=== PATIENT | male | born 1975 | race Caucasian/White ===

== ENCOUNTER 2016-09-25 23:59 | Inpatient (IN) | payer SELFPAY ==
[~2016-09-25] VITALS: Ht 182.9 cm; Wt 80.4 kg
[2016-09-26] VITALS (25 sets, daily range): BP systolic 95–108; BP diastolic 62–79; PULSE 64–110; RESP 16–18; TEMP 98.5–99.9; O2SAT 95–98
[2016-09-26] MEDS ORDERED: SODIUM CHLOR 0.9% 1000 ML INJ 1,000 ML IV ONE ×2 (01:08)
[2016-09-26] MEDS ORDERED: SODIUM CHLOR 0.9% 1000 ML INJ 700 ML IV ONE (01:08)
--- NOTE | 2016-09-26 01:25 | PD ---
HPI . Chills Chief Complaint: Chest Pain Time Seen by Provider: 01:06 Travel History International Travel<30 days: No Contact w/Intl Traveler<30days: No Traveled to known affect area: No History of Present Illness HPI Patient presents with multiple complaints including chest pain, back pain, abdominal pain and chills. He states that he has had symptoms for about 2 weeks and that the symptoms have waxed and waned. 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 He reports that he underwent aortic valve replacement in [place] in March. He states that he had been doing well until 2 weeks ago when symptoms recurred. He states that he had been a drug abuser but has not used for 3 years. He reports that symptoms are exacerbated by eating. He reports no relieving factors. He states that his symptoms are severe. 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 PFSH Past Medical History Bipolar Disorder: Yes Anxiety: Yes Diminished Hearing: No Hepatitis: Yes (c) Medical other: Yes (chronic back pain.) Schizophrenia: Yes Tetanus Vaccination: Unknown Influenza Vaccination: Yes Past Surgical History Thoracic Surgery: Yes (aortic valvue replacement.) Social History Alcohol Use: No Tobacco Use: Yes Substance Use: No (in the past.) Allergies-Medications (Allergen,Severity, Reaction): Coded Allergies: No Known Allergies (Unverified , 09/26/16) Review of Systems Except as stated in HPI: all other systems reviewed are Neg General / Constitutional: Positive: Chills Cardiovascular: Positive: Chest Pain or Discomfort Gastrointestinal: Positive: Abdominal Pain, Loss of Appetite, No: Nausea, Vomiting, Diarrhea Musculoskeletal: Positive: Pain (back pain) Physical Exam Narrative GENERAL: Patient speaks in a whispering, stuttering voice SKIN: Warm and dry. HEAD: Atraumatic. Normocephalic. EYES: Pupils equal and round. Extraocular movements are intact. ENT: No nasal bleeding or discharge. Mucous membranes pink and moist. NECK: Trachea midline. Neck is supple. CARDIOVASCULAR: Regular rate and rhythm. Heart sounds are normal. I did not hear a murmur. RESPIRATORY: No accessory muscle use. Lungs sound clear with good air movement throughout. Chest wall has a healed, relatively minimal surgical scar. GASTROINTESTINAL: Abdomen soft. Diffuse tenderness. Nondistended. MUSCULOSKELETAL: No obvious deformities. No edema. NEUROLOGICAL: Awake and alert. No obvious cranial nerve deficits. Motor grossly within normal limits. Normal speech. PSYCHIATRIC: Appropriate mood and affect; insight and judgment normal. Data Data Last Documented VS Vital Signs Date Time Temp Pulse Resp B/P Pulse Ox O2 Delivery O2 Flow Rate FiO2 09/26/16 00:23 98 24 93 Room Air 09/26/16 00:02 98.5 100/67 Orders Complete Blood Count With Diff (09/26/16 01:06) Comprehensive Metabolic Panel (09/26/16 01:06) Prothrombin Time / Inr (Pt) (09/26/16 01:06) Lactic Acid Sepsis Protocol (09/26/16 01:06) Lipase (09/26/16 01:06) Ckmb (Isoenzyme) Profile (09/26/16 01:06) Troponin I (09/26/16 01:06) Urinalysis - C+S If Indicated (09/26/16 01:06) Blood Culture (09/26/16 01:06) Chest, Single Ap (09/26/16 01:06) Blood Glucose (09/26/16 01:06) Ecg Monitoring (09/26/16 01:06) Iv Access Insert/Monitor (09/26/16 01:06) Oximetry (09/26/16 01:06) Oxygen Administration (09/26/16 01:06) Sodium Chlor 0.9% 1000 Ml Inj (Ns 1000 M (09/26/16 01:08) Sodium Chlor 0.9% 1000 Ml Inj (Ns 1000 M (09/26/16 01:08) Sodium Chlor 0.9% 1000 Ml Inj (Ns 1000 M (09/26/16 01:08) Drug Screen, Random Urine (09/26/16 01:10) Urine Culture (09/26/16 01:20) Blood Culture (09/26/16 03:51) Consult Cardiology (09/26/16 ) Admit Order (Ed Use Only) (09/26/16 ) Piperacil-Tazo 4.5 Gm Premix (Zosyn 4.5 (09/26/16 04:15) Vancomycin Inj (Vancomycin Inj) (09/26/16 04:15) Labs Laboratory Tests Test 09/26/16 09/26/16 01:00 01:20 White Blood Count 16.9 TH/MM3 Red Blood Count 5.16 MIL/MM3 Hemoglobin 12.5 GM/DL Hematocrit 38.6 % Mean Corpuscular Volume 74.9 FL Mean Corpuscular Hemoglobin 24.2 PG Mean Corpuscular Hemoglobin 32.4 % Concent Red Cell Distribution Width 15.5 % Platelet Count 312 TH/MM3 Mean Platelet Volume 7.5 FL Neutrophils (%) (Auto) 85.9 % Lymphocytes (%) (Auto) 8.4 % Monocytes (%) (Auto) 5.1 % Eosinophils (%) (Auto) 0.3 % Basophils (%) (Auto) 0.3 % Neutrophils # (Auto) 14.5 TH/MM3 Lymphocytes # (Auto) 1.4 TH/MM3 Monocytes # (Auto) 0.9 TH/MM3 Eosinophils # (Auto) 0.1 TH/MM3 Basophils # (Auto) 0.1 TH/MM3 CBC Comment AUTO DIFF Differential Comment AUTO DIFF CONFIRMED Platelet Estimate NORMAL Platelet Morphology Comment NORMAL Target Cells 1+ Prothrombin Time 12.0 SEC Prothromb Time International 1.1 RATIO Ratio Sodium Level 134 MEQ/L Potassium Level 4.3 MEQ/L Chloride Level 98 MEQ/L Carbon Dioxide Level 29.0 MEQ/L Anion Gap 7 MEQ/L Blood Urea Nitrogen 12 MG/DL Creatinine 1.06 MG/DL Estimat Glomerular Filtration 77 ML/MIN Rate Random Glucose 135 MG/DL Lactic Acid Level 1.6 mmol/L Calcium Level 9.7 MG/DL Total Bilirubin 0.5 MG/DL Aspartate Amino Transf 19 U/L (AST/SGOT) Alanine Aminotransferase 20 U/L (ALT/SGPT) Alkaline Phosphatase 91 U/L Total Creatine Kinase 47 U/L Troponin I 0.15 NG/ML Total Protein 7.9 GM/DL Albumin 2.9 GM/DL Lipase 69 U/L Urine Color YELLOW Urine Turbidity HAZY Urine pH 6.5 Urine Specific [place] 1.020 Urine Protein 30 mg/dL Urine Glucose (UA) NEG mg/dL Urine Ketones NEG mg/dL Urine Occult Blood MOD Urine Nitrite NEG Urine Bilirubin NEG Urine Urobilinogen LESS THAN 2.0 MG/DL Urine Leukocyte Esterase NEG Urine RBC 50 /hpf Urine WBC 5 /hpf Urine Squamous Epithelial <1 /hpf Cells Urine Amorphous Sediment RARE Urine Bacteria OCC /hpf Microscopic Urinalysis Comment CATH-CULTURE IND Urine Opiates Screen NEG Urine Barbiturates Screen NEG Urine Amphetamines Screen NEG Urine Benzodiazepines Screen NEG Urine Cocaine Screen NEG Urine Cannabinoids Screen NEG MDM Medical Decision Making Medical Screen Exam Complete: Yes Emergency Medical Condition: Yes Medical Record Reviewed: Yes (patient has not been seen here before.) Differential Diagnosis Differential diagnosis includes sepsis, SBE, pneumonia, attention or drug- seeking behavior. Narrative Course Patient presents with multiple complaints including chest pain, abdominal pain, back pain, chills. He reports a history of IV drug abuse but states that he has been clean for 3 years. He further reports a history of SBE and is status post aortic valve replacement due to SBE. CBC & BMP Diagram 09/26/16 01:00 Lactic acid is 1.6. Troponin is 0.15. Tox screen is negative. UA is negative. Chest x-ray shows by basilar atelectasis. He has some mild cardiomegaly. Median sternotomy wires are seen. A prosthetic valve is not clearly visible. Sepsis Criteria SIRS Criteria (2 or more): Heart rate over 90, RR > 20 or PaCO2 < 32, WBC > 10462, < 4000 or > 10% bands Physician Communication Physician Communication Dr. Light and Dr. Trinh. Dr. Trinh's team will see the patient in the morning. Diagnosis Primary Impression: SIRS (systemic inflammatory response syndrome) Additional Impression: Elevated troponin Admitting Information Admitting Physician Requests: Admit Condition: Stable Chichi Garrison MD Sep 26, 2016 01:25
[2016-09-26 01:57] LABS: AUTOMATED NEUTROPHIL # 14.5 TH/MM3 (1.8-7.7); BASOPHIL # 0.1 TH/MM3 (0-0.2); BASOPHIL % 0.3 % (0.0-2.0); EOSINOPHIL # 0.1 TH/MM3 (0-0.4); EOSINOPHIL % 0.3 % (0.0-4.0); HEMATOCRIT 38.6 % (39.0-51.0); LYMPH % 8.4 % (9.0-44.0); LYMPHOCYTE # 1.4 TH/MM3 (1.0-4.8); MEAN CELL VOLUME 74.9 FL (80.0-100.0); MEAN CORPUSCULAR HEMOGLOBIN 24.2 PG (27.0-34.0); MEAN CORPUSCULAR HGB CONC 32.4 % (32.0-36.0); MONO % 5.1 % (0.0-8.0); NEUT % 85.9 % (16.0-70.0); PLATELET COUNT 312 TH/MM3 (150-450); RED BLOOD COUNT 5.16 MIL/MM3 (4.50-5.90); RED CELL DISTRIBUTION WIDTH 15.5 % (11.6-17.2); WHITE BLOOD COUNT 16.9 TH/MM3 (4.0-11.0)
[2016-09-26 01:58] LABS: INTERNATIONAL NORMALIZED RATIO 1.1 RATIO
[2016-09-26 02:02] LABS: BACTERIA, URINE OCC /hpf; BLOOD, URINE MOD (NEG); COMMENT (UR) CATH-CULTURE IND; CULTURE IF INDICATED CATH CULTURE IND; GLUCOSE,URINE NEG (NEG); KETONE, URINE NEG (NEG); NITRITE,URINE NEG (NEG); PH, URINE 6.5 (5.0-8.5); SQUAMOUS EPITHELIAL CELL URINE <1 /hpf (0-5); URINE COLOR YELLOW (YELLW/STRAW)
[2016-09-26 02:03] LABS: HEMO FLAGS AUTO DIFF
[2016-09-26 02:17] LABS: ALT (GPT) 20 U/L (12-78); ANION GAP 7 MEQ/L (5-15); AST (GOT) 19 U/L (15-37); BLOOD UREA NITROGEN 12 MG/DL (7-18); CHLORIDE 98 MEQ/L (98-107); GLOMERULAR FILTRATION RATE 77 ML/MIN (>89); POTASSIUM 4.3 MEQ/L (3.5-5.1); SODIUM (NA) 134 MEQ/L (136-145)
[2016-09-26 02:31] LABS: ALKALINE PHOSPHATASE 91 U/L (45-117); TOTAL BILIRUBIN ADULT 0.5 MG/DL (0.2-1.0)
--- NOTE | 2016-09-26 02:31 | RADRPT ---
EXAM DATE/TIME: 09/26/2016 01:11 [facility] COMPARISON: No previous studies available for comparison. INDICATIONS : Chest pain. MEDICAL HISTORY : Hepatitis C. SURGICAL HISTORY : Aortic valve replacment. ENCOUNTER: Initial ACUITY: 3 weeks PAIN SCORE: 7/10 LOCATION: Bilateral chest FINDINGS: The cardiac silhouette is enlarged in transverse diameter. Median sternotomy wires are present. There is bibasilar atelectasis. No pleural effusions are identified. CONCLUSION: 1. Bibasilar atelectasis left greater than right. Gordon Odell MD on September 26, 2016 at 2:29 Board Certified Radiologist. This report was verified electronically.
[2016-09-26 02:38] LABS: CREATINE KINASE 47 U/L (39-308)
[2016-09-26 02:45] LABS: AMPHETAMINE, URINE NEG (NEG); BARBITURATES, URINE NEG (NEG); COCAINE, URINE NEG (NEG)
[2016-09-26 03:28] LABS: SCAN/DIFF AUTO DIFF CONFIRMED
[2016-09-26 03:30] LABS: PLATELET ESTIMATE SMEAR NORMAL (NORMAL); TARGET CELLS 1+ (NORMAL)
[2016-09-26 03:31] LABS: PLATELET MORPHOLOGY NORMAL (NORMAL)
[2016-09-26] MEDS ORDERED: VANCOMYCIN INJ 1,000 MG in SODIUM CHLOR 0.9% 250 ML INJ 250 ML IV ONE (04:15)
[2016-09-26] MEDS ORDERED: BISACODYL 10 MG SUPP RECTAL PRN (04:15)
[2016-09-26] MEDS ORDERED: ONDANSETRON HCL 4 MG/2 ML VIAL IVP PRN (04:15)
[2016-09-26] MEDS ORDERED: PIPERACIL-TAZO 4.5 GM PREMIX 100 ML IV ONE (04:15)
[2016-09-26] MEDS ORDERED: Vancomycin Consult Pharmacy 1 EA OTHER SCH (04:15)
[2016-09-26] MEDS ORDERED: MORPHINE SULFATE 4 MG/ML INJ IV PRN (04:15)
[2016-09-26] MEDS ORDERED: NITROGLYCERIN 2% OINT 1 GM PACKET TOPICAL PRN (04:45)
[2016-09-26] MEDS ORDERED: PANTOPRAZOLE SODIUM 40 MG VIAL IV PUSH ONE (04:45)
[2016-09-26] MEDS: SODIUM CHLOR 0.9% 1000 ML INJ 1,000 ML IV SCH (04:46)
--- NOTE | 2016-09-26 04:57 | HHI.HP ---
[facility] Service [facility] Primary Care Physician No Primary Care Physician Admission Diagnosis chest pain, r/o PVE Diagnoses: (1) Elevated troponin Diagnosis: Principal (2) Dehydration Diagnosis: Principal (3) Hematuria Diagnosis: Principal (4) Leukocytosis Diagnosis: Principal (5) Tobacco abuse Diagnosis: Principal Travel History International Travel<30 Days: No Contact w/Intl Traveler <30 Da: No Traveled to Known Affected Are: No History of Present Illness This is a 41-year-old male with a PMH of Anxiety, Schizophrenia/Bipolar Disorder , Hepatitis C, h/o IVDU and h/o Endocarditis s/p AVR who presented to the ER w / complaints of epigastric/chest pain and SOB x2 wks. States he had similar episode in March 2016 when he was admitted in [place], [place] where he lives and diagnosed w/ Endocarditis. Underwent AVR at that time, no complications from surgery. Reports in [facility] visiting step-father. Plans to return to [place], however does not follow w/ [facility], only PCP. States symptoms have been intermittent x2 wks, mostly epigastric and right-sided chest pain w/ associated chest tightness. Denies recent IVDU. On arrival, BP 100/67, HR 100, O2 sat 98 % on RA, Afebrile. WBC 16.9. GFR 77. Lactic Acid 1.6. Troponin 0.15. INR 1.1. Urine Drug Screen negative. UA negative for UTI, positive for hematuria. CXR with bibasilar atelectasis left greater than right. Review of Systems Except as stated in HPI: all other systems reviewed are Neg ROS: 14 point review of systems otherwise negative. Past Family Social History Past Medical History PMH: Anxiety, Schizophrenia/Bipolar Disorder, Hepatitis C, h/o IVDU and h/o Endocarditis s/p AVR Past Surgical History PAST SURGICAL HISTORY: Aortic Valve Replacement Allergies: Coded Allergies: No Known Allergies (Unverified , 09/26/16) Family History PAST FAMILY HISTORY: Reviewed. No h/o DM or CAD Social History PAST SOCIAL HISTORY: Negative for alcohol. Positive for tobacco. History of IVDU, however quit 3 years ago. Physical Exam Vital Signs Vital Signs Date Time Temp Pulse Resp B/P Pulse Ox O2 Delivery O2 Flow Rate FiO2 09/26/16 00:23 98 24 93 Room Air 09/26/16 00:02 98.5 100 16 100/67 98 Room Air Physical Exam PE: GENERAL: Middle-aged white male in no acute distress, however mildly anxious/ tearful. HEENT: PERRLA, EOMI. No scleral icterus or conjunctival pallor. No lid lag or facial droop. CARDIOVASCULAR: Regular rate and rhythm. No obvious murmurs to auscultation. No chest tenderness to palpation. RESPIRATORY: No obvious rhonchi or wheezing. Clear to auscultation. Breath sounds equal bilaterally. GASTROINTESTINAL: Abdomen soft, non-tender, nondistended. BS normal. MUSCULOSKELETAL: Extremities without clubbing, cyanosis, or edema. No obvious deformities. NEUROLOGICAL: Awake, alert and oriented x4. No focal neurologic deficits. Moving both upper and lower extremities spontaneously. Laboratory Laboratory Tests Test 09/26/16 09/26/16 01:00 01:20 White Blood Count 16.9 Red Blood Count 5.16 Hemoglobin 12.5 Hematocrit 38.6 Mean Corpuscular Volume 74.9 Mean Corpuscular Hemoglobin 24.2 Mean Corpuscular Hemoglobin 32.4 Concent Red Cell Distribution Width 15.5 Platelet Count 312 Mean Platelet Volume 7.5 Neutrophils (%) (Auto) 85.9 Lymphocytes (%) (Auto) 8.4 Monocytes (%) (Auto) 5.1 Eosinophils (%) (Auto) 0.3 Basophils (%) (Auto) 0.3 Neutrophils # (Auto) 14.5 Lymphocytes # (Auto) 1.4 Monocytes # (Auto) 0.9 Eosinophils # (Auto) 0.1 Basophils # (Auto) 0.1 CBC Comment AUTO DIFF Differential Comment AUTO DIFF CONFIRMED Platelet Estimate NORMAL Platelet Morphology Comment NORMAL Target Cells 1+ Prothrombin Time 12.0 Prothromb Time International 1.1 Ratio Sodium Level 134 Potassium Level 4.3 Chloride Level 98 Carbon Dioxide Level 29.0 Anion Gap 7 Blood Urea Nitrogen 12 Creatinine 1.06 Estimat Glomerular Filtration 77 Rate Random Glucose 135 Lactic Acid Level 1.6 Calcium Level 9.7 Total Bilirubin 0.5 Aspartate Amino Transf 19 (AST/SGOT) Alanine Aminotransferase 20 (ALT/SGPT) Alkaline Phosphatase 91 Total Creatine Kinase 47 Troponin I 0.15 Total Protein 7.9 Albumin 2.9 Lipase 69 Urine Color YELLOW Urine Turbidity HAZY Urine pH 6.5 Urine Specific [place] 1.020 Urine Protein 30 Urine Glucose (UA) NEG Urine Ketones NEG Urine Occult Blood MOD Urine Nitrite NEG Urine Bilirubin NEG Urine Urobilinogen LESS THAN 2.0 Urine Leukocyte Esterase NEG Urine RBC 50 Urine WBC 5 Urine Squamous Epithelial <1 Cells Urine Amorphous Sediment RARE Urine Bacteria OCC Microscopic Urinalysis Comment CATH-CULTURE IND Urine Opiates Screen NEG Urine Barbiturates Screen NEG Urine Amphetamines Screen NEG Urine Benzodiazepines Screen NEG Urine Cocaine Screen NEG Urine Cannabinoids Screen NEG Date/Time Procedure Status Source Growth 09/26/16 01:20 Urine Culture Received Urine Catheterized Urine Pending 09/26/16 01:00 Aerobic Blood Culture Received Blood Peripheral Pending 09/26/16 01:00 Anaerobic Blood Culture Received Blood Peripheral Pending Result Diagram: 09/26/169909/26/1699 Assessment and Plan Problem List: (1) Elevated troponin ICD Code: R74.8 Status: Acute (2) Dehydration ICD Code: E86.0 Status: Acute (3) Leukocytosis ICD Code: D72.829 Status: Acute (4) Hematuria ICD Code: R31.9 Status: Acute (5) Tobacco abuse ICD Code: Z72.0 Status: Acute Assessment and Plan A/P: 1. Elevated Trop: Trop 0.15, complains of chest pain x2 wks w/ associated SOB. H/o AVR secondary to Endocarditis from IVDU in March. Will admit to [facility] , Telemetry, check serial cardiac enzymes for trend. Cardiology consulted by ER physician. Resume home Metoprolol, Lisinopril and ASA. 2. Leukocytosis: WBC 16.9, afebrile. CXR w/ bibasilar atelectasis, no obvious infiltrate, images reviewed by me. H/o Endocarditis, concern for recurrence, s/p Blood Cultures in ER, will follow up cultures. Vanc/Zosyn in ER , will continue w/ IV Abx. Repeat labs in am. 3. Dehydration: GFR 77, BUN/Creatinine normal, U/a negative for LE, IVF for hydration, repeat labs in am. 4. Hematuria: U/a w/ hematuria, mild bacteriuria, follow up Urine Culture. IVF for hydration, continue w/ IV Abx as above. Pt instructed to follow up w/ PCP when he returns to [place] for repeat U/a to eval for persistent hematuria. 5. Tobacco Abuse: Pt counselled. Ativan prn. No NicoDerm to avoid vasoconstriction. 6. DVT Prophylaxis: SCD/teds. 7. Social work for DC planning as needed. 8. Case discussed at length the ER physician. Physician Certification 2 Midnight Certification Type: Admission for Inpatient Services Order for Inpatient Services The services are ordered in accordance with Medicare regulations or non- Medicare payer requirements, as applicable. In the case of services not specified as inpatient-only, they are appropriately provided as inpatient services in accordance with the 2-midnight benchmark. Estimated LOS (days): 2 days is the estimated time the patient will need to remain in the hospital, assuming treatment plan goals are met and no additional complications. Post-Hospital Plan: Not yet determined Ritu Light MD Sep 26, 2016 04:57
[2016-09-26] MEDS ORDERED: RESP: ALBUTEROL 2.5 MG/IPRATROPIUM 0.5 MG NEB (PRN) NEB (05:00)
[2016-09-26] MEDS ORDERED: LISI2.5T3 PO (06:28)
[2016-09-26] MEDS ORDERED: GABA300C5 PO (06:30)
[2016-09-26] MEDS ORDERED: METO25TA3 PO (06:30)
[2016-09-26] MEDS ORDERED: TRAZ50TA12 PO (06:30)
[2016-09-26] MEDS: ASPIRIN EC 81 MG TABEC PO SCH (08:07)
[2016-09-26] MEDS: SODIUM CHLORIDE 0.9% FLUSH 10 ML FLUSH IV FLUSH SCH ×2 (08:08→20:00)
[2016-09-26] MEDS: LISINOPRIL 5 MG TAB PO SCH (08:08)
[2016-09-26] MEDS: METOPROLOL TARTRATE 25 MG TAB PO SCH ×2 (08:08→20:00)
[2016-09-26] MEDS: ACETAMINOPHEN/HYDROcodone 325 MG/5 MG TAB PO PRN ×3 (08:16→19:59)
[2016-09-26] MEDS ORDERED: DIATRIZOATE MEGLUM/DIATRIZOATE SOD 9 ML CUP PO ONE (09:15)
--- NOTE | 2016-09-26 09:53 | MB ---
cc: EVELIO GUTIERREZ MD DATE OF CONSULTATION: 09/26/2016 REASON FOR CONSULTATION Rule out endocarditis. HISTORY OF PRESENT ILLNESS The patient is a pleasant 41 year-old gentleman with a history of anxiety, schizophrenia, bipolar disorder, Hep C and remote IVDU but the patient says he has not done IV drugs in over 3 years. He also has a history of endocarditis with a relatively recent aortic valve replacement done last year due to endocarditis. He has been complaining of fever then chills as well as severe abdominal pain over the last 2 weeks, so he presented to the emergency department where he was found to have an elevated white count. Because of his history I was consulted. He does have chest discomfort at his sternal site as well as frequent episodes of lightheadedness and dizziness and fevers and chills. PAST MEDICAL HISTORY As above. CURRENT MEDICATIONS 1. Protonix. 2. Zosyn. 3. Lopressor 25 mg q. 12. 4. Lisinopril 2.5 mg daily. 5. Aspirin 81 mg daily. ALLERGIES NO KNOWN DRUG ALLERGIES. PHYSICAL EXAMINATION VITAL SIGNS: Temperature 99.9, pulse 90 down from 108, respiratory rate 18, BP 101/73, sating 96 on room air. GENERAL: A pleasant thin gentleman in no distress. NECK: No JVD. LUNGS: Clear to auscultation bilaterally. CARDIOVASCULAR: Regular rate and rhythm. A soft systolic murmur is appreciated. ABDOMEN: Abdomen is notably tender with some guarding and rebound present particularly in the right lower quadrant and epigastric area. EXTREMITIES: No edema. LABORATORY DATA Sodium 134, potassium 4.3, chloride 98, bicarb 29.0, BUN 12, creatinine 1.06, glucose 135, white count 16.9, hematocrit 38.6, platelets 312. EKG shows sinus rhythm with nonspecific ST changes. Troponin is in the indeterminate range of 0.15 with a normal total CPK. IMPRESSION 1. Systemic signs of infection with abdominal pain. Though the patient does have a history of endocarditis and certainly would be at risk for recurrent prosthetic valve endocarditis, I am more concerned with his acute abdomen. I have ordered a stat CT of the abdomen and pelvis with oral and IV contrast to rule out an acute abdominal process such as appendicitis. I had planned on performing a BEBETO today but given what appears to be an acute abdomen, I will hold off on this for now and have him undergo a routine transthoracic echocardiogram to get a sense on any obvious valvular infection which may be there. It is also not out of the question that he could have an embolic phenomena from endocarditis affecting his abdomen. Further recommendations will be based on his imaging tests. Thank you again for the opportunity to participate in this patient's care. MD STERLING Byrd/STEVENSON /9:04 AM /9:42 AM
[2016-09-26] MEDS ORDERED: IOHEXOL 350 MG/ML 10 ML VIAL (for RAD DIAG) IV ONE (09:59)
--- NOTE | 2016-09-26 10:58 | RADRPT ---
EXAM DATE/TIME: 09/26/2016 09:32 [facility] COMPARISON: No previous studies available for comparison. INDICATIONS : Lower abdomen pain. IV CONTRAST: 75 cc Omnipaque 350 (iohexol) IV ORAL CONTRAST: No oral contrast ingested. RADIATION DOSE: 5.54 CTDIvol (mGy) MEDICAL HISTORY : Hepatitis C. SURGICAL HISTORY : None. ENCOUNTER: Initial ACUITY: 1 day PAIN SCALE: 4/10 LOCATION: Bilateral lower quadrant TECHNIQUE: Volumetric scanning was performed using a multi-row detector CT scanner. The data was post processed with a variety of visualization algorithms including full volume maximum intensity projection, multi -planar sliding thin slab reformation, curved planar reformation, and surface rendering techniques. Using automated exposure control and adjustment of the mA and/or kV according to patient size, radiat ion dose was kept as low as reasonably achievable to obtain optimal diagnostic quality images. FINDINGS: ABDOMINAL AORTA: The lumen is smooth without significant narrowing or aneurismal dilation. The proximal celiac and sup erior mesenteric arteries are patent and normal in diameter. No definite filling defects are present to suggest an embolic episode. There are 2 renal arteries on the right and a solitary one on the left and completely patent. BIFURCATION: Normal. RIGHT PELVIS: The right common iliac, internal iliac and external iliac vessels are patent without luminal irregula rity. LEFT PELVIS: The left common iliac, internal iliac and external iliac vessels are patent and without luminal irreg ularity. There is left lung base infiltrate may represent pneumonia. Slight atelectasis is present in the right lung base. The liver, spleen, pancreas, kidneys, adrenals are unremarkable. The appendix is no t clearly visualized, however no definite signs of appendicitis is seen. CONCLUSION: Left lung base infiltrate may represent pneumonia. Matthieu Peña MD on September 26, 2016 at 10:55 Board Certified Radiologist. This report was verified electronically.
[2016-09-26] MEDS: PIPERACIL-TAZO 4.5 GM PREMIX 100 ML IV SCH ×3 (12:11→22:00)
[2016-09-26] MEDS: VANCOMYCIN INJ 1,500 MG in SODIUM CHLORID 0.9% 500 ML INJ 500 ML IV SCH (13:55)
--- NOTE | 2016-09-26 15:02 | EC ---
Study Study Date:09/26/2016 STUDY CONCLUSIONS SUMMARY - Left ventricle: The cavity size was normal. Wall thickness was normal. Systolic function was normal. The estimated ejection fraction was in the range of 55% to 60%. Wall motion was normal; there were no regional wall motion abnormalities. - Aortic valve: A bioprosthesis was present. No evidence of vegetation. Valve area: 1.35cm^2(VTI). Valve area: 1.38cm^2 (Vmax). - Mitral valve: No evidence of vegetation. Mild to moderate regurgitation. - Tricuspid valve: No evidence of vegetation. Mild regurgitation. - Pulmonary arteries: PA peak pressure: 44mm Hg (S). - Pericardium, extracardiac: A small, loculated pericardial effusion was identified posterior to the heart. There was no evidence of hemodynamic compromise. If LV function is below 40, please consider prescribing an ACEI or ARB or document rationale for non-use. PROCEDURE DATA STUDY STATUS: Elective. Procedure: Transthoracic echocardiography. Image quality was good. Scanning was performed from the parasternal, apical, and subcostal acoustic windows. Study completion: The patient tolerated the procedure well. Transthoracic echocardiography. M-mode, complete 2D, complete spectral Doppler, and color Doppler. Height: Height: 72in. Weight: Weight: 186.6lb. Body mass index: BMI: 25.4kg/m^2. Body surface area: BSA: 2.07m^2. Patient status: Inpatient. CARDIAC ANATOMY LEFT VENTRICLE: The cavity size was normal. Wall thickness was normal. Systolic function was normal. The estimated ejection fraction was in the range of 55% to 60%. Wall motion was normal; there were no regional wall motion abnormalities. AORTIC VALVE: Well visualized. Normal thickness leaflets. A bioprosthesis was present. No evidence of vegetation. Doppler: Transvalvular velocity was within the normal range. There was no stenosis. No regurgitation. Valve area: 1.35cm^2(VTI). Indexed valve area: 0.65cm^2/m^2 (VTI). Valve area: 1.38cm^2 (Vmax). Indexed valve area: 0.67cm^2/m^2 (Vmax). Mean gradient: 27mm Hg (S). Peak gradient: 42mm Hg (S). AORTA: Aortic root: The aortic root was normal in size. MITRAL VALVE: Structurally normal valve. No evidence of vegetation. Doppler: Transvalvular velocity was within the normal range. There was no evidence for stenosis. Mild to moderate regurgitation. Peak gradient: 5mm Hg (D). LEFT ATRIUM: The atrium was normal in size. RIGHT VENTRICLE: The cavity size was normal. Wall thickness was normal. PULMONIC VALVE: Doppler: Transvalvular velocity was within the normal range. There was no evidence for stenosis. No regurgitation. TRICUSPID VALVE: Structurally normal valve. No evidence of vegetation. Doppler: Transvalvular velocity was within the normal range. Mild regurgitation. PULMONARY ARTERY: The main pulmonary artery was normal-sized. Systolic pressure was within the normal range. RIGHT ATRIUM: The atrium was normal in size. PERICARDIUM: A small, loculated pericardial effusion was identified posterior to the heart. There was no evidence of hemodynamic compromise. SYSTEMIC VEINS: Inferior vena cava: The vessel was normal in size. Patient weight: 186.6lb _Ejection fraction:_ 65-75% _Fractional shortening:_ 32% up to 5Kg 5-11.5Kg 11.6-22.9Kg 23-45Kg 45-57Kg Aortic Root 7-13 <17 13-22 17-27 17-27 LA diam 6-13 <23 24-38 33-47 37-40 RVID 10-17 7-15 7-15 7-18 8-17 LVIDd 12-22 <32 24-38 33-47 37-40 LVPW 2-4 3-6 5-7 6-8 7-8 IVS 2-4 3-6 5-7 6-8 7-8 BASIC MEASUREMENTS ADULT NORMAL Left ventricle LV internal dimension, ED, chordal 50.2 mm 43-52 level, PLAX LV internal dimension, ES, chordal 37.5 mm 23-38 level, PLAX Fractional shortening, chordal level, *25 % >29 PLAX LV posterior wall thickness, ED 7.23 mm IVS/LVPW ratio, ED 0.98 <1.3 Ventricular septum Septal thickness, ED 7.12 mm Aorta Root diameter, ED 29 mm Right ventricle RV internal dimension, ED, PLAX 34.3 mm 19-38 DOPPLER MEASUREMENTS ADULT NORMAL Main pulmonary artery Pressure, S *44 mm Hg =30 Aortic valve Peak velocity, S 335 cm/s Mean velocity, S 245 cm/s VTI, S 68 cm Mean gradient, S 27 mm Hg Peak gradient, S 42 mm Hg Valve area, VTI 1.35 cm^2 Valve area index, VTI 0.65 cm^2/m^2 Valve area, Vmax 1.38 cm^2 Valve area index, Vmax 0.67 cm^2/m^2 Mitral valve Peak E-wave velocity 108 cm/s Peak A-wave velocity 72.1 cm/s Deceleration time *106 ms 150-230 Peak gradient, D 5 mm Hg Peak E/A ratio 1.5 Tricuspid valve Regurgitant peak velocity 296 cm/s Peak RV-RA gradient, S 35 mm Hg Maximal regurgitant velocity 296 cm/s Systemic veins Estimated CVP 10 mm Hg Right ventricle RV pressure, S *45 mm Hg <30 Pulmonic valve Peak velocity, S 58.7 cm/s LEGEND: Mean values are shown as u=mean value. Asterisk (*) aguilar values outside specified normal range. Prepared and signed by Elmo Trinh [id number]
--- NOTE | 2016-09-26 15:22 | EKG ---
Date Performed: 09/26/2016 Time Performed: 00:28:24 PTAGE: 41 years EKG: Sinus rhythm NORMAL ECG NO PREVIOUS TRACING DOCTOR: Marcel Aceves Interpretating Date/Time 09/26/2016 15:21:31
[2016-09-26] MEDS: PANTOPRAZOLE SODIUM 40 MG VIAL IV PUSH SCH (20:00)
[2016-09-27] VITALS (26 sets, daily range): BP systolic 89–108; BP diastolic 60–76; PULSE 67–100; RESP 18; TEMP 98.3–99.7; O2SAT 96–99
[2016-09-27] MEDS: VANCOMYCIN INJ 1,500 MG in SODIUM CHLORID 0.9% 500 ML INJ 500 ML IV SCH ×2 (02:35→14:26)
[2016-09-27 04:03] LABS: AUTOMATED NEUTROPHIL # 9.9 TH/MM3 (1.8-7.7); BASOPHIL % 0.3 % (0.0-2.0); EOSINOPHIL # 0.1 TH/MM3 (0-0.4); EOSINOPHIL % 0.5 % (0.0-4.0); LYMPH % 14.1 % (9.0-44.0); LYMPHOCYTE # 1.8 TH/MM3 (1.0-4.8); MEAN CELL VOLUME 73.5 FL (80.0-100.0); MEAN CORPUSCULAR HEMOGLOBIN 24.7 PG (27.0-34.0); MEAN CORPUSCULAR HGB CONC 33.6 % (32.0-36.0); MONO % 8.2 % (0.0-8.0); NEUT % 76.9 % (16.0-70.0); PLATELET COUNT 275 TH/MM3 (150-450); RED BLOOD COUNT 4.22 MIL/MM3 (4.50-5.90); RED CELL DISTRIBUTION WIDTH 15.1 % (11.6-17.2); WHITE BLOOD COUNT 12.9 TH/MM3 (4.0-11.0)
[2016-09-27 04:07] LABS: HEMO FLAGS AUTO DIFF
[2016-09-27 04:25] LABS: ALKALINE PHOSPHATASE 65 U/L (45-117); ALT (GPT) 14 U/L (12-78); ANION GAP 7 MEQ/L (5-15); AST (GOT) 13 U/L (15-37); BICARBONATE 25.7 MEQ/L (21.0-32.0); BLOOD UREA NITROGEN 9 MG/DL (7-18); CHLORIDE 103 MEQ/L (98-107); GLOMERULAR FILTRATION RATE 82 ML/MIN (>89); POTASSIUM 4.2 MEQ/L (3.5-5.1); SODIUM (NA) 136 MEQ/L (136-145); TOTAL BILIRUBIN ADULT 0.5 MG/DL (0.2-1.0)
[2016-09-27 04:32] LABS: BANDS 2 % (0-6); EOSINOPHILS 2 % (0-4); METAMYELOCYTES 5 % (0-1); NEUTROPHIL # MANUAL DIFF 11.4 TH/MM3 (1.8-7.7); POLYS (SEG NEUTROPHILS) 80 % (16-70); PROMYELOCYTES 1 % (0-0); WBC DIFF SAMPLE 100
[2016-09-27 04:34] LABS: OVALOCYTES 1+ (NORMAL); PLATELET ESTIMATE SMEAR NORMAL (NORMAL); PLATELET MORPHOLOGY NORMAL (NORMAL); SCAN/DIFF FINAL DIFF MANUAL
[2016-09-27] MEDS: PIPERACIL-TAZO 4.5 GM PREMIX 100 ML IV SCH ×2 (04:35→10:17)
[2016-09-27] MEDS: ACETAMINOPHEN/HYDROcodone 325 MG/5 MG TAB PO PRN ×4 (06:06→22:11)
[2016-09-27] MEDS ORDERED: PROPOFOL 200 MG/20 ML AMP IV ONE (08:13)
--- NOTE | 2016-09-27 08:43 | PD.CARD.PN ---
Subjective Subjective Remarks Pt feels well, no complaints. Objective Medications Administered Medications Medications (Trade) Dose Ordered Sig/Santos Route PRN Reason Start Time Stop Time Status Last Admin Dose Admin Piperacillin Sod/ Tazobactam Sod 100 ml @ 200 mls/hr Q6H IV 09/26/16 10:00 09/27/16 04:35 Sodium Chloride (NS 1000 ml Inj) 1,000 ml @ 100 mls/hr Q10H IV 09/26/16 04:15 09/26/16 04:46 Sodium Chloride (NS Flush) 2 ml BID IV FLUSH 09/26/16 09:00 09/26/16 20:00 Acetaminophen/ Hydrocodone Bitart ([place] 5-325 Mg) 1 tab Q4H PRN PO PAIN SCALE 3 TO 5 09/26/16 04:15 09/27/16 06:06 Pantoprazole Sodium (Protonix Inj) 40 mg Q12H IV PUSH 09/26/16 21:00 09/26/16 20:00 Aspirin 81 mg 81 mg DAILY PO 09/26/16 09:00 09/26/16 08:07 Vancomycin HCl/ Sodium Chloride (Vancomycin Inj/ NS 500 ml Inj) 515 ml @ 250 mls/hr Q12H IV 09/26/16 14:00 09/27/16 02:35 Vital Signs / I&O Vital Signs Date Time Temp Pulse Resp B/P Pulse Ox O2 Delivery O2 Flow Rate FiO2 09/27/16 08:14 91 09/27/16 07:15 98.9 96 18 89/65 96 09/27/16 07:00 98 09/27/16 04:35 99.0 94 18 106/76 96 09/27/16 04:00 84 09/27/16 03:00 87 09/27/16 02:00 88 09/27/16 01:00 90 09/27/16 00:00 94 09/26/16 23:03 99.1 98 18 95/70 96 09/26/16 23:00 99 09/26/16 22:00 104 09/26/16 21:00 110 09/26/16 20:00 106 09/26/16 19:10 99.0 89 18 108/79 96 09/26/16 19:00 94 09/26/16 18:01 92 09/26/16 17:01 79 09/26/16 16:00 92 09/26/16 15:01 98.9 83 16 101/74 98 09/26/16 15:00 84 09/26/16 15:00 16 09/26/16 14:00 90 09/26/16 13:00 90 09/26/16 12:00 92 09/26/16 11:00 64 09/26/16 10:00 78 09/26/16 09:00 86 I/O 09/26/16 09/26/16 09/26/16 09/27/16 09/27/16 09/27/16 07:00 15:00 23:00 07:00 15:00 23:00 Intake Total 2700 ml 1935 ml 240 ml Output Total 1075 ml 1200 ml Balance 2700 ml 860 ml -960 ml Intake Oral 480 ml 240 ml IV Total 2700 ml 1455 ml Output Urine Total 1075 ml 1200 ml # Voids 3 # Bowel Movements 0 Physical Exam GENERAL: This is a well-nourished, well-developed patient, in no apparent distress. CARDIOVASCULAR: Regular rate and rhythm without murmurs, gallops, or rubs. RESPIRATORY: Clear to auscultation. Breath sounds equal bilaterally. No wheezes , rales, or rhonchi. GASTROINTESTINAL: Abdomen soft, non-tender, nondistended. Normal active bowel sounds MUSCULOSKELETAL: Extremities without clubbing, cyanosis, or edema. NEURO: Alert & Oriented x4 to person, place, time, situation. Moves all ext x4 Laboratory Laboratory Tests Test 09/26/16 09/26/16 09/27/16 10:17 15:48 03:31 Troponin I 0.13 NG/ML 0.13 NG/ML White Blood Count 12.9 TH/MM3 Red Blood Count 4.22 MIL/MM3 Hemoglobin 10.4 GM/DL Hematocrit 31.0 % Mean Corpuscular Volume 73.5 FL Mean Corpuscular Hemoglobin 24.7 PG Mean Corpuscular Hemoglobin 33.6 % Concent Red Cell Distribution Width 15.1 % Platelet Count 275 TH/MM3 Mean Platelet Volume 7.0 FL Neutrophils (%) (Auto) 76.9 % Lymphocytes (%) (Auto) 14.1 % Monocytes (%) (Auto) 8.2 % Eosinophils (%) (Auto) 0.5 % Basophils (%) (Auto) 0.3 % Neutrophils # (Auto) 9.9 TH/MM3 Lymphocytes # (Auto) 1.8 TH/MM3 Monocytes # (Auto) 1.1 TH/MM3 Eosinophils # (Auto) 0.1 TH/MM3 Basophils # (Auto) 0.0 TH/MM3 CBC Comment AUTO DIFF Differential Total Cells 100 Counted Neutrophils % (Manual) 80 % Band Neutrophils % 2 % Lymphocytes % 9 % Monocytes % 1 % Eosinophils % 2 % Neutrophils # (Manual) 11.4 TH/MM3 Metamyelocytes 5 % Promyelocytes 1 % Differential Comment FINAL DIFF MANUAL Platelet Estimate NORMAL Platelet Morphology Comment NORMAL Ovalocytes 1+ Sodium Level 136 MEQ/L Potassium Level 4.2 MEQ/L Chloride Level 103 MEQ/L Carbon Dioxide Level 25.7 MEQ/L Anion Gap 7 MEQ/L Blood Urea Nitrogen 9 MG/DL Creatinine 1.00 MG/DL Estimat Glomerular Filtration 82 ML/MIN Rate Random Glucose 94 MG/DL Calcium Level 8.6 MG/DL Total Bilirubin 0.5 MG/DL Aspartate Amino Transf 13 U/L (AST/SGOT) Alanine Aminotransferase 14 U/L (ALT/SGPT) Alkaline Phosphatase 65 U/L Total Protein 6.0 GM/DL Albumin 2.0 GM/DL Imaging Last Impressions Chest X-Ray 09/26/16 0106 Signed Impressions: Service Date/Time: Monday, September 26, 2016 01:11 - CONCLUSION: 1. Bibasilar atelectasis left greater than right. Gordon Odell MD Abdomen/Pelvis CT 09/26/16 0000 Signed Impressions: Service Date/Time: Monday, September 26, 2016 09:32 - CONCLUSION: Left lung base infiltrate may represent pneumonia. Matthieu Peña MD Assessment and Plan Problem List: (1) Leukocytosis Assessment and Plan: ? from PNA, he feels better, blood cultures negative, Aortic valve was well visualized on TTE w/o any signs of vegetation, thus at this time do not feel a BEBETO is required (2) Elevated troponin Assessment and Plan: non-specific, not consistent with ACS, presumably he had some ischemic w/u prior to his recent AVR, will try to get records, but in the absence of chest pain wouldn't repeat (3) Tobacco abuse Assessment and Plan If he ambulates and is asymptomatic, and if we can get records from [facility] where he had his surgery, he could likely be d/c'd. Elmo Trinh MD Sep 27, 2016 08:43
--- NOTE | 2016-09-27 09:20 | HHI.PR ---
Subjective Remarks The patient was resting in bed comfortably. His stepfather called him on the phone and I talked with him about the patient's circumstances. The patient says he has upper abdominal pain and some shortness of breath. He says he is hungry. He says he has not used drugs except for marijuana in a while. Discussed with nursing. Objective Vitals Vital Signs Date Time Temp Pulse Resp B/P Pulse Ox O2 Delivery O2 Flow Rate FiO2 09/27/16 08:14 91 09/27/16 07:15 98.9 96 18 89/65 96 09/27/16 07:00 98 09/27/16 04:35 99.0 94 18 106/76 96 09/27/16 04:00 84 09/27/16 03:00 87 09/27/16 02:00 88 09/27/16 01:00 90 09/27/16 00:00 94 09/26/16 23:03 99.1 98 18 95/70 96 09/26/16 23:00 99 09/26/16 22:00 104 09/26/16 21:00 110 09/26/16 20:00 106 09/26/16 19:10 99.0 89 18 108/79 96 09/26/16 19:00 94 09/26/16 18:01 92 09/26/16 17:01 79 09/26/16 16:00 92 09/26/16 15:01 98.9 83 16 101/74 98 09/26/16 15:00 84 09/26/16 15:00 16 09/26/16 14:00 90 09/26/16 13:00 90 09/26/16 12:00 92 09/26/16 11:00 64 09/26/16 10:00 78 I/O 09/26/16 09/26/16 09/26/16 09/27/16 09/27/16 09/27/16 07:00 15:00 23:00 07:00 15:00 23:00 Intake Total 2700 ml 1935 ml 240 ml Output Total 1075 ml 1200 ml Balance 2700 ml 860 ml -960 ml Intake Oral 480 ml 240 ml IV Total 2700 ml 1455 ml Output Urine Total 1075 ml 1200 ml # Voids 3 # Bowel Movements 0 Result Diagram: 09/27/16 0331 09/27/16 0331 Imaging Last Impressions Chest X-Ray 09/26/16 0106 Signed Impressions: Service Date/Time: Monday, September 26, 2016 01:11 - CONCLUSION: 1. Bibasilar atelectasis left greater than right. Gordon Odell MD Abdomen/Pelvis CT 09/26/16 0000 Signed Impressions: Service Date/Time: Monday, September 26, 2016 09:32 - CONCLUSION: Left lung base infiltrate may represent pneumonia. KBrenda Peña MD Objective Remarks GENERAL: Resting comfortably in bed. HEENT: PERRLA, EOMI. No scleral icterus or conjunctival pallor. No lid lag or facial droop. CARDIOVASCULAR: Regular rate and rhythm. Grade 2 systolic murmur appreciated. No chest tenderness to palpation. RESPIRATORY: No obvious rhonchi or wheezing. Clear to auscultation. Breath sounds equal bilaterally. GASTROINTESTINAL: Abdomen soft, non-tender, nondistended. BS normal. MUSCULOSKELETAL: Extremities without clubbing, cyanosis, or edema. No obvious deformities. NEUROLOGICAL: Awake, alert and oriented x4. No focal neurologic deficits. Moving both upper and lower extremities spontaneously. PSYCH: Flattened affect. Medications and IVs Current Medications Medications (Trade) Dose Ordered Sig/Santos Route Start Time Stop Time Status Last Admin Pharmacy Profile Note 0 ml @ 0 mls/hr UNSCH OTHER 09/26/16 04:15 Piperacillin Sod/ Tazobactam Sod 100 ml @ 200 mls/hr Q6H IV 09/26/16 10:00 09/27/16 04:35 (NS 1000 ml Inj) 1,000 ml @ 100 mls/hr Q10H IV 09/26/16 04:15 09/26/16 04:46 (NS Flush) 2 ml UNSCH PRN IV FLUSH 09/26/16 04:15 (NS Flush) 2 ml BID IV FLUSH 09/26/16 09:00 09/26/16 20:00 (Zofran Inj) 4 mg Q6H PRN IVP 09/26/16 04:15 (Dulcolax Supp) 10 mg DAILY PRN RECTAL 09/26/16 04:15 (Tylenol) 650 mg Q6H PRN PO 09/26/16 04:15 ([place] 5-325 Mg) 1 tab Q4H PRN PO 09/26/16 04:15 09/27/16 06:06 (Morphine Inj) 2 mg Q3H PRN IV 09/26/16 04:15 (Protonix Inj) 40 mg Q12H IV PUSH 09/26/16 21:00 09/26/16 20:00 (Nitroglycerin 2% Oint) 0.5 inch Q6HR PRN TOPICAL 09/26/16 04:45 (Lopressor) 25 mg Q12HR PO 09/26/16 09:00 (Prinivil) 2.5 mg DAILY PO 09/26/16 09:00 Aspirin 81 mg 81 mg DAILY PO 09/26/16 09:00 09/26/16 08:07 (Vancomycin Inj/ NS 500 ml Inj) 515 ml @ 250 mls/hr Q12H IV 09/26/16 14:00 09/27/16 02:35 Miscellaneous Information SPECIFIC LAB TO BE DRAWN:VANCOMY... ONCE ONCE .XX 09/28/16 01:45 09/28/16 01:46 (Pneumovax-23 Inj) 25 mcg ONCE ONCE IM 09/27/16 10:00 09/27/16 10:01 A/P Problem List: (1) Elevated troponin ICD Code: R74.8 Status: Acute (2) Dehydration ICD Code: E86.0 Status: Acute (3) Leukocytosis ICD Code: D72.829 Status: Acute (4) Hematuria ICD Code: R31.9 Status: Acute (5) Tobacco abuse ICD Code: Z72.0 Status: Acute Assessment and Plan PNA/ Elevated Trop Trop peaked at 0.15. WBC 16.9, afebrile. CXR w/ bibasilar atelectasis. Complains of upper abdominal/ chest pain x2 wks w/ associated SOB. 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 Cardiology consult appreciated. Echo unremarkable. CT abdomen with evidence of pneumonia on the left. - continue vancomycin and Zosyn. - blood cultures pending. - incentive spirometry. - oxygen and nebs as needed. - cardiology requested records from prior hospitalization. UTI/ Hematuria U/a w/ hematuria, mild bacteriuria. - follow up urine culture. - continue w/ IV Abx as above. - Pt instructed to follow up w/ PCP when he returns to [place] for repeat U/a to eval for persistent hematuria. Anemia Unsure of baseline. - check anemia labs, Hemoccult. Tobacco/ MJ abuse Pt counselled. - Ativan prn. No NicoDerm to avoid vasoconstriction. Homeless The pt is currently without resources. - case management consult placed. DVT Prophylaxis: SCD/teds. Discharge Planning Anticipate discharge in 1-2 days. Tu Mary DO Sep 27, 2016 09:20
[2016-09-27] MEDS ORDERED: PNEUMOCOCCAL POLYVALENT INJ 25 MCG/0.5 ML SYR IM ONE (10:00)
[2016-09-27] MEDS: ASPIRIN EC 81 MG TABEC PO SCH (10:13)
[2016-09-27] MEDS: METOPROLOL TARTRATE 25 MG TAB PO SCH ×2 (10:14→20:26)
[2016-09-27] MEDS: LISINOPRIL 5 MG TAB PO SCH (10:14)
[2016-09-27] MEDS: PANTOPRAZOLE SODIUM 40 MG VIAL IV PUSH SCH ×2 (10:15→22:11)
[2016-09-27] MEDS: SODIUM CHLORIDE 0.9% FLUSH 10 ML FLUSH IV FLUSH SCH ×2 (10:15→22:12)
[2016-09-27] MEDS: SODIUM CHLOR 0.9% 1000 ML INJ 1,000 ML IV SCH ×2 (10:16→22:12)
[2016-09-27 11:18] LABS: FERRITIN 569 NG/ML (26-388); TRANSFERRIN IRON PROFILE 117 MG/DL (200-360)
--- NOTE | 2016-09-27 12:31 | PD.CARD.PN ---
Assessment and Plan Problem List: (1) Leukocytosis (2) Elevated troponin (3) Tobacco abuse (4) Blood bacterial culture positive Assessment and Plan 1) Patient previously scheduled for BEBETO today, but blood cultures were negative... blood cultures just came back 4/4 positive for Gram positive cocci 2) Will plan for BEBETO today, discussed with the patient who is in agreement 3) ID consulted [place] DO Sep 27, 2016 12:31
[2016-09-27] MEDS ORDERED: PROZ40CA PO ×2 (16:04→16:19)
[2016-09-27] MEDS ORDERED: TRAM50TA PO (16:19)
[2016-09-27] MEDS ORDERED: ALPR0.5T3 PO (16:19)
--- NOTE | 2016-09-27 17:09 | PD.CONS ---
History of Present Illness Service Infectious disease Consult Requested By Dr Ashlee Mary Reason for Consult Evaluate patient with endocarditis Primary Care Physician No Primary Care Physician Diagnoses: History of Present Illness Patient seen and examined. Records reviewed. Patient is a 41-year-old male, presented to the hospital complaining of fever and chills. He apparently has been having problem with left-sided abdominal pain and midsternal chest pain over the last 2 weeks. The pain on his chest gets worse when he breathes. He denies any cough or any significant chest congestion. Denies any abdominal pain. Patient was with his stepfather, and he just bought a place here in [place], and they were driving down. They arrived Tuesday and apparently during the drive patient was having significant fever and chills. Patient was taken to the hospital for further evaluation and treatment. Patient had a history of endocarditis back in March 2016. This was treated in [place], and he underwent aortic valve replacement, followed by a very long course of IV antibiotics. They don't know what kind of bacteria caused infection, and also what kind of antibiotics he received. There was history of IV drug use but from the record he was supposedly not using in the last 3 years. There has been no GI or any urinary complaints. Imaging studies did not show any intra-abdominal pathology. Patient underwent BEBETO and there is a vegetation in his aortic prostatic valve. He also has blood culture that has gram-positive cocci in chains. His urine culture is growing enterococcus, although his urinalysis is unremarkable. Infectious disease consultation is requested to evaluate the patient. Review of Systems Constitutional: COMPLAINS OF: Fever, Chills Eyes: DENIES: Eye pain Ears, nose, mouth, throat: DENIES: Nasal discharge, Throat pain, Hoarseness, Ear Pain, Sinus Pain, Toothache Respiratory: DENIES: Cough, Sputum production, Shortness of breath Cardiovascular: COMPLAINS OF: Chest pain, DENIES: Palpitations, Syncope Gastrointestinal: COMPLAINS OF: Abdominal pain, DENIES: Diarrhea, Nausea, Vomiting, Difficulty Swallowing Genitourinary: DENIES: Dysuria, Nocturia Musculoskeletal: COMPLAINS OF: Muscle aches, Back pain, DENIES: Joint pain, Joint Swelling Integumentary: DENIES: Rash Immunologic/allergic: DENIES: Urticaria Neurologic: DENIES: Headache Psychiatric: COMPLAINS OF: Mood changes, DENIES: Hallucinations Past Family Social History Allergies: Coded Allergies: No Known Allergies (Unverified , 09/26/16) Past Medical History Anxiety Schizophrenia/Bipolar Disorder Hepatitis C X IVDU Hx Endocarditis s/p AVR Past Surgical History S/P AVR Mar 2016 Active Ordered Medications Tylenol prn Arthur prn Albuterol prn Aspirin Dulcolax prn Prinivil Lopressor Morphine prn Protonix Zosyn Vancomycin Social History Negative for alcohol. Positive for tobacco. History of IVDU, however quit 3 years ago. Physical Exam Vital Signs Vital Signs Date Time Temp Pulse Resp B/P Pulse Ox O2 Delivery O2 Flow Rate FiO2 09/27/16 10:00 82 09/27/16 09:00 84 09/27/16 08:14 91 09/27/16 07:15 98.9 96 18 89/65 96 09/27/16 07:00 98 09/27/16 04:35 99.0 94 18 106/76 96 09/27/16 04:00 84 09/27/16 03:00 87 09/27/16 02:00 88 09/27/16 01:00 90 09/27/16 00:00 94 09/26/16 23:03 99.1 98 18 95/70 96 09/26/16 23:00 99 09/26/16 22:00 104 09/26/16 21:00 110 09/26/16 20:00 106 09/26/16 19:10 99.0 89 18 108/79 96 09/26/16 19:00 94 09/26/16 18:01 92 Physical Exam GENERAL: This is a well-nourished, well-developed male, awake and alert, nontoxic appearing, in no apparent distress. SKIN: Warm and dry. No generalized rash or ecchymosis. No embolic lesions noted. HEAD: Atraumatic. Normocephalic. No temporal or scalp tenderness. EYES: Falcon conjunctivae, no petechia or hemorrhage. Pupils equal round and reactive. Extraocular motions intact. No scleral icterus. No injection or drainage. ENT: Nose without bleeding, or purulent drainage. Moist oral mucosa. No oral thrush noted. Throat without erythema, or exudate. Uvula midline. Airway patent. NECK: Trachea midline. No JVD or lymphadenopathy. Supple, nontender, no meningeal signs. CARDIOVASCULAR: Regular rate and rhythm, no pericardial rub. There is a systolic murmur heard at the base of the heart. RESPIRATORY: Clear to auscultation. Breath sounds equal bilaterally. No wheezes , rales, or rhonchi. No pleural rub. Has a well-healed sternal incision. GASTROINTESTINAL: Abdomen soft, nondistended, bowel sounds are present and normoactive, with left-sided abdominal tenderness. No guarding or rebound.. No hepato-splenomegaly, or palpable masses. MUSCULOSKELETAL: Extremities without clubbing, cyanosis, or edema. No joint tenderness, effusion, or edema noted. No calf tenderness. NEUROLOGICAL: Awake and alert. Cranial nerves II through XII intact. Five out of 5 muscle strength in all muscle groups. Normal speech. PSYCH: Flat affect. Cooperative LINE: PIV with no evidence of infection Laboratory Laboratory Tests Test 09/27/16 03:31 White Blood Count 12.9 Red Blood Count 4.22 Hemoglobin 10.4 Hematocrit 31.0 Mean Corpuscular Volume 73.5 Mean Corpuscular Hemoglobin 24.7 Mean Corpuscular Hemoglobin 33.6 Concent Red Cell Distribution Width 15.1 Platelet Count 275 Mean Platelet Volume 7.0 Neutrophils (%) (Auto) 76.9 Lymphocytes (%) (Auto) 14.1 Monocytes (%) (Auto) 8.2 Eosinophils (%) (Auto) 0.5 Basophils (%) (Auto) 0.3 Neutrophils # (Auto) 9.9 Lymphocytes # (Auto) 1.8 Monocytes # (Auto) 1.1 Eosinophils # (Auto) 0.1 Basophils # (Auto) 0.0 CBC Comment AUTO DIFF Differential Total Cells 100 Counted Neutrophils % (Manual) 80 Band Neutrophils % 2 Lymphocytes % 9 Monocytes % 1 Eosinophils % 2 Neutrophils # (Manual) 11.4 Metamyelocytes 5 Promyelocytes 1 Differential Comment FINAL DIFF MANUAL Platelet Estimate NORMAL Platelet Morphology Comment NORMAL Ovalocytes 1+ Sodium Level 136 Potassium Level 4.2 Chloride Level 103 Carbon Dioxide Level 25.7 Anion Gap 7 Blood Urea Nitrogen 9 Creatinine 1.00 Estimat Glomerular Filtration 82 Rate Random Glucose 94 Calcium Level 8.6 Iron Level 14 Total Iron Binding Capacity 164 Percent Iron Saturation 8.5 Ferritin 569 Total Bilirubin 0.5 Aspartate Amino Transf 13 (AST/SGOT) Alanine Aminotransferase 14 (ALT/SGPT) Alkaline Phosphatase 65 Total Protein 6.0 Albumin 2.0 Vitamin B12 Level 585 Folate 11.0 Date/Time Procedure Status Source Growth 09/27/16 12:44 Aerobic Blood Culture Received Blood Peripheral Pending 09/27/16 12:44 Anaerobic Blood Culture Received Blood Peripheral Pending 09/26/16 01:20 Urine Culture - Preliminary Resulted Urine Catheterized Urine Group D Enterococcus 09/26/16 01:00 Aerobic Blood Culture - Preliminary Resulted Blood Peripheral Streptococcus Species 09/26/16 01:00 Anaerobic Blood Culture - Preliminary Resulted Gram Positive Cocci Result Diagram: 09/27/16 0331 09/27/16 0331 Imaging RADIOLOGY STUDIES/FILMS REVIEWED Chest X-Ray 09/26/16 0106 Signed Impressions: Service Date/Time: Monday, September 26, 2016 01:11 - CONCLUSION: 1. Bibasilar atelectasis left greater than right. Gordon Odell MD Abdomen/Pelvis CT 09/26/16 0000 Signed Impressions: Service Date/Time: Monday, September 26, 2016 09:32 - CONCLUSION: Left lung base infiltrate may represent pneumonia. Matthieu Peña MD Assessment and Plan Assessment and Plan IMPRESSION PVE, S/P AVR - has (+) BC with Strep - BEBETO, with vegetation in his PV Has UC with Enterococcus, no complaints Chest pain, ? emboli, but his IE is left sided RECOMMENDATION Continue IV Vanco Add PCN G Stop Zosyn Get records from other hospital in [place] CT chest Follow C/S Monitor progress I will follow along with you Thank you for this consultation Discussed Condition With Explained plan to patient and step Dad D/W Rossana Beltran MD Sep 27, 2016 17:09
[2016-09-27] MEDS: PENICILLIN G POTASSIUM INJ 4,000,000 UNITS in SODIUM CHLORIDE 0.9% INJ 100 ML IV SCH ×2 (18:45→22:11)
--- NOTE | 2016-09-27 20:00 | ETE ---
Study Study Date:09/27/2016 STUDY CONCLUSIONS SUMMARY - Left ventricle: The cavity size was normal. Systolic function was normal. The estimated ejection fraction was in the range of 55% to 60%. - Aortic valve: A bioprosthesis was present. The prosthesis had a normal range of motion. There was a 4.5mm (L) x 3.5mm (W), mobile vegetation noted on the strut nearest the non-cardiac cusp region. - Mitral valve: No evidence of vegetation. Mild regurgitation. - Tricuspid valve: No evidence of vegetation. Recommendations: This procedure has been discussed with the PCP and Infectious Disease. If LV function is below 40, please consider prescribing an ACEI or ARB or document rationale for non-use. PROCEDURE DATA Consent: The risks, benefits, and alternatives to the procedure were explained to the patient and informed consent was obtained. Procedure: Initial setup. The patient was brought to the laboratory in the fasting state. Intravenous access was obtained. Surface ECG leads and pulse oximetric signals were monitored. Sedation. Conscious sedation was administered by cardiology staff. Transesophageal echocardiography. Topical anesthesia was obtained using viscous lidocaine. A transesophageal probe was inserted by the attending rn bariatric. Image quality was good. Study completion: All IVs inserted during the procedure were removed. The patient tolerated the procedure well. There were no complications. Transesophageal echocardiography. 2D, complete spectral Doppler, and color Doppler. CARDIAC ANATOMY LEFT VENTRICLE: The cavity size was normal. Systolic function was normal. The estimated ejection fraction was in the range of 55% to 60%. AORTIC VALVE: A bioprosthesis was present. The prosthesis had a normal range of motion. There was a 4.5mm (L) x 3.5mm (W), mobile vegetation noted on the strut nearest the non-cardiac cusp region. Doppler: There was no stenosis. No significant regurgitation. MITRAL VALVE: The valve appears to be grossly normal. No evidence of vegetation. Doppler: There was no evidence for stenosis. Mild regurgitation. PULMONIC VALVE: Not well visualized. Doppler: There was no evidence for stenosis. No significant regurgitation. TRICUSPID VALVE: The valve appears to be grossly normal. No evidence of vegetation. Doppler: There was no evidence for stenosis. Trace regurgitation. Prepared and signed by [place] [id number]
[2016-09-28] VITALS (25 sets, daily range): BP systolic 84–113; BP diastolic 57–80; PULSE 70–91; RESP 17–19; TEMP 98.5–99.3; O2SAT 95–99
[2016-09-28] MEDS ORDERED: PHARMACY ORDERED LAB ONE (01:45)
[2016-09-28] MEDS: VANCOMYCIN INJ 1,500 MG in SODIUM CHLORID 0.9% 500 ML INJ 500 ML IV SCH ×2 (02:37→14:31)
[2016-09-28] MEDS: PENICILLIN G POTASSIUM INJ 4,000,000 UNITS in SODIUM CHLORIDE 0.9% INJ 100 ML IV SCH ×6 (02:37→21:36)
[2016-09-28 06:11] LABS: AUTOMATED NEUTROPHIL # 8.6 TH/MM3 (1.8-7.7); BASOPHIL % 0.3 % (0.0-2.0); EOSINOPHIL # 0.1 TH/MM3 (0-0.4); EOSINOPHIL % 0.8 % (0.0-4.0); HEMATOCRIT 29.8 % (39.0-51.0); LYMPH % 16.5 % (9.0-44.0); LYMPHOCYTE # 1.9 TH/MM3 (1.0-4.8); MEAN CELL VOLUME 73.1 FL (80.0-100.0); MEAN CORPUSCULAR HEMOGLOBIN 24.2 PG (27.0-34.0); MEAN CORPUSCULAR HGB CONC 33.1 % (32.0-36.0); MONO % 8.5 % (0.0-8.0); NEUT % 73.9 % (16.0-70.0); PLATELET COUNT 275 TH/MM3 (150-450); RED BLOOD COUNT 4.08 MIL/MM3 (4.50-5.90); WHITE BLOOD COUNT 11.6 TH/MM3 (4.0-11.0)
[2016-09-28 06:12] LABS: HEMO FLAGS AUTO DIFF
[2016-09-28] MEDS: SODIUM CHLOR 0.9% 1000 ML INJ 1,000 ML IV SCH ×2 (06:15→14:31)
[2016-09-28] MEDS: ACETAMINOPHEN/HYDROcodone 325 MG/5 MG TAB PO PRN ×3 (06:19→18:17)
[2016-09-28] MEDS ORDERED: ATROPINE SULFATE 1 MG/10 ML SYRINGE ONE (07:32)
[2016-09-28] MEDS ORDERED: EPINEPHrine HCL (1:10,000) 1 MG/10 ML SYRINGE ONE (07:33)
[2016-09-28] MEDS ORDERED: IOHEXOL 350 MG/ML 10 ML VIAL (for RAD DIAG) IV ONE (07:55)
[2016-09-28] MEDS: METOPROLOL TARTRATE 25 MG TAB PO SCH ×3 (09:01→21:34)
[2016-09-28] MEDS: PANTOPRAZOLE SODIUM 40 MG VIAL IV PUSH SCH ×2 (09:01→21:34)
[2016-09-28] MEDS: SODIUM CHLORIDE 0.9% FLUSH 10 ML FLUSH IV FLUSH PRN (09:02)
[2016-09-28] MEDS: LISINOPRIL 5 MG TAB PO SCH (09:02)
[2016-09-28] MEDS: ASPIRIN EC 81 MG TABEC PO SCH (09:02)
[2016-09-28] MEDS: SODIUM CHLORIDE 0.9% FLUSH 10 ML FLUSH IV FLUSH SCH ×2 (09:02→21:00)
--- NOTE | 2016-09-28 09:09 | RADRPT ---
EXAM DATE/TIME: 09/28/2016 07:42 [place] COMPARISON: CTA ABDOMEN & PELVIS W 3D RECON, September 26, 2016, 9:32. INDICATIONS : Evaluate septic emboli and pneumonia IV CONTRAST: 70 cc Omnipaque 350 (iohexol) IV RADIATION DOSE: 3.38 CTDIvol (mGy) MEDICAL HISTORY : Cardiovascular disease. Hepatitis C. SURGICAL HISTORY : Aortic valve replacement ENCOUNTER: Initial ACUITY: 3 days PAIN SCALE: 5/10 LOCATION: Chest TECHNIQUE: Volumetric scanning of the chest was performed. Using automated exposure control and adjustment of t he mA and/or kV according to patient size, radiation dose was kept as low as reasonably achievable to obtain optimal diagnostic quality images. FINDINGS: Median sternotomy wires are noted status post aortic valve replacement. There is elevation of the le ft hemidiaphragm. Tiny bilateral pleural effusions with adjacent compressive atelectasis are noted. Th ere is a 5 mm non-calcified pleural based nodule within the right middle lobe which is indeterminate. Follow up CT of the chest in six months is recommended for further evaluation of this nodule. No other parenchymal nodules are noted. No mediastinal, hilar or axillary lymphadenopathy is noted. The spleen is enlarged and demonstrates are as of decreased perfusion suggesting possible infarcts. Mild degenerative changes and scoliosis of the tho racic spine are noted. CONCLUSION: 1. Tiny bilateral pleural effusions and probable bibasilar compressive atelectasis. 2. Splenomegaly with areas of decreased perfusion possibly representing splenic infarcts. 3. A 5 mm pleural based non-calcified nodule within the right middle lobe which is indeterminate. F ollow up CT of the chest in six months is recommended. 4. Degenerative changes and scoliosis of the thoracic spine. Brown Kaufman MD on September 28, 2016 at 8:07 Board Certified Radiologist. This report was verified electronically.
[2016-09-28 09:23] LABS: SCAN/DIFF AUTO DIFF CONFIRMED
--- NOTE | 2016-09-28 10:55 | HHI.PR ---
Subjective Remarks The patient wanted his diet changed. He called his stepfather and wanted me to talk to him. The patient said he was sweating a lot. His and his stepfather's questions were answered. Objective Vitals Vital Signs Date Time Temp Pulse Resp B/P Pulse Ox O2 Delivery O2 Flow Rate FiO2 09/28/16 10:24 70 09/28/16 09:00 72 09/28/16 08:00 88 09/28/16 07:00 98.7 81 17 113/80 95 09/28/16 07:00 73 09/28/16 04:50 99.3 80 18 110/78 99 09/28/16 04:00 70 09/28/16 03:00 79 09/28/16 02:00 82 09/28/16 01:00 84 09/28/16 00:00 90 09/27/16 23:30 99.7 97 18 104/68 99 09/27/16 23:00 97 09/27/16 22:00 100 09/27/16 21:00 96 09/27/16 20:00 98 09/27/16 19:15 99.0 96 18 94/64 99 09/27/16 19:00 92 09/27/16 18:00 86 09/27/16 17:00 84 09/27/16 16:00 84 09/27/16 15:00 98.8 71 18 108/60 97 09/27/16 15:00 67 09/27/16 14:00 70 09/27/16 13:00 70 09/27/16 12:00 68 09/27/16 11:00 78 09/27/16 11:00 98.3 74 18 100/70 97 I/O 09/27/16 09/27/16 09/27/16 09/28/16 09/28/16 09/28/16 07:00 15:00 23:00 07:00 15:00 23:00 Intake Total 240 ml 480 ml Output Total 1200 ml 1350 ml Balance -960 ml -870 ml Intake Oral 240 ml 480 ml Output Urine Total 1200 ml 1350 ml # Voids 5 Result Diagram: 09/28/16 0535 09/27/16 0331 Imaging Last Impressions Chest CT 09/28/16 0000 Signed Impressions: Service Date/Time: Wednesday, September 28, 2016 07:42 - CONCLUSION: 1. Tiny bilateral pleural effusions and probable bibasilar compressive atelectasis. 2. Splenomegaly with areas of decreased perfusion possibly representing splenic infarcts. 3. A 5 mm pleural based non-calcified nodule within the right middle lobe which is indeterminate. Follow up CT of the chest in six months is recommended. 4. Degenerative changes and scoliosis of the thoracic spine. Brown Kaufman MD Chest X-Ray 09/26/16 0106 Signed Impressions: Service Date/Time: Monday, September 26, 2016 01:11 - CONCLUSION: 1. Bibasilar atelectasis left greater than right. Gordon Odell MD Abdomen/Pelvis CT 09/26/16 0000 Signed Impressions: Service Date/Time: Monday, September 26, 2016 09:32 - CONCLUSION: Left lung base infiltrate may represent pneumonia. Matthieu Peña MD Objective Remarks GENERAL: Resting comfortably in bed. HEENT: PERRLA, EOMI. No scleral icterus or conjunctival pallor. No lid lag or facial droop. CARDIOVASCULAR: Regular rate and rhythm. Grade 2 systolic murmur appreciated. No chest tenderness to palpation. RESPIRATORY: No obvious rhonchi or wheezing. Clear to auscultation. Breath sounds equal bilaterally. GASTROINTESTINAL: Abdomen soft, non-tender, nondistended. BS normal. MUSCULOSKELETAL: Extremities without clubbing, cyanosis, or edema. No obvious deformities. NEUROLOGICAL: Awake, alert and oriented x4. No focal neurologic deficits. Moving both upper and lower extremities spontaneously. PSYCH: Slightly flattened affect. Procedures BEBETO 09/27/16. Medications and IVs Current Medications Medications (Trade) Dose Ordered Sig/Santos Route Start Time Stop Time Status Last Admin Pharmacy Profile Note 0 ml @ 0 mls/hr UNSCH OTHER 09/26/16 04:15 (NS 1000 ml Inj) 1,000 ml @ 100 mls/hr Q10H IV 09/26/16 04:15 09/28/16 06:15 (NS Flush) 2 ml UNSCH PRN IV FLUSH 09/26/16 04:15 09/28/16 09:02 (NS Flush) 2 ml BID IV FLUSH 09/26/16 09:00 09/28/16 09:02 (Zofran Inj) 4 mg Q6H PRN IVP 09/26/16 04:15 (Dulcolax Supp) 10 mg DAILY PRN RECTAL 09/26/16 04:15 (Tylenol) 650 mg Q6H PRN PO 09/26/16 04:15 ([place] 5-325 Mg) 1 tab Q4H PRN PO 09/26/16 04:15 09/28/16 06:19 (Morphine Inj) 2 mg Q3H PRN IV 09/26/16 04:15 (Protonix Inj) 40 mg Q12H IV PUSH 09/26/16 21:00 09/28/16 09:01 (Nitroglycerin 2% Oint) 0.5 inch Q6HR PRN TOPICAL 09/26/16 04:45 (Lopressor) 25 mg Q12HR PO 09/26/16 09:00 09/28/16 09:01 (Prinivil) 2.5 mg DAILY PO 09/26/16 09:00 09/28/16 09:02 Aspirin 81 mg 81 mg DAILY PO 09/26/16 09:00 09/28/16 09:02 Vancomycin HCl 1500 mg/Sodium Chloride 515 ml @ 250 mls/hr Q12H IV 09/26/16 14:00 09/28/16 02:37 (Pfizerpen-G Inj/ NS Inj) 100 ml @ 200 mls/hr Q4H IV 09/27/16 18:00 09/28/16 09:02 A/P Problem List: (1) Elevated troponin ICD Code: R74.8 Status: Acute (2) Dehydration ICD Code: E86.0 Status: Acute (3) Leukocytosis ICD Code: D72.829 Status: Acute (4) Hematuria ICD Code: R31.9 Status: Acute (5) Tobacco abuse ICD Code: Z72.0 Status: Acute Assessment and Plan Endocarditis Trop peaked at 0.15. WBC 16.9, afebrile. CXR w/ bibasilar atelectasis. Complains of upper abdominal/ chest pain x2 wks w/ associated SOB. 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 Cardiology consult appreciated. Echo unremarkable. CT abdomen with evidence of pneumonia on the left. Blood cultures 4 out of 4 with viridans strep. The patient went for BEBETO which confirmed a small vegetation on the aortic valve. Infectious disease was consulted. - continue vancomycin and penicillin per infectious disease. - Repeat blood cultures pending. - incentive spirometry. - oxygen and nebs as needed. - cardiology requested records from prior hospitalization. UTI/ Hematuria U/a w/ hematuria, mild bacteriuria. - follow up urine culture. Growing group D enterococcus. - continue w/ IV Abx as above. - Pt instructed to follow up w/ PCP when he returns to [place] for repeat U/a to eval for persistent hematuria. Anemia Unsure of baseline. Anemia labs noted. - check Hemoccult. Tobacco/ MJ abuse Pt counselled. - Ativan prn. No NicoDerm to avoid vasoconstriction. Homeless The pt is currently without resources. - case management consult placed. DVT Prophylaxis: SCD/teds. Discharge Planning Will need a long course of IV antibiotics. The patient is homeless. Case management assisting. Tu Mary DO Sep 28, 2016 10:54
--- NOTE | 2016-09-28 12:42 | PD.CARD.PN ---
Subjective Subjective Remarks No chest pain, no shortness of breath Objective Medications Current Medications Medications (Trade) Dose Ordered Sig/Santos Route Start Time Stop Time Status Last Admin Pharmacy Profile Note 0 ml @ 0 mls/hr UNSCH OTHER 09/26/16 04:15 (NS 1000 ml Inj) 1,000 ml @ 100 mls/hr Q10H IV 09/26/16 04:15 09/28/16 06:15 (NS Flush) 2 ml UNSCH PRN IV FLUSH 09/26/16 04:15 09/28/16 09:02 (NS Flush) 2 ml BID IV FLUSH 09/26/16 09:00 09/28/16 09:02 (Zofran Inj) 4 mg Q6H PRN IVP 09/26/16 04:15 (Dulcolax Supp) 10 mg DAILY PRN RECTAL 09/26/16 04:15 (Tylenol) 650 mg Q6H PRN PO 09/26/16 04:15 ([place] 5-325 Mg) 1 tab Q4H PRN PO 09/26/16 04:15 09/28/16 11:37 (Morphine Inj) 2 mg Q3H PRN IV 09/26/16 04:15 (Protonix Inj) 40 mg Q12H IV PUSH 09/26/16 21:00 09/28/16 09:01 (Nitroglycerin 2% Oint) 0.5 inch Q6HR PRN TOPICAL 09/26/16 04:45 (Lopressor) 25 mg Q12HR PO 09/26/16 09:00 09/28/16 09:01 (Prinivil) 2.5 mg DAILY PO 09/26/16 09:00 09/28/16 09:02 Aspirin 81 mg 81 mg DAILY PO 09/26/16 09:00 09/28/16 09:02 Vancomycin HCl 1500 mg/Sodium Chloride 515 ml @ 250 mls/hr Q12H IV 09/26/16 14:00 09/28/16 02:37 (Pfizerpen-G Inj/ NS Inj) 100 ml @ 200 mls/hr Q4H IV 09/27/16 18:00 09/28/16 09:02 Vital Signs / I&O Vital Signs Date Time Temp Pulse Resp B/P Pulse Ox O2 Delivery O2 Flow Rate FiO2 09/28/16 11:30 98.5 74 18 100/69 96 09/28/16 10:24 70 09/28/16 09:00 72 09/28/16 08:00 88 09/28/16 07:00 98.7 81 17 113/80 95 09/28/16 07:00 73 09/28/16 04:50 99.3 80 18 110/78 99 09/28/16 04:00 70 09/28/16 03:00 79 09/28/16 02:00 82 09/28/16 01:00 84 09/28/16 00:00 90 09/27/16 23:30 99.7 97 18 104/68 99 09/27/16 23:00 97 09/27/16 22:00 100 09/27/16 21:00 96 09/27/16 20:00 98 09/27/16 19:15 99.0 96 18 94/64 99 09/27/16 19:00 92 09/27/16 18:00 86 09/27/16 17:00 84 09/27/16 16:00 84 09/27/16 15:00 98.8 71 18 108/60 97 09/27/16 15:00 67 09/27/16 14:00 70 09/27/16 13:00 70 I/O 09/27/16 09/27/16 09/27/16 09/28/16 09/28/16 09/28/16 07:00 15:00 23:00 07:00 15:00 23:00 Intake Total 240 ml 480 ml Output Total 1200 ml 1350 ml Balance -960 ml -870 ml Intake Oral 240 ml 480 ml Output Urine Total 1200 ml 1350 ml # Voids 5 Physical Exam GENERAL: NAD, AAOx3 SKIN: Warm and dry. HEAD: Atraumatic. Normocephalic. EYES: Pupils equal and round. No scleral icterus. No injection or drainage. ENT: No nasal bleeding or discharge. Mucous membranes pink and moist. NECK: Trachea midline. No JVD. CARDIOVASCULAR: Regular rate and rhythm. RESPIRATORY: No accessory muscle use. Clear to auscultation. Breath sounds equal bilaterally. GASTROINTESTINAL: Abdomen soft, non-tender, nondistended. Hepatic and splenic margins not palpable. MUSCULOSKELETAL: Extremities without clubbing, cyanosis, or edema. No obvious deformities. NEUROLOGICAL: Awake and alert. No obvious cranial nerve deficits. Motor grossly within normal limits. Five out of 5 muscle strength in the arms and legs. Normal speech. PSYCHIATRIC: Appropriate mood and affect; insight and judgment normal. Laboratory Laboratory Tests Test 09/28/16 09/28/16 02:04 05:35 Vancomycin Level Trough 15.8 MCG/ML White Blood Count 11.6 TH/MM3 Red Blood Count 4.08 MIL/MM3 Hemoglobin 9.9 GM/DL Hematocrit 29.8 % Mean Corpuscular Volume 73.1 FL Mean Corpuscular Hemoglobin 24.2 PG Mean Corpuscular Hemoglobin 33.1 % Concent Red Cell Distribution Width 15.0 % Platelet Count 275 TH/MM3 Mean Platelet Volume 7.0 FL Neutrophils (%) (Auto) 73.9 % Lymphocytes (%) (Auto) 16.5 % Monocytes (%) (Auto) 8.5 % Eosinophils (%) (Auto) 0.8 % Basophils (%) (Auto) 0.3 % Neutrophils # (Auto) 8.6 TH/MM3 Lymphocytes # (Auto) 1.9 TH/MM3 Monocytes # (Auto) 1.0 TH/MM3 Eosinophils # (Auto) 0.1 TH/MM3 Basophils # (Auto) 0.0 TH/MM3 CBC Comment AUTO DIFF Differential Comment AUTO DIFF CONFIRMED Assessment and Plan Problem List: (1) Leukocytosis (2) Elevated troponin (3) Tobacco abuse (4) Blood bacterial culture positive (5) Endocarditis of prosthetic valve Assessment and Plan 1) Await records from CT surgery in [place] 2) Endocarditis of the bioprosthetic aortic valve, 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 non -specific in nature [place] DO Sep 28, 2016 12:42
[2016-09-28] MEDS ORDERED: ALPRAZolam 0.5 MG TAB PO PRN (14:15)
[2016-09-28] MEDS: FLUoxetine HCL 20 MG CAP PO SCH (14:47)
[2016-09-28] MEDS: GABAPENTIN 300 MG CAP PO SCH (18:07)
[2016-09-28] MEDS: traZODone HCL 50 MG TAB PO SCH (21:34)
[2016-09-29] VITALS (24 sets, daily range): BP systolic 92–121; BP diastolic 64–83; PULSE 68–98; RESP 18; TEMP 98.1–99.2; O2SAT 94–99
[2016-09-29] MEDS: PENICILLIN G POTASSIUM INJ 4,000,000 UNITS in SODIUM CHLORIDE 0.9% INJ 100 ML IV SCH ×5 (02:24→17:28)
[2016-09-29] MEDS: VANCOMYCIN INJ 1,500 MG in SODIUM CHLORID 0.9% 500 ML INJ 500 ML IV SCH ×2 (02:24→14:32)
[2016-09-29] MEDS: SODIUM CHLOR 0.9% 1000 ML INJ 1,000 ML IV SCH ×3 (02:25→22:15)
[2016-09-29 06:20] LABS: AUTOMATED NEUTROPHIL # 9.7 TH/MM3 (1.8-7.7); BASOPHIL % 0.3 % (0.0-2.0); EOSINOPHIL # 0.1 TH/MM3 (0-0.4); EOSINOPHIL % 0.6 % (0.0-4.0); HEMATOCRIT 30.9 % (39.0-51.0); LYMPH % 13.7 % (9.0-44.0); LYMPHOCYTE # 1.7 TH/MM3 (1.0-4.8); MEAN CELL VOLUME 73.2 FL (80.0-100.0); MEAN CORPUSCULAR HGB CONC 32.7 % (32.0-36.0); MONO % 7.3 % (0.0-8.0); NEUT % 78.1 % (16.0-70.0); PLATELET COUNT 327 TH/MM3 (150-450); RED BLOOD COUNT 4.22 MIL/MM3 (4.50-5.90); RED CELL DISTRIBUTION WIDTH 15.2 % (11.6-17.2); WHITE BLOOD COUNT 12.5 TH/MM3 (4.0-11.0)
[2016-09-29 06:22] LABS: HEMO FLAGS AUTO DIFF
[2016-09-29 07:25] LABS: BANDS 3 % (0-6); BASOPHILS 1 % (0-2); EOSINOPHILS 1 % (0-4); MYELOCYTES 2 % (0-0); NEUTROPHIL # MANUAL DIFF 10.4 TH/MM3 (1.8-7.7); OVALOCYTES 1+ (NORMAL); PLATELET ESTIMATE SMEAR NORMAL (NORMAL); PLATELET MORPHOLOGY NORMAL (NORMAL); POLYS (SEG NEUTROPHILS) 78 % (16-70); SCAN/DIFF FINAL DIFF MANUAL; WBC DIFF SAMPLE 100
[2016-09-29] MEDS: SODIUM CHLORIDE 0.9% FLUSH 10 ML FLUSH IV FLUSH SCH ×2 (09:00→21:25)
[2016-09-29] MEDS: PANTOPRAZOLE SODIUM 40 MG VIAL IV PUSH SCH ×2 (09:03→21:25)
[2016-09-29] MEDS: METOPROLOL TARTRATE 25 MG TAB PO SCH ×2 (09:04→21:00)
[2016-09-29] MEDS: GABAPENTIN 300 MG CAP PO SCH ×3 (09:04→17:28)
[2016-09-29] MEDS: ACETAMINOPHEN/HYDROcodone 325 MG/5 MG TAB PO PRN ×2 (09:04→17:28)
[2016-09-29] MEDS: FLUoxetine HCL 20 MG CAP PO SCH (09:04)
[2016-09-29] MEDS: ASPIRIN EC 81 MG TABEC PO SCH (09:04)
[2016-09-29] MEDS: LISINOPRIL 5 MG TAB PO SCH (09:04)
--- NOTE | 2016-09-29 10:02 | HHI.IDPN ---
Subjective Subjective Remarks Notes reviewed Temps ok CP better Still with LUQ pain CT chect no septic emboli, has splenic infarcts BC 09/26 with Strep viridans UC with Enterococcus Follow-up BC 09/27 negative Antibiotics Vancomycin PCN IV Lines PIV Past Medical History Anxiety Schizophrenia/Bipolar Disorder Hepatitis C X IVDU Hx Endocarditis s/p AVR Past Surgical History S/P AVR Mar 2016 Allergies: Coded Allergies: No Known Allergies (Unverified , 09/26/16) Objective . Vital Signs Date Time Temp Pulse Resp B/P Pulse Ox O2 Delivery O2 Flow Rate FiO2 09/29/16 09:00 91 09/29/16 08:00 98 09/29/16 07:46 99.2 85 18 110/83 94 09/29/16 07:46 85 09/29/16 05:00 72 09/29/16 04:19 98.1 75 18 121/83 99 09/29/16 04:00 72 09/29/16 03:00 72 09/29/16 02:00 68 09/29/16 01:00 74 09/29/16 00:00 74 09/29/16 00:00 98.1 78 18 111/77 99 09/28/16 23:00 86 09/28/16 22:00 70 09/28/16 21:00 72 09/28/16 20:00 98.7 84 18 103/75 99 09/28/16 20:00 74 09/28/16 19:00 91 09/28/16 18:28 107/77 09/28/16 18:01 75 09/28/16 17:02 74 09/28/16 16:00 74 09/28/16 15:00 75 09/28/16 15:00 98.6 75 19 84/57 95 09/28/16 14:00 76 09/28/16 13:00 72 09/28/16 12:44 71 09/28/16 11:30 98.5 74 18 100/69 96 09/28/16 11:00 81 09/28/16 10:24 70 09/28/16 09/28/16 09/29/16 15:00 23:00 07:00 Intake Total 1520 ml 720 ml Output Total 1325 ml 900 ml Balance 195 ml -180 ml Intake Oral 720 ml 720 ml IV Total 800 ml Output Urine Total 1325 ml 900 ml . Laboratory Tests Test 09/28/16 09/29/16 05:35 06:05 White Blood Count 11.6 TH/MM3 12.5 TH/MM3 Red Blood Count 4.08 MIL/MM3 4.22 MIL/MM3 Hemoglobin 9.9 GM/DL 10.1 GM/DL Hematocrit 29.8 % 30.9 % Mean Corpuscular Volume 73.1 FL 73.2 FL Mean Corpuscular Hemoglobin 24.2 PG 24.0 PG Mean Corpuscular Hemoglobin 33.1 % 32.7 % Concent Red Cell Distribution Width 15.0 % 15.2 % Platelet Count 275 TH/MM3 327 TH/MM3 Mean Platelet Volume 7.0 FL 6.8 FL Neutrophils (%) (Auto) 73.9 % 78.1 % Lymphocytes (%) (Auto) 16.5 % 13.7 % Monocytes (%) (Auto) 8.5 % 7.3 % Eosinophils (%) (Auto) 0.8 % 0.6 % Basophils (%) (Auto) 0.3 % 0.3 % Neutrophils # (Auto) 8.6 TH/MM3 9.7 TH/MM3 Lymphocytes # (Auto) 1.9 TH/MM3 1.7 TH/MM3 Monocytes # (Auto) 1.0 TH/MM3 0.9 TH/MM3 Eosinophils # (Auto) 0.1 TH/MM3 0.1 TH/MM3 Basophils # (Auto) 0.0 TH/MM3 0.0 TH/MM3 CBC Comment AUTO DIFF AUTO DIFF Differential Comment AUTO DIFF FINAL DIFF CONFIRMED MANUAL Differential Total Cells 100 Counted Neutrophils % (Manual) 78 % Band Neutrophils % 3 % Lymphocytes % 11 % Monocytes % 4 % Eosinophils % 1 % Basophils % 1 % Neutrophils # (Manual) 10.4 TH/MM3 Myelocytes 2 % Platelet Estimate NORMAL Platelet Morphology Comment NORMAL Ovalocytes 1+ Laboratory Tests Test 09/29/16 06:05 Creatinine 0.87 MG/DL Estimat Glomerular Filtration 97 ML/MIN Rate Microbiology Date/Time Procedure Status Source Growth 09/27/16 12:39 Aerobic Blood Culture - Preliminary Resulted Blood Peripheral NO GROWTH IN 1 DAY 09/27/16 12:39 Anaerobic Blood Culture - Preliminary Resulted Blood Peripheral NO GROWTH IN 1 DAY 09/27/16 12:44 Aerobic Blood Culture - Preliminary Resulted Blood Peripheral NO GROWTH IN 1 DAY 09/27/16 12:44 Anaerobic Blood Culture - Preliminary Resulted Blood Peripheral NO GROWTH IN 1 DAY 09/28/16 05:35 Aerobic Blood Culture Received Blood Peripheral Pending 09/28/16 05:35 Anaerobic Blood Culture Received Blood Peripheral Pending Imaging Chest CT 09/28/16 0000 Signed Impressions: Service Date/Time: Wednesday, September 28, 2016 07:42 - CONCLUSION: 1. Tiny bilateral pleural effusions and probable bibasilar compressive atelectasis. 2. Splenomegaly with areas of decreased perfusion possibly representing splenic infarcts. 3. A 5 mm pleural based non-calcified nodule within the right middle lobe which is indeterminate. Follow up CT of the chest in six months is recommended. 4. Degenerative changes and scoliosis of the thoracic spine. Brown Kaufman MD Chest X-Ray 09/26/16 0106 Signed Impressions: Service Date/Time: Monday, September 26, 2016 01:11 - CONCLUSION: 1. Bibasilar atelectasis left greater than right. Gordon Odell MD Abdomen/Pelvis CT 09/26/16 0000 Signed Impressions: Service Date/Time: Monday, September 26, 2016 09:32 - CONCLUSION: Left lung base infiltrate may represent pneumonia. Matthieu Peña MD Physical Exam GENERAL: awake and alert, nontoxic appearing, in no apparent distress. SKIN: Warm and dry. No generalized rash or ecchymosis. No embolic lesions noted. HEAD: Atraumatic. Normocephalic. No temporal or scalp tenderness. EYES: [place] conjunctivae, no petechia or hemorrhage. No scleral icterus. No injection or drainage. ENT: Moist oral mucosa. No oral thrush noted. Throat without erythema, or exudate. Uvula midline. Airway patent. NECK: Trachea midline. No JVD or lymphadenopathy. Supple, nontender, no meningeal signs. CARDIOVASCULAR: Regular rate and rhythm, no pericardial rub. There is a systolic murmur heard at the base of the heart. RESPIRATORY: Clear to auscultation. Breath sounds equal bilaterally. No wheezes , rales, or rhonchi. No pleural rub. Has a well-healed sternal incision. GASTROINTESTINAL: Abdomen soft, nondistended, bowel sounds are present and normoactive, with left-sided abdominal tenderness. No guarding or rebound.. No hepato-splenomegaly, or palpable masses. MUSCULOSKELETAL: Extremities without clubbing, cyanosis, or edema. No joint tenderness, effusion, or edema noted. No calf tenderness. NEUROLOGICAL: Awake and alert. Cranial nerves II through XII intact. Five out of 5 muscle strength in all muscle groups. Normal speech. PSYCH: Flat affect. Cooperative LINE: PIV with no evidence of infection Assessment & Plan Remarks IMPRESSION PVE, S/P AVR - has (+) BC with Strep - BEBETO, with vegetation in his PV Has UC with Enterococcus, no complaints Chest pain, ? emboli, but his IE is left sided LUQ pain, due to splenic infarcts RECOMMENDATION Continue IV Vanco Continue PCN G Once BC finalized, will choose most appropriate Abx Await records from other hospital in [place] Follow C/S Add Gentamicin IV for synergy Monitor progress Rossana Smith MD Sep 29, 2016 10:02
[2016-09-29] MEDS ORDERED: Gentamicin Consult Pharmacy 1 EA OTHER SCH (10:15)
--- NOTE | 2016-09-29 12:06 | HHI.PR ---
Subjective Remarks Patient seen in follow-up for prosthetic valve endocarditis Complains of intermittent LUQ abd pain. Wants an excuse letter for court. No SOB or chest pain. Objective Vitals Vital Signs Date Time Temp Pulse Resp B/P Pulse Ox O2 Delivery O2 Flow Rate FiO2 09/29/16 11:00 98.9 78 18 110/81 96 09/29/16 11:00 76 09/29/16 10:00 81 09/29/16 09:00 91 09/29/16 08:00 98 09/29/16 07:46 99.2 85 18 110/83 94 09/29/16 07:46 85 09/29/16 05:00 72 09/29/16 04:19 98.1 75 18 121/83 99 09/29/16 04:00 72 09/29/16 03:00 72 09/29/16 02:00 68 09/29/16 01:00 74 09/29/16 00:00 74 09/29/16 00:00 98.1 78 18 111/77 99 09/28/16 23:00 86 09/28/16 22:00 70 09/28/16 21:00 72 09/28/16 20:00 98.7 84 18 103/75 99 09/28/16 20:00 74 09/28/16 19:00 91 09/28/16 18:28 107/77 09/28/16 18:01 75 09/28/16 17:02 74 09/28/16 16:00 74 09/28/16 15:00 75 09/28/16 15:00 98.6 75 19 84/57 95 09/28/16 14:00 76 09/28/16 13:00 72 09/28/16 12:44 71 I/O 09/28/16 09/28/16 09/28/16 09/29/16 09/29/16 09/29/16 07:00 15:00 23:00 07:00 15:00 23:00 Intake Total 480 ml 1520 ml 720 ml Output Total 1350 ml 1325 ml 900 ml Balance -870 ml 195 ml -180 ml Intake Oral 480 ml 720 ml 720 ml IV Total 800 ml Output Urine Total 1350 ml 1325 ml 900 ml Result Diagram: 09/29/1660409/29/16604 Imaging Last Impressions Chest CT 09/28/16 0000 Signed Impressions: Service Date/Time: Wednesday, September 28, 2016 07:42 - CONCLUSION: 1. Tiny bilateral pleural effusions and probable bibasilar compressive atelectasis. 2. Splenomegaly with areas of decreased perfusion possibly representing splenic infarcts. 3. A 5 mm pleural based non-calcified nodule within the right middle lobe which is indeterminate. Follow up CT of the chest in six months is recommended. 4. Degenerative changes and scoliosis of the thoracic spine. Brown Kaufman MD Chest X-Ray 09/26/16 0106 Signed Impressions: Service Date/Time: Monday, September 26, 2016 01:11 - CONCLUSION: 1. Bibasilar atelectasis left greater than right. Gordon Odell MD Abdomen/Pelvis CT 09/26/16 0000 Signed Impressions: Service Date/Time: Monday, September 26, 2016 09:32 - CONCLUSION: Left lung base infiltrate may represent pneumonia. Matthieu Peña MD Objective Remarks GENERAL: This is a well-nourished, well-developed patient, in no apparent distress. CARDIOVASCULAR: Normal rate and regular rhythm. 2/6 TANVIR best heard at the right upper sternal border. RESPIRATORY: Good respiratory efforts. Breath sounds equal and clear to auscultation bilaterally. GASTROINTESTINAL: Abdomen soft, nondistended, mild tenderness to palpation over left upper quadrant. Normal active bowel sounds MUSCULOSKELETAL: Extremities without cyanosis, or edema. NEURO: Alert & Oriented x4 to person, place, time, situation. Moves all ext x4 PSYCH: Appropriate mood and affect. Procedures BEBETO 09/27/16. A/P Problem List: (1) Elevated troponin ICD Code: R74.8 Status: Acute (2) Dehydration ICD Code: E86.0 Status: Acute (3) Leukocytosis ICD Code: D72.829 Status: Acute (4) Hematuria ICD Code: R31.9 Status: Acute (5) Tobacco abuse ICD Code: Z72.0 Status: Acute Assessment and Plan 41-year-old male with: Aortic prostatic valve Endocarditis Trop peaked at 0.15. WBC 16.9, afebrile. CXR w/ bibasilar atelectasis. Complains of upper abdominal/ chest pain x2 wks w/ associated SOB. 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 Cardiology consult appreciated. Echo unremarkable. CT abdomen with evidence of pneumonia on the left. Blood cultures 4 out of 4 with viridans strep. The patient went for BEBETO which confirmed a small vegetation on the aortic valve. Infectious disease following. - continue vancomycin and gentamicin IV per infectious disease. - Follow blood cultures. - incentive spirometry. - oxygen and nebs as needed. - cardiology requested records from prior hospitalization. UTI/ Hematuria U/a w/ hematuria, mild bacteriuria. - follow up urine culture. Growing group D enterococcus. - continue w/ IV Abx as above. Anemia Probably related to endocarditis. -Continue to monitor Tobacco/ MJ abuse Pt counselled. - Ativan prn. Homelessness The pt is currently without resources. - case management consult placed. DVT Prophylaxis: SCD/teds. Natalie Alexis MD Sep 29, 2016 12:06
[2016-09-29] MEDS: GENTAMICIN INJ 80 MG in SODIUM CHLORIDE 0.9% INJ 100 ML IV SCH ×2 (12:51→21:25)
--- NOTE | 2016-09-29 16:43 | PD.CARD.PN ---
Subjective Subjective Remarks No chest pain, no shortness of breath Continues to have LUQ pain Objective Medications Current Medications Medications (Trade) Dose Ordered Sig/Santos Route Start Time Stop Time Status Last Admin Pharmacy Profile Note 0 ml @ 0 mls/hr UNSCH OTHER 09/26/16 04:15 (NS 1000 ml Inj) 1,000 ml @ 100 mls/hr Q10H IV 09/26/16 04:15 09/29/16 12:15 (NS Flush) 2 ml UNSCH PRN IV FLUSH 09/26/16 04:15 09/28/16 09:02 (NS Flush) 2 ml BID IV FLUSH 09/26/16 09:00 09/28/16 21:00 (Zofran Inj) 4 mg Q6H PRN IVP 09/26/16 04:15 (Dulcolax Supp) 10 mg DAILY PRN RECTAL 09/26/16 04:15 (Tylenol) 650 mg Q6H PRN PO 09/26/16 04:15 ([place] 5-325 Mg) 1 tab Q4H PRN PO 09/26/16 04:15 09/29/16 09:04 (Morphine Inj) 2 mg Q3H PRN IV 09/26/16 04:15 (Protonix Inj) 40 mg Q12H IV PUSH 09/26/16 21:00 09/29/16 09:03 (Nitroglycerin 2% Oint) 0.5 inch Q6HR PRN TOPICAL 09/26/16 04:45 (Lopressor) 25 mg Q12HR PO 09/26/16 09:00 09/29/16 09:04 (Prinivil) 2.5 mg DAILY PO 09/26/16 09:00 09/29/16 09:04 Aspirin 81 mg 81 mg DAILY PO 09/26/16 09:00 09/29/16 09:04 Vancomycin HCl 1500 mg/Sodium Chloride 515 ml @ 250 mls/hr Q12H IV 09/26/16 14:00 09/29/16 14:32 (Pfizerpen-G Inj/ NS Inj) 100 ml @ 200 mls/hr Q4H IV 09/27/16 18:00 09/29/16 14:32 (Xanax) 0.5 mg Q6H PRN PO 09/28/16 14:15 (Neurontin) 300 mg TID PO 09/28/16 18:00 09/29/16 13:37 (Desyrel) 50 mg HS PO 09/28/16 21:00 09/28/16 21:34 Fluoxetine HCl 40 mg 40 mg DAILY PO 09/28/16 14:15 09/29/16 09:04 Gentamicin Sulfate 80 mg/ Sodium Chloride 102 ml @ 100 mls/hr Q8H IV 09/29/16 12:00 09/29/16 12:51 (Gentamicin Consult Pharmacy) 0 ml @ 0 mls/hr UNSCH OTHER 09/29/16 10:15 Miscellaneous Information SPECIFIC LAB TO BE DRAWN:GENTAMICIN TROUGH DATE TO... ONCE ONCE .XX 09/30/16 11:45 09/30/16 11:46 Miscellaneous Information SPECIFIC LAB TO BE DRAWN:VANCOMYCIN TROUGH DATE TO... ONCE ONCE .XX 10/01/16 01:45 10/01/16 01:46 Vital Signs / I&O Vital Signs Date Time Temp Pulse Resp B/P Pulse Ox O2 Delivery O2 Flow Rate FiO2 09/29/16 15:03 75 09/29/16 15:00 98.6 74 18 97/73 95 09/29/16 14:00 76 09/29/16 13:00 82 09/29/16 12:00 83 09/29/16 11:00 98.9 78 18 110/81 96 09/29/16 11:00 76 09/29/16 10:00 81 09/29/16 09:00 91 09/29/16 08:00 98 09/29/16 07:46 99.2 85 18 110/83 94 09/29/16 07:46 85 09/29/16 05:00 72 09/29/16 04:19 98.1 75 18 121/83 99 09/29/16 04:00 72 09/29/16 03:00 72 09/29/16 02:00 68 09/29/16 01:00 74 09/29/16 00:00 74 09/29/16 00:00 98.1 78 18 111/77 99 09/28/16 23:00 86 09/28/16 22:00 70 09/28/16 21:00 72 09/28/16 20:00 98.7 84 18 103/75 99 09/28/16 20:00 74 09/28/16 19:00 91 09/28/16 18:28 107/77 09/28/16 18:01 75 09/28/16 17:02 74 I/O 09/28/16 09/28/16 09/28/16 09/29/16 09/29/16 09/29/16 07:00 15:00 23:00 07:00 15:00 23:00 Intake Total 480 ml 1520 ml 720 ml Output Total 1350 ml 1325 ml 900 ml Balance -870 ml 195 ml -180 ml Intake Oral 480 ml 720 ml 720 ml IV Total 800 ml Output Urine Total 1350 ml 1325 ml 900 ml Physical Exam GENERAL: NAD, AAOx3 SKIN: Warm and dry. HEAD: Atraumatic. Normocephalic. EYES: Pupils equal and round. No scleral icterus. No injection or drainage. ENT: No nasal bleeding or discharge. Mucous membranes pink and moist. NECK: Trachea midline. No JVD. CARDIOVASCULAR: Regular rate and rhythm. RESPIRATORY: No accessory muscle use. Clear to auscultation. Breath sounds equal bilaterally. GASTROINTESTINAL: Abdomen soft, non-tender, nondistended. Hepatic and splenic margins not palpable. MUSCULOSKELETAL: Extremities without clubbing, cyanosis, or edema. No obvious deformities. NEUROLOGICAL: Awake and alert. No obvious cranial nerve deficits. Motor grossly within normal limits. Five out of 5 muscle strength in the arms and legs. Normal speech. PSYCHIATRIC: Appropriate mood and affect; insight and judgment normal. Laboratory Laboratory Tests Test 09/29/16 06:05 White Blood Count 12.5 TH/MM3 Red Blood Count 4.22 MIL/MM3 Hemoglobin 10.1 GM/DL Hematocrit 30.9 % Mean Corpuscular Volume 73.2 FL Mean Corpuscular Hemoglobin 24.0 PG Mean Corpuscular Hemoglobin 32.7 % Concent Red Cell Distribution Width 15.2 % Platelet Count 327 TH/MM3 Mean Platelet Volume 6.8 FL Neutrophils (%) (Auto) 78.1 % Lymphocytes (%) (Auto) 13.7 % Monocytes (%) (Auto) 7.3 % Eosinophils (%) (Auto) 0.6 % Basophils (%) (Auto) 0.3 % Neutrophils # (Auto) 9.7 TH/MM3 Lymphocytes # (Auto) 1.7 TH/MM3 Monocytes # (Auto) 0.9 TH/MM3 Eosinophils # (Auto) 0.1 TH/MM3 Basophils # (Auto) 0.0 TH/MM3 CBC Comment AUTO DIFF Differential Total Cells 100 Counted Neutrophils % (Manual) 78 % Band Neutrophils % 3 % Lymphocytes % 11 % Monocytes % 4 % Eosinophils % 1 % Basophils % 1 % Neutrophils # (Manual) 10.4 TH/MM3 Myelocytes 2 % Differential Comment FINAL DIFF MANUAL Platelet Estimate NORMAL Platelet Morphology Comment NORMAL Ovalocytes 1+ Erythrocyte Sedimentation Rate 31 mm/hr Creatinine 0.87 MG/DL Estimat Glomerular Filtration 97 ML/MIN Rate C-Reactive Protein 5.20 MG/DL Assessment and Plan Problem List: (1) Leukocytosis (2) Elevated troponin (3) Tobacco abuse (4) Blood bacterial culture positive (5) Endocarditis of prosthetic valve Assessment and Plan 1) Await records from CT surgery in [place] 2) Endocarditis of the bioprosthetic aortic valve, 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
[2016-09-29] MEDS: traZODone HCL 50 MG TAB PO SCH (21:25)
[2016-09-30] VITALS (17 sets, daily range): BP systolic 89–112; BP diastolic 64–76; PULSE 66–93; RESP 18–20; TEMP 98.3–98.6; O2SAT 94–95
[2016-09-30] MEDS: PENICILLIN G POTASSIUM INJ 4,000,000 UNITS in SODIUM CHLORIDE 0.9% INJ 100 ML IV SCH ×6 (00:57→22:08)
[2016-09-30] MEDS: VANCOMYCIN INJ 1,500 MG in SODIUM CHLORID 0.9% 500 ML INJ 500 ML IV SCH (03:22)
[2016-09-30] MEDS: GENTAMICIN INJ 80 MG in SODIUM CHLORIDE 0.9% INJ 100 ML IV SCH ×2 (04:00→12:35)
[2016-09-30 07:10] LABS: HEMATOCRIT 30.6 % (39.0-51.0); MEAN CELL VOLUME 73.6 FL (80.0-100.0); MEAN CORPUSCULAR HEMOGLOBIN 24.5 PG (27.0-34.0); MEAN CORPUSCULAR HGB CONC 33.3 % (32.0-36.0); PLATELET COUNT 349 TH/MM3 (150-450); RED BLOOD COUNT 4.15 MIL/MM3 (4.50-5.90); RED CELL DISTRIBUTION WIDTH 14.9 % (11.6-17.2); WHITE BLOOD COUNT 11.1 TH/MM3 (4.0-11.0)
[2016-09-30 07:14] LABS: BICARBONATE 25.5 MEQ/L (21.0-32.0); POTASSIUM 4.1 MEQ/L (3.5-5.1)
[2016-09-30 07:16] LABS: REVIEW FLAG FINAL
[2016-09-30] MEDS: ACETAMINOPHEN/HYDROcodone 325 MG/5 MG TAB PO PRN ×2 (07:16→22:26)
[2016-09-30] MEDS: FLUoxetine HCL 20 MG CAP PO SCH (09:02)
[2016-09-30] MEDS: LISINOPRIL 5 MG TAB PO SCH (09:02)
[2016-09-30] MEDS: METOPROLOL TARTRATE 25 MG TAB PO SCH ×2 (09:03→22:07)
[2016-09-30] MEDS: PANTOPRAZOLE SODIUM 40 MG VIAL IV PUSH SCH ×2 (09:03→22:07)
[2016-09-30] MEDS: ASPIRIN EC 81 MG TABEC PO SCH (09:03)
[2016-09-30] MEDS: GABAPENTIN 300 MG CAP PO SCH ×3 (09:03→22:10)
[2016-09-30] MEDS: SODIUM CHLOR 0.9% 1000 ML INJ 1,000 ML IV SCH ×2 (09:05→22:13)
[2016-09-30] MEDS: SODIUM CHLORIDE 0.9% FLUSH 10 ML FLUSH IV FLUSH SCH ×2 (09:05→22:09)
[2016-09-30] MEDS ORDERED: PHARMACY ORDERED LAB ONE (11:45)
--- NOTE | 2016-09-30 12:09 | HHI.PR ---
Subjective Remarks Patient reports he is feeling okay. Would like to know how long he will be in the hospital. Denies shortness of breath or chest pain. Objective Vitals Vital Signs Date Time Temp Pulse Resp B/P Pulse Ox O2 Delivery O2 Flow Rate FiO2 09/30/16 11:11 98.6 84 18 112/76 95 09/30/16 11:11 84 09/30/16 10:00 83 09/30/16 09:00 93 09/30/16 08:23 88 09/30/16 07:15 80 09/30/16 07:15 98.3 81 18 100/67 94 09/30/16 06:00 76 09/30/16 05:03 81 09/30/16 04:13 76 09/30/16 03:09 66 09/30/16 03:09 98.6 75 18 89/64 95 09/30/16 02:00 68 09/30/16 01:00 66 09/30/16 00:00 74 09/30/16 00:00 98.6 75 18 89/64 95 09/29/16 23:00 74 09/29/16 22:00 74 09/29/16 21:00 88 09/29/16 20:00 98.5 80 18 92/64 95 09/29/16 20:00 90 09/29/16 18:00 89 09/29/16 17:00 80 09/29/16 16:00 72 09/29/16 15:03 75 09/29/16 15:00 98.6 74 18 97/73 95 09/29/16 14:00 76 09/29/16 13:00 82 I/O 09/29/16 09/29/16 09/29/16 09/30/16 09/30/16 09/30/16 07:00 15:00 23:00 07:00 15:00 23:00 Intake Total 720 ml 1000 ml 1380 ml Output Total 900 ml 2200 ml 1575 ml Balance -180 ml -1200 ml -195 ml Intake Oral 720 ml 1000 ml 480 ml IV Total 900 ml Output Urine Total 900 ml 2200 ml 1575 ml # Bowel Movements 0 Result Diagram: 09/30/16 0453 09/30/16 0453 Objective Remarks GENERAL: This is a well-nourished, well-developed patient, in no apparent distress. CARDIOVASCULAR: Normal rate and regular rhythm. 2/6 TANVIR best heard at the right upper sternal border. RESPIRATORY: Good respiratory efforts. Breath sounds equal and clear to auscultation bilaterally. GASTROINTESTINAL: Abdomen soft, nondistended, mild tenderness to palpation over left upper quadrant. Normal active bowel sounds MUSCULOSKELETAL: Extremities without cyanosis, or edema. NEURO: Alert & Oriented x4 to person, place, time, situation. Moves all ext x4 PSYCH: Appropriate mood and affect. Procedures BEBETO 09/27/16. A/P Problem List: (1) Elevated troponin ICD Code: R74.8 Status: Acute (2) Dehydration ICD Code: E86.0 Status: Acute (3) Leukocytosis ICD Code: D72.829 Status: Acute (4) Hematuria ICD Code: R31.9 Status: Acute (5) Tobacco abuse ICD Code: Z72.0 Status: Acute Assessment and Plan 41-year-old male with: Aortic prostatic valve Endocarditis Trop peaked at 0.15. WBC 16.9, afebrile. CXR w/ bibasilar atelectasis. Complains of upper abdominal/ chest pain x2 wks w/ associated SOB. 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 Cardiology consult appreciated. Echo unremarkable. CT abdomen with evidence of pneumonia on the left. Blood cultures 4 out of 4 with viridans strep. The patient went for BEBETO which confirmed a small vegetation on the aortic valve. Infectious disease following. - continue antibiotics per infectious disease. Vancomycin and gentamicin IV - Follow blood cultures. - incentive spirometry. - oxygen and nebs as needed. - cardiology requested records from prior hospitalization. UTI/ Hematuria U/a w/ hematuria, mild bacteriuria. -Urine culture grew group D enterococcus. - continue w/ IV Abx as above. Anemia Probably related to endocarditis. -Continue to monitor Tobacco/ MJ abuse Pt counselled. - Ativan prn. Homelessness The pt is currently without resources. - case management consult placed. DVT Prophylaxis: SCD/teds. Discharge Planning On IV antibiotics for prosthetic valve endocarditis. Follow-up cultures. ID to determine antibiotics course. Natalie Alexis MD Sep 30, 2016 12:08
--- NOTE | 2016-09-30 13:08 | HHI.IDPN ---
Subjective Subjective Remarks Notes reviewed Temps ok Still with LUQ pain CT chest no septic emboli, has splenic infarcts BC 09/26 with Strep viridans UC with Enterococcus Has one new (+) BC 09/27 PCN MITCHELL 0.06 Antibiotics Vancomycin PCN IV Gentamicin Lines PIV Past Medical History Anxiety Schizophrenia/Bipolar Disorder Hepatitis C X IVDU Hx Endocarditis s/p AVR Past Surgical History S/P AVR Mar 2016 Allergies: Coded Allergies: No Known Allergies (Unverified , 09/26/16) Objective . Vital Signs Date Time Temp Pulse Resp B/P Pulse Ox O2 Delivery O2 Flow Rate FiO2 09/30/16 12:00 82 09/30/16 11:11 98.6 84 18 112/76 95 09/30/16 11:11 84 09/30/16 10:00 83 09/30/16 09:00 93 09/30/16 08:23 88 09/30/16 07:15 80 09/30/16 07:15 98.3 81 18 100/67 94 09/30/16 06:00 76 09/30/16 05:03 81 09/30/16 04:13 76 09/30/16 03:09 66 09/30/16 03:09 98.6 75 18 89/64 95 09/30/16 02:00 68 09/30/16 01:00 66 09/30/16 00:00 74 09/30/16 00:00 98.6 75 18 89/64 95 09/29/16 23:00 74 09/29/16 22:00 74 09/29/16 21:00 88 09/29/16 20:00 98.5 80 18 92/64 95 09/29/16 20:00 90 09/29/16 18:00 89 09/29/16 17:00 80 09/29/16 16:00 72 09/29/16 15:03 75 09/29/16 15:00 98.6 74 18 97/73 95 09/29/16 14:00 76 09/29/16 09/29/16 09/30/16 15:00 23:00 07:00 Intake Total 1000 ml 1380 ml Output Total 2200 ml 1575 ml Balance -1200 ml -195 ml Intake Oral 1000 ml 480 ml IV Total 900 ml Output Urine Total 2200 ml 1575 ml # Bowel Movements 0 . Laboratory Tests Test 09/29/16 09/30/16 06:05 04:53 White Blood Count 12.5 TH/MM3 11.1 TH/MM3 Red Blood Count 4.22 MIL/MM3 4.15 MIL/MM3 Hemoglobin 10.1 GM/DL 10.2 GM/DL Hematocrit 30.9 % 30.6 % Mean Corpuscular Volume 73.2 FL 73.6 FL Mean Corpuscular Hemoglobin 24.0 PG 24.5 PG Mean Corpuscular Hemoglobin 32.7 % 33.3 % Concent Red Cell Distribution Width 15.2 % 14.9 % Platelet Count 327 TH/MM3 349 TH/MM3 Mean Platelet Volume 6.8 FL 6.9 FL Neutrophils (%) (Auto) 78.1 % Lymphocytes (%) (Auto) 13.7 % Monocytes (%) (Auto) 7.3 % Eosinophils (%) (Auto) 0.6 % Basophils (%) (Auto) 0.3 % Neutrophils # (Auto) 9.7 TH/MM3 Lymphocytes # (Auto) 1.7 TH/MM3 Monocytes # (Auto) 0.9 TH/MM3 Eosinophils # (Auto) 0.1 TH/MM3 Basophils # (Auto) 0.0 TH/MM3 CBC Comment AUTO DIFF Differential Total Cells 100 Counted Neutrophils % (Manual) 78 % Band Neutrophils % 3 % Lymphocytes % 11 % Monocytes % 4 % Eosinophils % 1 % Basophils % 1 % Neutrophils # (Manual) 10.4 TH/MM3 Myelocytes 2 % Differential Comment FINAL DIFF MANUAL Platelet Estimate NORMAL Platelet Morphology Comment NORMAL Ovalocytes 1+ Erythrocyte Sedimentation Rate 31 mm/hr Laboratory Tests Test 09/29/16 09/30/16 06:05 04:53 Creatinine 0.87 MG/DL 0.88 MG/DL Estimat Glomerular Filtration 97 ML/MIN 95 ML/MIN Rate C-Reactive Protein 5.20 MG/DL Sodium Level 137 MEQ/L Potassium Level 4.1 MEQ/L Chloride Level 104 MEQ/L Carbon Dioxide Level 25.5 MEQ/L Anion Gap 8 MEQ/L Blood Urea Nitrogen 10 MG/DL Random Glucose 137 MG/DL Calcium Level 8.8 MG/DL Microbiology Date/Time Procedure Status Source Growth 09/28/16 05:35 Aerobic Blood Culture - Preliminary Resulted Blood Peripheral NO GROWTH IN 2 DAYS 09/28/16 05:35 Anaerobic Blood Culture - Preliminary Resulted Blood Peripheral NO GROWTH IN [address] 09/28/16 0000 Signed Impressions: Service Date/Time: Wednesday, September 28, 2016 07:42 - CONCLUSION: 1. Tiny bilateral pleural effusions and probable bibasilar compressive atelectasis. 2. Splenomegaly with areas of decreased perfusion possibly representing splenic infarcts. 3. A 5 mm pleural based non-calcified nodule within the right middle lobe which is indeterminate. Follow up CT of the chest in six months is recommended. 4. Degenerative changes and scoliosis of the thoracic spine. Brown Kaufman MD Chest X-Ray 09/26/16 0106 Signed Impressions: Service Date/Time: Monday, September 26, 2016 01:11 - CONCLUSION: 1. Bibasilar atelectasis left greater than right. Gordon Odell MD Abdomen/Pelvis CT 09/26/16 0000 Signed Impressions: Service Date/Time: Monday, September 26, 2016 09:32 - CONCLUSION: Left lung base infiltrate may represent pneumonia. Matthieu Peña MD Physical Exam GENERAL: awake and alert, in no apparent distress. SKIN: Warm and dry. No generalized rash or ecchymosis. No embolic lesions noted. HEENT: [place] conjunctivae, no petechia or hemorrhage. No scleral icterus. No injection or drainage. Moist oral mucosa. No oral thrush noted. NECK: Trachea midline. No JVD or lymphadenopathy. Supple, nontender, no meningeal signs. CARDIOVASCULAR: Regular rate and rhythm, no pericardial rub. There is a systolic murmur heard at the base of the heart. RESPIRATORY: Clear to auscultation. Breath sounds equal bilaterally. No wheezes , rales, or rhonchi. No pleural rub. Has a well-healed sternal incision. GASTROINTESTINAL: Abdomen soft, nondistended, bowel sounds are present and normoactive, with left-sided abdominal tenderness. No guarding or rebound.. No hepato-splenomegaly, or palpable masses. MUSCULOSKELETAL: Extremities without clubbing, cyanosis, or edema. No joint tenderness, effusion, or edema noted. No calf tenderness. NEUROLOGICAL: Non-focal. PSYCH: Flat affect. Cooperative LINE: PIV with no evidence of infection Assessment & Plan Remarks IMPRESSION PVE, S/P AVR - has (+) BC with Strep viridans - BEBETO, with vegetation in his PV Has UC with Enterococcus, no complaints LUQ pain, due to splenic infarcts RECOMMENDATION Stop IV Vanco Continue PCN G Continue Gentamicin - monitor for side effects: hearing, vestibular and creatinine Await records from other hospital in [place] Follow C/S Monitor progress Rossana Smith MD Sep 30, 2016 13:08
--- NOTE | 2016-09-30 14:22 | PD.CARD.PN ---
Subjective Subjective Remarks No chest pain, no shortness of breath Breath cut short when having abdominal pain Abdominal pain is less Objective Medications Current Medications Medications (Trade) Dose Ordered Sig/Santos Route Start Time Stop Time Status Last Admin (NS 1000 ml Inj) 1,000 ml @ 100 mls/hr Q10H IV 09/26/16 04:15 09/30/16 09:05 (NS Flush) 2 ml UNSCH PRN IV FLUSH 09/26/16 04:15 09/28/16 09:02 (NS Flush) 2 ml BID IV FLUSH 09/26/16 09:00 09/30/16 09:05 (Zofran Inj) 4 mg Q6H PRN IVP 09/26/16 04:15 (Dulcolax Supp) 10 mg DAILY PRN RECTAL 09/26/16 04:15 (Tylenol) 650 mg Q6H PRN PO 09/26/16 04:15 ([place] 5-325 Mg) 1 tab Q4H PRN PO 09/26/16 04:15 09/30/16 07:16 (Morphine Inj) 2 mg Q3H PRN IV 09/26/16 04:15 (Protonix Inj) 40 mg Q12H IV PUSH 09/26/16 21:00 09/30/16 09:03 (Nitroglycerin 2% Oint) 0.5 inch Q6HR PRN TOPICAL 09/26/16 04:45 (Lopressor) 25 mg Q12HR PO 09/26/16 09:00 09/30/16 09:03 (Prinivil) 2.5 mg DAILY PO 09/26/16 09:00 09/30/16 09:02 Aspirin 81 mg 81 mg DAILY PO 09/26/16 09:00 09/30/16 09:03 (Pfizerpen-G Inj/ NS Inj) 100 ml @ 200 mls/hr Q4H IV 09/27/16 18:00 09/30/16 10:30 (Xanax) 0.5 mg Q6H PRN PO 09/28/16 14:15 (Neurontin) 300 mg TID PO 09/28/16 18:00 09/30/16 12:35 (Desyrel) 50 mg HS PO 09/28/16 21:00 09/29/16 21:25 Fluoxetine HCl 40 mg 40 mg DAILY PO 09/28/16 14:15 09/30/16 09:02 Pharmacy Profile Note 0 ml @ 0 mls/hr UNSCH OTHER 09/29/16 10:15 (Gentamicin Inj/ NS Inj) 102.5 ml @ 100 mls/hr Q8H IV 09/30/16 20:00 Miscellaneous Information SPECIFIC LAB TO BE DRAWN:GENTAMICIN TROUGH DATE TO... ONCE ONCE .XX 10/02/16 03:45 10/02/16 03:46 Vital Signs / I&O Vital Signs Date Time Temp Pulse Resp B/P Pulse Ox O2 Delivery O2 Flow Rate FiO2 09/30/16 13:00 80 09/30/16 12:00 82 09/30/16 11:11 98.6 84 18 112/76 95 09/30/16 11:11 84 09/30/16 10:00 83 09/30/16 09:00 93 09/30/16 08:23 88 09/30/16 07:15 80 09/30/16 07:15 98.3 81 18 100/67 94 09/30/16 06:00 76 09/30/16 05:03 81 09/30/16 04:13 76 09/30/16 03:09 66 09/30/16 03:09 98.6 75 18 89/64 95 09/30/16 02:00 68 09/30/16 01:00 66 09/30/16 00:00 74 09/30/16 00:00 98.6 75 18 89/64 95 09/29/16 23:00 74 09/29/16 22:00 74 09/29/16 21:00 88 09/29/16 20:00 98.5 80 18 92/64 95 09/29/16 20:00 90 09/29/16 18:00 89 09/29/16 17:00 80 09/29/16 16:00 72 09/29/16 15:03 75 09/29/16 15:00 98.6 74 18 97/73 95 I/O 09/29/16 09/29/16 09/29/16 09/30/16 09/30/16 09/30/16 07:00 15:00 23:00 07:00 15:00 23:00 Intake Total 720 ml 1000 ml 1380 ml Output Total 900 ml 2200 ml 1575 ml Balance -180 ml -1200 ml -195 ml Intake Oral 720 ml 1000 ml 480 ml IV Total 900 ml Output Urine Total 900 ml 2200 ml 1575 ml # Bowel Movements 0 Physical Exam GENERAL: NAD, AAOx3 SKIN: Warm and dry. HEAD: Atraumatic. Normocephalic. EYES: Pupils equal and round. No scleral icterus. No injection or drainage. ENT: No nasal bleeding or discharge. Mucous membranes pink and moist. NECK: Trachea midline. No JVD. CARDIOVASCULAR: Regular rate and rhythm. RESPIRATORY: No accessory muscle use. Clear to auscultation. Breath sounds equal bilaterally. GASTROINTESTINAL: Abdomen soft, non-tender, nondistended. Hepatic and splenic margins not palpable. MUSCULOSKELETAL: Extremities without clubbing, cyanosis, or edema. No obvious deformities. NEUROLOGICAL: Awake and alert. No obvious cranial nerve deficits. Motor grossly within normal limits. Five out of 5 muscle strength in the arms and legs. Normal speech. PSYCHIATRIC: Appropriate mood and affect; insight and judgment normal. Laboratory Laboratory Tests Test 09/30/16 09/30/16 04:53 11:45 White Blood Count 11.1 TH/MM3 Red Blood Count 4.15 MIL/MM3 Hemoglobin 10.2 GM/DL Hematocrit 30.6 % Mean Corpuscular Volume 73.6 FL Mean Corpuscular Hemoglobin 24.5 PG Mean Corpuscular Hemoglobin 33.3 % Concent Red Cell Distribution Width 14.9 % Platelet Count 349 TH/MM3 Mean Platelet Volume 6.9 FL Sodium Level 137 MEQ/L Potassium Level 4.1 MEQ/L Chloride Level 104 MEQ/L Carbon Dioxide Level 25.5 MEQ/L Anion Gap 8 MEQ/L Blood Urea Nitrogen 10 MG/DL Creatinine 0.88 MG/DL Estimat Glomerular Filtration 95 ML/MIN Rate Random Glucose 137 MG/DL Calcium Level 8.8 MG/DL Gentamicin Level Trough LESS THAN 0.2 MCG/ML Assessment and Plan Problem List: (1) Leukocytosis (2) Elevated troponin (3) Tobacco abuse (4) Blood bacterial culture positive (5) Endocarditis of prosthetic valve Assessment and Plan 1) Await records from CT surgery in [place] 2) Endocarditis of the bioprosthetic aortic valve, 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
[2016-09-30] MEDS: traZODone HCL 50 MG TAB PO SCH (22:07)
[2016-09-30] MEDS: GENTAMICIN INJ 100 MG in SODIUM CHLORIDE 0.9% INJ 100 ML IV SCH (22:08)
[2016-10-01] VITALS: BP 99/68; PULSE 71; RESP 20; TEMP 98.6; O2SAT 95
[2016-10-01] MEDS ORDERED: PHARMACY ORDERED LAB ONE (01:45)
[2016-10-01] MEDS: PENICILLIN G POTASSIUM INJ 4,000,000 UNITS in SODIUM CHLORIDE 0.9% INJ 100 ML IV SCH ×6 (02:21→21:25)
[2016-10-01] MEDS: ACETAMINOPHEN/HYDROcodone 325 MG/5 MG TAB PO PRN ×5 (02:25→21:27)
[2016-10-01] MEDS: GENTAMICIN INJ 100 MG in SODIUM CHLORIDE 0.9% INJ 100 ML IV SCH ×3 (03:57→21:24)
[2016-10-01] MEDS: SODIUM CHLOR 0.9% 1000 ML INJ 1,000 ML IV SCH ×2 (03:59→09:20)
[2016-10-01 04:00] VITALS: BP 96/61; PULSE 68; RESP 20; TEMP 98.1; O2SAT 96
[2016-10-01 07:23] LABS: HEMATOCRIT 31.8 % (39.0-51.0); MEAN CELL VOLUME 73.8 FL (80.0-100.0); MEAN CORPUSCULAR HEMOGLOBIN 23.6 PG (27.0-34.0); PLATELET COUNT 400 TH/MM3 (150-450); RED CELL DISTRIBUTION WIDTH 14.9 % (11.6-17.2); WHITE BLOOD COUNT 13.4 TH/MM3 (4.0-11.0)
[2016-10-01 07:25] LABS: REVIEW FLAG FINAL
[2016-10-01 07:50] LABS: BICARBONATE 27.3 MEQ/L (21.0-32.0); POTASSIUM 4.7 MEQ/L (3.5-5.1)
[2016-10-01 08:00] VITALS: BP 95/68; PULSE 71; RESP 18; TEMP 98; O2SAT 95
[2016-10-01] MEDS: METOPROLOL TARTRATE 25 MG TAB PO SCH ×2 (09:00→21:24)
[2016-10-01] MEDS: LISINOPRIL 5 MG TAB PO SCH (09:00)
[2016-10-01] MEDS: SODIUM CHLORIDE 0.9% FLUSH 10 ML FLUSH IV FLUSH SCH ×2 (09:00→21:00)
[2016-10-01] MEDS: ASPIRIN EC 81 MG TABEC PO SCH (09:18)
[2016-10-01] MEDS: FLUoxetine HCL 20 MG CAP PO SCH (09:19)
[2016-10-01] MEDS: GABAPENTIN 300 MG CAP PO SCH ×3 (09:19→17:05)
[2016-10-01] MEDS: PANTOPRAZOLE SODIUM 40 MG VIAL IV PUSH SCH ×2 (09:20→21:24)
--- NOTE | 2016-10-01 10:15 | HHI.PR ---
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 patient in his bedroom discussed with park services specialist Doctor Moncho he asked me to switch patient diet to General diet, no need to be on Cardiac diet. no nausea, vomit or diarrhea Objective Vital Signs Date Time Temp Pulse Resp B/P Pulse Ox O2 Delivery O2 Flow Rate FiO2 10/01/16 08:00 98.0 71 18 95/68 95 10/01/16 04:00 98.1 68 20 96/61 96 10/01/16 00:00 98.6 71 20 99/68 95 09/30/16 20:00 77 09/30/16 20:00 98.6 80 20 96/65 95 09/30/16 16:00 98.4 79 20 111/75 95 09/30/16 14:00 68 09/30/16 13:00 80 09/30/16 12:00 82 09/30/16 11:11 98.6 84 18 112/76 95 09/30/16 11:11 84 I/O 09/30/16 09/30/16 09/30/16 10/01/16 10/01/16 10/01/16 07:00 15:00 23:00 07:00 15:00 23:00 Intake Total 1380 ml 2040 ml 240 ml Output Total 1575 ml 1510 ml Balance -195 ml 530 ml 240 ml Intake Oral 480 ml 2040 ml 240 ml IV Total 900 ml Output Urine Total 1575 ml 1510 ml # Voids 2 3 # Bowel Movements 2 1 Result Diagram: 10/01/16 0617 10/01/16 0617 Imaging Last Impressions Chest CT 09/28/16 0000 Signed Impressions: Service Date/Time: Wednesday, September 28, 2016 07:42 - CONCLUSION: 1. Tiny bilateral pleural effusions and probable bibasilar compressive atelectasis. 2. Splenomegaly with areas of decreased perfusion possibly representing splenic infarcts. 3. A 5 mm pleural based non-calcified nodule within the right middle lobe which is indeterminate. Follow up CT of the chest in six months is recommended. 4. Degenerative changes and scoliosis of the thoracic spine. Brown Kaufman MD Chest X-Ray 09/26/16 0106 Signed Impressions: Service Date/Time: Monday, September 26, 2016 01:11 - CONCLUSION: 1. Bibasilar atelectasis left greater than right. Gordon Odell MD Abdomen/Pelvis CT 09/26/16 0000 Signed Impressions: Service Date/Time: Monday, September 26, 2016 09:32 - CONCLUSION: Left lung base infiltrate may represent pneumonia. K. Ren Peña MD Procedures BEBETO 09/27/16. Other Results Laboratory Tests Test 09/26/16 09/26/16 09/27/16 09/28/16 01:00 01:20 03:31 02:04 Target Cells 1+ Urine Color YELLOW Urine Turbidity HAZY Urine pH 6.5 Urine Specific [place] 1.020 Urine Protein 30 mg/dL Urine Glucose (UA) NEG mg/dL Urine Ketones NEG mg/dL Urine Occult Blood MOD Urine Nitrite NEG Urine Bilirubin NEG Urine Urobilinogen LESS THAN 2.0 MG/DL Urine Leukocyte Esterase NEG Urine RBC 50 /hpf Urine WBC 5 /hpf Urine Squamous Epithelial <1 /hpf Cells Urine Amorphous Sediment RARE Urine Bacteria OCC /hpf Microscopic Urinalysis Comment CATH-CULTURE IND Metamyelocytes 5 % Promyelocytes 1 % Iron Level 14 MCG/DL Total Iron Binding Capacity 164 MCG/DL Percent Iron Saturation 8.5 % Ferritin 569 NG/ML Total Bilirubin 0.5 MG/DL Aspartate Amino Transf 13 U/L (AST/SGOT) Alanine Aminotransferase 14 U/L (ALT/SGPT) Alkaline Phosphatase 65 U/L Total Protein 6.0 GM/DL Albumin 2.0 GM/DL Vitamin B12 Level 585 PG/ML Folate 11.0 NG/ML Vancomycin Level Trough 15.8 MCG/ML Test 09/29/16 09/30/16 10/01/16 06:05 11:45 06:17 Neutrophils (%) (Auto) 78.1 % Lymphocytes (%) (Auto) 13.7 % Monocytes (%) (Auto) 7.3 % Eosinophils (%) (Auto) 0.6 % Basophils (%) (Auto) 0.3 % Neutrophils # (Auto) 9.7 TH/MM3 Lymphocytes # (Auto) 1.7 TH/MM3 Monocytes # (Auto) 0.9 TH/MM3 Eosinophils # (Auto) 0.1 TH/MM3 Basophils # (Auto) 0.0 TH/MM3 CBC Comment AUTO DIFF Differential Total Cells 100 Counted Neutrophils % (Manual) 78 % Band Neutrophils % 3 % Lymphocytes % 11 % Monocytes % 4 % Eosinophils % 1 % Basophils % 1 % Neutrophils # (Manual) 10.4 TH/MM3 Myelocytes 2 % Differential Comment FINAL DIFF MANUAL Platelet Estimate NORMAL Platelet Morphology Comment NORMAL Ovalocytes 1+ Erythrocyte Sedimentation Rate 31 mm/hr C-Reactive Protein 5.20 MG/DL Gentamicin Level Trough LESS THAN 0.2 MCG/ML White Blood Count 13.4 TH/MM3 Red Blood Count 4.30 MIL/MM3 Hemoglobin 10.2 GM/DL Hematocrit 31.8 % Mean Corpuscular Volume 73.8 FL Mean Corpuscular Hemoglobin 23.6 PG Mean Corpuscular Hemoglobin 32.0 % Concent Red Cell Distribution Width 14.9 % Platelet Count 400 TH/MM3 Mean Platelet Volume 6.8 FL Sodium Level 135 MEQ/L Potassium Level 4.7 MEQ/L Chloride Level 102 MEQ/L Carbon Dioxide Level 27.3 MEQ/L Anion Gap 6 MEQ/L Blood Urea Nitrogen 16 MG/DL Creatinine 0.91 MG/DL Estimat Glomerular Filtration 92 ML/MIN Rate Random Glucose 91 MG/DL Calcium Level 8.8 MG/DL Objective Remarks GENERAL: This is a well-nourished, well-developed patient, in no apparent distress. CARDIOVASCULAR: Normal rate and regular rhythm. 2/6 TANVIR best heard at the right upper sternal border. RESPIRATORY: Good respiratory efforts. Breath sounds equal and clear to auscultation bilaterally. GASTROINTESTINAL: Abdomen soft, nondistended, mild tenderness to palpation over left upper quadrant. Normal active bowel sounds MUSCULOSKELETAL: Extremities without cyanosis, or edema. NEURO: Alert & Oriented x4 to person, place, time, situation. Moves all ext x4 PSYCH: Appropriate mood and affect. Medications and IVs Current Medications Medications (Trade) Dose Ordered Sig/Santos Route Start Time Stop Time Status Last Admin (NS 1000 ml Inj) 1,000 ml @ 100 mls/hr Q10H IV 09/26/16 04:15 10/01/16 09:20 (NS Flush) 2 ml UNSCH PRN IV FLUSH 09/26/16 04:15 4/18/17 09:02 (NS Flush) 2 ml BID IV FLUSH 09/26/16 09:00 10/01/16 09:00 (Zofran Inj) 4 mg Q6H PRN IVP 09/26/16 04:15 (Dulcolax Supp) 10 mg DAILY PRN RECTAL 09/26/16 04:15 (Tylenol) 650 mg Q6H PRN PO 09/26/16 04:15 (Bodfish 5-325 Mg) 1 tab Q4H PRN PO 09/26/16 04:15 10/01/16 07:00 (Morphine Inj) 2 mg Q3H PRN IV 09/26/16 04:15 (Protonix Inj) 40 mg Q12H IV PUSH 09/26/16 21:00 10/01/16 09:20 (Nitroglycerin 2% Oint) 0.5 inch Q6HR PRN TOPICAL 09/26/16 04:45 (Lopressor) 25 mg Q12HR PO 09/26/16 09:00 09/30/16 22:07 (Prinivil) 2.5 mg DAILY PO 09/26/16 09:00 09/30/16 09:02 Aspirin 81 mg 81 mg DAILY PO 09/26/16 09:00 10/01/16 09:18 (Pfizerpen-G Inj/ NS Inj) 100 ml @ 200 mls/hr Q4H IV 09/27/16 18:00 10/01/16 09:20 (Xanax) 0.5 mg Q6H PRN PO 09/28/16 14:15 (Neurontin) 300 mg TID PO 09/28/16 18:00 10/01/16 09:19 (Desyrel) 50 mg HS PO 09/28/16 21:00 09/30/16 22:07 Fluoxetine HCl 40 mg 40 mg DAILY PO 09/28/16 14:15 10/01/16 09:19 Pharmacy Profile Note 0 ml @ 0 mls/hr UNSCH OTHER 09/29/16 10:15 (Gentamicin Inj/ NS Inj) 102.5 ml @ 100 mls/hr Q8H IV 09/30/16 20:00 10/01/16 03:57 Miscellaneous Information SPECIFIC LAB TO BE DRAWN:GENTAMICIN TROUGH DATE TO... ONCE ONCE .XX 10/02/16 03:45 10/02/16 03:46 A/P Assessment and Plan (1) Elevated troponin ICD Code: R74.8 Status: Acute (2) Dehydration ICD Code: E86.0 Status: Acute (3) Leukocytosis ICD Code: D72.829 Status: Acute (4) Hematuria ICD Code: R31.9 Status: Acute (5) Tobacco abuse ICD Code: Z72.0 Status: Acute Assessment and Plan 41-year-old male with: Aortic prostatic valve Endocarditis CXR w/ bibasilar atelectasis. Complains of upper abdominal/ chest pain x2 wks w / associated SOB. 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 Cardiology consult appreciated. Echo unremarkable. CT abdomen with evidence of pneumonia on the left. Blood cultures 4 out of 4 with viridans strep. The patient went for BEBETO which confirmed a small vegetation on the aortic valve. Infectious disease following. WBC 13.4 - continue antibiotics per infectious disease. Penicillin G and Gentamicin - Follow blood cultures. - incentive spirometry. - oxygen and nebs as needed. - park services specialist Doctor Moncho asked me to switch diet to general diet and is signing off the case. UTI/ Hematuria U/a w/ hematuria, mild bacteriuria. -Urine culture grew group D enterococcus. - continue w/ IV Abx as above. Anemia Probably related to endocarditis. -Continue to monitor Tobacco/ MJ abuse Pt counselled. - Ativan prn. Homelessness The pt is currently without resources. - case management consult placed. DVT Prophylaxis: SCD/teds. As Always a pleasure to talk about cases with park services specialist Doctor [place] Appreciated. Discharge Planning On IV antibiotics for prosthetic valve endocarditis. Follow-up cultures. ID to determine antibiotics course. Codey Oneill MD Oct 01, 2016 10:15
[2016-10-01 12:00] VITALS: BP 98/62; PULSE 82; RESP 18; TEMP 98.2; O2SAT 97
--- NOTE | 2016-10-01 12:00 | PD.CARD.PN ---
Subjective Subjective Remarks No chest pain, no shortness of breath Occasional abdominal pain Objective Medications Current Medications Medications (Trade) Dose Ordered Sig/Santos Route Start Time Stop Time Status Last Admin (NS 1000 ml Inj) 1,000 ml @ 100 mls/hr Q10H IV 09/26/16 04:15 10/01/16 09:20 (NS Flush) 2 ml UNSCH PRN IV FLUSH 09/26/16 04:15 09/28/16 09:02 (NS Flush) 2 ml BID IV FLUSH 09/26/16 09:00 10/01/16 09:00 (Zofran Inj) 4 mg Q6H PRN IVP 09/26/16 04:15 (Dulcolax Supp) 10 mg DAILY PRN RECTAL 09/26/16 04:15 (Tylenol) 650 mg Q6H PRN PO 09/26/16 04:15 ([place] 5-325 Mg) 1 tab Q4H PRN PO 09/26/16 04:15 10/01/16 11:54 (Morphine Inj) 2 mg Q3H PRN IV 09/26/16 04:15 (Protonix Inj) 40 mg Q12H IV PUSH 09/26/16 21:00 10/01/16 09:20 (Nitroglycerin 2% Oint) 0.5 inch Q6HR PRN TOPICAL 09/26/16 04:45 (Lopressor) 25 mg Q12HR PO 09/26/16 09:00 09/30/16 22:07 (Prinivil) 2.5 mg DAILY PO 09/26/16 09:00 09/30/16 09:02 Aspirin 81 mg 81 mg DAILY PO 09/26/16 09:00 10/01/16 09:18 (Pfizerpen-G Inj/ NS Inj) 100 ml @ 200 mls/hr Q4H IV 09/27/16 18:00 10/01/16 09:20 (Xanax) 0.5 mg Q6H PRN PO 09/28/16 14:15 (Neurontin) 300 mg TID PO 09/28/16 18:00 10/01/16 11:54 (Desyrel) 50 mg HS PO 09/28/16 21:00 09/30/16 22:07 Fluoxetine HCl 40 mg 40 mg DAILY PO 09/28/16 14:15 10/01/16 09:19 Pharmacy Profile Note 0 ml @ 0 mls/hr UNSCH OTHER 09/29/16 10:15 (Gentamicin Inj/ NS Inj) 102.5 ml @ 100 mls/hr Q8H IV 09/30/16 20:00 10/01/16 11:54 Miscellaneous Information SPECIFIC LAB TO BE DRAWN:GENTAMICIN TROUGH DATE TO... ONCE ONCE .XX 10/02/16 03:45 10/02/16 03:46 Vital Signs / I&O Vital Signs Date Time Temp Pulse Resp B/P Pulse Ox O2 Delivery O2 Flow Rate FiO2 10/01/16 08:00 98.0 71 18 95/68 95 10/01/16 04:00 98.1 68 20 96/61 96 10/01/16 00:00 98.6 71 20 99/68 95 09/30/16 20:00 77 09/30/16 20:00 98.6 80 20 96/65 95 09/30/16 16:00 98.4 79 20 111/75 95 09/30/16 14:00 68 09/30/16 13:00 80 09/30/16 12:00 82 I/O 09/30/16 09/30/16 09/30/16 10/01/16 10/01/16 10/01/16 07:00 15:00 23:00 07:00 15:00 23:00 Intake Total 1380 ml 2040 ml 240 ml Output Total 1575 ml 1510 ml Balance -195 ml 530 ml 240 ml Intake Oral 480 ml 2040 ml 240 ml IV Total 900 ml Output Urine Total 1575 ml 1510 ml # Voids 2 3 # Bowel Movements 2 1 Physical Exam GENERAL: NAD, AAOx3 SKIN: Warm and dry. HEAD: Atraumatic. Normocephalic. EYES: Pupils equal and round. No scleral icterus. No injection or drainage. ENT: No nasal bleeding or discharge. Mucous membranes pink and moist. NECK: Trachea midline. No JVD. CARDIOVASCULAR: Regular rate and rhythm. RESPIRATORY: No accessory muscle use. Clear to auscultation. Breath sounds equal bilaterally. GASTROINTESTINAL: Abdomen soft, non-tender, nondistended. Hepatic and splenic margins not palpable. MUSCULOSKELETAL: Extremities without clubbing, cyanosis, or edema. No obvious deformities. NEUROLOGICAL: Awake and alert. No obvious cranial nerve deficits. Motor grossly within normal limits. Five out of 5 muscle strength in the arms and legs. Normal speech. PSYCHIATRIC: Appropriate mood and affect; insight and judgment normal. Laboratory Laboratory Tests Test 10/01/16 06:17 White Blood Count 13.4 TH/MM3 Red Blood Count 4.30 MIL/MM3 Hemoglobin 10.2 GM/DL Hematocrit 31.8 % Mean Corpuscular Volume 73.8 FL Mean Corpuscular Hemoglobin 23.6 PG Mean Corpuscular Hemoglobin 32.0 % Concent Red Cell Distribution Width 14.9 % Platelet Count 400 TH/MM3 Mean Platelet Volume 6.8 FL Sodium Level 135 MEQ/L Potassium Level 4.7 MEQ/L Chloride Level 102 MEQ/L Carbon Dioxide Level 27.3 MEQ/L Anion Gap 6 MEQ/L Blood Urea Nitrogen 16 MG/DL Creatinine 0.91 MG/DL Estimat Glomerular Filtration 92 ML/MIN Rate Random Glucose 91 MG/DL Calcium Level 8.8 MG/DL Assessment and Plan Problem List: (1) Leukocytosis (2) Elevated troponin (3) Tobacco abuse (4) Blood bacterial culture positive (5) Endocarditis of prosthetic valve Assessment and Plan 1) Await records from CT surgery in [place], still not available 2) Endocarditis of the bioprosthetic aortic valve, 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
--- NOTE | 2016-10-01 14:44 | HHI.IDPN ---
Subjective Subjective Remarks Notes reviewed Temps ok No change in LUQ pain CT chest no septic emboli, has splenic infarcts BC 09/26 with Strep viridans UC with Enterococcus Has one new (+) BC 09/27 with Strep viridans PCN MITCHELL 0.06 BC 09/28 and 09/30 negative so far Spoke with CM - patient lives in [place], and has no insurance coverage; will need to determine how he can complete Rx of his PVE Antibiotics PCN IV Gentamicin Lines PIV Past Medical History Anxiety Schizophrenia/Bipolar Disorder Hepatitis C X IVDU Hx Endocarditis s/p AVR Past Surgical History S/P AVR Mar 2016 Allergies: Coded Allergies: No Known Allergies (Unverified , 09/26/16) Objective . Vital Signs Date Time Temp Pulse Resp B/P Pulse Ox O2 Delivery O2 Flow Rate FiO2 10/01/16 12:00 98.2 82 18 98/62 97 10/01/16 08:00 98.0 71 18 95/68 95 10/01/16 04:00 98.1 68 20 96/61 96 10/01/16 00:00 98.6 71 20 99/68 95 09/30/16 20:00 77 09/30/16 20:00 98.6 80 20 96/65 95 09/30/16 16:00 98.4 79 20 111/75 95 09/30/16 09/30/16 10/01/16 15:00 23:00 07:00 Intake Total 2040 ml 240 ml Output Total 1510 ml Balance 530 ml 240 ml Intake Oral 2040 ml 240 ml Output Urine Total 1510 ml # Voids 2 3 # Bowel Movements 2 1 . Laboratory Tests Test 09/30/16 10/01/16 04:53 06:17 White Blood Count 11.1 TH/MM3 13.4 TH/MM3 Red Blood Count 4.15 MIL/MM3 4.30 MIL/MM3 Hemoglobin 10.2 GM/DL 10.2 GM/DL Hematocrit 30.6 % 31.8 % Mean Corpuscular Volume 73.6 FL 73.8 FL Mean Corpuscular Hemoglobin 24.5 PG 23.6 PG Mean Corpuscular Hemoglobin 33.3 % 32.0 % Concent Red Cell Distribution Width 14.9 % 14.9 % Platelet Count 349 TH/MM3 400 TH/MM3 Mean Platelet Volume 6.9 FL 6.8 FL Laboratory Tests Test 09/30/16 10/01/16 04:53 06:17 Sodium Level 137 MEQ/L 135 MEQ/L Potassium Level 4.1 MEQ/L 4.7 MEQ/L Chloride Level 104 MEQ/L 102 MEQ/L Carbon Dioxide Level 25.5 MEQ/L 27.3 MEQ/L Anion Gap 8 MEQ/L 6 MEQ/L Blood Urea Nitrogen 10 MG/DL 16 MG/DL Creatinine 0.88 MG/DL 0.91 MG/DL Estimat Glomerular Filtration 95 ML/MIN 92 ML/MIN Rate Random Glucose 137 MG/DL 91 MG/DL Calcium Level 8.8 MG/DL 8.8 MG/DL Microbiology Date/Time Procedure Status Source Growth 09/30/16 14:00 Aerobic Blood Culture - Preliminary Resulted Blood Peripheral NO GROWTH IN 1 DAY 09/30/16 14:00 Anaerobic Blood Culture - Preliminary Resulted Blood Peripheral NO GROWTH IN [address] 09/28/16 0000 Signed Impressions: Service Date/Time: Wednesday, September 28, 2016 07:42 - CONCLUSION: 1. Tiny bilateral pleural effusions and probable bibasilar compressive atelectasis. 2. Splenomegaly with areas of decreased perfusion possibly representing splenic infarcts. 3. A 5 mm pleural based non-calcified nodule within the right middle lobe which is indeterminate. Follow up CT of the chest in six months is recommended. 4. Degenerative changes and scoliosis of the thoracic spine. Brown Kaufman MD Chest X-Ray 09/26/16 0106 Signed Impressions: Service Date/Time: Monday, September 26, 2016 01:11 - CONCLUSION: 1. Bibasilar atelectasis left greater than right. Gordon Odell MD Abdomen/Pelvis CT 09/26/16 0000 Signed Impressions: Service Date/Time: Monday, September 26, 2016 09:32 - CONCLUSION: Left lung base infiltrate may represent pneumonia. Matthieu Peña MD Physical Exam GENERAL: awake and alert, in no apparent distress. SKIN: Warm and dry. No generalized rash or ecchymosis. No embolic lesions noted. HEENT: [place] conjunctivae, no petechia or hemorrhage. No scleral icterus. No injection or drainage. Moist oral mucosa. No oral thrush noted. NECK: Trachea midline. No JVD or lymphadenopathy. Supple, nontender, no meningeal signs. CARDIOVASCULAR: Regular rate and rhythm, no pericardial rub. There is a systolic murmur heard at the base of the heart. RESPIRATORY: Clear to auscultation. Breath sounds equal bilaterally. No wheezes , rales, or rhonchi. No pleural rub. Has a well-healed sternal incision. GASTROINTESTINAL: Abdomen soft, nondistended, bowel sounds are present and normoactive, with left-sided abdominal tenderness. No guarding or rebound.. No hepato-splenomegaly, or palpable masses. MUSCULOSKELETAL: Extremities without clubbing, cyanosis, or edema. No joint tenderness, effusion, or edema noted. No calf tenderness. NEUROLOGICAL: Non-focal. PSYCH: Flat affect. Cooperative LINE: PIV with no evidence of infection Assessment & Plan Remarks IMPRESSION PVE, S/P AVR - has (+) BC with Strep viridans - BEBETO, with vegetation in his PV Has UC with Enterococcus, no complaints LUQ pain, due to splenic infarcts RECOMMENDATION Continue PCN G Continue Gentamicin - monitor for side effects: hearing, vestibular and creatinine Follow C/S Monitor progress D/W CM: start determining how we can give this patient the Rx for his PVE Rossana Smith MD Oct 01, 2016 14:44
[2016-10-01 16:00] VITALS: BP 115/68; PULSE 92; RESP 20; TEMP 98.5; O2SAT 98
[2016-10-01 20:00] VITALS: BP 98/61; PULSE 78; PULSE 83; RESP 20; TEMP 99.4; O2SAT 96
[2016-10-01] MEDS: traZODone HCL 50 MG TAB PO SCH (21:24)
[2016-10-02] VITALS (7 sets, daily range): BP systolic 94–107; BP diastolic 57–70; PULSE 75–95; RESP 16–20; TEMP 98–99.6; O2SAT 95–96
[2016-10-02] MEDS: SODIUM CHLOR 0.9% 1000 ML INJ 1,000 ML IV SCH ×3 (00:15→20:15)
[2016-10-02] MEDS: PENICILLIN G POTASSIUM INJ 4,000,000 UNITS in SODIUM CHLORIDE 0.9% INJ 100 ML IV SCH ×6 (02:00→21:31)
[2016-10-02] MEDS ORDERED: PHARMACY ORDERED LAB ONE (03:45)
[2016-10-02] MEDS: GENTAMICIN INJ 100 MG in SODIUM CHLORIDE 0.9% INJ 100 ML IV SCH ×2 (03:59→13:39)
[2016-10-02] MEDS: ACETAMINOPHEN/HYDROcodone 325 MG/5 MG TAB PO PRN ×4 (04:02→21:34)
--- NOTE | 2016-10-02 08:43 | HHI.PR ---
Subjective Remarks This is a pleasant 41 y/o Male who came to ER with fever and Chills, with left sided abdominal pain and midsternal chest pain, has history of Endocarditis treated in March 2016 in [place], underwent Aortic Valve replacement followed by long course of IV antibiotics, history of IV drug abuse, on BEBETO seen vegetation in his Aortic Prostatic Valve, blood culture positive for gram positive cocci in chains, Urine culture with Enterococcus, penicillin. 10/02: Seen in his bedroom, no Nausea, vomit or diarrhea, continue antibiotics, no complaint, encourage activity. Objective Vital Signs Date Time Temp Pulse Resp B/P Pulse Ox O2 Delivery O2 Flow Rate FiO2 10/02/16 04:00 99.6 75 16 97/64 96 10/02/16 00:00 98.8 95 20 96/57 96 10/01/16 20:00 78 10/01/16 20:00 99.4 83 20 98/61 96 10/01/16 16:00 98.5 92 20 115/68 98 10/01/16 12:00 98.2 82 18 98/62 97 I/O 10/01/16 10/01/16 10/01/16 10/02/16 10/02/16 10/02/16 07:00 15:00 23:00 07:00 15:00 23:00 Intake Total 240 ml 840 ml 4068 ml 1529 ml Output Total 675 ml 1175 ml Balance 240 ml 840 ml 3393 ml 354 ml Intake Oral 240 ml 840 ml 1440 ml 720 ml IV Total 2628 ml 809 ml Output Urine Total 675 ml 1175 ml # Voids 3 # Bowel Movements 1 0 1 Result Diagram: 10/01/16 0617 10/02/16 0538 Imaging Last Impressions Chest CT 09/28/16 0000 Signed Impressions: Service Date/Time: Wednesday, September 28, 2016 07:42 - CONCLUSION: 1. Tiny bilateral pleural effusions and probable bibasilar compressive atelectasis. 2. Splenomegaly with areas of decreased perfusion possibly representing splenic infarcts. 3. A 5 mm pleural based non-calcified nodule within the right middle lobe which is indeterminate. Follow up CT of the chest in six months is recommended. 4. Degenerative changes and scoliosis of the thoracic spine. Brown Kaufman MD Chest X-Ray 09/26/16 0106 Signed Impressions: Service Date/Time: Monday, September 26, 2016 01:11 - CONCLUSION: 1. Bibasilar atelectasis left greater than right. Gordon Odell MD Abdomen/Pelvis CT 09/26/16 0000 Signed Impressions: Service Date/Time: Monday, September 26, 2016 09:32 - CONCLUSION: Left lung base infiltrate may represent pneumonia. KBrenda Peña MD Procedures BEBETO 09/27/16. Other Results Laboratory Tests Test 09/28/16 09/29/16 10/01/16 10/02/16 02:04 06:05 06:17 03:45 Vancomycin Level Trough 15.8 MCG/ML Neutrophils (%) (Auto) 78.1 % Lymphocytes (%) (Auto) 13.7 % Monocytes (%) (Auto) 7.3 % Eosinophils (%) (Auto) 0.6 % Basophils (%) (Auto) 0.3 % Neutrophils # (Auto) 9.7 TH/MM3 Lymphocytes # (Auto) 1.7 TH/MM3 Monocytes # (Auto) 0.9 TH/MM3 Eosinophils # (Auto) 0.1 TH/MM3 Basophils # (Auto) 0.0 TH/MM3 CBC Comment AUTO DIFF Differential Total Cells 100 Counted Neutrophils % (Manual) 78 % Band Neutrophils % 3 % Lymphocytes % 11 % Monocytes % 4 % Eosinophils % 1 % Basophils % 1 % Neutrophils # (Manual) 10.4 TH/MM3 Myelocytes 2 % Differential Comment FINAL DIFF MANUAL Platelet Estimate NORMAL Platelet Morphology Comment NORMAL Ovalocytes 1+ Erythrocyte Sedimentation Rate 31 mm/hr C-Reactive Protein 5.20 MG/DL White Blood Count 13.4 TH/MM3 Red Blood Count 4.30 MIL/MM3 Hemoglobin 10.2 GM/DL Hematocrit 31.8 % Mean Corpuscular Volume 73.8 FL Mean Corpuscular Hemoglobin 23.6 PG Mean Corpuscular Hemoglobin 32.0 % Concent Red Cell Distribution Width 14.9 % Platelet Count 400 TH/MM3 Mean Platelet Volume 6.8 FL Sodium Level 135 MEQ/L Potassium Level 4.7 MEQ/L Chloride Level 102 MEQ/L Carbon Dioxide Level 27.3 MEQ/L Anion Gap 6 MEQ/L Blood Urea Nitrogen 16 MG/DL Random Glucose 91 MG/DL Calcium Level 8.8 MG/DL Gentamicin Level Trough 1.5 MCG/ML Test 10/02/16 05:38 Creatinine 0.98 MG/DL Estimat Glomerular Filtration 84 ML/MIN Rate Objective Remarks GENERAL: This is a well-nourished, well-developed patient, in no apparent distress. CARDIOVASCULAR: Normal rate and regular rhythm. 2/6 TANVIR best heard at the right upper sternal border. RESPIRATORY: Good respiratory efforts. Breath sounds equal and clear to auscultation bilaterally. GASTROINTESTINAL: Abdomen soft, nondistended, mild tenderness to palpation over left upper quadrant. Normal active bowel sounds MUSCULOSKELETAL: Extremities without cyanosis, or edema. NEURO: Alert & Oriented x4 to person, place, time, situation. Moves all ext x4 PSYCH: Appropriate mood and affect. Medications and IVs Current Medications Medications (Trade) Dose Ordered Sig/Santos Route Start Time Stop Time Status Last Admin (NS 1000 ml Inj) 1,000 ml @ 100 mls/hr Q10H IV 09/26/16 04:15 10/02/16 00:15 (NS Flush) 2 ml UNSCH PRN IV FLUSH 09/26/16 04:15 09/28/16 09:02 (NS Flush) 2 ml BID IV FLUSH 09/26/16 09:00 10/01/16 09:00 (Zofran Inj) 4 mg Q6H PRN IVP 09/26/16 04:15 (Dulcolax Supp) 10 mg DAILY PRN RECTAL 09/26/16 04:15 (Tylenol) 650 mg Q6H PRN PO 09/26/16 04:15 ([place] 5-325 Mg) 1 tab Q4H PRN PO 09/26/16 04:15 10/02/16 04:02 (Morphine Inj) 2 mg Q3H PRN IV 09/26/16 04:15 (Protonix Inj) 40 mg Q12H IV PUSH 09/26/16 21:00 10/01/16 21:24 (Nitroglycerin 2% Oint) 0.5 inch Q6HR PRN TOPICAL 09/26/16 04:45 (Lopressor) 25 mg Q12HR PO 09/26/16 09:00 10/01/16 21:24 (Prinivil) 2.5 mg DAILY PO 09/26/16 09:00 09/30/16 09:02 Aspirin 81 mg 81 mg DAILY PO 09/26/16 09:00 10/01/16 09:18 (Pfizerpen-G Inj/ NS Inj) 100 ml @ 200 mls/hr Q4H IV 09/27/16 18:00 10/02/16 06:00 (Xanax) 0.5 mg Q6H PRN PO 09/28/16 14:15 (Neurontin) 300 mg TID PO 09/28/16 18:00 10/01/16 17:05 (Desyrel) 50 mg HS PO 09/28/16 21:00 10/01/16 21:24 Fluoxetine HCl 40 mg 40 mg DAILY PO 09/28/16 14:15 10/01/16 09:19 Pharmacy Profile Note 0 ml @ 0 mls/hr UNSCH OTHER 09/29/16 10:15 (Gentamicin Inj/ NS Inj) 102.5 ml @ 100 mls/hr Q8H IV 09/30/16 20:00 10/02/16 03:59 A/P Assessment and Plan (1) Elevated troponin ICD Code: R74.8 Status: Acute (2) Dehydration ICD Code: E86.0 Status: Acute (3) Leukocytosis ICD Code: D72.829 Status: Acute (4) Hematuria ICD Code: R31.9 Status: Acute (5) Tobacco abuse ICD Code: Z72.0 Status: Acute Assessment and Plan 41-year-old male with: Aortic prostatic valve Endocarditis CXR w/ bibasilar atelectasis. Complains of upper abdominal/ chest pain x2 wks w / associated SOB. 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 Cardiology consult appreciated. Echo unremarkable. CT abdomen with evidence of pneumonia on the left. Blood cultures 4 out of 4 with viridans strep. The patient went for BEBETO which confirmed a small vegetation on the aortic valve. Infectious disease following. WBC 13.4 - continue antibiotics per infectious disease. Penicillin G and Gentamicin - Follow blood cultures. - incentive spirometry. - oxygen and nebs as needed. - supervisory investigative specialist Doctor Moncho asked me to switch diet to general diet and is signing off the case. UTI/ Hematuria U/a w/ hematuria, mild bacteriuria. -Urine culture grew group D enterococcus. - continue w/ IV Abx as above. Anemia Probably related to endocarditis. -Continue to monitor Tobacco/ MJ abuse Pt counselled. - Ativan prn. Homelessness The pt is currently without resources. - case management consult placed. DVT Prophylaxis: SCD/teds. No changes to anterior assessment. Discharge Planning On IV antibiotics for prosthetic valve endocarditis. Follow-up cultures. ID to determine antibiotics course. Codey Oneill MD Oct 02, 2016 08:43 Codey Oneill MD Oct 02, 2016 08:43
[2016-10-02] MEDS: METOPROLOL TARTRATE 25 MG TAB PO SCH ×2 (09:06→21:32)
[2016-10-02] MEDS: GABAPENTIN 300 MG CAP PO SCH ×3 (09:06→18:28)
[2016-10-02] MEDS: ASPIRIN EC 81 MG TABEC PO SCH (09:07)
[2016-10-02] MEDS: PANTOPRAZOLE SODIUM 40 MG VIAL IV PUSH SCH ×2 (09:07→21:30)
[2016-10-02] MEDS: LISINOPRIL 5 MG TAB PO SCH (09:07)
[2016-10-02] MEDS: FLUoxetine HCL 20 MG CAP PO SCH (09:07)
[2016-10-02] MEDS: SODIUM CHLORIDE 0.9% FLUSH 10 ML FLUSH IV FLUSH SCH ×2 (09:07→21:00)
[2016-10-02] MEDS: GENTAMICIN INJ 80 MG in SODIUM CHLORIDE 0.9% INJ 100 ML IV SCH (20:00)
[2016-10-02] MEDS: traZODone HCL 50 MG TAB PO SCH (21:32)
[2016-10-03] VITALS (8 sets, daily range): BP systolic 91–190; BP diastolic 55–83; PULSE 77–88; RESP 16–20; TEMP 97–99; O2SAT 92–96
[2016-10-03] MEDS: PENICILLIN G POTASSIUM INJ 4,000,000 UNITS in SODIUM CHLORIDE 0.9% INJ 100 ML IV SCH ×6 (01:51→22:05)
[2016-10-03] MEDS: SODIUM CHLOR 0.9% 1000 ML INJ 1,000 ML IV SCH ×2 (04:17→06:15)
[2016-10-03] MEDS: GENTAMICIN INJ 80 MG in SODIUM CHLORIDE 0.9% INJ 100 ML IV SCH (04:17)
[2016-10-03] MEDS: SODIUM CHLORIDE 0.9% FLUSH 10 ML FLUSH IV FLUSH SCH ×2 (09:00→20:13)
[2016-10-03] MEDS: FLUoxetine HCL 20 MG CAP PO SCH (09:48)
[2016-10-03] MEDS: ASPIRIN EC 81 MG TABEC PO SCH (09:48)
[2016-10-03] MEDS: METOPROLOL TARTRATE 25 MG TAB PO SCH ×2 (09:48→20:12)
[2016-10-03] MEDS: GABAPENTIN 300 MG CAP PO SCH ×3 (09:49→18:07)
[2016-10-03] MEDS: PANTOPRAZOLE SODIUM 40 MG VIAL IV PUSH SCH ×2 (09:49→20:10)
[2016-10-03] MEDS: LISINOPRIL 5 MG TAB PO SCH (09:49)
[2016-10-03] MEDS: ACETAMINOPHEN/HYDROcodone 325 MG/5 MG TAB PO PRN ×3 (10:06→22:05)
[2016-10-03] MEDS: GENTAMICIN 80 MG PREMIX 100 ML IV SCH ×2 (12:41→20:00)
--- NOTE | 2016-10-03 13:41 | HHI.PR ---
Subjective Remarks This is a pleasant 41 y/o Male who came to ER with fever and Chills, with left sided abdominal pain and midsternal chest pain, has history of Endocarditis treated in March 2016 in [place], underwent Aortic Valve replacement followed by long course of IV antibiotics, history of IV drug abuse, on BEBETO seen vegetation in his Aortic Prostatic Valve, blood culture positive for gram positive cocci in chains, Urine culture with Enterococcus, penicillin. 10/02: Seen in his bedroom, continue antibiotics, no complaint, encourage activity. 10/03; Patient stable no changes to anterior assessment. No nausea, vomit or diarrhea. Objective Vital Signs Date Time Temp Pulse Resp B/P Pulse Ox O2 Delivery O2 Flow Rate FiO2 10/03/16 11:28 98.5 79 16 92/55 96 10/03/16 08:10 84 10/03/16 07:54 99.0 82 16 101/63 95 10/03/16 04:00 98.0 78 20 95/60 95 10/03/16 02:30 100/60 Automatic Cuff 10/03/16 00:00 98.1 88 20 136/64 92 10/02/16 20:00 86 10/02/16 20:00 98.0 87 20 95/62 96 10/02/16 16:00 98.6 78 17 107/67 95 I/O 10/02/16 10/02/16 10/02/16 10/03/16 10/03/16 10/03/16 07:00 15:00 23:00 07:00 15:00 23:00 Intake Total 1529 ml 1809 ml 1231 ml Output Total 1175 ml 1500 ml Balance 354 ml 1809 ml -269 ml Intake Oral 720 ml 480 ml IV Total 809 ml 1809 ml 751 ml Output Urine Total 1175 ml 1500 ml # Bowel Movements 1 Result Diagram: 10/01/16 0617 10/02/16 0538 Imaging Last Impressions Chest CT 09/28/16 0000 Signed Impressions: Service Date/Time: Wednesday, September 28, 2016 07:42 - CONCLUSION: 1. Tiny bilateral pleural effusions and probable bibasilar compressive atelectasis. 2. Splenomegaly with areas of decreased perfusion possibly representing splenic infarcts. 3. A 5 mm pleural based non-calcified nodule within the right middle lobe which is indeterminate. Follow up CT of the chest in six months is recommended. 4. Degenerative changes and scoliosis of the thoracic spine. Brown Kaufman MD Chest X-Ray 09/26/16 0106 Signed Impressions: Service Date/Time: Monday, September 26, 2016 01:11 - CONCLUSION: 1. Bibasilar atelectasis left greater than right. Gordon Odell MD Abdomen/Pelvis CT 09/26/16 0000 Signed Impressions: Service Date/Time: Monday, September 26, 2016 09:32 - CONCLUSION: Left lung base infiltrate may represent pneumonia. Matthieu Peña MD Procedures BEBETO 09/27/16. Other Results Laboratory Tests Test 09/29/16 10/01/16 10/02/16 10/02/16 06:05 06:17 03:45 05:38 Neutrophils (%) (Auto) 78.1 % Lymphocytes (%) (Auto) 13.7 % Monocytes (%) (Auto) 7.3 % Eosinophils (%) (Auto) 0.6 % Basophils (%) (Auto) 0.3 % Neutrophils # (Auto) 9.7 TH/MM3 Lymphocytes # (Auto) 1.7 TH/MM3 Monocytes # (Auto) 0.9 TH/MM3 Eosinophils # (Auto) 0.1 TH/MM3 Basophils # (Auto) 0.0 TH/MM3 CBC Comment AUTO DIFF Differential Total Cells 100 Counted Neutrophils % (Manual) 78 % Band Neutrophils % 3 % Lymphocytes % 11 % Monocytes % 4 % Eosinophils % 1 % Basophils % 1 % Neutrophils # (Manual) 10.4 TH/MM3 Myelocytes 2 % Differential Comment FINAL DIFF MANUAL Platelet Estimate NORMAL Platelet Morphology Comment NORMAL Ovalocytes 1+ Erythrocyte Sedimentation Rate 31 mm/hr C-Reactive Protein 5.20 MG/DL White Blood Count 13.4 TH/MM3 Red Blood Count 4.30 MIL/MM3 Hemoglobin 10.2 GM/DL Hematocrit 31.8 % Mean Corpuscular Volume 73.8 FL Mean Corpuscular Hemoglobin 23.6 PG Mean Corpuscular Hemoglobin 32.0 % Concent Red Cell Distribution Width 14.9 % Platelet Count 400 TH/MM3 Mean Platelet Volume 6.8 FL Sodium Level 135 MEQ/L Potassium Level 4.7 MEQ/L Chloride Level 102 MEQ/L Carbon Dioxide Level 27.3 MEQ/L Anion Gap 6 MEQ/L Blood Urea Nitrogen 16 MG/DL Random Glucose 91 MG/DL Calcium Level 8.8 MG/DL Gentamicin Level Trough 1.5 MCG/ML Creatinine 0.98 MG/DL Estimat Glomerular Filtration 84 ML/MIN Rate Objective Remarks GENERAL: This is a well-nourished, well-developed patient, in no apparent distress. CARDIOVASCULAR: Normal rate and regular rhythm. 2/6 TANVIR best heard at the right upper sternal border. RESPIRATORY: Good respiratory efforts. Breath sounds equal and clear to auscultation bilaterally. GASTROINTESTINAL: Abdomen soft, nondistended, mild tenderness to palpation over left upper quadrant. Normal active bowel sounds MUSCULOSKELETAL: Extremities without cyanosis, or edema. NEURO: Alert & Oriented x4 to person, place, time, situation. Moves all ext x4 PSYCH: Appropriate mood and affect. Medications and IVs Current Medications Medications (Trade) Dose Ordered Sig/Santos Route Start Time Stop Time Status Last Admin (NS 1000 ml Inj) 1,000 ml @ 100 mls/hr Q10H IV 09/26/16 04:15 10/03/16 04:17 (NS Flush) 2 ml UNSCH PRN IV FLUSH 09/26/16 04:15 09/28/16 09:02 (NS Flush) 2 ml BID IV FLUSH 09/26/16 09:00 10/03/16 09:00 (Zofran Inj) 4 mg Q6H PRN IVP 09/26/16 04:15 (Dulcolax Supp) 10 mg DAILY PRN RECTAL 09/26/16 04:15 (Tylenol) 650 mg Q6H PRN PO 09/26/16 04:15 ([place] 5-325 Mg) 1 tab Q4H PRN PO 09/26/16 04:15 10/03/16 10:06 (Morphine Inj) 2 mg Q3H PRN IV 09/26/16 04:15 10/02/16 18:25 (Protonix Inj) 40 mg Q12H IV PUSH 09/26/16 21:00 10/03/16 09:49 (Nitroglycerin 2% Oint) 0.5 inch Q6HR PRN TOPICAL 09/26/16 04:45 (Lopressor) 25 mg Q12HR PO 09/26/16 09:00 10/03/16 09:48 (Prinivil) 2.5 mg DAILY PO 09/26/16 09:00 10/03/16 09:49 Aspirin 81 mg 81 mg DAILY PO 09/26/16 09:00 10/03/16 09:48 (Pfizerpen-G Inj/ NS Inj) 100 ml @ 200 mls/hr Q4H IV 09/27/16 18:00 10/03/16 13:16 (Xanax) 0.5 mg Q6H PRN PO 09/28/16 14:15 (Neurontin) 300 mg TID PO 09/28/16 18:00 10/03/16 12:36 (Desyrel) 50 mg HS PO 09/28/16 21:00 10/02/16 21:32 Fluoxetine HCl 40 mg 40 mg DAILY PO 09/28/16 14:15 10/03/16 09:48 (Gentamicin Consult Pharmacy) 0 ml @ 0 mls/hr UNSCH OTHER 09/29/16 10:15 Miscellaneous Information SPECIFIC LAB TO BE ... ONCE ONCE .XX 10/03/16 19:45 10/03/16 19:46 (Gentamicin 80 Mg Premix) 100 ml @ 200 mls/hr Q8H IV 10/03/16 12:00 10/03/16 12:41 A/P Assessment and Plan (1) Elevated troponin ICD Code: R74.8 Status: Acute (2) Dehydration ICD Code: E86.0 Status: Acute (3) Leukocytosis ICD Code: D72.829 Status: Acute (4) Hematuria ICD Code: R31.9 Status: Acute (5) Tobacco abuse ICD Code: Z72.0 Status: Acute Assessment and Plan 41-year-old male with: Aortic prostatic valve Endocarditis CXR w/ bibasilar atelectasis. Complains of upper abdominal/ chest pain x2 wks w / associated SOB. 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 Cardiology consult appreciated. Echo unremarkable. CT abdomen with evidence of pneumonia on the left. Blood cultures 4 out of 4 with viridans strep. The patient went for BEBETO which confirmed a small vegetation on the aortic valve. Infectious disease following. WBC 13.4 - continue antibiotics per infectious disease. Penicillin G and Gentamicin - Follow blood cultures. - incentive spirometry. - oxygen and nebs as needed. - diesel engine specialist Doctor Moncho asked me to switch diet to general diet and is signing off the case. UTI/ Hematuria U/a w/ hematuria, mild bacteriuria. -Urine culture grew group D enterococcus. - continue w/ IV Abx as above. Anemia Probably related to endocarditis. -Continue to monitor Tobacco/ MJ abuse Pt counselled. - Ativan prn. Homelessness The pt is currently without resources. - case management consult placed. DVT Prophylaxis: SCD/teds. No changes to anterior assessment. Discharge Planning On IV antibiotics for prosthetic valve endocarditis. Follow-up cultures. ID to determine antibiotics course. Codey Oneill MD Oct 03, 2016 13:40
[2016-10-03] MEDS ORDERED: PHARMACY ORDERED LAB ONE (19:45)
[2016-10-03] MEDS: traZODone HCL 50 MG TAB PO SCH (20:12)
[2016-10-04] VITALS (8 sets, daily range): BP systolic 82–110; BP diastolic 52–80; PULSE 72–93; RESP 14–18; TEMP 97.6–99.7; O2SAT 94–98
[2016-10-04] MEDS: PENICILLIN G POTASSIUM INJ 4,000,000 UNITS in SODIUM CHLORIDE 0.9% INJ 100 ML IV SCH ×6 (02:14→22:59)
[2016-10-04] MEDS: SODIUM CHLOR 0.9% 1000 ML INJ 1,000 ML IV SCH ×3 (02:15→22:59)
[2016-10-04] MEDS: GENTAMICIN INJ 70 MG in SODIUM CHLORIDE 0.9% INJ 100 ML IV SCH ×3 (04:12→22:52)
[2016-10-04] MEDS: ACETAMINOPHEN/HYDROcodone 325 MG/5 MG TAB PO PRN ×4 (05:27→22:56)
[2016-10-04] MEDS: GABAPENTIN 300 MG CAP PO SCH ×3 (08:24→16:42)
[2016-10-04] MEDS: PANTOPRAZOLE SODIUM 40 MG VIAL IV PUSH SCH ×2 (08:24→22:55)
[2016-10-04] MEDS: ASPIRIN EC 81 MG TABEC PO SCH (08:25)
[2016-10-04] MEDS: SODIUM CHLORIDE 0.9% FLUSH 10 ML FLUSH IV FLUSH SCH ×2 (08:25→22:58)
[2016-10-04] MEDS: FLUoxetine HCL 20 MG CAP PO SCH (08:25)
[2016-10-04] MEDS: LISINOPRIL 5 MG TAB PO SCH (08:25)
[2016-10-04] MEDS: METOPROLOL TARTRATE 25 MG TAB PO SCH ×2 (08:25→21:00)
--- NOTE | 2016-10-04 13:23 | HHI.IDPN ---
Subjective Subjective Remarks Notes reviewed Temps ok Feels better No tinnitus or dizziness No rash No diarrhea No N/V Stable to improving LUQ pain CT chest no septic emboli, has splenic infarcts BC 09/26 with Strep viridans UC with Enterococcus Has one new (+) BC 09/27 with Strep viridans PCN MITCHELL 0.06 BC 09/28 and 09/30 negative so far Antibiotics PCN IV Gentamicin Lines PIV Past Medical History Anxiety Schizophrenia/Bipolar Disorder Hepatitis C X IVDU Hx Endocarditis s/p AVR Past Surgical History S/P AVR Mar 2016 Allergies: Coded Allergies: No Known Allergies (Unverified , 09/26/16) Objective . Vital Signs Date Time Temp Pulse Resp B/P Pulse Ox O2 Delivery O2 Flow Rate FiO2 10/04/16 08:30 72 10/04/16 04:00 97.6 78 18 110/80 94 10/04/16 00:00 98.7 79 18 89/54 95 10/03/16 20:00 97.0 81 18 101/61 96 10/03/16 20:00 86 10/03/16 15:37 98.9 77 16 91/59 96 10/03/16 10/03/16 10/04/16 15:00 23:00 07:00 Intake Total 600 ml 1124 ml 1181 ml Output Total 1200 ml 850 ml 675 ml Balance -600 ml 274 ml 506 ml Intake Oral 600 ml 240 ml 240 ml IV Total 884 ml 941 ml Output Urine Total 1200 ml 850 ml 675 ml # Voids 2 # Bowel Movements 0 0 0 . Laboratory Tests Test 10/04/16 07:46 Creatinine 1.17 MG/DL Estimat Glomerular Filtration 69 ML/MIN Rate Imaging Chest CT 09/28/16 0000 Signed Impressions: Service Date/Time: Wednesday, September 28, 2016 07:42 - CONCLUSION: 1. Tiny bilateral pleural effusions and probable bibasilar compressive atelectasis. 2. Splenomegaly with areas of decreased perfusion possibly representing splenic infarcts. 3. A 5 mm pleural based non-calcified nodule within the right middle lobe which is indeterminate. Follow up CT of the chest in six months is recommended. 4. Degenerative changes and scoliosis of the thoracic spine. Brown Kaufman MD Chest X-Ray 09/26/16 0106 Signed Impressions: Service Date/Time: Monday, September 26, 2016 01:11 - CONCLUSION: 1. Bibasilar atelectasis left greater than right. Gordon Odell MD Abdomen/Pelvis CT 09/26/16 0000 Signed Impressions: Service Date/Time: Monday, September 26, 2016 09:32 - CONCLUSION: Left lung base infiltrate may represent pneumonia. Matthieu Peña MD Physical Exam GENERAL: awake and alert, in no apparent distress. SKIN: Warm and dry. No generalized rash or ecchymosis. No embolic lesions noted. HEENT: [place] conjunctivae, no petechia or hemorrhage. No scleral icterus. No injection or drainage. Moist oral mucosa. NECK: Supple, nontender, no meningeal signs. CARDIOVASCULAR: Regular rate and rhythm, no pericardial rub. There is a systolic murmur heard at the base of the heart. RESPIRATORY: Clear to auscultation. Breath sounds equal bilaterally. No wheezes , rales, or rhonchi. No pleural rub. Has a well-healed sternal incision. GASTROINTESTINAL: Abdomen soft, nondistended, bowel sounds are present and normoactive, with left-sided abdominal tenderness. No guarding or rebound.. No hepato-splenomegaly, or palpable masses. MUSCULOSKELETAL: Extremities without clubbing, cyanosis, or edema. No joint tenderness, effusion, or edema noted. No calf tenderness. NEUROLOGICAL: Non-focal. PSYCH: Flat affect. Cooperative LINE: PIV with no evidence of infection Assessment & Plan Remarks IMPRESSION PVE, S/P AVR - has (+) BC with Strep viridans - BEBETO, with vegetation in his PV Has UC with Enterococcus, no complaints LUQ pain, due to splenic infarcts RECOMMENDATION Continue PCN G Continue Gentamicin - monitor for side effects: hearing, vestibular and creatinine Follow C/S Monitor progress D/W CM: start determining how we can give this patient the Rx for his PVE Rossana Smith MD Oct 04, 2016 13:23
--- NOTE | 2016-10-04 15:40 | HHI.PR ---
Subjective Remarks f/u for infection. patient has no complaints. He denied any CP or SOB. remains afebrile. Objective Vitals Vital Signs Date Time Temp Pulse Resp B/P Pulse Ox O2 Delivery O2 Flow Rate FiO2 10/04/16 08:30 72 10/04/16 08:00 98.1 72 16 98/57 96 10/04/16 04:00 97.6 78 18 110/80 94 10/04/16 00:00 98.7 79 18 89/54 95 10/03/16 20:00 97.0 81 18 101/61 96 10/03/16 20:00 86 10/03/16 15:37 98.9 77 16 91/59 96 I/O 10/03/16 10/03/16 10/03/16 10/04/16 10/04/16 10/04/16 07:00 15:00 23:00 07:00 15:00 23:00 Intake Total 1231 ml 600 ml 1124 ml 1181 ml Output Total 1500 ml 1200 ml 850 ml 675 ml Balance -269 ml -600 ml 274 ml 506 ml Intake Oral 480 ml 600 ml 240 ml 240 ml IV Total 751 ml 884 ml 941 ml Output Urine Total 1500 ml 1200 ml 850 ml 675 ml # Voids 2 # Bowel Movements 0 0 0 Result Diagram: 10/01/16 0617 10/04/16 0746 Objective Remarks GENERAL: in NAD SKIN: Warm and dry. HEAD: Normocephalic. EYES: No scleral icterus. No injection or drainage. NECK: Supple, trachea midline. No JVD or lymphadenopathy. CARDIOVASCULAR: Regular rate and rhythm + 3/6 heart murmur. RESPIRATORY: Breath sounds equal bilaterally. No accessory muscle use. GASTROINTESTINAL: Abdomen soft, non-tender, nondistended. Procedures BEBETO 09/27/16. Medications and IVs Current Medications Sodium Chloride 1,000 ml @ 1,000 mls/hr Q1H ONCE IV Last administered on 02:08; Start 09/26/16 at 01:08; Stop 09/26/16 at 02:07; Status DC Sodium Chloride 1,000 ml @ 1,000 mls/hr Q1H ONCE IV Last administered on 02:09; Start 09/26/16 at 01:08; Stop 09/26/16 at 02:07; Status DC Sodium Chloride 700 ml @ 1,000 mls/hr Q42M ONCE IV Last administered on 02:09; Start 09/26/16 at 01:08; Stop 09/26/16 at 01:49; Status DC Piperacillin Sod/ Tazobactam Sod 100 ml @ 200 mls/hr ONCE ONCE IV Last administered on 09/26/16 04:46; Start 09/26/16 at 04:15; Stop 09/26/16 at 04:44 ; Status DC Vancomycin HCl 1000 mg/Sodium Chloride 250 ml @ 250 mls/hr ONCE ONCE IV Last administered on 09/26/16 05:36; Start 09/26/16 at 04:15; Stop 09/26/16 at 05:14 ; Status DC Pharmacy Profile Note 0 ml @ 0 mls/hr UNSCH OTHER ; Start 09/26/16 at 04:15; Stop 09/30/16 at 12:39; Status DC Piperacillin Sod/ Tazobactam Sod 100 ml @ 200 mls/hr Q6H IV Last administered on 09/27/16 10:17; Start 09/26/16 at 10:00; Stop 09/27/16 at 17:06; Status DC Sodium Chloride (NS 1000 ml Inj) 1,000 ml @ 100 mls/hr Q10H IV Last administered on 10/04/16 11:11; Start 09/26/16 at 04:15 Sodium Chloride (NS Flush) 2 ml UNSCH PRN IV FLUSH FLUSH AFTER USING IV ACCESS Last administered on 09/28/16 09:02; Start 09/26/16 at 04:15 Sodium Chloride (NS Flush) 2 ml BID IV FLUSH Last administered on 10/04/16 08: 25; Start 09/26/16 at 09:00 Ondansetron HCl (Zofran Inj) 4 mg Q6H PRN IVP NAUSEA OR VOMITING; Start at 04:15 Bisacodyl (Dulcolax Supp) 10 mg DAILY PRN RECTAL CONSTIPATION; Start 09/26/16 at 04:15 Acetaminophen (Tylenol) 650 mg Q6H PRN PO FEVER/PAIN SCALE 1 TO 2; Start at 04:15 Acetaminophen/ Hydrocodone Bitart ([place] 5-325 Mg) 1 tab Q4H PRN PO PAIN SCALE 3 TO 5 Last administered on 10/04/16 11:07; Start 09/26/16 at 04:15 Morphine Sulfate (Morphine Inj) 2 mg Q3H PRN IV Pain 6-10 Last administered on 10/02/16 18:25; Start 09/26/16 at 04:15 Pantoprazole Sodium (Protonix Inj) 40 mg ONCE ONCE IV PUSH Last administered on 09/26/16 08:08; Start 09/26/16 at 04:45; Stop 09/26/16 at 04:49; Status DC Pantoprazole Sodium (Protonix Inj) 40 mg Q12H IV PUSH Last administered on 10/04 08:24; Start 09/26/16 at 21:00 Nitroglycerin (Nitroglycerin 2% Oint) 0.5 inch Q6HR PRN TOPICAL CHEST PAIN; Start 09/26/16 at 04:45 Metoprolol Tartrate (Lopressor) 25 mg Q12HR PO Last administered on 10/04/16 08:25; Start 09/26/16 at 09:00 Lisinopril (Prinivil) 2.5 mg DAILY PO Last administered on 10/04/16 08:25; Start 09/26/16 at 09:00 Albuterol/ Ipratropium (Duoneb Neb) 1 ampule Q4HR NEB PRN NEB SOB/WHEEZING; Start 09/26/16 at 05:00 Aspirin (Ecotrin Ec) 81 mg DAILY PO Last administered on 10/04/16 08:25; Start 09/26/16 at 09:00 Diatrizoate Meglum/ Diatrizoate Sod ( Gastroview Liq) 18 ml ONCE ONCE PO ; Start 09/26/16 at 09:15; Stop 09/26/16 at 09:16; Status DC Iohexol 75 ml 75 ml STK-MED ONCE IV Last administered on 09/26/16 09:59; Start 09/26/16 at 09:59; Stop 09/26/16 at 10:00; Status DC Vancomycin HCl/ Sodium Chloride (Vancomycin Inj/ NS 500 ml Inj) 515 ml @ 250 mls/hr Q12H IV Last administered on 09/30/16 03:22; Start 09/26/16 at 14:00; Stop 09/30/16 at 12:39; Status DC Miscellaneous Information SPECIFIC LAB TO BE DRAWN:VANCOMY... ONCE ONCE .XX Last administered on 09/28/16 01:45; Start 09/28/16 at 01:45; Stop 09/28/16 at 01:46; Status DC Pneumococcal Polyvalent Vaccine 25 mcg 25 mcg ONCE ONCE IM Last administered on 09/28/16 14:15; Start 09/27/16 at 10:00; Stop 09/27/16 at 10:01; Status DC Penicillin G Potassium/Sodium Chloride (Pfizerpen-G Inj/ NS Inj) 100 ml @ 200 mls/hr Q4H IV Last administered on 10/04/16 14:18; Start 09/27/16 at 18:00 Atropine Sulfate (Atropine Inj) 1 mg STK-MED ONCE .ROUTE ; Start 09/28/16 at 07: 32; Stop 09/28/16 at 07:33; Status DC Epinephrine HCl (EPINEPHrine (1:10,000) INJ) 1 mg STK-MED ONCE .ROUTE ; Start at 07:33; Stop 09/28/16 at 07:34; Status DC Iohexol (Omnipaque 350 Inj) 70 ml STK-MED ONCE IV Last administered on 07:55; Start 09/28/16 at 07:55; Stop 09/28/16 at 07:56; Status DC Propofol (Diprivan 200 Mg/20 ml Inj) 20 mg STK-MED ONCE IV ; Start 09/27/16 at 08:13; Stop 09/28/16 at 08:13; Status DC Alprazolam (Xanax) 0.5 mg Q6H PRN PO ANXIETY; Start 09/28/16 at 14:15 Gabapentin (Neurontin) 300 mg TID PO Last administered on 10/04/16 14:17; Start 09/28/16 at 18:00 Trazodone HCl (Desyrel) 50 mg HS PO Last administered on 10/03/16 20:12; Start 09/28/16 at 21:00 Fluoxetine HCl 40 mg 40 mg DAILY PO Last administered on 10/04/16 08:25; Start 09/28/16 at 14:15 Gentamicin Sulfate 80 mg/ Sodium Chloride 102 ml @ 100 mls/hr Q8H IV Last administered on 09/30/16 12:35; Start 09/29/16 at 12:00; Stop 09/30/16 at 13:16 ; Status DC Pharmacy Profile Note (Gentamicin Consult Pharmacy) 0 ml @ 0 mls/hr UNSCH OTHER ; Start 09/29/16 at 10:15 Miscellaneous Information SPECIFIC LAB TO BE DRAWN:GENTAMICIN TROUGH DATE TO... ONCE ONCE .XX Last administered on 09/30/16 11:45; Start 09/30/16 at 11:45; Stop 09/30/16 at 11:46; Status DC Miscellaneous Information SPECIFIC LAB TO BE DRAWN:VANCOMYCIN TROUGH DATE TO... ONCE ONCE .XX ; Start 10/01/16 at 01:45; Stop 10/01/16 at 01:46; Status Cancel Gentamicin Sulfate/Sodium Chloride (Gentamicin Inj/ NS Inj) 102.5 ml @ 100 mls/ hr Q8H IV Last administered on 10/02/16 13:39; Start 09/30/16 at 20:00; Stop 10/02/16 at 14:35; Status DC Miscellaneous Information SPECIFIC LAB TO BE DRAWN:GENTAMICIN TROUGH DATE TO... ONCE ONCE .XX Last administered on 10/02/16 03:45; Start 10/02/16 at 03:45; Stop 10/02/16 at 03:46; Status DC Gentamicin Sulfate/Sodium Chloride (Gentamicin Inj/ NS Inj) 102 ml @ 100 mls/ hr Q8H IV Last administered on 10/03/16 04:17; Start 10/02/16 at 20:00; Stop 10/03/16 at 08:36; Status DC Miscellaneous Information SPECIFIC LAB TO BE VALDEZ... ONCE ONCE .XX Last administered on 10/03/16 19:45; Start 10/03/16 at 19:45; Stop 10/03/16 at 19:46 ; Status DC Gentamicin Sulfate/Sodium Chloride 100 ml @ 200 mls/hr Q8H IV Last administered on 10/03/16 20:00; Start 10/03/16 at 12:00; Stop 10/03/16 at 21:42 ; Status DC Gentamicin Sulfate/Sodium Chloride (Gentamicin Inj/ NS Inj) 101.75 ml @ 200 mls / hr Q8H IV Last administered on 4/24/17at 11:09; Start 10/04/16 at 04:00 Miscellaneous Information SPECIFIC LAB TO BE .. ONCE ONCE .XX ; Start 10/05 at 03:45; Stop 10/05/16 at 03:46 A/P Problem List: (1) Elevated troponin ICD Code: R74.8 Status: Acute (2) Dehydration ICD Code: E86.0 Status: Acute (3) Leukocytosis ICD Code: D72.829 Status: Acute (4) Hematuria ICD Code: R31.9 Status: Acute (5) Tobacco abuse ICD Code: Z72.0 Status: Acute Assessment and Plan 41-year-old male with: Aortic prostatic valve Endocarditis CXR w/ bibasilar atelectasis. Complains of upper abdominal/ chest pain x2 wks w / associated SOB. 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 Cardiology consult appreciated. Echo unremarkable. CT abdomen with evidence of pneumonia on the left. Blood cultures 4 out of 4 with viridans strep. The patient went for BEBETO which confirmed a small vegetation on the aortic valve. Infectious disease following. WBC 13.4 - continue antibiotics per infectious disease. Penicillin G and Gentamicin - Follow blood cultures. - incentive spirometry. - oxygen and nebs as needed. UTI/ Hematuria U/a w/ hematuria, mild bacteriuria. -Urine culture grew group D enterococcus. - continue w/ IV Abx as above. Anemia Probably related to endocarditis. -Continue to monitor Tobacco/ MJ abuse Pt counselled. - Ativan prn. Homelessness The pt is currently without resources. - case management consult placed. DVT Prophylaxis: SCD/teds. No changes to anterior assessment. Discharge Planning patient is self paid and is from [place]. he will need alf antibiotics treatment. Lisa Culp MD Oct 04, 2016 15:40
[2016-10-04 19:01] LABS: AUTOMATED NEUTROPHIL # 11.7 TH/MM3 (1.8-7.7); BASOPHIL # 0.1 TH/MM3 (0-0.2); BASOPHIL % 0.4 % (0.0-2.0); EOSINOPHIL # 0.1 TH/MM3 (0-0.4); EOSINOPHIL % 0.7 % (0.0-4.0); HEMATOCRIT 32.8 % (39.0-51.0); LYMPH % 15.5 % (9.0-44.0); LYMPHOCYTE # 2.4 TH/MM3 (1.0-4.8); MEAN CELL VOLUME 74.1 FL (80.0-100.0); MEAN CORPUSCULAR HEMOGLOBIN 23.7 PG (27.0-34.0); MONO % 6.4 % (0.0-8.0); PLATELET COUNT 474 TH/MM3 (150-450); RED BLOOD COUNT 4.43 MIL/MM3 (4.50-5.90); RED CELL DISTRIBUTION WIDTH 15.3 % (11.6-17.2); WHITE BLOOD COUNT 15.2 TH/MM3 (4.0-11.0)
[2016-10-04 19:25] LABS: HEMO FLAGS AUTO DIFF
[2016-10-04 21:14] LABS: BASOPHILS 1 % (0-2); METAMYELOCYTES 1 % (0-1); NEUTROPHIL # MANUAL DIFF 12.9 TH/MM3 (1.8-7.7); POLYS (SEG NEUTROPHILS) 84 % (16-70); WBC DIFF SAMPLE 100
[2016-10-04 21:15] LABS: OVALOCYTES 1+ (NORMAL); PLATELET ESTIMATE SMEAR HIGH (NORMAL); PLATELET MORPHOLOGY NORMAL (NORMAL); SCAN/DIFF FINAL DIFF MANUAL
[2016-10-04] MEDS: traZODone HCL 50 MG TAB PO SCH (22:55)
[2016-10-05] VITALS (8 sets, daily range): BP systolic 90–103; BP diastolic 54–63; PULSE 79–85; RESP 16; TEMP 98.7–99.5; O2SAT 96–97
[2016-10-05] MEDS: PENICILLIN G POTASSIUM INJ 4,000,000 UNITS in SODIUM CHLORIDE 0.9% INJ 100 ML IV SCH ×6 (02:43→21:00)
[2016-10-05] MEDS ORDERED: PHARMACY ORDERED LAB ONE (03:45)
[2016-10-05] MEDS: GENTAMICIN INJ 70 MG in SODIUM CHLORIDE 0.9% INJ 100 ML IV SCH (04:07)
[2016-10-05] MEDS: ACETAMINOPHEN/HYDROcodone 325 MG/5 MG TAB PO PRN ×4 (04:11→18:31)
[2016-10-05 05:26] LABS: GENTAMICIN TROUGH 1.4 MCG/ML (0.0-2.0)
[2016-10-05] MEDS: ASPIRIN EC 81 MG TABEC PO SCH (08:55)
[2016-10-05] MEDS: GABAPENTIN 300 MG CAP PO SCH ×3 (08:55→17:14)
[2016-10-05] MEDS: METOPROLOL TARTRATE 25 MG TAB PO SCH ×2 (08:55→21:00)
[2016-10-05] MEDS: FLUoxetine HCL 20 MG CAP PO SCH (08:55)
[2016-10-05] MEDS: LISINOPRIL 5 MG TAB PO SCH (08:55)
[2016-10-05] MEDS: PANTOPRAZOLE SODIUM 40 MG VIAL IV PUSH SCH ×2 (08:55→21:04)
[2016-10-05] MEDS: SODIUM CHLORIDE 0.9% FLUSH 10 ML FLUSH IV FLUSH SCH ×2 (08:56→21:04)
[2016-10-05] MEDS: SODIUM CHLOR 0.9% 1000 ML INJ 1,000 ML IV SCH ×2 (08:56→18:15)
--- NOTE | 2016-10-05 12:38 | HHI.IDPN ---
Subjective Subjective Remarks Notes reviewed Temps 99+ Feels better No tinnitus or dizziness No rash No diarrhea No N/V Improving LUQ pain WBC rising CT chest no septic emboli, has splenic infarcts BC 09/26 with Strep viridans UC with Enterococcus Has one new (+) BC 09/27 with Strep viridans PCN MITCHELL 0.06 BC 09/28 and 09/30 negative so far Antibiotics PCN IV Gentamicin Lines PIV Past Medical History Anxiety Schizophrenia/Bipolar Disorder Hepatitis C X IVDU Hx Endocarditis s/p AVR Past Surgical History S/P AVR Mar 2016 Allergies: Coded Allergies: No Known Allergies (Unverified , 09/26/16) Objective . Vital Signs Date Time Temp Pulse Resp B/P Pulse Ox O2 Delivery O2 Flow Rate FiO2 10/05/16 12:00 98.7 79 16 98/55 96 10/05/16 08:40 80 10/05/16 08:00 99.4 85 16 100/59 96 Manual Cuff/Auscultation 10/05/16 03:52 98.8 82 16 91/54 96 10/04/16 23:35 99.7 93 16 88/52 95 88/54 10/04/16 20:15 99.4 89 16 96/58 95 10/04/16 16:00 99.5 75 16 94/55 98 10/04/16 10/04/16 10/05/16 15:00 23:00 07:00 Intake Total 840 ml 1987 ml 953 ml Output Total 650 ml 475 ml 450 ml Balance 190 ml 1512 ml 503 ml Intake Oral 840 ml 240 ml 240 ml IV Total 1747 ml 713 ml Output Urine Total 650 ml 475 ml 450 ml # Bowel Movements 0 0 0 . Laboratory Tests Test 10/04/16 18:39 White Blood Count 15.2 TH/MM3 Red Blood Count 4.43 MIL/MM3 Hemoglobin 10.5 GM/DL Hematocrit 32.8 % Mean Corpuscular Volume 74.1 FL Mean Corpuscular Hemoglobin 23.7 PG Mean Corpuscular Hemoglobin 32.0 % Concent Red Cell Distribution Width 15.3 % Platelet Count 474 TH/MM3 Mean Platelet Volume 6.6 FL Neutrophils (%) (Auto) 77.0 % Lymphocytes (%) (Auto) 15.5 % Monocytes (%) (Auto) 6.4 % Eosinophils (%) (Auto) 0.7 % Basophils (%) (Auto) 0.4 % Neutrophils # (Auto) 11.7 TH/MM3 Lymphocytes # (Auto) 2.4 TH/MM3 Monocytes # (Auto) 1.0 TH/MM3 Eosinophils # (Auto) 0.1 TH/MM3 Basophils # (Auto) 0.1 TH/MM3 CBC Comment AUTO DIFF Differential Total Cells 100 Counted Neutrophils % (Manual) 84 % Lymphocytes % 7 % Monocytes % 7 % Basophils % 1 % Neutrophils # (Manual) 12.9 TH/MM3 Metamyelocytes 1 % Differential Comment FINAL DIFF MANUAL Platelet Estimate HIGH Platelet Morphology Comment NORMAL Ovalocytes 1+ Laboratory Tests Test 10/04/16 10/05/16 07:46 03:45 Creatinine 1.17 MG/DL 1.04 MG/DL Estimat Glomerular Filtration 69 ML/MIN 79 ML/MIN Rate Imaging Chest CT 09/28/16 0000 Signed Impressions: Service Date/Time: Wednesday, September 28, 2016 07:42 - CONCLUSION: 1. Tiny bilateral pleural effusions and probable bibasilar compressive atelectasis. 2. Splenomegaly with areas of decreased perfusion possibly representing splenic infarcts. 3. A 5 mm pleural based non-calcified nodule within the right middle lobe which is indeterminate. Follow up CT of the chest in six months is recommended. 4. Degenerative changes and scoliosis of the thoracic spine. Brown Kaufman MD Chest X-Ray 09/26/16 0106 Signed Impressions: Service Date/Time: Monday, September 26, 2016 01:11 - CONCLUSION: 1. Bibasilar atelectasis left greater than right. Gordon Odell MD Abdomen/Pelvis CT 09/26/16 0000 Signed Impressions: Service Date/Time: Monday, September 26, 2016 09:32 - CONCLUSION: Left lung base infiltrate may represent pneumonia. Matthieu Peña MD Physical Exam GENERAL: awake and alert, in no apparent distress. SKIN: Warm and dry. No generalized rash or ecchymosis. No embolic lesions noted. HEENT: [place] conjunctivae, no petechia or hemorrhage. No scleral icterus. No injection or drainage. Moist oral mucosa. NECK: Supple, nontender, no meningeal signs. CARDIOVASCULAR: Regular rate and rhythm, no pericardial rub. There is a systolic murmur heard at the base of the heart. RESPIRATORY: Clear to auscultation. Breath sounds equal bilaterally. No wheezes , rales, or rhonchi. No pleural rub. Has a well-healed sternal incision. GASTROINTESTINAL: Abdomen soft, nondistended, bowel sounds are present and normoactive, with left-sided abdominal tenderness. No guarding or rebound.. No hepato-splenomegaly, or palpable masses. MUSCULOSKELETAL: Extremities without clubbing, cyanosis, or edema. No joint tenderness, effusion, or edema noted. No calf tenderness. NEUROLOGICAL: Non-focal. PSYCH: Flat affect. Cooperative LINE: PIV with no evidence of infection Assessment & Plan Remarks IMPRESSION PVE, S/P AVR - has (+) BC with Strep viridans - BEBETO, with vegetation in his PV Has UC with Enterococcus, no complaints LUQ pain, due to splenic infarcts Leukocytosis, rising RECOMMENDATION Continue PCN G Continue Gentamicin - monitor for side effects: hearing, vestibular and creatinine - at least 2 weeks, till October 2 Repeat CBC and LFT CT A/P to look if having more embolic events, ?abscess to explain his rising WBC If ok, place PICC There is issue about patient being on a continuous pump, safet, compliance, etc Option then would be Rocephin to complete his Rx when he gets D/C - this could also be done as outpatient Rx in infusion clinic Rossana Smith MD Oct 05, 2016 12:38
--- NOTE | 2016-10-05 12:56 | HHI.PR ---
Subjective Remarks Follow-up for infection. Patient has no concerns. When I asked him if he's getting up and walking he stated no. Otherwise no acute events since his last seen. Objective Vitals Vital Signs Date Time Temp Pulse Resp B/P Pulse Ox O2 Delivery O2 Flow Rate FiO2 10/05/16 12:00 98.7 79 16 98/55 96 10/05/16 08:40 80 10/05/16 08:00 99.4 85 16 100/59 96 Manual Cuff/Auscultation 10/05/16 03:52 98.8 82 16 91/54 96 10/04/16 23:35 99.7 93 16 88/52 95 88/54 10/04/16 20:15 99.4 89 16 96/58 95 10/04/16 16:00 99.5 75 16 94/55 98 I/O 10/04/16 10/04/16 10/04/16 10/05/16 10/05/16 10/05/16 07:00 15:00 23:00 07:00 15:00 23:00 Intake Total 1181 ml 840 ml 1987 ml 953 ml Output Total 675 ml 650 ml 475 ml 450 ml Balance 506 ml 190 ml 1512 ml 503 ml Intake Oral 240 ml 840 ml 240 ml 240 ml IV Total 941 ml 1747 ml 713 ml Output Urine Total 675 ml 650 ml 475 ml 450 ml # Bowel Movements 0 0 0 0 Result Diagram: 10/04/16 1839 10/05/16 0345 Objective Remarks GENERAL: in NAD SKIN: Warm and dry. HEAD: Normocephalic. EYES: No scleral icterus. No injection or drainage. NECK: Supple, trachea midline. No JVD or lymphadenopathy. CARDIOVASCULAR: Regular rate and rhythm + 3/6 heart murmur. RESPIRATORY: Breath sounds equal bilaterally. No accessory muscle use. GASTROINTESTINAL: Abdomen soft, non-tender, nondistended. Procedures BEBETO 09/27/16. Medications and IVs Current Medications Sodium Chloride 1,000 ml @ 1,000 mls/hr Q1H ONCE IV Last administered on 02:08; Start 09/26/16 at 01:08; Stop 09/26/16 at 02:07; Status DC Sodium Chloride 1,000 ml @ 1,000 mls/hr Q1H ONCE IV Last administered on 02:09; Start 09/26/16 at 01:08; Stop 09/26/16 at 02:07; Status DC Sodium Chloride 700 ml @ 1,000 mls/hr Q42M ONCE IV Last administered on 02:09; Start 09/26/16 at 01:08; Stop 09/26/16 at 01:49; Status DC Piperacillin Sod/ Tazobactam Sod 100 ml @ 200 mls/hr ONCE ONCE IV Last administered on 09/26/16 04:46; Start 09/26/16 at 04:15; Stop 09/26/16 at 04:44 ; Status DC Vancomycin HCl 1000 mg/Sodium Chloride 250 ml @ 250 mls/hr ONCE ONCE IV Last administered on 09/26/16 05:36; Start 09/26/16 at 04:15; Stop 09/26/16 at 05:14 ; Status DC Pharmacy Profile Note 0 ml @ 0 mls/hr UNSCH OTHER ; Start 09/26/16 at 04:15; Stop 09/30/16 at 12:39; Status DC Piperacillin Sod/ Tazobactam Sod 100 ml @ 200 mls/hr Q6H IV Last administered on 09/27/16 10:17; Start 09/26/16 at 10:00; Stop 09/27/16 at 17:06; Status DC Sodium Chloride (NS 1000 ml Inj) 1,000 ml @ 100 mls/hr Q10H IV Last administered on 10/05/16 08:56; Start 09/26/16 at 04:15 Sodium Chloride (NS Flush) 2 ml UNSCH PRN IV FLUSH FLUSH AFTER USING IV ACCESS Last administered on 09/28/16 09:02; Start 09/26/16 at 04:15 Sodium Chloride (NS Flush) 2 ml BID IV FLUSH Last administered on 10/05/16 08: 56; Start 09/26/16 at 09:00 Ondansetron HCl (Zofran Inj) 4 mg Q6H PRN IVP NAUSEA OR VOMITING; Start at 04:15 Bisacodyl (Dulcolax Supp) 10 mg DAILY PRN RECTAL CONSTIPATION; Start 09/26/16 at 04:15 Acetaminophen (Tylenol) 650 mg Q6H PRN PO FEVER/PAIN SCALE 1 TO 2; Start at 04:15 Acetaminophen/ Hydrocodone Bitart ([place] 5-325 Mg) 1 tab Q4H PRN PO PAIN SCALE 3 TO 5 Last administered on 10/05/16 08:55; Start 09/26/16 at 04:15 Morphine Sulfate (Morphine Inj) 2 mg Q3H PRN IV Pain 6-10 Last administered on 10/02/16 18:25; Start 09/26/16 at 04:15 Pantoprazole Sodium (Protonix Inj) 40 mg ONCE ONCE IV PUSH Last administered on 09/26/16 08:08; Start 09/26/16 at 04:45; Stop 09/26/16 at 04:49; Status DC Pantoprazole Sodium (Protonix Inj) 40 mg Q12H IV PUSH Last administered on 10/05 08:55; Start 09/26/16 at 21:00 Nitroglycerin (Nitroglycerin 2% Oint) 0.5 inch Q6HR PRN TOPICAL CHEST PAIN; Start 09/26/16 at 04:45 Metoprolol Tartrate (Lopressor) 25 mg Q12HR PO Last administered on 10/05/16 08:55; Start 09/26/16 at 09:00 Lisinopril (Prinivil) 2.5 mg DAILY PO Last administered on 10/05/16 08:55; Start 09/26/16 at 09:00 Albuterol/ Ipratropium (Duoneb Neb) 1 ampule Q4HR NEB PRN NEB SOB/WHEEZING; Start 09/26/16 at 05:00 Aspirin (Ecotrin Ec) 81 mg DAILY PO Last administered on 10/05/16 08:55; Start 09/26/16 at 09:00 Diatrizoate Meglum/ Diatrizoate Sod ( Gastroview Liq) 18 ml ONCE ONCE PO ; Start 09/26/16 at 09:15; Stop 09/26/16 at 09:16; Status DC Iohexol 75 ml 75 ml STK-MED ONCE IV Last administered on 09/26/16 09:59; Start 09/26/16 at 09:59; Stop 09/26/16 at 10:00; Status DC Vancomycin HCl/ Sodium Chloride (Vancomycin Inj/ NS 500 ml Inj) 515 ml @ 250 mls/hr Q12H IV Last administered on 09/30/16 03:22; Start 09/26/16 at 14:00; Stop 09/30/16 at 12:39; Status DC Miscellaneous Information SPECIFIC LAB TO BE DRAWN:VANCOMY... ONCE ONCE .XX Last administered on 09/28/16 01:45; Start 09/28/16 at 01:45; Stop 09/28/16 at 01:46; Status DC Pneumococcal Polyvalent Vaccine 25 mcg 25 mcg ONCE ONCE IM Last administered on 09/28/16 14:15; Start 09/27/16 at 10:00; Stop 09/27/16 at 10:01; Status DC Penicillin G Potassium/Sodium Chloride (Pfizerpen-G Inj/ NS Inj) 100 ml @ 200 mls/hr Q4H IV Last administered on 10/05/16 08:56; Start 09/27/16 at 18:00 Atropine Sulfate (Atropine Inj) 1 mg STK-MED ONCE .ROUTE ; Start 09/28/16 at 07: 32; Stop 09/28/16 at 07:33; Status DC Epinephrine HCl (EPINEPHrine (1:10,000) INJ) 1 mg STK-MED ONCE .ROUTE ; Start at 07:33; Stop 09/28/16 at 07:34; Status DC Iohexol (Omnipaque 350 Inj) 70 ml STK-MED ONCE IV Last administered on 07:55; Start 09/28/16 at 07:55; Stop 09/28/16 at 07:56; Status DC Propofol (Diprivan 200 Mg/20 ml Inj) 20 mg STK-MED ONCE IV ; Start 09/27/16 at 08:13; Stop 09/28/16 at 08:13; Status DC Alprazolam (Xanax) 0.5 mg Q6H PRN PO ANXIETY; Start 09/28/16 at 14:15 Gabapentin (Neurontin) 300 mg TID PO Last administered on 10/05/16 08:55; Start 09/28/16 at 18:00 Trazodone HCl (Desyrel) 50 mg HS PO Last administered on 10/04/16 22:55; Start 09/28/16 at 21:00 Fluoxetine HCl 40 mg 40 mg DAILY PO Last administered on 10/05/16 08:55; Start 09/28/16 at 14:15 Gentamicin Sulfate 80 mg/ Sodium Chloride 102 ml @ 100 mls/hr Q8H IV Last administered on 09/30/16 12:35; Start 09/29/16 at 12:00; Stop 09/30/16 at 13:16 ; Status DC Pharmacy Profile Note (Gentamicin Consult Pharmacy) 0 ml @ 0 mls/hr UNSCH OTHER ; Start 09/29/16 at 10:15 Miscellaneous Information SPECIFIC LAB TO BE DRAWN:GENTAMICIN TROUGH DATE TO... ONCE ONCE .XX Last administered on 09/30/16 11:45; Start 09/30/16 at 11:45; Stop 09/30/16 at 11:46; Status DC Miscellaneous Information SPECIFIC LAB TO BE DRAWN:VANCOMYCIN TROUGH DATE TO... ONCE ONCE .XX ; Start 10/01/16 at 01:45; Stop 10/01/16 at 01:46; Status Cancel Gentamicin Sulfate/Sodium Chloride (Gentamicin Inj/ NS Inj) 102.5 ml @ 100 mls/ hr Q8H IV Last administered on 10/02/16 13:39; Start 09/30/16 at 20:00; Stop 10/02/16 at 14:35; Status DC Miscellaneous Information SPECIFIC LAB TO BE DRAWN:GENTAMICIN TROUGH DATE TO... ONCE ONCE .XX Last administered on 10/02/16 03:45; Start 10/02/16 at 03:45; Stop 10/02/16 at 03:46; Status DC Gentamicin Sulfate/Sodium Chloride (Gentamicin Inj/ NS Inj) 102 ml @ 100 mls/ hr Q8H IV Last administered on 10/03/16 04:17; Start 10/02/16 at 20:00; Stop 10/03/16 at 08:36; Status DC Miscellaneous Information SPECIFIC LAB TO BE VALDEZ... ONCE ONCE .XX Last administered on 10/03/16 19:45; Start 10/03/16 at 19:45; Stop 10/03/16 at 19:46 ; Status DC Gentamicin Sulfate/Sodium Chloride 100 ml @ 200 mls/hr Q8H IV Last administered on 10/03/16 20:00; Start 10/03/16 at 12:00; Stop 10/03/16 at 21:42 ; Status DC Gentamicin Sulfate/Sodium Chloride (Gentamicin Inj/ NS Inj) 101.75 ml @ 200 mls / hr Q8H IV Last administered on 10/05/16 04:07; Start 10/04/16 at 04:00; Stop 10/05/16 at 08:34; Status DC Miscellaneous Information SPECIFIC LAB TO BE VALDEZ... ONCE ONCE .XX Last administered on 10/05/16t 04:11; Start 10/05/16 at 03:45; Stop 10/05/16 at 03:46 ; Status DC Gentamicin Sulfate/Sodium Chloride (Gentamicin 80 Mg Premix) 100 ml @ 200 mls/ hr Q12H IV ; Start 10/05/16 at 16:00 Miscellaneous Information SPECIFIC LAB TO BE DRAWN:GENTAMICIN TROUGH DATE TO... ONCE ONCE .XX ; Start 10/07/16 at 03:45; Stop 10/07/16 at 03:46 A/P Problem List: (1) Elevated troponin ICD Code: R74.8 Status: Acute (2) Dehydration ICD Code: E86.0 Status: Acute (3) Leukocytosis ICD Code: D72.829 Status: Acute (4) Hematuria ICD Code: R31.9 Status: Acute (5) Tobacco abuse ICD Code: Z72.0 Status: Acute Assessment and Plan 41-year-old male with: Aortic prostatic valve Endocarditis CXR w/ bibasilar atelectasis. Complains of upper abdominal/ chest pain x2 wks w / associated SOB. 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 Cardiology consult appreciated. Echo unremarkable. CT abdomen with evidence of pneumonia on the left. Blood cultures 4 out of 4 with viridans strep. The patient went for BEBETO which confirmed a small vegetation on the aortic valve. Infectious disease following. WBC 13.4 - continue antibiotics per infectious disease. Penicillin G and Gentamicin - Follow blood cultures. - incentive spirometry. - oxygen and nebs as needed. UTI/ Hematuria U/a w/ hematuria, mild bacteriuria. -Urine culture grew group D enterococcus. - continue w/ IV Abx as above. Anemia Probably related to endocarditis. -Continue to monitor Tobacco/ MJ abuse Pt counselled. - Ativan prn. Homelessness The pt is currently without resources. - case management consult placed. DVT Prophylaxis: SCD/teds. No changes to anterior assessment. Discharge Planning patient is self paid and is from [place]. 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 Encourage ambulation 3 times a day. Lisa Culp MD Oct 05, 2016 12:56
[2016-10-05] MEDS ORDERED: IOHEXOL 350 MG/ML 10 ML VIAL (for RAD DIAG) IV ONE (13:36)
--- NOTE | 2016-10-05 14:44 | RADRPT ---
EXAM DATE/TIME: 10/05/2016 13:27 [place] COMPARISON: CT THORAX W CONTRAST, September 28, 2016, 7:42. CTA ABDOMEN & PELVIS W 3D RECON, September 26, 2016, 9:32. INDICATIONS : Left side abdominal pain. Increasing white blood cell counts, evaluate for abscess. IV CONTRAST: 80 cc Omnipaque 350 (iohexol) IV ORAL CONTRAST: No oral contrast ingested. RADIATION DOSE: 9.96 CTDIvol (mGy) MEDICAL HISTORY : Cardiovascular disease. Hepatitis C. Endocarditis SURGICAL HISTORY : Aortic valve replacement ENCOUNTER: Initial ACUITY: 2 weeks PAIN SCALE: 5/10 LOCATION: Left abdomen TECHNIQUE: Volumetric scanning of the abdomen and pelvis was performed. Using automated exposure control and ad justment of the mA and/or kV according to patient size, radiation dose was kept as low as reasonably achievable to obtain optimal diagnostic quality images. FINDINGS: LOWER LUNGS: Consolidation remains in the left lower lobe with air bronchograms. There is a small area of atelecta sis at the right lung base. There is elevation left hemidiaphragm again noted without change. LIVER: Homogeneous density without lesion. There is no dilation of the biliary tree. No calcified gallston es. SPLEEN: The spleen remains normal in size and shape. 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 There is no new areas of infarction. PANCREAS: Within normal limits. KIDNEYS: Normal in size and shape. There is no mass, stone or hydronephrosis. ADRENAL GLANDS: Within normal limits. VASCULAR: There is no aortic aneurysm. BOWEL/MESENTERY: The stomach, small bowel, and colon demonstrate no acute abnormality. There is no free intraperitone al air or fluid. ABDOMINAL WALL: Within normal limits. RETROPERITONEUM: There is no lymphadenopathy. BLADDER: No wall thickening or mass. REPRODUCTIVE: Within normal limits. INGUINAL: There is no lymphadenopathy or hernia. MUSCULOSKELETAL: Within normal limits for patient age. There is a stable small hypodensity bone island in the left fem oral head. The patient is status post median sternotomy. CONCLUSION: 1. Table appearance of the splenic infarction. 2. The left hemidiaphragm remains elevated with consolidation in the left lower lobe. Tu Lopez MD on October 05, 2016 at 14:35 Board Certified Radiologist. This report was verified electronically.
[2016-10-05] MEDS: GENTAMICIN/SOD CHL 80 MG/100 ML IV SCH (17:13)
[2016-10-05 18:51] LABS: BLOOD, URINE MOD (NEG); COMMENT (UR) CULT NOT INDICATED; CULTURE IF INDICATED CULT NOT INDICATED; GLUCOSE,URINE NEG (NEG); KETONE, URINE NEG (NEG); NITRITE,URINE NEG (NEG); PH, URINE 6.5 (5.0-8.5); URINE COLOR LIGHT-YELLOW (YELLW/STRAW)
[2016-10-05] MEDS: traZODone HCL 50 MG TAB PO SCH (21:03)
[2016-10-06] VITALS (7 sets, daily range): BP systolic 87–103; BP diastolic 56–65; PULSE 74–93; RESP 16; TEMP 98.3–99.5; O2SAT 95–97
[2016-10-06] MEDS: PENICILLIN G POTASSIUM INJ 4,000,000 UNITS in SODIUM CHLORIDE 0.9% INJ 100 ML IV SCH ×3 (03:06→09:23)
[2016-10-06] MEDS: ACETAMINOPHEN/HYDROcodone 325 MG/5 MG TAB PO PRN ×5 (04:25→23:27)
[2016-10-06] MEDS: SODIUM CHLOR 0.9% 1000 ML INJ 1,000 ML IV SCH ×2 (04:27→12:01)
[2016-10-06] MEDS: GENTAMICIN/SOD CHL 80 MG/100 ML IV SCH ×2 (04:35→17:29)
[2016-10-06 07:28] LABS: AUTOMATED NEUTROPHIL # 13.6 TH/MM3 (1.8-7.7); BASOPHIL # 0.1 TH/MM3 (0-0.2); BASOPHIL % 0.3 % (0.0-2.0); EOSINOPHIL # 0.1 TH/MM3 (0-0.4); EOSINOPHIL % 0.4 % (0.0-4.0); HEMATOCRIT 31.9 % (39.0-51.0); LYMPH % 12.9 % (9.0-44.0); LYMPHOCYTE # 2.2 TH/MM3 (1.0-4.8); MEAN CELL VOLUME 73.9 FL (80.0-100.0); MEAN CORPUSCULAR HEMOGLOBIN 23.8 PG (27.0-34.0); MEAN CORPUSCULAR HGB CONC 32.3 % (32.0-36.0); MONO % 6.1 % (0.0-8.0); NEUT % 80.3 % (16.0-70.0); PLATELET COUNT 478 TH/MM3 (150-450); RED BLOOD COUNT 4.31 MIL/MM3 (4.50-5.90); RED CELL DISTRIBUTION WIDTH 15.3 % (11.6-17.2)
[2016-10-06 07:32] LABS: HEMO FLAGS AUTO DIFF
[2016-10-06 07:37] LABS: ALKALINE PHOSPHATASE 83 U/L (45-117); ALT (GPT) 31 U/L (12-78); ANION GAP 8 MEQ/L (5-15); AST (GOT) 19 U/L (15-37); BICARBONATE 25.8 MEQ/L (21.0-32.0); BLOOD UREA NITROGEN 17 MG/DL (7-18); CHLORIDE 98 MEQ/L (98-107); GLOMERULAR FILTRATION RATE 70 ML/MIN (>89); POTASSIUM 4.5 MEQ/L (3.5-5.1); SODIUM (NA) 132 MEQ/L (136-145); TOTAL BILIRUBIN ADULT 0.6 MG/DL (0.2-1.0)
[2016-10-06 08:40] LABS: BANDS 6 % (0-6); EOSINOPHILS 1 % (0-4); NEUTROPHIL # MANUAL DIFF 12.4 TH/MM3 (1.8-7.7); OVALOCYTES 1+ (NORMAL); PLATELET ESTIMATE SMEAR HIGH (NORMAL); PLATELET MORPHOLOGY NORMAL (NORMAL); POLYS (SEG NEUTROPHILS) 67 % (16-70); SCAN/DIFF FINAL DIFF MANUAL; WBC DIFF SAMPLE 100
[2016-10-06] MEDS: SODIUM CHLORIDE 0.9% FLUSH 10 ML FLUSH IV FLUSH SCH ×2 (09:00→21:00)
[2016-10-06] MEDS: METOPROLOL TARTRATE 25 MG TAB PO SCH ×2 (09:00→21:00)
[2016-10-06] MEDS: GABAPENTIN 300 MG CAP PO SCH ×3 (09:22→17:29)
[2016-10-06] MEDS: FLUoxetine HCL 20 MG CAP PO SCH (09:22)
[2016-10-06] MEDS: ASPIRIN EC 81 MG TABEC PO SCH (09:22)
[2016-10-06] MEDS: LISINOPRIL 5 MG TAB PO SCH (09:23)
[2016-10-06] MEDS: PANTOPRAZOLE SODIUM 40 MG VIAL IV PUSH SCH ×2 (09:24→21:11)
--- NOTE | 2016-10-06 11:44 | HHI.PR ---
Subjective Remarks Follow-up for infection Patient complaining of lower extremity itchiness the past few days. He stated that he started having itchiness since wearing the SCDs. Otherwise he has no complaints. He remains afebrile. Objective Vitals Vital Signs Date Time Temp Pulse Resp B/P Pulse Ox O2 Delivery O2 Flow Rate FiO2 10/06/16 09:00 85 10/06/16 08:00 98.7 84 16 97/57 96 10/06/16 05:07 99.5 88 16 103/59 95 10/05/16 23:20 99.0 82 16 90/58 96 10/05/16 20:25 99.4 80 16 103/63 97 10/05/16 20:00 79 10/05/16 16:00 99.5 82 16 99/61 97 10/05/16 12:00 98.7 79 16 98/55 96 I/O 10/05/16 10/05/16 10/05/16 10/06/16 10/06/16 10/06/16 07:00 15:00 23:00 07:00 15:00 23:00 Intake Total 953 ml 740 ml 1928 ml 360 ml Output Total 450 ml 1015 ml 300 ml 600 ml Balance 503 ml -275 ml 1628 ml -240 ml Intake Oral 240 ml 740 ml 240 ml 360 ml IV Total 713 ml 1688 ml Output Urine Total 450 ml 1015 ml 300 ml 600 ml # Bowel Movements 0 0 0 0 Result Diagram: 10/06/16 0555 10/06/16 0555 Imaging Last Impressions Abdomen/Pelvis CT 10/05/16 0000 Signed Impressions: Service Date/Time: Wednesday, October 05, 2016 13:27 - CONCLUSION: 1. Table appearance of the splenic infarction. 2. The left hemidiaphragm remains elevated with consolidation in the left lower lobe. Tu Lopez MD Chest CT 09/28/16 0000 Signed Impressions: Service Date/Time: Wednesday, September 28, 2016 07:42 - CONCLUSION: 1. Tiny bilateral pleural effusions and probable bibasilar compressive atelectasis. 2. Splenomegaly with areas of decreased perfusion possibly representing splenic infarcts. 3. A 5 mm pleural based non-calcified nodule within the right middle lobe which is indeterminate. Follow up CT of the chest in six months is recommended. 4. Degenerative changes and scoliosis of the thoracic spine. Brown Kaufman MD Chest X-Ray 09/26/16 0106 Signed Impressions: Service Date/Time: Monday, September 26, 2016 01:11 - CONCLUSION: 1. Bibasilar atelectasis left greater than right. Gordon Odell MD Objective Remarks GENERAL: in NAD SKIN: Some minor excoriations from patient itching his lower extremity HEAD: Normocephalic. EYES: No scleral icterus. No injection or drainage. NECK: Supple, trachea midline. No JVD or lymphadenopathy. CARDIOVASCULAR: Regular rate and rhythm + 3/6 heart murmur. RESPIRATORY: Breath sounds equal bilaterally. No accessory muscle use. GASTROINTESTINAL: Abdomen soft, non-tender, nondistended. Procedures EBBETO 09/27/16. Medications and IVs Current Medications Sodium Chloride 1,000 ml @ 1,000 mls/hr Q1H ONCE IV Last administered on 02:08; Start 09/26/16 at 01:08; Stop 09/26/16 at 02:07; Status DC Sodium Chloride 1,000 ml @ 1,000 mls/hr Q1H ONCE IV Last administered on 02:09; Start 09/26/16 at 01:08; Stop 09/26/16 at 02:07; Status DC Sodium Chloride 700 ml @ 1,000 mls/hr Q42M ONCE IV Last administered on 02:09; Start 09/26/16 at 01:08; Stop 09/26/16 at 01:49; Status DC Piperacillin Sod/ Tazobactam Sod 100 ml @ 200 mls/hr ONCE ONCE IV Last administered on 09/26/16 04:46; Start 09/26/16 at 04:15; Stop 09/26/16 at 04:44 ; Status DC Vancomycin HCl 1000 mg/Sodium Chloride 250 ml @ 250 mls/hr ONCE ONCE IV Last administered on 09/26/16 05:36; Start 09/26/16 at 04:15; Stop 09/26/16 at 05:14 ; Status DC Pharmacy Profile Note 0 ml @ 0 mls/hr UNSCH OTHER ; Start 09/26/16 at 04:15; Stop 09/30/16 at 12:39; Status DC Piperacillin Sod/ Tazobactam Sod 100 ml @ 200 mls/hr Q6H IV Last administered on 09/27/16 10:17; Start 09/26/16 at 10:00; Stop 09/27/16 at 17:06; Status DC Sodium Chloride (NS 1000 ml Inj) 1,000 ml @ 100 mls/hr Q10H IV Last administered on 10/06/16 04:27; Start 09/26/16 at 04:15 Sodium Chloride (NS Flush) 2 ml UNSCH PRN IV FLUSH FLUSH AFTER USING IV ACCESS Last administered on 09/28/16 09:02; Start 09/26/16 at 04:15 Sodium Chloride (NS Flush) 2 ml BID IV FLUSH Last administered on 10/06/16 09: 00; Start 09/26/16 at 09:00 Ondansetron HCl (Zofran Inj) 4 mg Q6H PRN IVP NAUSEA OR VOMITING; Start at 04:15 Bisacodyl (Dulcolax Supp) 10 mg DAILY PRN RECTAL CONSTIPATION; Start 09/26/16 at 04:15 Acetaminophen (Tylenol) 650 mg Q6H PRN PO FEVER/PAIN SCALE 1 TO 2; Start at 04:15 Acetaminophen/ Hydrocodone Bitart ([place] 5-325 Mg) 1 tab Q4H PRN PO PAIN SCALE 3 TO 5 Last administered on 10/06/16 09:23; Start 09/26/16 at 04:15 Morphine Sulfate (Morphine Inj) 2 mg Q3H PRN IV Pain 6-10 Last administered on 10/02/16 18:25; Start 09/26/16 at 04:15 Pantoprazole Sodium (Protonix Inj) 40 mg ONCE ONCE IV PUSH Last administered on 09/26/16 08:08; Start 09/26/16 at 04:45; Stop 09/26/16 at 04:49; Status DC Pantoprazole Sodium (Protonix Inj) 40 mg Q12H IV PUSH Last administered on 10/06 09:24; Start 09/26/16 at 21:00 Nitroglycerin (Nitroglycerin 2% Oint) 0.5 inch Q6HR PRN TOPICAL CHEST PAIN; Start 09/26/16 at 04:45 Metoprolol Tartrate (Lopressor) 25 mg Q12HR PO Last administered on 10/05/16 08:55; Start 09/26/16 at 09:00 Lisinopril (Prinivil) 2.5 mg DAILY PO Last administered on 10/06/16 09:23; Start 09/26/16 at 09:00 Albuterol/ Ipratropium (Duoneb Neb) 1 ampule Q4HR NEB PRN NEB SOB/WHEEZING; Start 09/26/16 at 05:00 Aspirin (Ecotrin Ec) 81 mg DAILY PO Last administered on 10/06/16 09:22; Start 09/26/16 at 09:00 Diatrizoate Meglum/ Diatrizoate Sod ( Gastroview Liq) 18 ml ONCE ONCE PO ; Start 09/26/16 at 09:15; Stop 09/26/16 at 09:16; Status DC Iohexol 75 ml 75 ml STK-MED ONCE IV Last administered on 09/26/16 09:59; Start 09/26/16 at 09:59; Stop 09/26/16 at 10:00; Status DC Vancomycin HCl/ Sodium Chloride (Vancomycin Inj/ NS 500 ml Inj) 515 ml @ 250 mls/hr Q12H IV Last administered on 09/30/16 03:22; Start 09/26/16 at 14:00; Stop 09/30/16 at 12:39; Status DC Miscellaneous Information SPECIFIC LAB TO BE DRAWN:VANCOMY... ONCE ONCE .XX Last administered on 09/28/16 01:45; Start 09/28/16 at 01:45; Stop 09/28/16 at 01:46; Status DC Pneumococcal Polyvalent Vaccine 25 mcg 25 mcg ONCE ONCE IM Last administered on 09/28/16 14:15; Start 09/27/16 at 10:00; Stop 09/27/16 at 10:01; Status DC Penicillin G Potassium/Sodium Chloride (Pfizerpen-G Inj/ NS Inj) 100 ml @ 200 mls/hr Q4H IV Last administered on 10/06/16 09:23; Start 09/27/16 at 18:00 Atropine Sulfate (Atropine Inj) 1 mg STK-MED ONCE .ROUTE ; Start 09/28/16 at 07: 32; Stop 09/28/16 at 07:33; Status DC Epinephrine HCl (EPINEPHrine (1:10,000) INJ) 1 mg STK-MED ONCE .ROUTE ; Start at 07:33; Stop 09/28/16 at 07:34; Status DC Iohexol (Omnipaque 350 Inj) 70 ml STK-MED ONCE IV Last administered on 07:55; Start 09/28/16 at 07:55; Stop 09/28/16 at 07:56; Status DC Propofol (Diprivan 200 Mg/20 ml Inj) 20 mg STK-MED ONCE IV ; Start 09/27/16 at 08:13; Stop 09/28/16 at 08:13; Status DC Alprazolam (Xanax) 0.5 mg Q6H PRN PO ANXIETY; Start 09/28/16 at 14:15 Gabapentin (Neurontin) 300 mg TID PO Last administered on 10/06/16 09:22; Start 09/28/16 at 18:00 Trazodone HCl (Desyrel) 50 mg HS PO Last administered on 10/05/16 21:03; Start 09/28/16 at 21:00 Fluoxetine HCl 40 mg 40 mg DAILY PO Last administered on 10/06/16 09:22; Start 09/28/16 at 14:15 Gentamicin Sulfate 80 mg/ Sodium Chloride 102 ml @ 100 mls/hr Q8H IV Last administered on 09/30/16 12:35; Start 09/29/16 at 12:00; Stop 09/30/16 at 13:16 ; Status DC Pharmacy Profile Note (Gentamicin Consult Pharmacy) 0 ml @ 0 mls/hr UNSCH OTHER ; Start 09/29/16 at 10:15 Miscellaneous Information SPECIFIC LAB TO BE DRAWN:GENTAMICIN TROUGH DATE TO... ONCE ONCE .XX Last administered on 09/30/16 11:45; Start 09/30/16 at 11:45; Stop 09/30/16 at 11:46; Status DC Miscellaneous Information SPECIFIC LAB TO BE DRAWN:VANCOMYCIN TROUGH DATE TO... ONCE ONCE .XX ; Start 10/01/16 at 01:45; Stop 10/01/16 at 01:46; Status Cancel Gentamicin Sulfate/Sodium Chloride (Gentamicin Inj/ NS Inj) 102.5 ml @ 100 mls/ hr Q8H IV Last administered on 10/02/16 13:39; Start 09/30/16 at 20:00; Stop 10/02/16 at 14:35; Status DC Miscellaneous Information SPECIFIC LAB TO BE DRAWN:GENTAMICIN TROUGH DATE TO... ONCE ONCE .XX Last administered on 10/02/16 03:45; Start 10/02/16 at 03:45; Stop 10/02/16 at 03:46; Status DC Gentamicin Sulfate/Sodium Chloride (Gentamicin Inj/ NS Inj) 102 ml @ 100 mls/ hr Q8H IV Last administered on 10/03/16 04:17; Start 10/02/16 at 20:00; Stop 10/03/16 at 08:36; Status DC Miscellaneous Information SPECIFIC LAB TO BE VALDEZ... ONCE ONCE .XX Last administered on 10/03/16 19:45; Start 10/03/16 at 19:45; Stop 10/03/16 at 19:46 ; Status DC Gentamicin Sulfate/Sodium Chloride 100 ml @ 200 mls/hr Q8H IV Last administered on 10/03/16 20:00; Start 10/03/16 at 12:00; Stop 10/03/16 at 21:42 ; Status DC Gentamicin Sulfate/Sodium Chloride (Gentamicin Inj/ NS Inj) 101.75 ml @ 200 mls / hr Q8H IV Last administered on 10/05/16 04:07; Start 10/04/16 at 04:00; Stop 10/05/16 at 08:34; Status DC Miscellaneous Information SPECIFIC LAB TO BE VALDEZ... ONCE ONCE .XX Last administered on 10/05/16 04:11; Start 10/05/16 at 03:45; Stop 10/05/16 at 03:46 ; Status DC Gentamicin Sulfate/Sodium Chloride (Gentamicin 80 Mg Premix) 100 ml @ 200 mls/ hr Q12H IV Last administered on 10/06/16 04:35; Start 10/05/16 at 16:00 Miscellaneous Information SPECIFIC LAB TO BE DRAWN:GENTAMICIN TROUGH DATE TO... ONCE ONCE .XX ; Start 10/07/16 at 03:45; Stop 10/07/16 at 03:46 Iohexol (Omnipaque 350 Inj) 80 ml STK-MED ONCE IV Last administered on 13:36; Start 10/05/16 at 13:36; Stop 10/05/16 at 13:37; Status DC Methylprednisolone Sodium Succinate (SoluMEDROL INJ) 40 mg ONCE ONCE IV PUSH ; Start 10/06/16 at 11:45; Stop 10/06/16 at 11:46; Status UNV Hydroxyzine Pamoate (Vistaril) 25 mg Q4H PRN PO itchiness; Start 10/06/16 at 11 :45; Status UNV Cetirizine HCl (ZyrTEC) 10 mg DAILY PO ; Start 10/06/16 at 11:45; Status UNV A/P Problem List: (1) Elevated troponin ICD Code: R74.8 Status: Acute (2) Dehydration ICD Code: E86.0 Status: Acute (3) Leukocytosis ICD Code: D72.829 Status: Acute (4) Hematuria ICD Code: R31.9 Status: Acute (5) Tobacco abuse ICD Code: Z72.0 Status: Acute Assessment and Plan 41-year-old male with: Aortic prostatic valve Endocarditis CXR w/ bibasilar atelectasis. Complains of upper abdominal/ chest pain x2 wks w / associated SOB. 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 Cardiology consult appreciated. Echo unremarkable. CT abdomen with evidence of pneumonia on the left. Blood cultures 4 out of 4 with viridans strep. The patient went for BEBETO which confirmed a small vegetation on the aortic valve. Infectious disease following. WBC 13.4 - continue antibiotics per infectious disease. Penicillin G and Gentamicin - Patient did have a repeat CT scan the abdomen and pelvis done due to increasing leukocytosis. CT scan of the abdomen pelvis shows appearance of the splenic infarction and the left hemidiaphragm remains elevated with consolidation in the left lower lobe. -Continue antibiotics per infectious disease. Per infectious disease can consider discharging on Rocephin. UTI/ Hematuria U/a w/ hematuria, mild bacteriuria. -Urine culture grew group D enterococcus. - continue w/ IV Abx as above. Anemia Probably related to endocarditis. -Continue to monitor Tobacco/ MJ abuse Pt counselled. - Ativan prn. Urticaria -due to SCDs. -Patient told he must ambulate at least 3 times a day. -We'll give a dose of steroid and start on zyrtec and Vistaril PRN Homelessness The pt is currently without resources. - case management consult placed. DVT Prophylaxis: -Due to irritation cannot use SCD -Encourage ambulation. Discharge Planning patient is self paid and is from [place]. 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 Encourage ambulation 3 times a day. Lisa Culp MD Oct 06, 2016 11:43
[2016-10-06] MEDS ORDERED: hydrOXYzine PAMOATE 25 MG CAP PO PRN (11:45)
[2016-10-06] MEDS ORDERED: methylPREDNISolone SOD SUCC 40 MG/1 ML VIAL IV PUSH ONE (11:45)
[2016-10-06] MEDS: CETIRIZINE HCL 10 MG TAB PO SCH (12:01)
--- NOTE | 2016-10-06 12:03 | HHI.IDPN ---
Subjective Subjective Remarks Notes reviewed Temps 99+ LUQ pain same, not worse No tinnitus or dizziness C/O itching in trunk No diarrhea No N/V WBC rising CT A/P - stable splenic infarct, no abscess, no new embolic lesions No back pain Voiding ok CT chest no septic emboli, has splenic infarcts BC 09/26 with Strep viridans UC with Enterococcus Has one new (+) BC 09/27 with Strep viridans PCN MITCHELL 0.06 BC 09/28 and 09/30 negative so far Antibiotics PCN IV Gentamicin Lines PIV Past Medical History Anxiety Schizophrenia/Bipolar Disorder Hepatitis C X IVDU Hx Endocarditis s/p AVR Past Surgical History S/P AVR Mar 2016 Allergies: Coded Allergies: No Known Allergies (Unverified , 09/26/16) Objective . Vital Signs Date Time Temp Pulse Resp B/P Pulse Ox O2 Delivery O2 Flow Rate FiO2 10/06/16 09:00 85 10/06/16 08:00 98.7 84 16 97/57 96 10/06/16 05:07 99.5 88 16 103/59 95 10/05/16 23:20 99.0 82 16 90/58 96 10/05/16 20:25 99.4 80 16 103/63 97 10/05/16 20:00 79 10/05/16 16:00 99.5 82 16 99/61 97 10/05/16 12:00 98.7 79 16 98/55 96 10/05/16 10/05/16 10/06/16 15:00 23:00 07:00 Intake Total 740 ml 1928 ml 360 ml Output Total 1015 ml 300 ml 600 ml Balance -275 ml 1628 ml -240 ml Intake Oral 740 ml 240 ml 360 ml IV Total 1688 ml Output Urine Total 1015 ml 300 ml 600 ml # Bowel Movements 0 0 0 . Laboratory Tests Test 10/04/16 10/06/16 18:39 05:55 White Blood Count 15.2 TH/MM3 17.0 TH/MM3 Red Blood Count 4.43 MIL/MM3 4.31 MIL/MM3 Hemoglobin 10.5 GM/DL 10.3 GM/DL Hematocrit 32.8 % 31.9 % Mean Corpuscular Volume 74.1 FL 73.9 FL Mean Corpuscular Hemoglobin 23.7 PG 23.8 PG Mean Corpuscular Hemoglobin 32.0 % 32.3 % Concent Red Cell Distribution Width 15.3 % 15.3 % Platelet Count 474 TH/MM3 478 TH/MM3 Mean Platelet Volume 6.6 FL 7.0 FL Neutrophils (%) (Auto) 77.0 % 80.3 % Lymphocytes (%) (Auto) 15.5 % 12.9 % Monocytes (%) (Auto) 6.4 % 6.1 % Eosinophils (%) (Auto) 0.7 % 0.4 % Basophils (%) (Auto) 0.4 % 0.3 % Neutrophils # (Auto) 11.7 TH/MM3 13.6 TH/MM3 Lymphocytes # (Auto) 2.4 TH/MM3 2.2 TH/MM3 Monocytes # (Auto) 1.0 TH/MM3 1.0 TH/MM3 Eosinophils # (Auto) 0.1 TH/MM3 0.1 TH/MM3 Basophils # (Auto) 0.1 TH/MM3 0.1 TH/MM3 CBC Comment AUTO DIFF AUTO DIFF Differential Total Cells 100 100 Counted Neutrophils % (Manual) 84 % 67 % Lymphocytes % 7 % 19 % Monocytes % 7 % 7 % Basophils % 1 % Neutrophils # (Manual) 12.9 TH/MM3 12.4 TH/MM3 Metamyelocytes 1 % Differential Comment FINAL DIFF FINAL DIFF MANUAL MANUAL Platelet Estimate HIGH HIGH Platelet Morphology Comment NORMAL NORMAL Ovalocytes 1+ 1+ Band Neutrophils % 6 % Eosinophils % 1 % Laboratory Tests Test 10/05/16 10/06/16 03:45 05:55 Creatinine 1.04 MG/DL 1.15 MG/DL Estimat Glomerular Filtration 79 ML/MIN 70 ML/MIN Rate Sodium Level 132 MEQ/L Potassium Level 4.5 MEQ/L Chloride Level 98 MEQ/L Carbon Dioxide Level 25.8 MEQ/L Anion Gap 8 MEQ/L Blood Urea Nitrogen 17 MG/DL Random Glucose 103 MG/DL Calcium Level 8.9 MG/DL Total Bilirubin 0.6 MG/DL Aspartate Amino Transf 19 U/L (AST/SGOT) Alanine Aminotransferase 31 U/L (ALT/SGPT) Alkaline Phosphatase 83 U/L Total Protein 7.1 GM/DL Albumin 2.3 GM/DL Imaging Abdomen/Pelvis CT 10/05/16 0000 Signed Impressions: Service Date/Time: Wednesday, October 05, 2016 13:27 - CONCLUSION: 1. Table appearance of the splenic infarction. 2. The left hemidiaphragm remains elevated with consolidation in the left lower lobe. Tu Lopez MD Chest CT 09/28/16 0000 Signed Impressions: Service Date/Time: Wednesday, September 28, 2016 07:42 - CONCLUSION: 1. Tiny bilateral pleural effusions and probable bibasilar compressive atelectasis. 2. Splenomegaly with areas of decreased perfusion possibly representing splenic infarcts. 3. A 5 mm pleural based non-calcified nodule within the right middle lobe which is indeterminate. Follow up CT of the chest in six months is recommended. 4. Degenerative changes and scoliosis of the thoracic spine. Brown Kaufman MD Chest X-Ray 09/26/16 0106 Signed Impressions: Service Date/Time: Monday, September 26, 2016 01:11 - CONCLUSION: 1. Bibasilar atelectasis left greater than right. Gordon Odell MD Abdomen/Pelvis CT 09/26/16 0000 Signed Impressions: Service Date/Time: Monday, September 26, 2016 09:32 - CONCLUSION: Left lung base infiltrate may represent pneumonia. Matthieu Peña MD Physical Exam GENERAL: awake and alert, in no apparent distress. SKIN: Warm and dry. Has very small papular rash in anterior trunk, posterior lower trunk, extremities. NOne in palms or soles HEENT: [place] conjunctivae, has one petechia L lower lid. No hemorrhage. No scleral icterus. No injection or drainage. Moist oral mucosa. NECK: Supple, nontender, no meningeal signs. CARDIOVASCULAR: Regular rate and rhythm, no pericardial rub. There is a systolic murmur heard at the base of the heart, no rub.. RESPIRATORY: Clear to auscultation. Breath sounds equal bilaterally. No wheezes , rales, or rhonchi. No pleural rub. Has a well-healed sternal incision. GASTROINTESTINAL: Abdomen soft, nondistended, bowel sounds are present and normoactive, with left-sided abdominal tenderness. No guarding or rebound.. No hepato-splenomegaly, or palpable masses. MUSCULOSKELETAL: Extremities without clubbing, cyanosis, or edema. No joint tenderness, effusion, or edema noted. No calf tenderness. NEUROLOGICAL: Non-focal. PSYCH: Cooperative LINE: PIV with no evidence of infection Assessment & Plan Remarks IMPRESSION PVE, S/P AVR - has (+) BC with Strep viridans - BEBETO, with vegetation in his PV Has UC with Enterococcus, no complaints - repeat UA on LUQ pain, due to splenic infarcts Drug eruption due to PCN - likely etiology of rising WBC Leukocytosis, rising RECOMMENDATION Stop PCN G Continue Gentamicin - monitor for side effects: hearing, vestibular and creatinine - at least 2 weeks, till October 2 Follow CBC Give short course of steroids Change to Rocephin, but start tomorrow Follow rash Will have PICC place next day or 2 Rossana Smith MD Oct 06, 2016 12:03
[2016-10-06] MEDS: methylPREDNISolone SOD SUCC 40 MG/1 ML VIAL IV PUSH SCH (21:11)
[2016-10-06] MEDS: traZODone HCL 50 MG TAB PO SCH (21:13)
[2016-10-07 01:30] VITALS: BP 95/69; PULSE 78; RESP 20; TEMP 97; O2SAT 96
[2016-10-07] MEDS: SODIUM CHLOR 0.9% 1000 ML INJ 1,000 ML IV SCH ×2 (01:33→08:05)
[2016-10-07 01:45] VITALS: PULSE 80
[2016-10-07] MEDS: PHARMACY ORDERED LAB ONE (03:45)
[2016-10-07] MEDS: GENTAMICIN/SOD CHL 80 MG/100 ML IV SCH (04:36)
[2016-10-07] MEDS: GABAPENTIN 300 MG CAP PO SCH ×3 (08:02→15:21)
[2016-10-07] MEDS: LISINOPRIL 5 MG TAB PO SCH (08:03)
[2016-10-07] MEDS: METOPROLOL TARTRATE 25 MG TAB PO SCH ×2 (08:03→21:00)
[2016-10-07] MEDS: FLUoxetine HCL 20 MG CAP PO SCH (08:03)
[2016-10-07] MEDS: CETIRIZINE HCL 10 MG TAB PO SCH (08:03)
[2016-10-07] MEDS: ASPIRIN EC 81 MG TABEC PO SCH (08:03)
[2016-10-07] MEDS: PANTOPRAZOLE SODIUM 40 MG VIAL IV PUSH SCH (08:04)
[2016-10-07] MEDS: methylPREDNISolone SOD SUCC 40 MG/1 ML VIAL IV PUSH SCH ×2 (08:04→21:09)
[2016-10-07] MEDS: SODIUM CHLORIDE 0.9% FLUSH 10 ML FLUSH IV FLUSH SCH ×2 (08:05→20:36)
[2016-10-07] MEDS: ACETAMINOPHEN/HYDROcodone 325 MG/5 MG TAB PO PRN ×3 (08:18→21:09)
[2016-10-07 09:40] VITALS: BP 81/65; PULSE 81; RESP 16; TEMP 97.1; O2SAT 97
[2016-10-07] MEDS ORDERED: ONDANSETRON ODT 4 MG TAB PO PRN (11:15)
--- NOTE | 2016-10-07 11:32 | HHI.PR ---
Subjective Remarks 41-year-old male who originally presented to the hospital because of epigastric, chest pain, shortness of breath for 2 weeks prior to evaluation. As indicated that patient had similar symptoms in March 2016 where he lived in [place] and was diagnosed with endocarditis. Patient underwent aortic valve replacement at that time without any Vacation surgery. The patient was down visiting from [place]. Patient does have history of IV drug use, however he denied use upon presentation to the hospital. Patient was found to have multiple abnormalities with elevated troponin which were equivocal , abdominal pain, systemic signs of infection. Patient did undergo echocardiogram which did not indicate any acute abnormality. However he did undergo BEBETO which did indicate a mobile vegetation noted on the aortic prosthetic valve. Blood cultures were performed which did indicate strep viridans infection. Patient was evaluated by infectious disease and is still under evaluation for appropriate antibiotics. Patient was continued leukocytosis and had further workup performed. 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 Patient still undergoing septic workup at this time. Still awaiting infectious disease to make antibiotic recommendations. Patient had cultures have become negative on 09/28/16. Is recommended that the patient be transferred to [place] for continued management and prolonged care. Objective Vitals Vital Signs Date Time Temp Pulse Resp B/P Pulse Ox O2 Delivery O2 Flow Rate FiO2 10/07/16 09:40 97.1 81 16 81/65 97 10/07/16 01:45 80 10/07/16 01:30 97.0 78 20 95/69 96 Manual Cuff/Palpation 10/06/16 23:22 98.3 74 16 89/56 97 10/06/16 19:55 98.9 93 16 100/63 96 10/06/16 16:00 98.9 89 16 99/65 96 10/06/16 12:00 98.6 92 16 87/56 96 I/O 10/06/16 10/06/16 10/06/16 10/07/16 10/07/16 10/07/16 07:00 15:00 23:00 07:00 15:00 23:00 Intake Total 360 ml 480 ml 480 ml 520 ml Output Total 600 ml 1100 ml 1100 ml 0 ml Balance -240 ml -620 ml -620 ml 520 ml Intake Oral 360 ml 480 ml 480 ml 60 ml IV Total 460 ml Output Urine Total 600 ml 1100 ml 1100 ml 0 ml # Voids 0 # Bowel Movements 0 0 0 Result Diagram: 10/06/16 0555 10/06/16 0555 Imaging Last Impressions Abdomen/Pelvis CT 10/05/16 0000 Signed Impressions: Service Date/Time: Wednesday, October 05, 2016 13:27 - CONCLUSION: 1. Table appearance of the splenic infarction. 2. The left hemidiaphragm remains elevated with consolidation in the left lower lobe. Tu Lopez MD Chest CT 09/28/16 0000 Signed Impressions: Service Date/Time: Wednesday, September 28, 2016 07:42 - CONCLUSION: 1. Tiny bilateral pleural effusions and probable bibasilar compressive atelectasis. 2. Splenomegaly with areas of decreased perfusion possibly representing splenic infarcts. 3. A 5 mm pleural based non-calcified nodule within the right middle lobe which is indeterminate. Follow up CT of the chest in six months is recommended. 4. Degenerative changes and scoliosis of the thoracic spine. Brown Kaufman MD Chest X-Ray 09/26/16 0106 Signed Impressions: Service Date/Time: Monday, September 26, 2016 01:11 - CONCLUSION: 1. Bibasilar atelectasis left greater than right. Gordon Odell MD Objective Remarks GENERAL: Well-developed, well-nourished, in no acute distress. alert and orientated HEENT: Head is normocephalic without any lesions or masses noted. Facial features are symmetric. Eyes: Extraocular muscles are intact. Conjunctivae were clear. NECK: Supple without any masses. Trachea midline no deviation. No JVD, CARDIAC: Regular rhythm, regular rate. S1/S2 are heard. No murmurs gallops or rubs. LUNGS: Clear to auscultation bilaterally. No wheeze, rhonchi or rales. No use of accessory muscles on inspiration or expiration. ABDOMEN: Soft, nontender. Nondistended. Bowel sounds heard in all 4 quadrants. No organomegaly or masses. Negative rebound, negative guarding EXTREMITIES: No edema, pulses are equal bilaterally. No cyanosis or clubbing NEUROLOGY: Mood and affect appear appropriate. Cranial nerves II through XII grossly intact. Moving all extremities, speech is clear Procedures BEBETO 09/27/16. 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 Echocardiogram performed which did not indicate any acute abnormality on bowels. BEBETO was performed which did indicate a 4.5 x 3.5 mm mobile vegetation noted on the strut nearest and noncardiac cusp region. Blood cultures positive with Streptococcus viridans, last positive culture 09/27, first negative culture 09/28/16 Infectious disease following the patient Antibiotics include penicillin G and gentamicin, no end date has been indicated at this time Leukocytosis, worsening Chest x-ray did not indicate any acute infectious process CT of the chest on 09/28/16 does not indicate any acute infection process. Showed bilateral effusions and bibasilar atelectasis CT of the abdomen and pelvis shows splenic infarct. Left hemidiaphragm remains elevated with consolidation in the left lower lobe Continue antibiotics per infectious disease Continue monitor CBC Left lung consolidation by CT, questionable pneumonia Patient remains afebrile Patient on antibiotics per infectious disease Obtain sputum culture Urinary tract infection with Enterococcus faecalis Patient is on penicillin G Anemia Probably related to endocarditis. -Continue to monitor Tobacco abuse/marijuana abuse Patient remains on nicotine patch Patient counseled on cessation Urticaria Patient started on steroids for 3 days, see her tach and Vistaril as needed Homelessness The pt is currently without resources. Patient will likely stay in hospital until completion of antibiotics DVT Prophylaxis: Encourage ambulation Unable to use sequential compression devices due to irritation Discharge Planning Discharge planning per case management, patient will likely require inpatient antibiotics until completion. John Mcghee Oct 07, 2016 11:32
[2016-10-07] MEDS: GENTAMICIN INJ 60 MG in SODIUM CHLORIDE 0.9% INJ 100 ML IV SCH ×2 (11:55→20:36)
[2016-10-07] MEDS: cefTRIAXone INJ 2,000 MG in SODIUM CHLORIDE 0.9% INJ 100 ML IV SCH (11:55)
[2016-10-07] MEDS: IBUPROFEN 600 MG TAB PO PRN (13:40)
[2016-10-07 20:00] VITALS: BP 102/73; PULSE 77; RESP 20; TEMP 96; O2SAT 97
[2016-10-07] MEDS: traZODone HCL 50 MG TAB PO SCH (21:00)
[2016-10-08] MEDS: GENTAMICIN INJ 60 MG in SODIUM CHLORIDE 0.9% INJ 100 ML IV SCH ×3 (03:35→23:31)
[2016-10-08] MEDS: ACETAMINOPHEN/HYDROcodone 325 MG/5 MG TAB PO PRN ×4 (04:34→23:32)
[2016-10-08 05:20] LABS: AUTOMATED NEUTROPHIL # 16.7 TH/MM3 (1.8-7.7); HEMATOCRIT 31.8 % (39.0-51.0); LYMPH % 7.4 % (9.0-44.0); LYMPHOCYTE # 1.4 TH/MM3 (1.0-4.8); MEAN CELL VOLUME 73.7 FL (80.0-100.0); MEAN CORPUSCULAR HEMOGLOBIN 24.1 PG (27.0-34.0); MEAN CORPUSCULAR HGB CONC 32.8 % (32.0-36.0); MONO % 1.5 % (0.0-8.0); NEUT % 91.1 % (16.0-70.0); PLATELET COUNT 511 TH/MM3 (150-450); RED BLOOD COUNT 4.31 MIL/MM3 (4.50-5.90); RED CELL DISTRIBUTION WIDTH 14.2 % (11.6-17.2); WHITE BLOOD COUNT 18.4 TH/MM3 (4.0-11.0)
[2016-10-08 05:22] LABS: HEMO FLAGS AUTO DIFF
[2016-10-08 05:52] LABS: PLATELET ESTIMATE SMEAR HIGH (NORMAL); PLATELET MORPHOLOGY NORMAL (NORMAL); SCAN/DIFF AUTO DIFF CONFIRMED
[2016-10-08 08:00] VITALS: BP 72/49; PULSE 76; RESP 16; TEMP 97.1; O2SAT 98
[2016-10-08] MEDS: SODIUM CHLORIDE 0.9% FLUSH 10 ML FLUSH IV FLUSH SCH ×2 (09:00→22:33)
[2016-10-08] MEDS: METOPROLOL TARTRATE 25 MG TAB PO SCH ×2 (09:00→10:11)
[2016-10-08] MEDS: ASPIRIN EC 81 MG TABEC PO SCH (10:11)
[2016-10-08] MEDS: PANTOPRAZOLE SOD 40 MG DELAYED RELEASE TAB PO SCH (10:11)
[2016-10-08] MEDS: CETIRIZINE HCL 10 MG TAB PO SCH (10:12)
[2016-10-08] MEDS: GABAPENTIN 300 MG CAP PO SCH ×3 (10:12→18:04)
[2016-10-08] MEDS: FLUoxetine HCL 20 MG CAP PO SCH (10:12)
[2016-10-08] MEDS ORDERED: PHARMACY ORDERED LAB ONE (11:45)
[2016-10-08 11:51] LABS: POTASSIUM 4.5 MEQ/L (3.5-5.1)
[2016-10-08 11:54] LABS: BICARBONATE 25.3 MEQ/L (21.0-32.0); MAGNESIUM 2.2 MG/DL (1.5-2.5)
--- NOTE | 2016-10-08 12:06 | HHI.PR ---
Subjective Remarks Patient seen and examined today for bacterial endocarditis. Patient denies any new complaints this morning. He has not most pleasant individual this morning. Very antisocial. Did not want to discuss any information. Objective Vitals Vital Signs Date Time Temp Pulse Resp B/P Pulse Ox O2 Delivery O2 Flow Rate FiO2 10/08/16 08:00 97.1 76 16 72/49 98 10/08/16 05:34 18 10/07/16 20:00 96.0 77 20 102/73 97 10/07/16 14:41 12 I/O 10/07/16 10/07/16 10/07/16 10/08/16 10/08/16 10/08/16 07:00 15:00 23:00 07:00 15:00 23:00 Intake Total 520 ml 1920 ml 510 ml Output Total 0 ml 550 ml Balance 520 ml 1920 ml -40 ml Intake Oral 60 ml 1920 ml 510 ml IV Total 460 ml Output Urine Total 0 ml 550 ml # Voids 0 6 2 # Bowel Movements 0 0 0 Result Diagram: 10/08/16 0425 10/08/16 1120 Objective Remarks GENERAL: Well-developed, well-nourished, in no acute distress. alert and orientated HEENT: Head is normocephalic without any lesions or masses noted. Facial features are symmetric. Eyes: Extraocular muscles are intact. Conjunctivae were clear. NECK: Supple without any masses. Trachea midline no deviation. No JVD, CARDIAC: Regular rhythm, regular rate. S1/S2 are heard. No murmurs gallops or rubs. LUNGS: Clear to auscultation bilaterally. No wheeze, rhonchi or rales. No use of accessory muscles on inspiration or expiration. ABDOMEN: Soft, nontender. Nondistended. Bowel sounds heard in all 4 quadrants. No organomegaly or masses. Negative rebound, negative guarding EXTREMITIES: No edema, pulses are equal bilaterally. No cyanosis or clubbing NEUROLOGY: Mood and affect appear appropriate. Cranial nerves II through XII grossly intact. Moving all extremities, speech is clear Procedures BEBETO 09/27/16. 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 Echocardiogram performed which did not indicate any acute abnormality on bowels. BEBETO was performed which did indicate a 4.5 x 3.5 mm mobile vegetation noted on the strut nearest and noncardiac cusp region. Blood cultures positive with Streptococcus viridans, last positive culture 09/27, first negative culture 09/28/16 Infectious disease following the patient. Case was discussed with them today to obtain and dates. Antibiotics include Rocephin with end date 11/09/16 and gentamicin with end date 10/12/16, Leukocytosis, worsening Chest x-ray did not indicate any acute infectious process CT of the chest on 09/28/16 does not indicate any acute infection process. Showed bilateral effusions and bibasilar atelectasis CT of the abdomen and pelvis shows splenic infarct. Left hemidiaphragm remains elevated with consolidation in the left lower lobe Continue antibiotics per infectious disease Continue monitor CBC Recheck urinalysis, chest x-ray, blood culture Thrombocytosis continue monitor platelet count Left lung consolidation by CT, questionable pneumonia Patient remains afebrile Patient on antibiotics per infectious disease Awaiting sputum culture Urinary tract infection with Enterococcus faecalis Patient underwent treatment with penicillin G. Anemia, stable Probably related to endocarditis. -Continue to monitor Tobacco abuse/marijuana abuse Patient remains on nicotine patch Patient counseled on cessation Urticaria, resolved Patient started on steroids for 3 days, see her tach and Vistaril as needed Homelessness The pt is currently without resources. Patient will likely stay in hospital until completion of antibiotics DVT Prophylaxis: Start Lovenox Unable to use sequential compression devices due to irritation Discharge Planning Discharge planning per case management, patient will likely require inpatient antibiotics until completion. John Mcghee Oct 08, 2016 12:06
[2016-10-08] MEDS: ENOXAPARIN SODIUM 40 MG/0.4 ML SYRINGE SQ SCH (12:50)
[2016-10-08] MEDS: cefTRIAXone INJ 2,000 MG in SODIUM CHLORIDE 0.9% INJ 100 ML IV SCH (12:54)
[2016-10-08 20:00] VITALS: BP 115/90; PULSE 85; RESP 19; TEMP 97.6; O2SAT 98
[2016-10-08] MEDS: traZODone HCL 50 MG TAB PO SCH (21:00)
[2016-10-09] MEDS: GENTAMICIN INJ 60 MG in SODIUM CHLORIDE 0.9% INJ 100 ML IV SCH ×3 (06:25→23:47)
[2016-10-09] MEDS: ACETAMINOPHEN/HYDROcodone 325 MG/5 MG TAB PO PRN ×4 (06:30→22:05)
[2016-10-09 07:20] LABS: AUTOMATED NEUTROPHIL # 8.9 TH/MM3 (1.8-7.7); BASOPHIL % 0.2 % (0.0-2.0); EOSINOPHIL # 0.1 TH/MM3 (0-0.4); EOSINOPHIL % 0.7 % (0.0-4.0); HEMATOCRIT 32.8 % (39.0-51.0); LYMPH % 25.6 % (9.0-44.0); LYMPHOCYTE # 3.5 TH/MM3 (1.0-4.8); MEAN CORPUSCULAR HEMOGLOBIN 23.8 PG (27.0-34.0); MEAN CORPUSCULAR HGB CONC 32.2 % (32.0-36.0); MONO % 7.1 % (0.0-8.0); NEUT % 66.4 % (16.0-70.0); PLATELET COUNT 555 TH/MM3 (150-450); RED BLOOD COUNT 4.44 MIL/MM3 (4.50-5.90); RED CELL DISTRIBUTION WIDTH 14.3 % (11.6-17.2); WHITE BLOOD COUNT 13.5 TH/MM3 (4.0-11.0)
[2016-10-09 07:21] LABS: HEMO FLAGS AUTO DIFF
[2016-10-09 07:39] LABS: BICARBONATE 28.8 MEQ/L (21.0-32.0); MAGNESIUM 2.2 MG/DL (1.5-2.5)
[2016-10-09 07:40] LABS: POTASSIUM 4.3 MEQ/L (3.5-5.1)
[2016-10-09 07:46] LABS: OVALOCYTES 1+ (NORMAL); PLATELET ESTIMATE SMEAR HIGH (NORMAL); PLATELET MORPHOLOGY NORMAL (NORMAL); ROULEAUX PRESENT (NORMAL); SCAN/DIFF AUTO DIFF CONFIRMED
[2016-10-09 08:00] VITALS: BP 120/83; PULSE 86; RESP 18; TEMP 97.6; O2SAT 97
[2016-10-09] MEDS: CETIRIZINE HCL 10 MG TAB PO SCH (09:36)
[2016-10-09] MEDS: GABAPENTIN 300 MG CAP PO SCH ×3 (09:36→17:54)
[2016-10-09] MEDS: PANTOPRAZOLE SOD 40 MG DELAYED RELEASE TAB PO SCH (09:36)
[2016-10-09] MEDS: FLUoxetine HCL 20 MG CAP PO SCH (09:36)
[2016-10-09] MEDS: ASPIRIN EC 81 MG TABEC PO SCH (09:37)
[2016-10-09] MEDS: SODIUM CHLORIDE 0.9% FLUSH 10 ML FLUSH IV FLUSH SCH ×2 (09:37→21:00)
[2016-10-09] MEDS: ENOXAPARIN SODIUM 40 MG/0.4 ML SYRINGE SQ SCH (12:31)
--- NOTE | 2016-10-09 12:41 | HHI.PR ---
Subjective Remarks Patient seen and examined today for follow-up on bacterial endocarditis. Patient denies any new complaints. Patient remains afebrile. Objective Vitals Vital Signs Date Time Temp Pulse Resp B/P Pulse Ox O2 Delivery O2 Flow Rate FiO2 10/09/16 08:00 97.6 86 18 120/83 97 10/08/16 20:00 97.6 85 19 115/90 98 I/O 10/08/16 10/08/16 10/08/16 10/09/16 10/09/16 10/09/16 07:00 15:00 23:00 07:00 15:00 23:00 Intake Total 510 ml 1440 ml 240 ml 360 ml Output Total 550 ml Balance -40 ml 1440 ml 240 ml 360 ml Intake Oral 510 ml 1440 ml 240 ml 360 ml Output Urine Total 550 ml # Voids 2 5 2 2 # Bowel Movements 0 1 Result Diagram: 10/09/16 0708 10/09/16 0708 Objective Remarks GENERAL: Well-developed, well-nourished, in no acute distress. alert and orientated HEENT: Head is normocephalic without any lesions or masses noted. Facial features are symmetric. Eyes: Extraocular muscles are intact. Conjunctivae were clear. NECK: Supple without any masses. Trachea midline no deviation. No JVD, CARDIAC: Regular rhythm, regular rate. S1/S2 are heard. 1/6 ejection murmur, no gallops or rubs. LUNGS: Clear to auscultation bilaterally. No wheeze, rhonchi or rales. No use of accessory muscles on inspiration or expiration. ABDOMEN: Soft, nontender. Nondistended. Bowel sounds heard in all 4 quadrants. No organomegaly or masses. Negative rebound, negative guarding EXTREMITIES: No edema, pulses are equal bilaterally. No cyanosis or clubbing NEUROLOGY: Mood and affect appear appropriate. Cranial nerves II through XII grossly intact. Moving all extremities, speech is clear Procedures BEBETO 09/27/16. 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 Echocardiogram performed which did not indicate any acute abnormality on bowels. BEBETO was performed which did indicate a 4.5 x 3.5 mm mobile vegetation noted on the strut nearest and noncardiac cusp region. Blood cultures positive with Streptococcus viridans, last positive culture 09/27, first negative culture 09/28/16 Infectious disease following the patient. Case was discussed with Dr. Smith and obtained end dates Antibiotics include Rocephin with end date 11/09/16 and gentamicin with end date 10/12/16, Leukocytosis, improving at this time, was likely secondary to steroid use Chest x-ray did not indicate any acute infectious process CT of the chest on 09/28/16 does not indicate any acute infection process. Showed bilateral effusions and bibasilar atelectasis CT of the abdomen and pelvis shows splenic infarct. Left hemidiaphragm remains elevated with consolidation in the left lower lobe Continue antibiotics per infectious disease Continue monitor CBC Blood cultures negative for 1 day, Urinalysis clear Chest x-ray pending, Sputum culture pending Thrombocytosis continue monitor platelet count Left lung consolidation by CT, questionable pneumonia Patient remains afebrile Patient on antibiotics per infectious disease Awaiting sputum culture Urinary tract infection with Enterococcus faecalis Patient underwent treatment with penicillin G. Anemia, stable Probably related to endocarditis. -Continue to monitor Tobacco abuse/marijuana abuse Patient remains on nicotine patch Patient counseled on cessation Urticaria, resolved Patient started on steroids for 3 days, see her tach and Vistaril as needed Homelessness The pt is currently without resources. Patient will likely stay in hospital until completion of antibiotics DVT Prophylaxis: Start Lovenox Unable to use sequential compression devices due to irritation Discharge Planning Discharge planning per case management, patient will likely require inpatient antibiotics until completion. John Mcghee Oct 09, 2016 12:41
[2016-10-09] MEDS: cefTRIAXone INJ 2,000 MG in SODIUM CHLORIDE 0.9% INJ 100 ML IV SCH (14:57)
[2016-10-09 17:08] LABS: BLOOD, URINE SMALL (NEG); GLUCOSE,URINE NEG (NEG); KETONE, URINE NEG (NEG); NITRITE,URINE NEG (NEG)
[2016-10-09 17:09] LABS: METHOD OF COLLECTION CLEAN CATCH; URINE COLOR STRAW (YELLW/STRAW)
[2016-10-09 17:14] LABS: COMMENT (UR) CULT NOT INDICATED; COMMENT2 (UR) MUCOUS PRESENT; CULTURE IF INDICATED CULT NOT INDICATED; WBC, URINE 0-2 /hpf (0-5)
[2016-10-09 20:00] VITALS: BP 108/72; PULSE 107; RESP 18; TEMP 97.8; O2SAT 97
[2016-10-09] MEDS: traZODone HCL 50 MG TAB PO SCH (22:04)
[2016-10-10] MEDS: ACETAMINOPHEN/HYDROcodone 325 MG/5 MG TAB PO PRN ×5 (04:29→23:22)
[2016-10-10] MEDS: GENTAMICIN INJ 60 MG in SODIUM CHLORIDE 0.9% INJ 100 ML IV SCH ×3 (07:30→22:38)
[2016-10-10 08:00] VITALS: BP 103/81; PULSE 88; RESP 20; TEMP 98.6; O2SAT 96
[2016-10-10] MEDS: GABAPENTIN 300 MG CAP PO SCH ×3 (08:55→17:42)
[2016-10-10] MEDS: ASPIRIN EC 81 MG TABEC PO SCH (08:55)
[2016-10-10] MEDS: PANTOPRAZOLE SOD 40 MG DELAYED RELEASE TAB PO SCH (08:55)
[2016-10-10] MEDS: CETIRIZINE HCL 10 MG TAB PO SCH (08:55)
[2016-10-10] MEDS: FLUoxetine HCL 20 MG CAP PO SCH (08:56)
[2016-10-10] MEDS: SODIUM CHLORIDE 0.9% FLUSH 10 ML FLUSH IV FLUSH SCH ×2 (09:02→21:00)
--- NOTE | 2016-10-10 11:11 | HHI.PR ---
Subjective Remarks Patient seen and examined today in follow-up for bacterial endocarditis. Patient indicates that he is having left flank pain today. Patient does have CT scans indicating splenic infarction. He is concerned that that might be the source of his pain. Objective Vitals Vital Signs Date Time Temp Pulse Resp B/P Pulse Ox O2 Delivery O2 Flow Rate FiO2 10/10/16 08:00 98.6 88 20 103/81 96 10/09/16 20:00 97.8 107 18 108/72 97 I/O 10/09/16 10/09/16 10/09/16 10/10/16 10/10/16 10/10/16 07:00 15:00 23:00 07:00 15:00 23:00 Intake Total 360 ml 720 ml 810 ml 480 ml Output Total 2 ml 1000 ml Balance 360 ml 718 ml 810 ml -520 ml Intake Oral 360 ml 720 ml 360 ml 480 ml Oral Supplement 240 ml IV Total 210 ml Output Urine Total 2 ml 1000 ml # Voids 2 2 # Bowel Movements 0 0 0 Result Diagram: 10/09/16 0708 10/10/16 0708 Objective Remarks GENERAL: Well-developed, well-nourished, in no acute distress. alert and orientated HEENT: Head is normocephalic without any lesions or masses noted. Facial features are symmetric. Eyes: Extraocular muscles are intact. Conjunctivae were clear. NECK: Supple without any masses. Trachea midline no deviation. No JVD, CARDIAC: Regular rhythm, regular rate. S1/S2 are heard. 1/6 ejection murmur, no gallops or rubs. LUNGS: Clear to auscultation bilaterally. No wheeze, rhonchi or rales. No use of accessory muscles on inspiration or expiration. ABDOMEN: Soft, nontender. Nondistended. Bowel sounds heard in all 4 quadrants. No organomegaly or masses. Negative rebound, negative guarding EXTREMITIES: No edema, pulses are equal bilaterally. No cyanosis or clubbing NEUROLOGY: Mood and affect appear appropriate. Cranial nerves II through XII grossly intact. Moving all extremities, speech is clear Procedures BEBETO 09/27/16. 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 Echocardiogram performed which did not indicate any acute abnormality on bowels. BEBETO was performed which did indicate a 4.5 x 3.5 mm mobile vegetation noted on the strut nearest and noncardiac cusp region. Blood cultures positive with Streptococcus viridans, last positive culture 09/27, first negative culture 09/28/16 Infectious disease following the patient. Case was discussed with Dr. Smith and obtained end dates Antibiotics include Rocephin with end date 11/09/16 and gentamicin with end date 10/12/16, Splenic infarct by CT Patient complaining of worsening pain if continues to worsen may need to repeat CT scan Repeat CT scan of the abdomen done 5 days ago which shows stability Leukocytosis, improving at this time, was likely secondary to steroid use Chest x-ray did not indicate any acute infectious process CT of the chest on 09/28/16 does not indicate any acute infection process. Showed bilateral effusions and bibasilar atelectasis CT of the abdomen and pelvis shows splenic infarct. Left hemidiaphragm remains elevated with consolidation in the left lower lobe Continue antibiotics per infectious disease Continue monitor CBC Blood cultures negative for 1 day, Urinalysis clear Chest x-ray pending, Sputum culture pending Thrombocytosis continue monitor platelet count Left lung consolidation by CT, questionable pneumonia Patient remains afebrile Patient on antibiotics per infectious disease Awaiting sputum culture Urinary tract infection with Enterococcus faecalis Patient underwent treatment with penicillin G. Anemia, stable Probably related to endocarditis. -Continue to monitor Tobacco abuse/marijuana abuse Patient remains on nicotine patch Patient counseled on cessation Urticaria, resolved Patient started on steroids for 3 days, see her tach and Vistaril as needed Homelessness The pt is currently without resources. Patient will likely stay in hospital until completion of antibiotics DVT Prophylaxis: Start Lovenox Unable to use sequential compression devices due to irritation Discharge Planning Discharge planning per case management, patient will likely require inpatient antibiotics until completion. John Mcghee Oct 10, 2016 11:11
[2016-10-10] MEDS: ENOXAPARIN SODIUM 40 MG/0.4 ML SYRINGE SQ SCH (13:00)
[2016-10-10] MEDS: cefTRIAXone INJ 2,000 MG in SODIUM CHLORIDE 0.9% INJ 100 ML IV SCH (13:10)
[2016-10-10 20:00] VITALS: BP 100/82; PULSE 109; RESP 16; TEMP 98.3; O2SAT 97
[2016-10-10] MEDS: traZODone HCL 50 MG TAB PO SCH (23:21)
[2016-10-11 05:28] LABS: AUTOMATED NEUTROPHIL # 11.1 TH/MM3 (1.8-7.7); BASOPHIL % 0.1 % (0.0-2.0); EOSINOPHIL # 0.2 TH/MM3 (0-0.4); EOSINOPHIL % 1.5 % (0.0-4.0); HEMATOCRIT 33.3 % (39.0-51.0); LYMPH % 20.8 % (9.0-44.0); LYMPHOCYTE # 3.2 TH/MM3 (1.0-4.8); MEAN CELL VOLUME 74.4 FL (80.0-100.0); MEAN CORPUSCULAR HEMOGLOBIN 24.3 PG (27.0-34.0); MEAN CORPUSCULAR HGB CONC 32.6 % (32.0-36.0); MONO % 6.9 % (0.0-8.0); NEUT % 70.7 % (16.0-70.0); PLATELET COUNT 539 TH/MM3 (150-450); RED BLOOD COUNT 4.48 MIL/MM3 (4.50-5.90); RED CELL DISTRIBUTION WIDTH 14.5 % (11.6-17.2); WHITE BLOOD COUNT 15.6 TH/MM3 (4.0-11.0)
[2016-10-11 05:35] LABS: POTASSIUM 4.2 MEQ/L (3.5-5.1)
[2016-10-11 05:39] LABS: BICARBONATE 29.2 MEQ/L (21.0-32.0); HEMO FLAGS AUTO DIFF; MAGNESIUM 2.3 MG/DL (1.5-2.5)
[2016-10-11] MEDS: GENTAMICIN INJ 60 MG in SODIUM CHLORIDE 0.9% INJ 100 ML IV SCH ×3 (06:11→19:58)
[2016-10-11] MEDS: ACETAMINOPHEN/HYDROcodone 325 MG/5 MG TAB PO PRN ×3 (06:34→20:00)
[2016-10-11 06:37] LABS: SCAN/DIFF AUTO DIFF CONFIRMED
[2016-10-11 08:00] VITALS: BP 105/83; PULSE 87; RESP 19; O2SAT 96
[2016-10-11] MEDS: SODIUM CHLORIDE 0.9% FLUSH 10 ML FLUSH IV FLUSH SCH ×2 (09:00→21:00)
--- NOTE | 2016-10-11 09:15 | RADHPO ---
EXAM DATE/TIME: 10/08/2016 15:55 [facility] COMPARISON: No previous studies available for comparison. INDICATIONS : Shortness of breath. MEDICAL HISTORY : Cardiovascular disease. Hepatitis C. SURGICAL HISTORY : Aortic valve replacement ENCOUNTER: Subsequent ACUITY: 2 weeks PAIN SCORE: 0/10 LOCATION: Bilateral chest FINDINGS: There is elevation of the left hemidiaphragm, minimal parenchymal changes present left base. The rig ht lung is clear. Aortic valvular prosthesis is noted. Sternal wires are intact. CONCLUSION: Elevation of the right hemidiaphragm with minimal parenchymal changes right base. Keanu Hobson MD FACR on October 08, 2016 at 16:24 Board Certified Radiologist. This report was verified electronically.
[2016-10-11] MEDS: FLUoxetine HCL 20 MG CAP PO SCH (10:33)
[2016-10-11] MEDS: ASPIRIN EC 81 MG TABEC PO SCH (10:33)
[2016-10-11] MEDS: GABAPENTIN 300 MG CAP PO SCH ×3 (10:33→17:22)
[2016-10-11] MEDS: CETIRIZINE HCL 10 MG TAB PO SCH (10:34)
[2016-10-11] MEDS: PANTOPRAZOLE SOD 40 MG DELAYED RELEASE TAB PO SCH (10:34)
[2016-10-11 11:14] LABS: ALT (GPT) 33 U/L (12-78)
[2016-10-11 11:15] LABS: AST (GOT) 11 U/L (15-37)
[2016-10-11 11:16] LABS: INDIRECT BILIRUBIN 0.3 MG/DL (0.0-0.8); TOTAL BILIRUBIN ADULT 0.4 MG/DL (0.2-1.0)
[2016-10-11 11:17] LABS: ALKALINE PHOSPHATASE 79 U/L (45-117)
[2016-10-11] MEDS: cefTRIAXone INJ 2,000 MG in SODIUM CHLORIDE 0.9% INJ 100 ML IV SCH (12:22)
[2016-10-11] MEDS: ENOXAPARIN SODIUM 40 MG/0.4 ML SYRINGE SQ SCH (12:23)
--- NOTE | 2016-10-11 13:32 | HHI.PR ---
Subjective Remarks Patient seen and examined today in follow-up for bacterial endocarditis. Patient states that he is having worsened abdominal pain in the left side. He states it is because his spleen is dying. He does have a CT scan that does show splenic infarct. However recent CT scan does not indicate any worsening or other acute abnormality. Patient's pain is not located in the splenic area. He is pointing to left lower lateral flank. No objective findings thus far indicate any acute abnormality. Objective Vitals Vital Signs Date Time Temp Pulse Resp B/P Pulse Ox O2 Delivery O2 Flow Rate FiO2 10/11/16 08:00 87 19 105/83 96 10/10/16 20:00 98.3 109 16 100/82 97 I/O 10/10/16 10/10/16 10/10/16 10/11/16 10/11/16 10/11/16 07:00 15:00 23:00 07:00 15:00 23:00 Intake Total 480 ml 690 ml 680 ml 480 ml Output Total 1000 ml Balance -520 ml 690 ml 680 ml 480 ml Intake Oral 480 ml 690 ml 480 ml 480 ml IV Total 200 ml Output Urine Total 1000 ml # Voids 2 3 2 # Bowel Movements 0 0 0 0 Result Diagram: 10/11/16 0425 10/11/16 0425 Objective Remarks GENERAL: Well-developed, well-nourished, in no acute distress. alert and orientated HEENT: Head is normocephalic without any lesions or masses noted. Facial features are symmetric. Eyes: Extraocular muscles are intact. Conjunctivae were clear. NECK: Supple without any masses. Trachea midline no deviation. No JVD, CARDIAC: Regular rhythm, regular rate. S1/S2 are heard. 1/6 ejection murmur, no gallops or rubs. LUNGS: Clear to auscultation bilaterally. No wheeze, rhonchi or rales. No use of accessory muscles on inspiration or expiration. ABDOMEN: Soft, nontender. Nondistended. Bowel sounds heard in all 4 quadrants. No organomegaly or masses. Negative rebound, negative guarding EXTREMITIES: No edema, pulses are equal bilaterally. No cyanosis or clubbing NEUROLOGY: Mood and affect appear appropriate. Cranial nerves II through XII grossly intact. Moving all extremities, speech is clear Procedures BEBETO 09/27/16. 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 Echocardiogram performed which did not indicate any acute abnormality on bowels. BEBETO was performed which did indicate a 4.5 x 3.5 mm mobile vegetation noted on the strut nearest and noncardiac cusp region. Blood cultures positive with Streptococcus viridans, last positive culture 09/27, first negative culture 09/28/16 Infectious disease following the patient. Case was discussed with Dr. 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 Showed bilateral effusions and bibasilar atelectasis CT of the abdomen and pelvis shows splenic infarct. Left hemidiaphragm remains elevated with consolidation in the left lower lobe Continue antibiotics per infectious disease Continue monitor CBC Blood cultures negative for 1 day, Urinalysis clear Chest x-ray no acute abnormality Thrombocytosis continue monitor platelet count Left lung consolidation by CT, questionable pneumonia Patient remains afebrile Patient on antibiotics per infectious disease Awaiting sputum culture Urinary tract infection with Enterococcus faecalis Patient underwent treatment with penicillin G. Anemia, stable Probably related to endocarditis. -Continue to monitor Tobacco abuse/marijuana abuse Patient remains on nicotine patch Patient counseled on cessation Urticaria, resolved Patient started on steroids for 3 days, see her tach and Vistaril as needed Homelessness The pt is currently without resources. Patient will likely stay in hospital until completion of antibiotics DVT Prophylaxis: Continue Lovenox Unable to use sequential compression devices due to irritation Discharge Planning Discharge planning per case management, patient will likely require inpatient antibiotics until completion. John Mcghee October 11, 2016 13:32
[2016-10-11] MEDS ORDERED: IOHEXOL 350 MG/ML 10 ML VIAL (for RAD DIAG) IV ONE (13:37)
--- NOTE | 2016-10-11 15:55 | RADHPO ---
EXAM DATE/TIME: 10/11/2016 13:18 [facility] COMPARISON: CTA ABDOMEN & PELVIS W 3D RECON, September 26, 2016, 9:32. CT ABDOMEN & PELVIS W CONTRAST, October 05, 13:27. INDICATIONS : History of splenic infarct with worsening pain. IV CONTRAST: 92 cc Omnipaque 350 (iohexol) IV Injection Site: Rt Forearm Lot: [id number] Exp Date: Jul 2019 Lot: Exp Date: ORAL CONTRAST: No oral contrast ingested. RADIATION DOSE: 7.74 CTDIvol (mGy) MEDICAL HISTORY : Hepatitis C. Cardiovascular disease SURGICAL HISTORY : aortic valve replacement ENCOUNTER: Subsequent ACUITY: 2 weeks PAIN SCALE: 5/10 LOCATION: Left upper quadrant TECHNIQUE: Volumetric scanning of the abdomen and pelvis was performed. Using automated exposure control and ad justment of the mA and/or kV according to patient size, radiation dose was kept as low as reasonably achievable to obtain optimal diagnostic quality images. FINDINGS: LOWER LUNGS: Bibasilar atelectasis is again noted. LIVER: Homogeneous density without lesion. There is no dilation of the biliary tree. No calcified gallston es. SPLEEN: Areas of low-density and spleen are again noted including sizable area involving the anterior upper a spect of the spleen and a small wedge-shaped area involving the inferior tip of the spleen. No perisp lenic fluid is identified. PANCREAS: Within normal limits. KIDNEYS: Normal in size and shape. There is no mass, stone or hydronephrosis. ADRENAL GLANDS: Within normal limits. VASCULAR: There is no aortic aneurysm. BOWEL/MESENTERY: The stomach, small bowel, and colon demonstrate no acute abnormality. There is no free intraperitone al air or fluid. ABDOMINAL WALL: Within normal limits. RETROPERITONEUM: There is no lymphadenopathy. BLADDER: No wall thickening or mass. REPRODUCTIVE: Within normal limits. INGUINAL: There is no lymphadenopathy or hernia. MUSCULOSKELETAL: Within normal limits for patient age. CONCLUSION: Stable hypodensities involving the spleen. Stable bibasilar atelectasis. Chung Martins MD on October 11, 2016 at 15:46 Board Certified Radiologist. This report was verified electronically.
[2016-10-11 20:00] VITALS: BP 103/86; PULSE 101; RESP 18; TEMP 99.3; O2SAT 97
[2016-10-12] MEDS: traZODone HCL 50 MG TAB PO SCH ×2 (02:03→21:48)
[2016-10-12] MEDS: ACETAMINOPHEN/HYDROcodone 325 MG/5 MG TAB PO PRN ×4 (02:04→21:49)
[2016-10-12] MEDS: GENTAMICIN INJ 60 MG in SODIUM CHLORIDE 0.9% INJ 100 ML IV SCH ×3 (06:31→20:13)
[2016-10-12 08:00] VITALS: BP 112/85; PULSE 80; RESP 20; TEMP 97.6; O2SAT 98
[2016-10-12] MEDS: GABAPENTIN 300 MG CAP PO SCH ×3 (08:45→15:41)
[2016-10-12] MEDS: PANTOPRAZOLE SOD 40 MG DELAYED RELEASE TAB PO SCH (08:45)
[2016-10-12] MEDS: ASPIRIN EC 81 MG TABEC PO SCH (08:45)
[2016-10-12] MEDS: FLUoxetine HCL 20 MG CAP PO SCH (08:45)
[2016-10-12] MEDS: CETIRIZINE HCL 10 MG TAB PO SCH (08:45)
[2016-10-12] MEDS: SODIUM CHLORIDE 0.9% FLUSH 10 ML FLUSH IV FLUSH SCH ×2 (08:46→20:12)
[2016-10-12 09:47] LABS: AUTOMATED NEUTROPHIL # 11.1 TH/MM3 (1.8-7.7); BASOPHIL % 0.1 % (0.0-2.0); EOSINOPHIL # 0.2 TH/MM3 (0-0.4); EOSINOPHIL % 1.5 % (0.0-4.0); HEMATOCRIT 34.5 % (39.0-51.0); LYMPH % 20.2 % (9.0-44.0); LYMPHOCYTE # 3.1 TH/MM3 (1.0-4.8); MEAN CELL VOLUME 74.8 FL (80.0-100.0); MEAN CORPUSCULAR HEMOGLOBIN 24.9 PG (27.0-34.0); MEAN CORPUSCULAR HGB CONC 33.3 % (32.0-36.0); MONO % 5.8 % (0.0-8.0); NEUT % 72.4 % (16.0-70.0); PLATELET COUNT 512 TH/MM3 (150-450); RED BLOOD COUNT 4.61 MIL/MM3 (4.50-5.90); RED CELL DISTRIBUTION WIDTH 15.4 % (11.6-17.2); WHITE BLOOD COUNT 15.3 TH/MM3 (4.0-11.0)
[2016-10-12 09:48] LABS: HEMO FLAGS AUTO DIFF
[2016-10-12 10:41] LABS: SCAN/DIFF AUTO DIFF CONFIRMED
--- NOTE | 2016-10-12 10:45 | HHI.IDPN ---
Subjective Subjective Allergies: Coded Allergies: No Known Allergies (Unverified , 09/26/16) Objective . Rossana Smith MD October 12, 2016 10:45 He lives in [place] Antibiotics Rocephin Gentamicin Lines PIV Past Medical History Reviewed Allergies: Coded Allergies: No Known Allergies (Unverified , 09/26/16) Objective . Vital Signs Date Time Temp Pulse Resp B/P Pulse Ox O2 Delivery O2 Flow Rate FiO2 10/12/16 08:00 97.6 80 20 112/85 98 10/11/16 20:00 99.3 101 18 103/86 97 10/11/16 10/11/16 10/12/16 15:00 23:00 07:00 Intake Total 640 ml Balance 640 ml Intake Oral 640 ml # Voids 4 3 # Bowel Movements 0 . Laboratory Tests Test 10/11/16 10/12/16 04:25 09:05 White Blood Count 15.6 TH/MM3 15.3 TH/MM3 Red Blood Count 4.48 MIL/MM3 4.61 MIL/MM3 Hemoglobin 10.9 GM/DL 11.5 GM/DL Hematocrit 33.3 % 34.5 % Mean Corpuscular Volume 74.4 FL 74.8 FL Mean Corpuscular Hemoglobin 24.3 PG 24.9 PG Mean Corpuscular Hemoglobin 32.6 % 33.3 % Concent Red Cell Distribution Width 14.5 % 15.4 % Platelet Count 539 TH/MM3 512 TH/MM3 Mean Platelet Volume 7.3 FL 7.4 FL Neutrophils (%) (Auto) 70.7 % 72.4 % Lymphocytes (%) (Auto) 20.8 % 20.2 % Monocytes (%) (Auto) 6.9 % 5.8 % Eosinophils (%) (Auto) 1.5 % 1.5 % Basophils (%) (Auto) 0.1 % 0.1 % Neutrophils # (Auto) 11.1 TH/MM3 11.1 TH/MM3 Lymphocytes # (Auto) 3.2 TH/MM3 3.1 TH/MM3 Monocytes # (Auto) 1.1 TH/MM3 0.9 TH/MM3 Eosinophils # (Auto) 0.2 TH/MM3 0.2 TH/MM3 Basophils # (Auto) 0.0 TH/MM3 0.0 TH/MM3 CBC Comment AUTO DIFF AUTO DIFF Differential Comment AUTO DIFF CONFIRMED Laboratory Tests Test 10/11/16 10/11/16 04:25 14:22 Sodium Level 137 MEQ/L Potassium Level 4.2 MEQ/L Chloride Level 99 MEQ/L Carbon Dioxide Level 29.2 MEQ/L Anion Gap 9 MEQ/L Blood Urea Nitrogen 22 MG/DL Creatinine 1.00 MG/DL Estimat Glomerular Filtration 82 ML/MIN Rate Random Glucose 118 MG/DL Calcium Level 8.9 MG/DL Magnesium Level 2.3 MG/DL Total Bilirubin 0.4 MG/DL Direct Bilirubin LESS THAN 0.1 MG/DL Indirect Bilirubin 0.3 MG/DL Aspartate Amino Transf 11 U/L (AST/SGOT) Alanine Aminotransferase 33 U/L (ALT/SGPT) Alkaline Phosphatase 79 U/L Total Protein 7.4 GM/DL Albumin 2.5 GM/DL Lactic Acid Level 1.6 mmol/L Imaging Abdomen/Pelvis CT 10/11/16 0000 Signed Impressions: Service Date/Time: Tuesday, October 11, 2016 13:18 - CONCLUSION: Stable hypodensities involving the spleen. Stable bibasilar atelectasis. Chung Martins MD Abdomen/Pelvis CT 10/05/16 0000 Signed Impressions: Service Date/Time: Wednesday, October 05, 2016 13:27 - CONCLUSION: 1. Table appearance of the splenic infarction. 2. The left hemidiaphragm remains elevated with consolidation in the left lower lobe. Tu Lopez MD Chest CT 09/28/16 0000 Signed Impressions: Service Date/Time: Wednesday, September 28, 2016 07:42 - CONCLUSION: 1. Tiny bilateral pleural effusions and probable bibasilar compressive atelectasis. 2. Splenomegaly with areas of decreased perfusion possibly representing splenic infarcts. 3. A 5 mm pleural based non-calcified nodule within the right middle lobe which is indeterminate. Follow up CT of the chest in six months is recommended. 4. Degenerative changes and scoliosis of the thoracic spine. Brown Kaufman MD Chest X-Ray 09/26/16 0106 Signed Impressions: Service Date/Time: Monday, September 26, 2016 01:11 - CONCLUSION: 1. Bibasilar atelectasis left greater than right. Gordon Odell MD Abdomen/Pelvis CT 09/26/16 0000 Signed Impressions: Service Date/Time: Monday, September 26, 2016 09:32 - CONCLUSION: Left lung base infiltrate may represent pneumonia. Matthieu Peña MD Assessment & Plan Remarks IMPRESSION PVE, S/P AVR - has (+) BC with Strep viridans - BEBETO, with vegetation in his PV Has UC with Enterococcus, no complaints - repeat UA on LUQ pain, due to splenic infarcts Drug eruption due to PCN - resolved RECOMMENDATION Continue Gentamicin - end date October 13 Continue Rocephin give until November 09 He can get PICC placed Patient is clear from ID standpoint and be discharge and complete his Rx as outpatient Revisit issue if patient can get IV Abx in infusion clinic Do labs weekly CBC, creat and LFT - to be ordered by [facility], if patient stays in the hospital Please call ID if there is any new ID related problems, or if any abnormal blood work If Rx can be done as outpatient, please call us back so we can fill out appropriate Abx orders Vadim/W Rossana Vargas PA-C, MD October 12, 2016 10:45
[2016-10-12] MEDS: cefTRIAXone INJ 2,000 MG in SODIUM CHLORIDE 0.9% INJ 100 ML IV SCH (12:58)
[2016-10-12] MEDS: ENOXAPARIN SODIUM 40 MG/0.4 ML SYRINGE SQ SCH (12:59)
--- NOTE | 2016-10-12 16:10 | HHI.PR ---
Subjective Remarks Follow-up for bacterial endocarditis. Patient again complains of abdominal pain and left flank pain stating it comes and goes. He states his current pain is a 6/10. He denies any fevers or shortness of breath. Denies any dysuria. Patient's CT of the abdomen yesterday showed stable hypodensities of the spleen but no acute issues. Objective Vitals Vital Signs Date Time Temp Pulse Resp B/P Pulse Ox O2 Delivery O2 Flow Rate FiO2 10/12/16 08:00 97.6 80 20 112/85 98 10/11/16 20:00 99.3 101 18 103/86 97 I/O 10/11/16 10/11/16 10/11/16 10/12/16 10/12/16 10/12/16 07:00 15:00 23:00 07:00 15:00 23:00 Intake Total 480 ml 640 ml 1200 ml Balance 480 ml 640 ml 1200 ml Intake Oral 480 ml 640 ml 1200 ml # Voids 2 4 3 3 # Bowel Movements 0 0 1 Result Diagram: 10/12/16 0905 10/11/16 0425 Imaging Last Impressions Abdomen/Pelvis CT 10/11/16 0000 Signed Impressions: Service Date/Time: Tuesday, October 11, 2016 13:18 - CONCLUSION: Stable hypodensities involving the spleen. Stable bibasilar atelectasis. Chung Martins MD Chest CT 09/28/16 0000 Signed Impressions: Service Date/Time: Wednesday, September 28, 2016 07:42 - CONCLUSION: 1. Tiny bilateral pleural effusions and probable bibasilar compressive atelectasis. 2. Splenomegaly with areas of decreased perfusion possibly representing splenic infarcts. 3. A 5 mm pleural based non-calcified nodule within the right middle lobe which is indeterminate. Follow up CT of the chest in six months is recommended. 4. Degenerative changes and scoliosis of the thoracic spine. Brown Kaufman MD Chest X-Ray 09/26/16 0106 Signed Impressions: Service Date/Time: Monday, September 26, 2016 01:11 - CONCLUSION: 1. Bibasilar atelectasis left greater than right. Gordon Odell MD Objective Remarks GENERAL: Well-nourished, well nourished patient in no apparent distress SKIN: Warm and dry. HEAD: Atraumatic. Normocephalic. RESPIRATORY: No accessory muscle use. RR normal. GASTROINTESTINAL: Abdomen soft, nondistended. Tender over the left abdomen. BACK: Positive left-sided CVA tenderness. NEUROLOGICAL: Awake and alert. Motor grossly within normal limits. Normal speech. PSYCHIATRIC: Appropriate mood and affect; insight and judgment normal. Procedures BEBETO 09/27/16. 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 Echocardiogram performed which did not indicate any acute abnormality on bowels. BEBETO was performed which did indicate a 4.5 x 3.5 mm mobile vegetation noted on the strut nearest and noncardiac cusp region. Blood cultures positive with Streptococcus viridans, last positive culture 09/27, first negative culture 09/28/16 Infectious disease following the patient. Antibiotics include Rocephin with end date 11/09/16 and gentamicin with end date 10/13/16. Patient is cleared from ID standpoint to be discharged and complete antibiotics at infusion clinic however patient is currently homeless from out of town, and cannot stay with his [id number], so will need to remain hospitalized. Do labs weekly CBC, Cr and LFTs. White blood cell count elevated but stable from yesterday at 15.3. Cr normal. LFTs normal. Call ID if there is any new ID related problems, or if any abnormal blood work. Abdominal pain, unknown etiology Laboratory studies do not indicate any acute abnormality Check lipase level Repeat CT scan of the abdomen shows stable hypo-densities of the spleen and stable bibasilar atelectasis but no acute issues. Splenic infarct by CT: stable L flank pain: -UA ordered. Leukocytosis: stable CT of the chest on 09/28/16 does not indicate any acute infection process. Showed bilateral effusions and bibasilar atelectasis Chest x-ray 10/08 minimal parenchymal changes R base CT of the abdomen and pelvis 10/05/16 shows splenic infarct. Left hemidiaphragm remains elevated with consolidation in the left lower lobe. Repeat abdominal CT as above. Continue antibiotics per infectious disease Continue to monitor CBC Blood cultures NGTD Urinalysis 10/09 clear Thrombocytosis continue monitor platelet count Left lung consolidation by CT, questionable pneumonia Patient remains afebrile Patient on antibiotics per infectious disease Repeat abdominal CT 10/11/16 only shows atelectasis compared to 10/05 scan indicating consolidation. Sputum culture never received. Urinary tract infection with Enterococcus faecalis Patient underwent treatment with penicillin G. Anemia: Improved, 11.5. Probably related to endocarditis. -Continue to monitor Tobacco abuse/marijuana abuse Patient remains on nicotine patch Patient counseled on cessation Urticaria: Resolved Patient started on steroids for 3 days, Zyrtec and Vistaril as needed Homelessness The pt is currently without resources. Patient will likely stay in hospital until completion of antibiotics DVT Prophylaxis: Continue Lovenox Unable to use sequential compression devices due to irritation Written by Anjana Jara PA-C acting as scribe for Dr. Mary on 10/12/16 at ~ 1435. Attending Statement This note was transcribed by scribshmuel Jara. I, Dr. Tu Mary personally performed the history, physical exam, and medical decision making; and confirmed the accuracy of the information in the transcribed note. Authenticated by Dr. Tu Mary on 10/13/16 at 13:02. Anjana Jara October 12, 2016 16:10 Tu Mary DO October 13, 2016 13:02
[2016-10-12 18:49] LABS: GLUCOSE,URINE NEG (NEG); KETONE, URINE NEG (NEG); NITRITE,URINE NEG (NEG); PH, URINE 5.5 (5.0-8.5)
[2016-10-12 18:59] LABS: BLOOD, URINE MOD (NEG)
[2016-10-12 19:07] LABS: MUCUS URINE FEW /lpf (OCC); URINE COLOR YELLOW (YELLW/STRAW); WBC, URINE 0-2 /hpf (0-5)
[2016-10-12 19:08] LABS: SQUAMOUS EPITHELIAL CELL URINE 0-5 /hpf (0-5)
[2016-10-12 19:09] LABS: HYALINE CAST, URINE 0-2 /lpf (RARE)
[2016-10-12 19:10] LABS: COMMENT (UR) CULT NOT INDICATED; CULTURE IF INDICATED CULT NOT INDICATED; RBC, URINE 0-3 /hpf (0-3)
[2016-10-12 20:00] VITALS: BP 111/81; PULSE 90; RESP 19; TEMP 97.5; O2SAT 99
[2016-10-13] MEDS: GENTAMICIN INJ 60 MG in SODIUM CHLORIDE 0.9% INJ 100 ML IV SCH ×3 (04:15→20:18)
[2016-10-13] MEDS: ACETAMINOPHEN/HYDROcodone 325 MG/5 MG TAB PO PRN ×4 (04:17→23:07)
[2016-10-13 08:00] VITALS: BP 126/87; PULSE 77; RESP 18; TEMP 97; O2SAT 100
[2016-10-13] MEDS: ASPIRIN EC 81 MG TABEC PO SCH (08:45)
[2016-10-13] MEDS: FLUoxetine HCL 20 MG CAP PO SCH (08:45)
[2016-10-13] MEDS: GABAPENTIN 300 MG CAP PO SCH ×3 (08:45→17:11)
[2016-10-13] MEDS: CETIRIZINE HCL 10 MG TAB PO SCH (08:45)
[2016-10-13] MEDS: PANTOPRAZOLE SOD 40 MG DELAYED RELEASE TAB PO SCH (08:45)
[2016-10-13] MEDS: SODIUM CHLORIDE 0.9% FLUSH 10 ML FLUSH IV FLUSH SCH ×2 (08:46→20:18)
--- NOTE | 2016-10-13 08:53 | HHI.PR ---
Subjective Remarks Follow-up for endocarditis. Patient complains of left foot pain this morning at 5/10 currently but is worse with weightbearing. He describes it as "throbbing". Denies any injury to the foot. Denies any numbness or tingling in the foot. Still admits to abdominal pain. Denies any fevers or chills although has night sweats. Objective Vitals Vital Signs Date Time Temp Pulse Resp B/P Pulse Ox O2 Delivery O2 Flow Rate FiO2 10/13/16 08:00 97.0 77 18 126/87 100 10/13/16 05:24 18 10/12/16 20:00 97.5 90 19 111/81 99 I/O 10/12/16 10/12/16 10/12/16 10/13/16 10/13/16 10/13/16 07:00 15:00 23:00 07:00 15:00 23:00 Intake Total 640 ml 1200 ml 480 ml 510 ml Balance 640 ml 1200 ml 480 ml 510 ml Intake Oral 640 ml 1200 ml 480 ml 240 ml IV Total 270 ml # Voids 3 3 2 2 # Bowel Movements 0 1 Result Diagram: 10/12/16 0905 10/11/16 0425 Objective Remarks GENERAL: Well-nourished, well nourished patient in no apparent distress SKIN: Warm and dry. HEAD: Atraumatic. Normocephalic. CARDIOVASCULAR: Normal rate and regular rhythm. RESPIRATORY: No accessory muscle use. CTAB. RR normal. GASTROINTESTINAL: Normoactive bowel sounds. Abdomen soft, nontender, nondistended. BACK: Positive left-sided CVA tenderness. MUSCULOSKELETAL: 2+ left TP pulse. Normal capillary refill in digits left foot. No tenderness to palpation of the left knee, tib-fib, left ankle or bones of left foot. Significantly tender to palpation over the plantar aspect of the left foot at the arch. No left calf or popliteal tenderness. NEUROLOGICAL: Awake and alert. Motor grossly within normal limits. Normal speech. PSYCHIATRIC: Appropriate mood and affect; insight and judgment normal. Procedures BEBETO 09/27/16. 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 Echocardiogram performed which did not indicate any acute abnormality on bowels. BEBETO was performed which did indicate a 4.5 x 3.5 mm mobile vegetation noted on the strut nearest and noncardiac cusp region. Blood cultures positive with Streptococcus viridans, last positive culture 09/27, first negative culture 09/28/16 Infectious disease following the patient. Antibiotics include Rocephin with end date 11/09/16 and gentamicin with end date 10/13/16. Patient is cleared from ID standpoint to be discharged and complete antibiotics at infusion clinic however patient is currently homeless from out of town, and cannot stay with his [id number], so will need to remain hospitalized. Do labs weekly CBC, Cr and LFTs. White blood cell count elevated but stable from yesterday at 15.3. Cr normal. LFTs normal. Call ID if there is any new ID related problems, or if any abnormal blood work. Abdominal pain, unknown etiology Laboratory studies do not indicate any acute abnormality Lipase normal Repeat CT scan of the abdomen shows stable hypo-densities of the spleen and stable bibasilar atelectasis but no acute issues. Splenic infarct by CT: stable L flank pain: -UA interpreted with no evidence of infection. Leukocytosis: stable CT of the chest on 09/28/16 does not indicate any acute infection process. Showed bilateral effusions and bibasilar atelectasis Chest x-ray 10/08 minimal parenchymal changes R base CT of the abdomen and pelvis 10/05/16 shows splenic infarct. Left hemidiaphragm remains elevated with consolidation in the left lower lobe. Repeat abdominal CT as above. Continue antibiotics per infectious disease Continue to monitor CBC Blood cultures NGTD Urinalysis 10/09 clear -Repeat CBC tomorrow morning. Thrombocytosis continue monitor platelet count Left foot pain: Acute. No injury. Patient likely has plantar fasciitis. -PT eval -30 mg IV Toradol ordered -check an x ray as recommended by PT. Left lung consolidation by CT, questionable pneumonia Patient remains afebrile Patient on antibiotics per infectious disease Repeat abdominal CT 10/11/16 only shows atelectasis compared to 10/05 scan indicating consolidation. Sputum culture never received. Urinary tract infection with Enterococcus faecalis Patient underwent treatment with penicillin G. Anemia: Improved, 11.5. Probably related to endocarditis. -Continue to monitor Tobacco abuse/marijuana abuse Patient remains on nicotine patch Patient counseled on cessation Urticaria: Resolved Patient started on steroids for 3 days, Zyrtec and Vistaril as needed Homelessness The pt is currently without resources. Patient will likely stay in hospital until completion of antibiotics DVT Prophylaxis: Continue Lovenox Unable to use sequential compression devices due to irritation Written by Anjana Jara PA-C acting as scribe for Dr. Mary on 10/13/16 at ~ 1030. Attending Statement This note was transcribed by rashmi Jara. I, Dr. Tu Mary personally performed the history, physical exam, and medical decision making; and confirmed the accuracy of the information in the transcribed note. Authenticated by Dr. Tu Mary on 10/13/16 at 13:04. Anjana Jara October 13, 2016 08:53 Tu Mary DO October 13, 2016 13:04
[2016-10-13] MEDS ORDERED: KETOROLAC TROMETHAMINE 30 MG/ML (IVP) VIAL IV PUSH ONE (11:00)
[2016-10-13] MEDS: cefTRIAXone INJ 2,000 MG in SODIUM CHLORIDE 0.9% INJ 100 ML IV SCH (11:39)
[2016-10-13] MEDS: ENOXAPARIN SODIUM 40 MG/0.4 ML SYRINGE SQ SCH (11:41)
--- NOTE | 2016-10-13 14:27 | RADHPO ---
EXAM DATE/TIME: 10/13/2016 13:21 [facility] COMPARISON: No previous studies available for comparison. INDICATIONS : Left foot pain with no known injury MEDICAL HISTORY : None. SURGICAL HISTORY : None. ENCOUNTER: Initial ACUITY: 2 days PAIN SCORE: 4/10 LOCATION: Left arch of foot FINDINGS: Three view examination of the left foot demonstrates no soft tissue swelling, dislocation, or fractur e. The tarsal bones appear intact. The interphalangeal and metatarsophalangeal joints are intact. A small heel spur is present.. Bony mineralization is normal. CONCLUSION: Heel spur. No acute bony findings Chung Martins MD on October 13, 2016 at 14:24 Board Certified Radiologist. This report was verified electronically.
[2016-10-13 20:00] VITALS: BP 115/86; PULSE 87; RESP 21; TEMP 96.7; O2SAT 100
[2016-10-13] MEDS: traZODone HCL 50 MG TAB PO SCH (23:06)
[2016-10-14] MEDS: ACETAMINOPHEN/HYDROcodone 325 MG/5 MG TAB PO PRN ×3 (05:06→18:32)
[2016-10-14 05:19] LABS: BASOPHIL # 0.1 TH/MM3 (0-0.2); BASOPHIL % 0.4 % (0.0-2.0); EOSINOPHIL # 0.2 TH/MM3 (0-0.4); EOSINOPHIL % 1.2 % (0.0-4.0); HEMATOCRIT 31.6 % (39.0-51.0); LYMPH % 16.3 % (9.0-44.0); LYMPHOCYTE # 2.5 TH/MM3 (1.0-4.8); MEAN CELL VOLUME 73.1 FL (80.0-100.0); MEAN CORPUSCULAR HEMOGLOBIN 23.8 PG (27.0-34.0); MEAN CORPUSCULAR HGB CONC 32.5 % (32.0-36.0); NEUT % 73.1 % (16.0-70.0); PLATELET COUNT 511 TH/MM3 (150-450); RED BLOOD COUNT 4.32 MIL/MM3 (4.50-5.90); RED CELL DISTRIBUTION WIDTH 14.5 % (11.6-17.2); WHITE BLOOD COUNT 15.2 TH/MM3 (4.0-11.0)
[2016-10-14 05:24] LABS: HEMO FLAGS DIFF FINAL
--- NOTE | 2016-10-14 08:25 | HHI.PR ---
Subjective Remarks Follow-up for endocarditis. Patient states his left foot is throbbing again. Patient admits to relief with Toradol yesterday. Objective Vitals Vital Signs Date Time Temp Pulse Resp B/P Pulse Ox O2 Delivery O2 Flow Rate FiO2 10/14/16 06:18 18 10/13/16 20:00 96.7 87 21 115/86 100 I/O 10/13/16 10/13/16 10/13/16 10/14/16 10/14/16 10/14/16 07:00 15:00 23:00 07:00 15:00 23:00 Intake Total 510 ml 840 ml 240 ml Output Total 280 ml 300 ml Balance 510 ml 560 ml -60 ml Intake Oral 240 ml 720 ml 240 ml IV Total 270 ml 120 ml Output Urine Total 280 ml 300 ml # Voids 2 1 3 Result Diagram: 10/14/16 0505 10/11/16 0425 Imaging Last Impressions Foot X-Ray 10/13/16 0000 Signed Impressions: Service Date/Time: Thursday, October 13, 2016 13:21 - CONCLUSION: Heel spur. No acute bony findings Chung Martins MD Abdomen/Pelvis CT 10/11/16 0000 Signed Impressions: Service Date/Time: Tuesday, October 11, 2016 13:18 - CONCLUSION: Stable hypodensities involving the spleen. Stable bibasilar atelectasis. Chung Martins MD Chest X-Ray 10/08/16 0000 Signed Impressions: Service Date/Time: Saturday, October 08, 2016 15:55 - CONCLUSION: Elevation of the right hemidiaphragm with minimal parenchymal changes right base. Keanu Hobson MD FACR Chest CT 09/28/16 0000 Signed Impressions: Service Date/Time: Wednesday, September 28, 2016 07:42 - CONCLUSION: 1. Tiny bilateral pleural effusions and probable bibasilar compressive atelectasis. 2. Splenomegaly with areas of decreased perfusion possibly representing splenic infarcts. 3. A 5 mm pleural based non-calcified nodule within the right middle lobe which is indeterminate. Follow up CT of the chest in six months is recommended. 4. Degenerative changes and scoliosis of the thoracic spine. Brown Kaufman MD Objective Remarks GENERAL: Well-nourished, well nourished patient in no apparent distress SKIN: Warm and dry. HEAD: Atraumatic. Normocephalic. CARDIOVASCULAR: Normal rate and regular rhythm. RESPIRATORY: No accessory muscle use. CTAB. GASTROINTESTINAL: Abdomen soft, nontender, nondistended. MUSCULOSKELETAL: 2+ left TP pulse. Normal capillary refill in digits left foot. Tender to palpation over the plantar arch of the L foot. No LLE edema. NEUROLOGICAL: Awake and alert. Motor grossly within normal limits. Normal speech. PSYCHIATRIC: Appropriate mood and affect; insight and judgment normal. Procedures BEBETO 09/27/16. 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 Echocardiogram performed which did not indicate any acute abnormality on bowels. BEBETO was performed which did indicate a 4.5 x 3.5 mm mobile vegetation noted on the strut nearest and noncardiac cusp region. Blood cultures positive with Streptococcus viridans, last positive culture 09/27, first negative culture 09/28/16 Infectious disease following the patient. Antibiotics include Rocephin with end date 11/09/16 and gentamicin with end date 10/13/16. Patient is cleared from ID standpoint to be discharged and complete antibiotics at infusion clinic however patient is currently homeless from out of town, and cannot stay with his [id number], so will need to remain hospitalized. Do labs weekly CBC, Cr and LFTs. Call ID if there is any new ID related problems, or if any abnormal blood work. 10/14: WBC stable but still elevated at 15.2. Afebrile. Will order new ESR and CRP levels. Abdominal pain, unknown etiology Laboratory studies do not indicate any acute abnormality Lipase normal Repeat CT scan of the abdomen shows stable hypo-densities of the spleen and stable bibasilar atelectasis but no acute issues. 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 Leukocytosis: stable CT of the chest on 09/28/16 does not indicate any acute infection process. Showed bilateral effusions and bibasilar atelectasis Chest x-ray 10/08 minimal parenchymal changes R base CT of the abdomen and pelvis 10/05/16 shows splenic infarct. Left hemidiaphragm remains elevated with consolidation in the left lower lobe. Repeat abdominal CT as above. Continue antibiotics per infectious disease Continue to monitor CBC Blood cultures NGTD Urinalysis 10/09 clear See endocarditis above Thrombocytosis continue monitor platelet count Left foot pain: Stable. No injury. Patient likely has plantar fasciitis. X- rays left foot personally interpreted and appear normal. -PT following -30 mg IV Toradol with good relief on 10/13 -Patient requests sterids but will hold off at this time as we are treating endocarditis. Patient advised to ask for ibuprofen; will change ibuprofen to prn pain 1-10 and change [place] to prn breakthrough. Left lung consolidation by CT, questionable pneumonia Patient remains afebrile Patient on antibiotics per infectious disease Repeat abdominal CT 10/11/16 only shows atelectasis compared to 10/05 scan indicating consolidation. Sputum culture never received. Urinary tract infection with Enterococcus faecalis Patient underwent treatment with penicillin G. Anemia: Improved, 11.5. Probably related to endocarditis. -Continue to monitor Tobacco abuse/marijuana abuse Patient remains on nicotine patch Patient counseled on cessation Urticaria: Resolved Patient started on steroids for 3 days, Zyrtec and Vistaril as needed Homelessness The pt is currently without resources. Patient will likely stay in hospital until completion of antibiotics DVT Prophylaxis: Continue Lovenox Unable to use sequential compression devices due to irritation Patient discussed with Dr. Mary. Anjana Jara October 14, 2016 08:25
[2016-10-14] MEDS: SODIUM CHLORIDE 0.9% FLUSH 10 ML FLUSH IV FLUSH SCH ×2 (09:00→20:55)
[2016-10-14] MEDS: ASPIRIN EC 81 MG TABEC PO SCH (09:13)
[2016-10-14] MEDS: GABAPENTIN 300 MG CAP PO SCH ×3 (09:13→18:29)
[2016-10-14] MEDS: FLUoxetine HCL 20 MG CAP PO SCH (09:13)
[2016-10-14] MEDS: PANTOPRAZOLE SOD 40 MG DELAYED RELEASE TAB PO SCH (09:14)
[2016-10-14] MEDS: CETIRIZINE HCL 10 MG TAB PO SCH (09:14)
[2016-10-14] MEDS: IBUPROFEN 600 MG TAB PO PRN (09:14)
[2016-10-14 11:18] VITALS: BP 112/81; PULSE 93; RESP 15; TEMP 99.5; O2SAT 97
[2016-10-14] MEDS: ENOXAPARIN SODIUM 40 MG/0.4 ML SYRINGE SQ SCH (12:29)
[2016-10-14] MEDS: cefTRIAXone INJ 2,000 MG in SODIUM CHLORIDE 0.9% INJ 100 ML IV SCH (12:37)
[2016-10-14 20:00] VITALS: BP 128/90; PULSE 86; RESP 20; TEMP 97; O2SAT 100
[2016-10-14] MEDS: traZODone HCL 50 MG TAB PO SCH (20:55)
[2016-10-15] MEDS: ACETAMINOPHEN/HYDROcodone 325 MG/5 MG TAB PO PRN ×4 (01:03→20:13)
[2016-10-15] MEDS: GABAPENTIN 300 MG CAP PO SCH ×3 (07:48→16:56)
[2016-10-15] MEDS: PANTOPRAZOLE SOD 40 MG DELAYED RELEASE TAB PO SCH (07:48)
[2016-10-15] MEDS: ASPIRIN EC 81 MG TABEC PO SCH (07:48)
[2016-10-15] MEDS: FLUoxetine HCL 20 MG CAP PO SCH (07:48)
[2016-10-15] MEDS: CETIRIZINE HCL 10 MG TAB PO SCH (07:48)
[2016-10-15] MEDS: SODIUM CHLORIDE 0.9% FLUSH 10 ML FLUSH IV FLUSH SCH ×2 (07:50→20:56)
[2016-10-15 08:50] VITALS: BP 122/92; PULSE 86; RESP 18; TEMP 96.6; O2SAT 98
--- NOTE | 2016-10-15 09:32 | HHI.PR ---
Subjective Remarks Follow-up for endocarditis and left foot pain. Patient is unsure if ibuprofen helped his foot pain last night but he admits to pain in his left calf this morning as well as over the L tibia and also has a rash to the left lower leg in the same area. He denies any pruritus. He denies any fevers or chills, shortness of breath, vomiting, or diarrhea. Objective Vitals Vital Signs Date Time Temp Pulse Resp B/P Pulse Ox O2 Delivery O2 Flow Rate FiO2 10/15/16 08:50 96.6 86 18 122/92 98 10/14/16 20:00 97.0 86 20 128/90 100 10/14/16 11:18 99.5 93 15 112/81 97 I/O 10/14/16 10/14/16 10/14/16 10/15/16 10/15/16 10/15/16 07:00 15:00 23:00 07:00 15:00 23:00 Intake Total 240 ml 2220 ml 720 ml Output Total 300 ml Balance -60 ml 2220 ml 720 ml Intake Oral 240 ml 2220 ml 720 ml Output Urine Total 300 ml # Voids 3 6 3 # Bowel Movements 1 0 Result Diagram: 10/14/16 0505 10/11/16 0425 Objective Remarks GENERAL: Well-nourished, well nourished patient in no apparent distress SKIN: Warm and dry. Splotchy red rash to the medial left lower leg. No rash to the L foot or ankle. HEAD: Atraumatic. Normocephalic. CARDIOVASCULAR: Normal rate and regular rhythm. No murmurs. RESPIRATORY: No accessory muscle use. CTAB. GASTROINTESTINAL: Abdomen soft, nontender, nondistended. MUSCULOSKELETAL: 2+ left TP pulse. Normal capillary refill in digits of left foot. Significantly tender to palpation over the plantar arch of the L foot. No LLE edema. Significantly tender over the L calf. Patient has pain in left calf with left SLR at < 45, but no elicitation of sciatic pain. NEUROLOGICAL: Awake and alert. Normal speech. PSYCHIATRIC: Appropriate mood and affect; insight and judgment normal. Procedures BEBETO 09/27/16. 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 Echocardiogram performed which did not indicate any acute abnormality on bowels. BEBETO was performed which did indicate a 4.5 x 3.5 mm mobile vegetation noted on the strut nearest and noncardiac cusp region. Blood cultures positive with Streptococcus viridans, last positive culture 09/27, first negative culture 09/28/16 Infectious disease following the patient. Antibiotics include Rocephin with end date 11/09/16 and gentamicin with end date 10/13/16. Patient is cleared from ID standpoint to be discharged and complete antibiotics at infusion clinic however patient is currently homeless from out of town, and cannot stay with his [id number], so will need to remain hospitalized. Do labs weekly CBC, Cr and LFTs. Call ID if there is any new ID related problems, or if any abnormal blood work. 10/14 WBC stable but still elevated at 15.2. Afebrile. ESR improved at 58 from 66 on 10/06. CRP improved at 3.90 from 5.43 on 10/06. Continue to monitor weekly. Abdominal pain, unknown etiology Laboratory studies do not indicate any acute abnormality Lipase normal Repeat CT scan of the abdomen shows stable hypo-densities of the spleen and stable bibasilar atelectasis but no acute issues. 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 Leukocytosis: stable CT of the chest on 09/28/16 does not indicate any acute infection process. Showed bilateral effusions and bibasilar atelectasis Chest x-ray 10/08 minimal parenchymal changes R base CT of the abdomen and pelvis 10/05/16 shows splenic infarct. Left hemidiaphragm remains elevated with consolidation in the left lower lobe. Repeat abdominal CT as above. Continue antibiotics per infectious disease Continue to monitor CBC Blood cultures NGTD Urinalysis 10/09 clear 10/15: Repeat CBC with diff tomorrow am. Thrombocytosis continue monitor platelet count Left foot pain: Stable. No injury. Patient likely has plantar fasciitis. X- rays left foot appear normal. -PT following -30 mg IV Toradol with good relief on 10/13 -Patient requests sterids but will hold off at this time as we are treating endocarditis. Continue ibuprofen, [place] for breakthrough. Left calf pain: Acute 10/15. Likely related to pain in left foot as there is no edema and patient is on Lovenox, but patient is significantly tender over the left calf and has not been ambulating as much recently. -Will order Doppler US to evaluate for DVT. Doppler negative. Rash: Acute 10/15. Localized to left lower leg, but is non-pruritic. Afebrile. Unclear etiology. -Start Benadryl 25 mg po q6 hours. -Monitor clinically. Can consider steroids if not improving. Left lung consolidation by CT, questionable pneumonia Patient remains afebrile Patient on antibiotics per infectious disease Repeat abdominal CT 10/11/16 only shows atelectasis compared to 10/05 scan indicating consolidation. Sputum culture never received. Urinary tract infection with Enterococcus faecalis Patient underwent treatment with penicillin G. Anemia: Stable. Probably related to endocarditis. -Continue to monitor Tobacco abuse/marijuana abuse Patient remains on nicotine patch Patient counseled on cessation Urticaria: Resolved S/p steroids for 3 days, Zyrtec and Vistaril as needed Homelessness The pt is currently without resources. Patient will likely stay in hospital until completion of antibiotics DVT Prophylaxis: Continue Lovenox Unable to use sequential compression devices due to irritation Anjana Jara October 15, 2016 09:32
[2016-10-15] MEDS: diphenhydrAMINE HCL 25 MG CAP PO SCH ×3 (12:41→20:58)
[2016-10-15] MEDS: ENOXAPARIN SODIUM 40 MG/0.4 ML SYRINGE SQ SCH (12:41)
[2016-10-15] MEDS: cefTRIAXone INJ 2,000 MG in SODIUM CHLORIDE 0.9% INJ 100 ML IV SCH (12:41)
--- NOTE | 2016-10-15 15:51 | RADHPO ---
EXAM DATE/TIME: 10/15/2016 20:17 [facility] COMPARISON: No previous studies available for comparison. INDICATIONS : Left foot pain. MEDICAL HISTORY : Hepatitis C. Hypercholesterolemia. SURGICAL HISTORY : Aortic valve replacement. ENCOUNTER: Initial ACUITY: 1 day PAIN SCORE: 8/10 LOCATION: Left leg. TECHNIQUE: Venous ultrasound of the leg was performed from the inguinal ligament to the proximal calf. Real-yulissa e, color Doppler and spectral tracing, compression and augmentation techniques were used. FINDINGS: There is normal compressibility of the deep venous system from the inguinal region to the proximal ca lf. No echogenic clot is seen in the lumen of the common femoral, femoral, popliteal, and posterior tibial veins. There is a normal response of the venous system to proximal and distal augmentation an d respiration. CONCLUSION: Normal examination. Chung Martins MD on October 15, 2016 at 15:49 Board Certified Radiologist. This report was verified electronically.
[2016-10-15 20:00] VITALS: BP 112/80; PULSE 98; RESP 18; TEMP 100.6; O2SAT 98
[2016-10-15] MEDS: ACETAMINOPHEN 325 MG TAB PO PRN (20:13)
[2016-10-15] MEDS: traZODone HCL 50 MG TAB PO SCH (20:58)
[2016-10-16] MEDS: diphenhydrAMINE HCL 25 MG CAP PO SCH ×4 (03:05→16:29)
[2016-10-16] MEDS: ACETAMINOPHEN/HYDROcodone 325 MG/5 MG TAB PO PRN ×4 (03:55→22:17)
[2016-10-16 07:08] LABS: AUTOMATED NEUTROPHIL # 9.1 TH/MM3 (1.8-7.7); BASOPHIL # 0.1 TH/MM3 (0-0.2); BASOPHIL % 0.5 % (0.0-2.0); EOSINOPHIL # 0.2 TH/MM3 (0-0.4); EOSINOPHIL % 1.8 % (0.0-4.0); HEMATOCRIT 33.1 % (39.0-51.0); LYMPH % 20.4 % (9.0-44.0); LYMPHOCYTE # 2.7 TH/MM3 (1.0-4.8); MEAN CELL VOLUME 74.1 FL (80.0-100.0); MEAN CORPUSCULAR HGB CONC 32.5 % (32.0-36.0); MONO % 8.5 % (0.0-8.0); NEUT % 68.8 % (16.0-70.0); PLATELET COUNT 472 TH/MM3 (150-450); RED BLOOD COUNT 4.47 MIL/MM3 (4.50-5.90); WHITE BLOOD COUNT 13.2 TH/MM3 (4.0-11.0)
[2016-10-16 07:13] LABS: HEMO FLAGS DIFF FINAL
[2016-10-16 08:00] VITALS: BP 123/89; PULSE 82; RESP 17; TEMP 99.2; O2SAT 97
[2016-10-16] MEDS: SODIUM CHLORIDE 0.9% FLUSH 10 ML FLUSH IV FLUSH SCH ×2 (09:00→22:15)
--- NOTE | 2016-10-16 10:11 | HHI.PR ---
Subjective Remarks Follow-up for endocarditis, left foot and calf pain, and LLE rash. Nurse states patient did not like getting woken up at 3am to receive Benadryl. Patient states the Benadryl is helping his rash. He denies the rash being pruritic. Eros tingling in the leg prior to onset of rash. Denies ibuprofen helping his pain. Denies L sciatic pain currently. Objective Vitals Vital Signs Date Time Temp Pulse Resp B/P Pulse Ox O2 Delivery O2 Flow Rate FiO2 10/16/16 08:00 99.2 82 17 123/89 97 10/15/16 20:00 100.6 98 18 112/80 98 I/O 10/15/16 10/15/16 10/15/16 10/16/16 10/16/16 10/16/16 07:00 15:00 23:00 07:00 15:00 23:00 Intake Total 720 ml 1500 ml 720 ml Output Total 1100 ml 350 ml Balance 720 ml 400 ml 370 ml Intake Oral 720 ml 1500 ml 480 ml Oral Supplement 240 ml Output Urine Total 1100 ml 350 ml # Voids 3 5 # Bowel Movements 0 1 0 Result Diagram: 10/16/16 0555 Imaging Last Impressions Lower Extremity Ultrasound 10/15/16 0000 Signed Impressions: Service Date/Time: Saturday, October 15, 2016 20:17 - CONCLUSION: Normal examination. Chung Martins MD Foot X-Ray 10/13/16 0000 Signed Impressions: Service Date/Time: Thursday, October 13, 2016 13:21 - CONCLUSION: Heel spur. No acute bony findings Chung Martins MD Abdomen/Pelvis CT 10/11/16 0000 Signed Impressions: Service Date/Time: Tuesday, October 11, 2016 13:18 - CONCLUSION: Stable hypodensities involving the spleen. Stable bibasilar atelectasis. Chung Martins MD Chest X-Ray 10/08/16 0000 Signed Impressions: Service Date/Time: Saturday, October 08, 2016 15:55 - CONCLUSION: Elevation of the right hemidiaphragm with minimal parenchymal changes right base. Keanu Hobson MD FACR Chest CT 09/28/16 0000 Signed Impressions: Service Date/Time: Wednesday, September 28, 2016 07:42 - CONCLUSION: 1. Tiny bilateral pleural effusions and probable bibasilar compressive atelectasis. 2. Splenomegaly with areas of decreased perfusion possibly representing splenic infarcts. 3. A 5 mm pleural based non-calcified nodule within the right middle lobe which is indeterminate. Follow up CT of the chest in six months is recommended. 4. Degenerative changes and scoliosis of the thoracic spine. Brown Kaufman MD Objective Remarks GENERAL: Well-nourished, well nourished patient in no apparent distress SKIN: Warm and dry. Patchy tender red rash only to the medial left lower leg. No vesicles present. HEAD: Atraumatic. Normocephalic. CARDIOVASCULAR: Normal rate and regular rhythm. RESPIRATORY: No accessory muscle use. CTAB. GASTROINTESTINAL: Abdomen soft, nontender, nondistended. MUSCULOSKELETAL: 2+ left TP pulse. Normal capillary refill in digits of left foot. Significantly tender to palpation over the plantar arch of the L foot. No LLE edema. Tender over the L calf in area of rash. NEUROLOGICAL: Awake and alert. Normal speech. PSYCHIATRIC: Appropriate mood and affect; insight and judgment normal. Procedures BEBETO 09/27/16. 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 Echocardiogram performed which did not indicate any acute abnormality on bowels. BEBETO was performed which did indicate a 4.5 x 3.5 mm mobile vegetation noted on the strut nearest and noncardiac cusp region. Blood cultures positive with Streptococcus viridans, last positive culture 09/27, first negative culture 09/28/16 Infectious disease following the patient. Antibiotics include Rocephin with end date 11/09/16 and gentamicin with end date 10/13/16. Patient is cleared from ID standpoint to be discharged and complete antibiotics at infusion clinic however patient is currently homeless from out of town, and cannot stay with his [id number], so will need to remain hospitalized. Do labs weekly CBC, Cr and LFTs. Call ID if there is any new ID related problems, or if any abnormal blood work. 10/14: ESR improved at 58 from 66 on 10/06. CRP improved at 3.90 from 5.43 on . Continue to monitor weekly. Fever: Acute. Temp 100.6 at 2000 last night. Tylenol was administered. Temp 99.2 this morning. -WBC improving at 13.2. -Obtain new blood cultures x 2. -Recent UA 10/12 clear. -No respiratory symptoms. If fever continues, consider chest x-ray. Left foot and calf pain: Persistent. No injury. Patient likely has plantar fasciitis. Calf pain could be due to foot pain, but could also be related to rash. -X-rays left foot appear normal. -PT following -30 mg IV Toradol with good relief on 10/13 -Denies relief with Ibuprofen. Receiving [place] prn. Started on prednisone as below. -Doppler US 10/15 negative. Rash: Localized to left lower leg, but is non-pruritic. Tender, dermatomal. Possible differential is herpes zoster although vesicles have not yet developed. -Continue scheduled Benadryl 25 mg po but change from q6 hours to tid. -<72 hours of rash onset. Start Valacyclovir 1000 mg tid x 7 days. -Start Prednisone 40 mg po daily. -Monitor clinically for vesicle formation or signs of infection. Leukocytosis: Improved. See above. CT of the chest on 09/28/16 does not indicate any acute infection process. Showed bilateral effusions and bibasilar atelectasis Chest x-ray 10/08 minimal parenchymal changes R base CT of the abdomen and pelvis 10/05/16 shows splenic infarct. Left hemidiaphragm remains elevated with consolidation in the left lower lobe. Repeat abdominal CT as above. Continue antibiotics per infectious disease Continue to monitor CBC Blood cultures NGTD Urinalysis 10/12 clear Thrombocytosis: Improving. continue monitor platelet count Abdominal pain, unknown etiology Laboratory studies do not indicate any acute abnormality Lipase normal Repeat CT scan of the abdomen shows stable hypo-densities of the spleen and stable bibasilar atelectasis but no acute issues. 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 Left lung consolidation by CT, questionable pneumonia Patient remains afebrile Patient on antibiotics per infectious disease Repeat abdominal CT 10/11/16 only shows atelectasis compared to 10/05 scan indicating consolidation. Sputum culture never received. Urinary tract infection with Enterococcus faecalis Patient underwent treatment with penicillin G. Anemia: Stable. Probably related to endocarditis. -Continue to monitor Tobacco abuse/marijuana abuse Patient remains on nicotine patch Patient counseled on cessation Urticaria: Resolved S/p steroids for 3 days, Zyrtec and Vistaril as needed Homelessness The pt is currently without resources. Patient will likely stay in hospital until completion of antibiotics DVT Prophylaxis: Continue Lovenox Unable to use sequential compression devices due to irritation Written by Anjana Jara PA-C acting as scribe for Dr. Villa on 10/16/16 at ~ 1540. Attending Statement This note was transcribed by scribshmuel Jara PA-C. I, Dr. Chato Fregoso personally performed the history, physical exam, and medical decision making; and confirmed the accuracy of the information in the transcribed note. Authenticated by Dr. Chato Fregoso on 10/20/16 at 21:43. Anjana Jara October 16, 2016 10:11 Chato Westbrook MD October 20, 2016 21:44
[2016-10-16] MEDS: PANTOPRAZOLE SOD 40 MG DELAYED RELEASE TAB PO SCH (10:15)
[2016-10-16] MEDS: ASPIRIN EC 81 MG TABEC PO SCH (10:15)
[2016-10-16] MEDS: GABAPENTIN 300 MG CAP PO SCH ×3 (10:16→16:25)
[2016-10-16] MEDS: FLUoxetine HCL 20 MG CAP PO SCH (10:16)
[2016-10-16] MEDS: CETIRIZINE HCL 10 MG TAB PO SCH (10:16)
[2016-10-16] MEDS: cefTRIAXone INJ 2,000 MG in SODIUM CHLORIDE 0.9% INJ 100 ML IV SCH (12:55)
[2016-10-16] MEDS: ENOXAPARIN SODIUM 40 MG/0.4 ML SYRINGE SQ SCH (12:55)
[2016-10-16] MEDS: predniSONE 20 MG TAB PO SCH (16:29)
[2016-10-16 20:00] VITALS: BP 118/92; PULSE 90; RESP 20; TEMP 98.7; O2SAT 98
[2016-10-16] MEDS: valACYclovir HCL 500 MG TAB PO SCH (22:12)
[2016-10-16] MEDS: traZODone HCL 50 MG TAB PO SCH (22:12)
[2016-10-17] MEDS: valACYclovir HCL 500 MG TAB PO SCH ×3 (05:43→22:14)
[2016-10-17] MEDS: ACETAMINOPHEN/HYDROcodone 325 MG/5 MG TAB PO PRN ×3 (05:43→17:39)
[2016-10-17 08:00] VITALS: BP 139/96; PULSE 84; RESP 18; TEMP 97.9; O2SAT 98
[2016-10-17] MEDS: GABAPENTIN 300 MG CAP PO SCH ×3 (08:35→17:38)
[2016-10-17] MEDS: FLUoxetine HCL 20 MG CAP PO SCH (08:35)
[2016-10-17] MEDS: PANTOPRAZOLE SOD 40 MG DELAYED RELEASE TAB PO SCH (08:35)
[2016-10-17] MEDS: CETIRIZINE HCL 10 MG TAB PO SCH (08:36)
[2016-10-17] MEDS: ASPIRIN EC 81 MG TABEC PO SCH (08:36)
[2016-10-17] MEDS: predniSONE 20 MG TAB PO SCH (08:36)
[2016-10-17] MEDS: diphenhydrAMINE HCL 25 MG CAP PO SCH ×3 (08:36→17:39)
[2016-10-17] MEDS: SODIUM CHLORIDE 0.9% FLUSH 10 ML FLUSH IV FLUSH SCH ×2 (08:36→20:19)
--- NOTE | 2016-10-17 10:21 | HHI.PR ---
Subjective Remarks Follow for endocarditis, left calf and foot pain, and left lower leg rash. Patient states he has less pain in the leg. Admits to night sweats, but denies any fevers or chills. Objective Vitals Vital Signs Date Time Temp Pulse Resp B/P Pulse Ox O2 Delivery O2 Flow Rate FiO2 10/17/16 08:00 97.9 84 18 139/96 98 10/17/16 06:44 18 10/16/16 20:00 98.7 90 20 118/92 98 I/O 10/16/16 10/16/16 10/16/16 10/17/16 10/17/16 10/17/16 07:00 15:00 23:00 07:00 15:00 23:00 Intake Total 720 ml 360 ml 120 ml Output Total 350 ml 1650 ml 150 ml Balance 370 ml -1290 ml -30 ml Intake Oral 480 ml 360 ml 120 ml Oral Supplement 240 ml Output Urine Total 350 ml 1650 ml 150 ml # Bowel Movements 0 1 Result Diagram: 10/16/16 0555 Objective Remarks GENERAL: Well-nourished, well nourished patient in no apparent distress. SKIN: Warm and dry. Patchy red rash only to the medial left lower leg. No vesicles present. CARDIOVASCULAR: Normal rate and regular rhythm. Murmur loudest over the pulmonic region and LLSB. RESPIRATORY: No accessory muscle use. CTAB. GASTROINTESTINAL: Abdomen soft, nontender, nondistended. MUSCULOSKELETAL: 2+ left TP pulse. Normal capillary refill in digits of left foot. No LLE edema. Minimally less tender over the L calf. Less tender to palpation over the plantar arch of the L foot. NEUROLOGICAL: Awake and alert. Normal speech. PSYCHIATRIC: Appropriate mood and affect; insight and judgment normal. Procedures BEBETO 09/27/16. 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 Echocardiogram performed which did not indicate any acute abnormality on bowels. BEBETO was performed which did indicate a 4.5 x 3.5 mm mobile vegetation noted on the strut nearest and noncardiac cusp region. Blood cultures positive with Streptococcus viridans, last positive culture 09/27, first negative culture 09/28/16 Infectious disease following the patient. Antibiotics include Rocephin with end date 11/09/16 and gentamicin with end date 10/13/16. Patient is cleared from ID standpoint to be discharged and complete antibiotics at infusion clinic however patient is currently homeless from out of town, and cannot stay with his [id number], so will need to remain hospitalized. Do labs weekly CBC, Cr, and LFTs. AM CBC and CMP ordered. Call ID if there is any new ID related problems, or if any abnormal blood work. 10/14: ESR improved at 58 from 66 on 10/06. CRP improved at 3.90 from 5.43 on . Continue to monitor weekly. Fever: Improved. Temp 100.6 at 2000 on 10/15/16. Afebrile since. -WBC improving at 13.2. -10/15 Blood cultures x 2 NGTD. -Recent UA /2 clear. -No respiratory symptoms. If fever continues, consider chest x-ray. Left foot and calf pain: Minimally improved. No injury. Patient likely has plantar fasciitis. Calf pain could be due to foot pain, but could also be related to rash. -X-rays left foot appear normal. -PT following -30 mg IV Toradol with good relief on 10/13 -Doppler US 10/15 negative. -Continue ibuprofen prn, [place] prn, prednisone. Rash: Stable. Localized to left lower leg, but is non-pruritic. Tender, dermatomal. Possible differential is herpes zoster although vesicles have not yet developed. -Continue scheduled Benadryl 25 mg po tid (so as not to wake patient up at night ) -Cotninue Valacyclovir 1000 mg tid x 7 days. -Continue Prednisone 40 mg po daily. -Monitor clinically for vesicle formation or signs of infection. Leukocytosis: Improved. See above. CT of the chest on 09/28/16 does not indicate any acute infection process. Showed bilateral effusions and bibasilar atelectasis Chest x-ray 10/08 minimal parenchymal changes R base CT of the abdomen and pelvis 10/05/16 shows splenic infarct. Left hemidiaphragm remains elevated with consolidation in the left lower lobe. Repeat abdominal CT as above. Continue antibiotics per infectious disease Continue to monitor CBC Blood cultures NGTD Urinalysis 10/12 clear Thrombocytosis: Improving. continue monitor platelet count Abdominal pain, unknown etiology Laboratory studies do not indicate any acute abnormality Lipase normal Repeat CT scan of the abdomen shows stable hypo-densities of the spleen and stable bibasilar atelectasis but no acute issues. 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 Left lung consolidation by CT, questionable pneumonia Patient remains afebrile Patient on antibiotics per infectious disease Repeat abdominal CT 10/11/16 only shows atelectasis compared to 10/05 scan indicating consolidation. Sputum culture never received. Urinary tract infection with Enterococcus faecalis Patient underwent treatment with penicillin G. Anemia: Stable. Probably related to endocarditis. -Continue to monitor Tobacco abuse/marijuana abuse Patient remains on nicotine patch Patient counseled on cessation Urticaria: Resolved S/p steroids for 3 days, Zyrtec and Vistaril as needed Homelessness The pt is currently without resources. Patient will likely stay in hospital until completion of antibiotics DVT Prophylaxis: Continue Lovenox Unable to use sequential compression devices due to irritation Anjana Jara October 17, 2016 10:21
[2016-10-17] MEDS: cefTRIAXone INJ 2,000 MG in SODIUM CHLORIDE 0.9% INJ 100 ML IV SCH (12:24)
[2016-10-17] MEDS: ENOXAPARIN SODIUM 40 MG/0.4 ML SYRINGE SQ SCH (12:24)
[2016-10-17] MEDS: ACETAMINOPHEN 325 MG TAB PO PRN (20:18)
[2016-10-17] MEDS: traZODone HCL 50 MG TAB PO SCH (20:18)
[2016-10-17 20:50] VITALS: BP 118/69; PULSE 89; RESP 18; TEMP 98.6; O2SAT 99
[2016-10-18] MEDS: ACETAMINOPHEN/HYDROcodone 325 MG/5 MG TAB PO PRN ×5 (00:07→23:36)
[2016-10-18] MEDS: SODIUM CHLORIDE 0.9% FLUSH 10 ML FLUSH IV FLUSH PRN (04:21)
[2016-10-18 05:14] LABS: AUTOMATED NEUTROPHIL # 17.3 TH/MM3 (1.8-7.7); BASOPHIL # 0.1 TH/MM3 (0-0.2); BASOPHIL % 0.5 % (0.0-2.0); EOSINOPHIL % 0.1 % (0.0-4.0); HEMATOCRIT 31.8 % (39.0-51.0); MEAN CELL VOLUME 74.2 FL (80.0-100.0); MEAN CORPUSCULAR HEMOGLOBIN 24.3 PG (27.0-34.0); MEAN CORPUSCULAR HGB CONC 32.7 % (32.0-36.0); MONO % 5.3 % (0.0-8.0); NEUT % 80.1 % (16.0-70.0); PLATELET COUNT 474 TH/MM3 (150-450); RED BLOOD COUNT 4.28 MIL/MM3 (4.50-5.90); RED CELL DISTRIBUTION WIDTH 14.6 % (11.6-17.2); WHITE BLOOD COUNT 21.5 TH/MM3 (4.0-11.0)
[2016-10-18 05:21] LABS: HEMO FLAGS AUTO DIFF
[2016-10-18] MEDS: valACYclovir HCL 500 MG TAB PO SCH ×3 (05:22→21:31)
[2016-10-18 05:33] LABS: CHLORIDE 106 MEQ/L (98-107); POTASSIUM 4.5 MEQ/L (3.5-5.1); SODIUM (NA) 142 MEQ/L (136-145)
[2016-10-18 05:37] LABS: ANION GAP 10 MEQ/L (5-15); BICARBONATE 26.4 MEQ/L (21.0-32.0); BLOOD UREA NITROGEN 24 MG/DL (7-18)
[2016-10-18 05:40] LABS: ALT (GPT) 63 U/L (12-78); AST (GOT) 34 U/L (15-37); GLOMERULAR FILTRATION RATE 74 ML/MIN (>89)
[2016-10-18 05:42] LABS: TOTAL BILIRUBIN ADULT 0.2 MG/DL (0.2-1.0)
[2016-10-18 05:43] LABS: ALKALINE PHOSPHATASE 81 U/L (45-117)
[2016-10-18 06:50] LABS: PLATELET ESTIMATE SMEAR HIGH (NORMAL); PLATELET MORPHOLOGY CLUMPED (NORMAL); SCAN/DIFF AUTO DIFF CONFIRMED
[2016-10-18 08:00] VITALS: BP 121/89; PULSE 74; RESP 21; TEMP 98.1; O2SAT 97
[2016-10-18] MEDS: ASPIRIN EC 81 MG TABEC PO SCH (08:38)
[2016-10-18] MEDS: CETIRIZINE HCL 10 MG TAB PO SCH (08:39)
[2016-10-18] MEDS: GABAPENTIN 300 MG CAP PO SCH ×3 (08:39→16:53)
[2016-10-18] MEDS: FLUoxetine HCL 20 MG CAP PO SCH (08:39)
[2016-10-18] MEDS: diphenhydrAMINE HCL 25 MG CAP PO SCH ×3 (08:39→16:53)
[2016-10-18] MEDS: predniSONE 20 MG TAB PO SCH (08:39)
[2016-10-18] MEDS: PANTOPRAZOLE SOD 40 MG DELAYED RELEASE TAB PO SCH (08:39)
[2016-10-18] MEDS: SODIUM CHLORIDE 0.9% FLUSH 10 ML FLUSH IV FLUSH SCH ×2 (08:39→21:31)
--- NOTE | 2016-10-18 10:29 | HHI.PR ---
Subjective Remarks Follow-up for endocarditis, left calf and foot pain, and left lower leg rash. Patient states rash is improved. He admits to less pain in his left lower leg. He denies any fevers or chills, cough or shortness of breath, abdominal pain, vomiting, diarrhea, or dysuria. Objective Vitals Vital Signs Date Time Temp Pulse Resp B/P Pulse Ox O2 Delivery O2 Flow Rate FiO2 10/18/16 08:00 98.1 74 21 121/89 97 10/17/16 20:50 98.6 89 18 118/69 99 I/O 10/17/16 10/17/16 10/17/16 10/18/16 10/18/16 10/18/16 06:59 14:59 22:59 06:59 14:59 22:59 Intake Total 120 ml 150 ml 0 ml Output Total 150 ml 500 ml 225 ml Balance -30 ml -500 ml 150 ml -225 ml Intake Oral 120 ml 150 ml IV Total 0 ml 0 ml Output Urine Total 150 ml 500 ml 225 ml # Bowel Movements 0 Result Diagram: 10/18/16 0415 10/18/16 0415 Objective Remarks GENERAL: Well-nourished, well nourished patient in no apparent distress. SKIN: Warm and dry. Patchy red rash to the medial left lower leg is much intelligence officer today. No vesicles present. CARDIOVASCULAR: Normal rate and regular rhythm. Grade 2 murmur noted. RESPIRATORY: No accessory muscle use. CTAB. GASTROINTESTINAL: Abdomen soft, nontender, nondistended. MUSCULOSKELETAL: 2+ left TP pulse. No LLE edema. No tenderness to palpation over the left calf. shirring tender to palpation over the plantar arch of the L foot. NEUROLOGICAL: Awake and alert. Normal speech. PSYCHIATRIC: Appropriate mood and affect; insight and judgment normal. Procedures BEBETO 09/27/16. 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 Echocardiogram performed which did not indicate any acute abnormality on bowels. BEBETO was performed which did indicate a 4.5 x 3.5 mm mobile vegetation noted on the strut nearest and noncardiac cusp region. Blood cultures positive with Streptococcus viridans, last positive culture 09/27, first negative culture 09/28/16 Infectious disease following the patient. Antibiotics include Rocephin with end date 11/09/16 and gentamicin with end date 10/13/16. Patient is cleared from ID standpoint to be discharged and complete antibiotics at infusion clinic however patient is currently homeless from out of town, and cannot stay with his [id number], so will need to remain hospitalized. Do labs weekly CBC, Cr, and LFTs. Call ID if there is any new ID related problems, or if any abnormal blood work. 10/14: ESR improved at 58 from 66 on 10/06. CRP improved at 3.90 from 5.43 on . Continue to monitor weekly. Fever: Resolved. Temp 100.6 at 2000 on 10/15/16. Afebrile since. -WBC improving at 13.2. -10/15 Blood cultures x 2 NGTD. -Recent UA 10/12 clear. -No respiratory symptoms. If fever continues, consider chest x-ray. Left foot and calf pain: Patient likely has plantar fasciitis; foot pain continues but mildly improved. Calf pain is now resolved. -X-rays left foot appear normal. -PT following -30 mg IV Toradol with good relief on 10/13 -Doppler US 10/15 negative. -Continue ibuprofen prn, [place] prn, prednisone. Rash: Improved. Localized to left lower leg, but is non-pruritic. Tender, dermatomal. Possible differential is herpes zoster although vesicles have not yet developed. -Continue scheduled Benadryl 25 mg po tid (so as not to wake patient up at night ) -Cotninue Valacyclovir 1000 mg tid x 7 days. -Continue Prednisone 40 mg po daily. -Monitor clinically for vesicle formation or signs of infection. -Calf pain is resolved, so it was likely related to rash rather than foot pain. Leukocytosis: Worsening. CT of the chest on 09/28/16 does not indicate any acute infection process. Showed bilateral effusions and bibasilar atelectasis Chest x-ray 10/08 minimal parenchymal changes R base CT of the abdomen and pelvis 10/05/16 shows splenic infarct. Left hemidiaphragm remains elevated with consolidation in the left lower lobe. Repeat abdominal CT as above. Continue antibiotics per infectious disease Continue to monitor CBC Blood cultures NGTD Urinalysis 10/12 clear 10/18: WBC increased to 21.5 with 80.1% neutrophils. Patient is asymptomatic regarding any possible worsening infection. Discussed with Dr. Villa who attributes to steroid use. Blood cultures 10/16 NGTD. Anemia: Stable. Probably related to endocarditis. -Continue to monitor Thrombocytosis: Elevated but stable. Continue to monitor platelet count Abdominal pain, unknown etiology Laboratory studies do not indicate any acute abnormality Lipase normal Repeat CT scan of the abdomen shows stable hypo-densities of the spleen and stable bibasilar atelectasis but no acute issues. 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 Left lung consolidation by CT, questionable pneumonia Patient remains afebrile Patient on antibiotics per infectious disease Repeat abdominal CT 10/11/16 only shows atelectasis compared to 10/05 scan indicating consolidation. Sputum culture never received. Urinary tract infection with Enterococcus faecalis Patient underwent treatment with penicillin G. Pre-renal azotemia: generally improved. BUN 24. -Monitor BMP Tobacco abuse/marijuana abuse Patient remains on nicotine patch Patient counseled on cessation Urticaria: Resolved S/p steroids for 3 days, Zyrtec and Vistaril as needed Homelessness The pt is currently without resources. Patient will likely stay in hospital until completion of antibiotics DVT Prophylaxis: Continue Lovenox Unable to use sequential compression devices due to irritation Anjana Jara October 18, 2016 10:29
[2016-10-18] MEDS: ENOXAPARIN SODIUM 40 MG/0.4 ML SYRINGE SQ SCH (12:07)
[2016-10-18] MEDS: cefTRIAXone INJ 2,000 MG in SODIUM CHLORIDE 0.9% INJ 100 ML IV SCH (12:08)
[2016-10-18 20:00] VITALS: BP 124/92; PULSE 90; RESP 20; TEMP 97.7; O2SAT 97
[2016-10-18] MEDS: traZODone HCL 50 MG TAB PO SCH (21:31)
[2016-10-19] MEDS: ACETAMINOPHEN/HYDROcodone 325 MG/5 MG TAB PO PRN ×3 (05:27→18:19)
[2016-10-19] MEDS: valACYclovir HCL 500 MG TAB PO SCH ×3 (05:27→22:21)
[2016-10-19] MEDS: CETIRIZINE HCL 10 MG TAB PO SCH (07:49)
[2016-10-19] MEDS: predniSONE 20 MG TAB PO SCH (07:50)
[2016-10-19] MEDS: ASPIRIN EC 81 MG TABEC PO SCH (07:50)
[2016-10-19] MEDS: FLUoxetine HCL 20 MG CAP PO SCH (07:50)
[2016-10-19] MEDS: PANTOPRAZOLE SOD 40 MG DELAYED RELEASE TAB PO SCH (07:50)
[2016-10-19] MEDS: GABAPENTIN 300 MG CAP PO SCH ×3 (07:50→18:18)
[2016-10-19] MEDS: diphenhydrAMINE HCL 25 MG CAP PO SCH ×3 (07:50→18:19)
[2016-10-19] MEDS: SODIUM CHLORIDE 0.9% FLUSH 10 ML FLUSH IV FLUSH SCH ×2 (07:59→21:00)
[2016-10-19 08:00] VITALS: BP 124/93; PULSE 71; RESP 18; TEMP 98; O2SAT 96
--- NOTE | 2016-10-19 11:16 | HHI.PR ---
Subjective Remarks Patient seen and examined today in follow-up for bacterial endocarditis. Patient states that he is doing better. Pain in left lower extremity is improved Objective Vitals Vital Signs Date Time Temp Pulse Resp B/P Pulse Ox O2 Delivery O2 Flow Rate FiO2 10/19/16 08:00 98.0 71 18 124/93 96 10/18/16 20:00 97.7 90 20 124/92 97 I/O 10/18/16 10/18/16 10/18/16 10/19/16 10/19/16 10/19/16 07:00 15:00 23:00 07:00 15:00 23:00 Intake Total 0 ml 240 ml 600 ml Output Total 225 ml 200 ml 750 ml Balance -225 ml -200 ml -510 ml 600 ml Intake Oral 240 ml 600 ml IV Total 0 ml Output Urine Total 225 ml 200 ml 750 ml # Voids 1 3 # Bowel Movements 0 0 Result Diagram: 10/18/16 0415 10/18/16 0415 Objective Remarks GENERAL: Well-developed, well-nourished, in no acute distress. alert and orientated HEENT: Head is normocephalic without any lesions or masses noted. Facial features are symmetric. Eyes: Extraocular muscles are intact. Conjunctivae were clear. NECK: Supple without any masses. Trachea midline no deviation. No JVD, CARDIAC: Regular rhythm, regular rate. S1/S2 are heard. 1/6 ejection murmur, no gallops or rubs. LUNGS: Clear to auscultation bilaterally. No wheeze, rhonchi or rales. No use of accessory muscles on inspiration or expiration. ABDOMEN: Soft, nontender. Nondistended. Bowel sounds heard in all 4 quadrants. No organomegaly or masses. Negative rebound, negative guarding EXTREMITIES: No edema, pulses are equal bilaterally. No cyanosis or clubbing NEUROLOGY: Mood and affect appear appropriate. Cranial nerves II through XII grossly intact. Moving all extremities, speech is clear Procedures BEBETO 09/27/16. 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 Echocardiogram performed which did not indicate any acute abnormality on bowels. BEBETO was performed which did indicate a 4.5 x 3.5 mm mobile vegetation noted on the strut nearest and noncardiac cusp region. Blood cultures positive with Streptococcus viridans, last positive culture 09/27, first negative culture 09/28/16 Infectious disease following the patient. Case was discussed with Dr. Smith and obtained end dates Antibiotics include Rocephin with end date 11/09/16 and gentamicin with end date 10/12/16, Infectious disease of the recommendation for antibiotics and it was indicated that patient continue IV antibiotics at home if arrangements can be made. As indicated that the patient is homeless and [facility]. As indicated patient cannot stay with his [id number]. The patient remained in hospital. Left foot and calf pain. 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 Showed bilateral effusions and bibasilar atelectasis CT of the abdomen and pelvis shows splenic infarct. Left hemidiaphragm remains elevated with consolidation in the left lower lobe Continue antibiotics per infectious disease Continue monitor CBC Blood cultures negative Urinalysis clear Chest x-ray no acute abnormality Thrombocytosis continue monitor platelet count Left lung consolidation by CT, questionable pneumonia Patient remains afebrile Patient on antibiotics per infectious disease Awaiting sputum culture Urinary tract infection with Enterococcus faecalis Patient underwent treatment with penicillin G. Anemia, stable Probably related to endocarditis. -Continue to monitor Tobacco abuse/marijuana abuse Patient remains on nicotine patch Patient counseled on cessation Urticaria, resolved Continue Vistaril as needed Homelessness The pt is currently without resources. Patient will likely stay in hospital until completion of antibiotics DVT Prophylaxis: Continue Lovenox Unable to use sequential compression devices due to irritation Discharge Planning Discharge planning per case management, case management was consulted to help arrange outpatient antibiotics, however, it was indicated in medical progress note the patient is homeless, [id number] will not let him stay with him. Patient will likely require hospitalization until completion of antibiotics. John Mcghee October 19, 2016 11:16
[2016-10-19] MEDS: cefTRIAXone INJ 2,000 MG in SODIUM CHLORIDE 0.9% INJ 100 ML IV SCH (12:13)
[2016-10-19] MEDS: ENOXAPARIN SODIUM 40 MG/0.4 ML SYRINGE SQ SCH (12:14)
[2016-10-19 20:00] VITALS: BP 128/85; PULSE 87; RESP 18; TEMP 97.7; O2SAT 97
[2016-10-19] MEDS: traZODone HCL 50 MG TAB PO SCH (22:21)
[2016-10-20] MEDS: ACETAMINOPHEN/HYDROcodone 325 MG/5 MG TAB PO PRN ×4 (00:09→19:06)
[2016-10-20] MEDS: valACYclovir HCL 500 MG TAB PO SCH ×3 (06:26→19:05)
[2016-10-20 08:00] VITALS: BP 129/91; PULSE 73; RESP 17; TEMP 97.1; O2SAT 96
[2016-10-20] MEDS: ASPIRIN EC 81 MG TABEC PO SCH (09:24)
[2016-10-20] MEDS: diphenhydrAMINE HCL 25 MG CAP PO SCH ×4 (09:24→19:05)
[2016-10-20] MEDS: PANTOPRAZOLE SOD 40 MG DELAYED RELEASE TAB PO SCH (09:24)
[2016-10-20] MEDS: predniSONE 10 MG TAB PO SCH (09:24)
[2016-10-20] MEDS: GABAPENTIN 300 MG CAP PO SCH ×4 (09:24→19:05)
[2016-10-20] MEDS: CETIRIZINE HCL 10 MG TAB PO SCH (09:24)
[2016-10-20] MEDS: SODIUM CHLORIDE 0.9% FLUSH 10 ML FLUSH IV FLUSH SCH ×2 (09:25→19:06)
[2016-10-20] MEDS: FLUoxetine HCL 20 MG CAP PO SCH (09:25)
--- NOTE | 2016-10-20 11:10 | HHI.PR ---
Subjective Remarks Patient seen and examined today for follow-up on bacterial endocarditis. Patient denies any new complaints. States that his leg pain is improving. Objective Vitals Vital Signs Date Time Temp Pulse Resp B/P Pulse Ox O2 Delivery O2 Flow Rate FiO2 10/20/16 08:00 97.1 73 17 129/91 96 10/19/16 20:00 97.7 87 18 128/85 97 10/19/16 13:43 14 I/O 10/19/16 10/19/16 10/19/16 10/20/16 10/20/16 10/20/16 07:00 15:00 23:00 07:00 15:00 23:00 Intake Total 600 ml 600 ml 480 ml Balance 600 ml 600 ml 480 ml Intake Oral 600 ml 600 ml 480 ml # Voids 3 3 1 1 # Bowel Movements 0 0 0 Result Diagram: 10/18/16 0415 10/18/16 0415 Objective Remarks GENERAL: Well-developed, well-nourished, in no acute distress. alert and orientated HEENT: Head is normocephalic without any lesions or masses noted. Facial features are symmetric. Eyes: Extraocular muscles are intact. Conjunctivae were clear. NECK: Supple without any masses. Trachea midline no deviation. No JVD, CARDIAC: Regular rhythm, regular rate. S1/S2 are heard. 1/6 ejection murmur, no gallops or rubs. LUNGS: Clear to auscultation bilaterally. No wheeze, rhonchi or rales. No use of accessory muscles on inspiration or expiration. ABDOMEN: Soft, nontender. Nondistended. Bowel sounds heard in all 4 quadrants. No organomegaly or masses. Negative rebound, negative guarding EXTREMITIES: No edema, pulses are equal bilaterally. No cyanosis or clubbing NEUROLOGY: Mood and affect appear appropriate. Cranial nerves II through XII grossly intact. Moving all extremities, speech is clear Procedures BEBETO 09/27/16. 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 Echocardiogram performed which did not indicate any acute abnormality on bowels. BEBETO was performed which did indicate a 4.5 x 3.5 mm mobile vegetation noted on the strut nearest and noncardiac cusp region. Blood cultures positive with Streptococcus viridans, last positive culture 09/27, first negative culture 09/28/16 Infectious disease following the patient. Case was discussed with Dr. Smith and obtained end dates Antibiotics include Rocephin with end date 11/09/16 and gentamicin with end date 10/12/16, Infectious disease of the recommendation for antibiotics and it was indicated that patient continue IV antibiotics at home if arrangements can be made. As indicated that the patient is homeless and from out of town. As indicated patient cannot stay with his [id number]. The patient will remain in hospital until antibodies complete or until case management to make other arrangements. Left foot and calf pain. 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 Showed bilateral effusions and bibasilar atelectasis CT of the abdomen and pelvis shows splenic infarct. Left hemidiaphragm remains elevated with consolidation in the left lower lobe Continue antibiotics per infectious disease Continue monitor CBC Blood cultures negative Urinalysis clear Chest x-ray no acute abnormality Thrombocytosis continue monitor platelet count Left lung consolidation by CT, questionable pneumonia Patient remains afebrile Patient on antibiotics per infectious disease Awaiting sputum culture Urinary tract infection with Enterococcus faecalis Patient underwent treatment with penicillin G. Anemia, stable Probably related to endocarditis. -Continue to monitor Tobacco abuse/marijuana abuse Patient remains on nicotine patch Patient counseled on cessation Urticaria, resolved Continue Vistaril as needed Homelessness The pt is currently without resources. Patient will likely stay in hospital until completion of antibiotics DVT Prophylaxis: Continue Lovenox Unable to use sequential compression devices due to irritation Discharge Planning Discharge planning per case management, case management was consulted to help arrange outpatient antibiotics, however, it was indicated in medical progress note the patient is homeless, [id number] will not let him stay with him. Patient will likely require hospitalization until completion of antibiotics. John Mcghee October 20, 2016 11:10
[2016-10-20] MEDS: ENOXAPARIN SODIUM 40 MG/0.4 ML SYRINGE SQ SCH (13:26)
[2016-10-20] MEDS: cefTRIAXone INJ 2,000 MG in SODIUM CHLORIDE 0.9% INJ 100 ML IV SCH (13:26)
--- NOTE | 2016-10-20 15:36 | HHI.FF ---
Infusion Therapy Location of Infusion Therapy: Ambulatory Infusion Therapy Order Patient Information Patient Weight 78.5 kg Diagnosis: Diagnosis Prosthetic AV endocarditis Coded Allergies: No Known Allergies (Unverified , 09/26/16) Administer Medication Ceftriaxone 2 grams IV q 24 hours Stop Treatment: November 09, 2016 Additional Information Additional Medications Keflex 500 mg po BID - to start November 10, indefinitely Venous access: PICC Line Additional Instructions [x] Peripheral flush and dressing changes per protocol [x] Implanted port and central line tester: * Implanted port: 10 ml Normal Saline followed by 5 ml Heparin 100 units/ml Heparin flush after each use and monthly to maintain. [] May leave port accessed during therapy. [] May leave peripheral site accessed for duration of therapy. [x] If patient has SOB or respiratory distress, check oxygen saturation. If less than 90% or clinical signs of respiratory distress, administer oxygen at 2 L/min. via nasal cannula and notify physician. [x] Anaphylaxis/Reaction orders: * Stop infusion. * Keep IV line open with saline flush. * Notify physician. * Monitor vital signs every 15 minutes until symptoms resolve. * Check Oxygen saturation; Oxygen at 2 L/min. via nasal cannula if less than 90% or clinical signs of respiratory distress. * Administer diphenhydramine (Benadryl) 25 mg IV STAT, (unless patient has received as pre-med). May repeat once, if necessary. * Solu-Cortef 250 mg IVP over 30-60 seconds, use 100 mg vials for each dissolution. * Epinephrine (1mg/1 ml) 0.3 mg subcutaneously or IVP now with any signs of respiratory distress. * Check with physician for new additional pre-med orders if patient is re- challenged or re-treated. [x] May remove PICC line when treatment complete, after confirming with Physician. [x] If the patient is admitted to the hospital, the ED, or transferred via [facility] , complete transfer form including medication reconciliation order sheet. Laboratory Tests Weekly Labs: CBC w/diff, Creatinine, LFT's (Hepatic function test) (Labs every Tuesday) Rossana Smith MD October 20, 2016 15:36
[2016-10-20] MEDS: traZODone HCL 50 MG TAB PO SCH (19:05)
[2016-10-20 20:00] VITALS: BP 127/96; PULSE 79; RESP 17; TEMP 98.5; O2SAT 98
[2016-10-21] MEDS: valACYclovir HCL 500 MG TAB PO SCH ×3 (06:12→23:17)
[2016-10-21] MEDS: ACETAMINOPHEN/HYDROcodone 325 MG/5 MG TAB PO PRN ×3 (06:17→20:37)
[2016-10-21 08:00] VITALS: BP 123/95; PULSE 68; RESP 16; TEMP 96.9; O2SAT 98
[2016-10-21] MEDS: PANTOPRAZOLE SOD 40 MG DELAYED RELEASE TAB PO SCH (09:31)
[2016-10-21] MEDS: predniSONE 10 MG TAB PO SCH (09:33)
[2016-10-21] MEDS: GABAPENTIN 300 MG CAP PO SCH ×3 (09:33→18:00)
[2016-10-21] MEDS: ASPIRIN EC 81 MG TABEC PO SCH (09:34)
[2016-10-21] MEDS: diphenhydrAMINE HCL 25 MG CAP PO SCH ×3 (09:34→18:00)
[2016-10-21] MEDS: FLUoxetine HCL 20 MG CAP PO SCH (09:35)
[2016-10-21] MEDS: SODIUM CHLORIDE 0.9% FLUSH 10 ML FLUSH IV FLUSH SCH ×2 (09:38→23:18)
[2016-10-21] MEDS: CETIRIZINE HCL 10 MG TAB PO SCH (09:44)
--- NOTE | 2016-10-21 10:07 | HHI.PR ---
Subjective Remarks Patient seen and examined today follow-up on endocarditis. Patient is doing well. Denies any new complaints. No change in clinical status. Objective Vitals Vital Signs Date Time Temp Pulse Resp B/P Pulse Ox O2 Delivery O2 Flow Rate FiO2 10/20/16 20:00 98.5 79 17 127/96 98 I/O 10/20/16 10/20/16 10/20/16 10/21/16 10/21/16 10/21/16 07:00 15:00 23:00 07:00 15:00 23:00 Intake Total 480 ml 390 ml 960 ml 480 ml Balance 480 ml 390 ml 960 ml 480 ml Intake Oral 480 ml 390 ml 960 ml 480 ml # Voids 1 2 2 1 # Bowel Movements 0 0 0 0 Result Diagram: 10/18/1641410/18/16414 Objective Remarks GENERAL: Well-developed, well-nourished, in no acute distress. alert and orientated HEENT: Head is normocephalic without any lesions or masses noted. Facial features are symmetric. Eyes: Extraocular muscles are intact. Conjunctivae were clear. NECK: Supple without any masses. Trachea midline no deviation. No JVD, CARDIAC: Regular rhythm, regular rate. S1/S2 are heard. 1/6 ejection murmur, no gallops or rubs. LUNGS: Clear to auscultation bilaterally. No wheeze, rhonchi or rales. No use of accessory muscles on inspiration or expiration. ABDOMEN: Soft, nontender. Nondistended. Bowel sounds heard in all 4 quadrants. No organomegaly or masses. Negative rebound, negative guarding EXTREMITIES: No edema, pulses are equal bilaterally. No cyanosis or clubbing NEUROLOGY: Mood and affect appear appropriate. Cranial nerves II through XII grossly intact. Moving all extremities, speech is clear Procedures BEBETO 09/27/16. 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 Echocardiogram performed which did not indicate any acute abnormality on bowels. BEBETO was performed which did indicate a 4.5 x 3.5 mm mobile vegetation noted on the strut nearest and noncardiac cusp region. Blood cultures positive with Streptococcus viridans, last positive culture 09/27, first negative culture 09/28/16 Infectious disease following the patient. Case was discussed with Dr. Smith and obtained end dates Antibiotics include Rocephin with end date 11/09/16 and gentamicin with end date 10/12/16, Infectious disease of the recommendation for antibiotics and it was indicated that patient continue IV antibiotics at home if arrangements can be made. It is indicated that the patient is homeless and from out of town. patient cannot stay with his [id number]. The patient will remain in hospital until antibiotics complete or until case management to make other arrangements. Left foot and calf pain. 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 Showed bilateral effusions and bibasilar atelectasis CT of the abdomen and pelvis shows splenic infarct. Left hemidiaphragm remains elevated with consolidation in the left lower lobe Continue antibiotics per infectious disease Continue monitor CBC Blood cultures negative Urinalysis clear Chest x-ray no acute abnormality Thrombocytosis continue monitor platelet count Left lung consolidation by CT, questionable pneumonia Patient remains afebrile Patient on antibiotics per infectious disease Sputum culture with heavy growth normal respiratory aniceto Urinary tract infection with Enterococcus faecalis Patient underwent treatment with penicillin G. Anemia, stable Probably related to endocarditis. -Continue to monitor Tobacco abuse/marijuana abuse Patient remains on nicotine patch Patient counseled on cessation Urticaria, resolved Continue Vistaril as needed Homelessness The pt is currently without resources. Patient will likely stay in hospital until completion of antibiotics DVT Prophylaxis: Continue Lovenox Unable to use sequential compression devices due to irritation Discharge Planning Discharge planning per case management, case management was consulted to help arrange outpatient antibiotics, however, it was indicated in medical progress note the patient is homeless, [id number] will not let him stay with him. Patient will likely require hospitalization until completion of antibiotics. John Mcghee October 21, 2016 10:07
[2016-10-21] MEDS: cefTRIAXone INJ 2,000 MG in SODIUM CHLORIDE 0.9% INJ 100 ML IV SCH (13:18)
[2016-10-21] MEDS: ENOXAPARIN SODIUM 40 MG/0.4 ML SYRINGE SQ SCH (13:19)
[2016-10-21 20:00] VITALS: BP 147/96; PULSE 105; RESP 20; TEMP 97.9; O2SAT 98
[2016-10-21] MEDS: traZODone HCL 50 MG TAB PO SCH (23:17)
[2016-10-22] MEDS: valACYclovir HCL 500 MG TAB PO SCH ×3 (05:28→20:34)
[2016-10-22] MEDS: ACETAMINOPHEN/HYDROcodone 325 MG/5 MG TAB PO PRN ×3 (05:32→20:35)
[2016-10-22 08:00] VITALS: BP 121/89; PULSE 68; RESP 18; TEMP 96.2; O2SAT 98
[2016-10-22] MEDS: SODIUM CHLORIDE 0.9% FLUSH 10 ML FLUSH IV FLUSH SCH ×2 (09:00→20:35)
[2016-10-22] MEDS: GABAPENTIN 300 MG CAP PO SCH ×3 (09:31→18:17)
[2016-10-22] MEDS: diphenhydrAMINE HCL 25 MG CAP PO SCH ×3 (09:31→18:17)
[2016-10-22] MEDS: FLUoxetine HCL 20 MG CAP PO SCH (09:31)
[2016-10-22] MEDS: CETIRIZINE HCL 10 MG TAB PO SCH (09:31)
[2016-10-22] MEDS: PANTOPRAZOLE SOD 40 MG DELAYED RELEASE TAB PO SCH (09:31)
[2016-10-22] MEDS: ASPIRIN EC 81 MG TABEC PO SCH (09:31)
[2016-10-22] MEDS: predniSONE 20 MG TAB PO SCH (09:31)
--- NOTE | 2016-10-22 10:21 | HHI.PR ---
Subjective Remarks Patient seen and examined today for follow-up on endocarditis. Patient lying in bed comfortable. Denies any new complaints. Asking about his leukocytosis, Him that we are checking his blood work weekly, likely secondary to steroid use which is being tapered at this time. Objective Vitals Vital Signs Date Time Temp Pulse Resp B/P Pulse Ox O2 Delivery O2 Flow Rate FiO2 10/21/16 20:00 97.9 105 20 147/96 98 I/O 10/21/16 10/21/16 10/21/16 10/22/16 10/22/16 10/22/16 06:59 14:59 22:59 06:59 14:59 22:59 Intake Total 480 ml 480 ml 120 ml Output Total 800 ml Balance 480 ml 480 ml -680 ml Intake Oral 480 ml 480 ml 120 ml IV Total 0 ml Output Urine Total 800 ml # Voids 1 2 2 # Bowel Movements 0 Result Diagram: 10/18/16 0415 10/18/16 0415 Objective Remarks GENERAL: Well-developed, well-nourished, in no acute distress. alert and orientated HEENT: Head is normocephalic without any lesions or masses noted. Facial features are symmetric. Eyes: Extraocular muscles are intact. Conjunctivae were clear. NECK: Supple without any masses. Trachea midline no deviation. No JVD, CARDIAC: Regular rhythm, regular rate. S1/S2 are heard. 1/6 ejection murmur, no gallops or rubs. LUNGS: Clear to auscultation bilaterally. No wheeze, rhonchi or rales. No use of accessory muscles on inspiration or expiration. ABDOMEN: Soft, nontender. Nondistended. Bowel sounds heard in all 4 quadrants. No organomegaly or masses. Negative rebound, negative guarding EXTREMITIES: No edema, pulses are equal bilaterally. No cyanosis or clubbing NEUROLOGY: Mood and affect appear appropriate. Cranial nerves II through XII grossly intact. Moving all extremities, speech is clear Procedures BEBETO 09/27/16. 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 Echocardiogram performed which did not indicate any acute abnormality on bowels. BEBETO was performed which did indicate a 4.5 x 3.5 mm mobile vegetation noted on the strut nearest and noncardiac cusp region. Blood cultures positive with Streptococcus viridans, last positive culture 09/27, first negative culture 09/28/16 Infectious disease following the patient. Case was discussed with Dr. Smith and obtained end dates Antibiotics include Rocephin with end date 11/09/16 and gentamicin with end date 10/12/16, Infectious disease of the recommendation for antibiotics and it was indicated that patient continue IV antibiotics at home if arrangements can be made. It is indicated that the patient is homeless and from out of town. patient cannot stay with his [id number]. The patient will remain in hospital until antibiotics complete or until case management to make other arrangements. Left foot and calf pain. 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 Showed bilateral effusions and bibasilar atelectasis CT of the abdomen and pelvis shows splenic infarct. Left hemidiaphragm remains elevated with consolidation in the left lower lobe Continue antibiotics per infectious disease Continue monitor CBC Blood cultures negative Urinalysis clear Chest x-ray no acute abnormality Thrombocytosis continue monitor platelet count Left lung consolidation by CT, questionable pneumonia Patient remains afebrile Patient on antibiotics per infectious disease Sputum culture with heavy growth normal respiratory aniceto Urinary tract infection with Enterococcus faecalis Patient underwent treatment with penicillin G. Anemia, stable Probably related to endocarditis. -Continue to monitor Tobacco abuse/marijuana abuse Patient remains on nicotine patch Patient counseled on cessation Urticaria, resolved Continue Vistaril as needed Homelessness The pt is currently without resources. Patient will likely stay in hospital until completion of antibiotics DVT Prophylaxis: Continue Lovenox Unable to use sequential compression devices due to irritation Discharge Planning Discharge planning per case management, case management was consulted to help arrange outpatient antibiotics, however, it was indicated in medical progress note the patient is homeless, [id number] will not let him stay with him. Patient will likely require hospitalization until completion of antibiotics. John Mcghee October 22, 2016 10:21
[2016-10-22] MEDS: cefTRIAXone INJ 2,000 MG in SODIUM CHLORIDE 0.9% INJ 100 ML IV SCH (13:03)
[2016-10-22] MEDS: ENOXAPARIN SODIUM 40 MG/0.4 ML SYRINGE SQ SCH (13:04)
[2016-10-22 20:00] VITALS: BP 138/100; PULSE 96; RESP 20; TEMP 99.2; O2SAT 98
[2016-10-22] MEDS: traZODone HCL 50 MG TAB PO SCH (20:34)
[2016-10-23] MEDS: ACETAMINOPHEN/HYDROcodone 325 MG/5 MG TAB PO PRN ×4 (02:53→20:53)
[2016-10-23] MEDS: valACYclovir HCL 500 MG TAB PO SCH ×2 (05:30→13:22)
[2016-10-23 08:00] VITALS: BP 119/89; PULSE 107; RESP 19; TEMP 97.1; O2SAT 97
[2016-10-23] MEDS: CETIRIZINE HCL 10 MG TAB PO SCH (09:46)
[2016-10-23] MEDS: FLUoxetine HCL 20 MG CAP PO SCH (09:46)
[2016-10-23] MEDS: predniSONE 20 MG TAB PO SCH (09:46)
[2016-10-23] MEDS: GABAPENTIN 300 MG CAP PO SCH ×3 (09:46→17:46)
[2016-10-23] MEDS: diphenhydrAMINE HCL 25 MG CAP PO SCH ×3 (09:47→17:46)
[2016-10-23] MEDS: ASPIRIN EC 81 MG TABEC PO SCH (09:47)
[2016-10-23] MEDS: SODIUM CHLORIDE 0.9% FLUSH 10 ML FLUSH IV FLUSH SCH ×2 (09:47→23:59)
[2016-10-23] MEDS: PANTOPRAZOLE SOD 40 MG DELAYED RELEASE TAB PO SCH (09:47)
--- NOTE | 2016-10-23 12:29 | HHI.PR ---
Subjective Remarks Patient seen and examined today for follow-up on bacterial endocarditis. Patient is lying in bed comfortable. Denies any new complaints. Does not indicate that he has any pain at this time. Objective Vitals Vital Signs Date Time Temp Pulse Resp B/P Pulse Ox O2 Delivery O2 Flow Rate FiO2 10/23/16 08:00 97.1 107 19 119/89 97 10/22/16 20:00 99.2 96 20 138/100 98 I/O 10/22/16 10/22/16 10/22/16 10/23/16 10/23/16 10/23/16 06:59 14:59 22:59 06:59 14:59 22:59 Intake Total 120 ml 240 ml 1080 ml 720 ml Output Total 800 ml Balance -680 ml 240 ml 1080 ml 720 ml Intake Oral 120 ml 240 ml 1080 ml 720 ml IV Total 0 ml Output Urine Total 800 ml # Voids 2 5 2 Objective Remarks GENERAL: Well-developed, well-nourished, in no acute distress. alert and orientated HEENT: Head is normocephalic without any lesions or masses noted. Facial features are symmetric. Eyes: Extraocular muscles are intact. Conjunctivae were clear. NECK: Supple without any masses. Trachea midline no deviation. No JVD, CARDIAC: Regular rhythm, regular rate. S1/S2 are heard. 1/6 ejection murmur, no gallops or rubs. LUNGS: Clear to auscultation bilaterally. No wheeze, rhonchi or rales. No use of accessory muscles on inspiration or expiration. ABDOMEN: Soft, nontender. Nondistended. Bowel sounds heard in all 4 quadrants. No organomegaly or masses. Negative rebound, negative guarding EXTREMITIES: No edema, pulses are equal bilaterally. No cyanosis or clubbing NEUROLOGY: Mood and affect appear appropriate. Cranial nerves II through XII grossly intact. Moving all extremities, speech is clear Procedures BEBETO 09/27/16. 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 Echocardiogram performed which did not indicate any acute abnormality on bowels. BEBETO was performed which did indicate a 4.5 x 3.5 mm mobile vegetation noted on the strut nearest and noncardiac cusp region. Blood cultures positive with Streptococcus viridans, last positive culture 09/27, first negative culture 09/28/16 Infectious disease following the patient. Case was discussed with Dr. Smith and obtained end dates Antibiotics include Rocephin with end date 11/09/16 and gentamicin with end date 10/12/16, Infectious disease of the recommendation for antibiotics and it was indicated that patient continue IV antibiotics at home if arrangements can be made. It is indicated that the patient is homeless and from out of town. patient cannot stay with his [id number]. The patient will remain in hospital until antibiotics complete or until case management to make other arrangements. Left foot and calf pain. 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 Showed bilateral effusions and bibasilar atelectasis CT of the abdomen and pelvis shows splenic infarct. Left hemidiaphragm remains elevated with consolidation in the left lower lobe Continue antibiotics per infectious disease Continue monitor CBC Blood cultures negative Urinalysis clear Chest x-ray no acute abnormality Thrombocytosis continue monitor platelet count Left lung consolidation by CT, questionable pneumonia Patient remains afebrile Patient on antibiotics per infectious disease Sputum culture with heavy growth normal respiratory aniceto Urinary tract infection with Enterococcus faecalis Patient underwent treatment with penicillin G. Anemia, stable Probably related to endocarditis. -Continue to monitor Tobacco abuse/marijuana abuse Patient remains on nicotine patch Patient counseled on cessation Urticaria, resolved Continue Vistaril as needed Homelessness The pt is currently without resources. Patient will likely stay in hospital until completion of antibiotics DVT Prophylaxis: Continue Lovenox Unable to use sequential compression devices due to irritation Discharge Planning Discharge planning per case management, case management was consulted to help arrange outpatient antibiotics, however, it was indicated in medical progress note the patient is homeless, [id number] will not let him stay with him. Patient will likely require hospitalization until completion of antibiotics. John Mcghee October 23, 2016 12:29
[2016-10-23] MEDS: cefTRIAXone INJ 2,000 MG in SODIUM CHLORIDE 0.9% INJ 100 ML IV SCH (13:22)
[2016-10-23] MEDS: ENOXAPARIN SODIUM 40 MG/0.4 ML SYRINGE SQ SCH (13:22)
[2016-10-23 20:00] VITALS: BP 127/87; PULSE 84; RESP 16; TEMP 99; O2SAT 97
[2016-10-23] MEDS: traZODone HCL 50 MG TAB PO SCH (23:58)
[2016-10-24] MEDS: ACETAMINOPHEN/HYDROcodone 325 MG/5 MG TAB PO PRN ×3 (06:18→20:20)
--- NOTE | 2016-10-24 08:54 | HHI.PR ---
Subjective Remarks Patient seen and examined today for follow-up on endocarditis. Patient clinically stable this time. Patient is asking if he can have more food to eat. Objective Vitals Vital Signs Date Time Temp Pulse Resp B/P Pulse Ox O2 Delivery O2 Flow Rate FiO2 10/23/16 20:00 99.0 84 16 127/87 97 I/O 10/23/16 10/23/16 10/23/16 10/24/16 10/24/16 10/24/16 07:00 15:00 23:00 07:00 15:00 23:00 Intake Total 720 ml 960 ml 720 ml 820 ml Output Total 350 ml Balance 720 ml 960 ml 370 ml 820 ml Intake Oral 720 ml 960 ml 720 ml 820 ml Output Urine Total 350 ml # Voids 2 3 2 2 # Bowel Movements 0 0 1 Objective Remarks GENERAL: Well-developed, well-nourished, in no acute distress. alert and orientated HEENT: Head is normocephalic without any lesions or masses noted. Facial features are symmetric. Eyes: Extraocular muscles are intact. Conjunctivae were clear. NECK: Supple without any masses. Trachea midline no deviation. No JVD, CARDIAC: Regular rhythm, regular rate. S1/S2 are heard. 1/6 ejection murmur, no gallops or rubs. LUNGS: Clear to auscultation bilaterally. No wheeze, rhonchi or rales. No use of accessory muscles on inspiration or expiration. ABDOMEN: Soft, nontender. Nondistended. Bowel sounds heard in all 4 quadrants. No organomegaly or masses. Negative rebound, negative guarding EXTREMITIES: No edema, pulses are equal bilaterally. No cyanosis or clubbing NEUROLOGY: Mood and affect appear appropriate. Cranial nerves II through XII grossly intact. Moving all extremities, speech is clear Procedures BEBETO 09/27/16. 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 Echocardiogram performed which did not indicate any acute abnormality on bowels. BEBETO was performed which did indicate a 4.5 x 3.5 mm mobile vegetation noted on the strut nearest and noncardiac cusp region. Blood cultures positive with Streptococcus viridans, last positive culture 09/27, first negative culture 09/28/16 Infectious disease following the patient. Case was discussed with Dr. Smith and obtained end dates Antibiotics include Rocephin with end date 11/09/16 and gentamicin and ended 10/12, Infectious disease of the recommendation for antibiotics and it was indicated that patient continue IV antibiotics at home if arrangements can be made. It is indicated that the patient is homeless and from out of town. patient cannot stay with his [id number]. The patient will remain in hospital until antibiotics complete or until case management to make other arrangements. Left foot and calf pain. 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 Showed bilateral effusions and bibasilar atelectasis CT of the abdomen and pelvis shows splenic infarct. Left hemidiaphragm remains elevated with consolidation in the left lower lobe Continue antibiotics per infectious disease Continue monitor CBC Blood cultures negative Urinalysis clear Chest x-ray no acute abnormality Thrombocytosis continue monitor platelet count Left lung consolidation by CT, questionable pneumonia Patient remains afebrile Patient on antibiotics per infectious disease Sputum culture with heavy growth normal respiratory aniceto Urinary tract infection with Enterococcus faecalis, resolved Patient underwent treatment with penicillin G. Repeat urinalysis do not indicate any acute infection Anemia, stable Likely related to endocarditis. Continue to monitor Tobacco abuse/marijuana abuse Patient remains on nicotine patch Patient counseled on cessation Urticaria, resolved Continue Vistaril as needed Homelessness The pt is currently without resources. Patient will likely stay in hospital until completion of antibiotics DVT Prophylaxis: Continue Lovenox Unable to use sequential compression devices due to irritation Discharge Planning Discharge planning per case management, case management was consulted to help arrange outpatient antibiotics, however, it was indicated in medical progress note the patient is homeless, [id number] will not let him stay with him. Patient will likely require hospitalization until completion of antibiotics. John Mcghee October 24, 2016 08:53
[2016-10-24] MEDS: CETIRIZINE HCL 10 MG TAB PO SCH ×2 (09:00→09:14)
[2016-10-24] MEDS: FLUoxetine HCL 20 MG CAP PO SCH ×2 (09:00→09:14)
[2016-10-24] MEDS: diphenhydrAMINE HCL 25 MG CAP PO SCH ×3 (09:14→18:02)
[2016-10-24] MEDS: PANTOPRAZOLE SOD 40 MG DELAYED RELEASE TAB PO SCH (09:14)
[2016-10-24] MEDS: GABAPENTIN 300 MG CAP PO SCH ×3 (09:14→18:02)
[2016-10-24] MEDS: predniSONE 10 MG TAB PO SCH (09:14)
[2016-10-24] MEDS: ASPIRIN EC 81 MG TABEC PO SCH (09:14)
[2016-10-24] MEDS: SODIUM CHLORIDE 0.9% FLUSH 10 ML FLUSH IV FLUSH SCH ×2 (09:15→20:19)
[2016-10-24 09:21] VITALS: BP 112/87; PULSE 74; RESP 18; TEMP 96.7; O2SAT 98
[2016-10-24] MEDS: cefTRIAXone INJ 2,000 MG in SODIUM CHLORIDE 0.9% INJ 100 ML IV SCH (12:49)
[2016-10-24] MEDS: ENOXAPARIN SODIUM 40 MG/0.4 ML SYRINGE SQ SCH (12:54)
[2016-10-24 20:00] VITALS: BP 119/86; PULSE 92; RESP 17; TEMP 98.1; O2SAT 97
[2016-10-24] MEDS: traZODone HCL 50 MG TAB PO SCH (20:19)
[2016-10-25] MEDS: ACETAMINOPHEN/HYDROcodone 325 MG/5 MG TAB PO PRN ×2 (02:06→08:08)
[2016-10-25 05:29] LABS: AUTOMATED NEUTROPHIL # 11.1 TH/MM3 (1.8-7.7); BASOPHIL % 0.1 % (0.0-2.0); EOSINOPHIL # 0.2 TH/MM3 (0-0.4); EOSINOPHIL % 1.3 % (0.0-4.0); HEMATOCRIT 37.6 % (39.0-51.0); LYMPH % 24.7 % (9.0-44.0); MEAN CELL VOLUME 77.4 FL (80.0-100.0); MEAN CORPUSCULAR HEMOGLOBIN 25.2 PG (27.0-34.0); MEAN CORPUSCULAR HGB CONC 32.6 % (32.0-36.0); MONO % 6.5 % (0.0-8.0); NEUT % 67.4 % (16.0-70.0); PLATELET COUNT 331 TH/MM3 (150-450); RED BLOOD COUNT 4.86 MIL/MM3 (4.50-5.90); RED CELL DISTRIBUTION WIDTH 16.6 % (11.6-17.2); WHITE BLOOD COUNT 16.4 TH/MM3 (4.0-11.0)
[2016-10-25 05:38] LABS: CHLORIDE 104 MEQ/L (98-107); HEMO FLAGS AUTO DIFF; POTASSIUM 4.1 MEQ/L (3.5-5.1); SODIUM (NA) 139 MEQ/L (136-145)
[2016-10-25 05:43] LABS: ANION GAP 9 MEQ/L (5-15); BICARBONATE 26.5 MEQ/L (21.0-32.0); BLOOD UREA NITROGEN 41 MG/DL (7-18)
[2016-10-25 05:46] LABS: ALT (GPT) 56 U/L (12-78); AST (GOT) 14 U/L (15-37); GLOMERULAR FILTRATION RATE 67 ML/MIN (>89)
[2016-10-25 05:47] LABS: TOTAL BILIRUBIN ADULT 0.3 MG/DL (0.2-1.0)
[2016-10-25 05:49] LABS: ALKALINE PHOSPHATASE 82 U/L (45-117)
[2016-10-25] MEDS: diphenhydrAMINE HCL 25 MG CAP PO SCH ×3 (08:07→17:57)
[2016-10-25] MEDS: predniSONE 10 MG TAB PO SCH (08:07)
[2016-10-25] MEDS: FLUoxetine HCL 20 MG CAP PO SCH (08:07)
[2016-10-25] MEDS: PANTOPRAZOLE SOD 40 MG DELAYED RELEASE TAB PO SCH (08:07)
[2016-10-25] MEDS: GABAPENTIN 300 MG CAP PO SCH ×3 (08:07→17:57)
[2016-10-25] MEDS: CETIRIZINE HCL 10 MG TAB PO SCH (08:08)
[2016-10-25] MEDS: ASPIRIN EC 81 MG TABEC PO SCH (08:09)
[2016-10-25] MEDS: SODIUM CHLORIDE 0.9% FLUSH 10 ML FLUSH IV FLUSH SCH ×2 (08:11→21:24)
[2016-10-25 08:13] LABS: WESTERGREN SEDIMENTATION RATE 11 mm/hr (0-15)
[2016-10-25 08:51] VITALS: BP 127/103; PULSE 104; RESP 18; TEMP 96.7; O2SAT 93
--- NOTE | 2016-10-25 11:56 | HHI.PR ---
Subjective Remarks Patient seen and examined today for follow-up on her carditis. Patient denies any new complaints. He is appreciated that he is able to eat more food. Patient denies any new pain or any concerns about his continued pain Objective Vitals Vital Signs Date Time Temp Pulse Resp B/P Pulse Ox O2 Delivery O2 Flow Rate FiO2 10/25/16 08:51 96.7 104 18 127/103 93 10/24/16 20:00 98.1 92 17 119/86 97 I/O 10/24/16 10/24/16 10/24/16 10/25/16 10/25/16 10/25/16 07:00 15:00 23:00 07:00 15:00 23:00 Intake Total 820 ml 480 ml 660 ml Output Total 4 ml Balance 820 ml 476 ml 660 ml Intake Oral 820 ml 480 ml 660 ml Output Urine Total 4 ml # Voids 2 1 2 # Bowel Movements 1 2 0 Result Diagram: 10/25/16 0430 10/25/16 0430 Objective Remarks GENERAL: Well-developed, well-nourished, in no acute distress. alert and orientated HEENT: Head is normocephalic without any lesions or masses noted. Facial features are symmetric. Eyes: Extraocular muscles are intact. Conjunctivae were clear. NECK: Supple without any masses. Trachea midline no deviation. No JVD, CARDIAC: Regular rhythm, regular rate. S1/S2 are heard. 1/6 ejection murmur, no gallops or rubs. LUNGS: Clear to auscultation bilaterally. No wheeze, rhonchi or rales. No use of accessory muscles on inspiration or expiration. ABDOMEN: Soft, nontender. Nondistended. Bowel sounds heard in all 4 quadrants. No organomegaly or masses. Negative rebound, negative guarding EXTREMITIES: No edema, pulses are equal bilaterally. No cyanosis or clubbing NEUROLOGY: Mood and affect appear appropriate. Cranial nerves II through XII grossly intact. Moving all extremities, speech is clear Procedures BEBETO 09/27/16. 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 Echocardiogram performed which did not indicate any acute abnormality on bowels. BEBETO was performed which did indicate a 4.5 x 3.5 mm mobile vegetation noted on the strut nearest and noncardiac cusp region. Blood cultures positive with Streptococcus viridans, last positive culture 09/27, first negative culture 09/28/16 Infectious disease following the patient. Case was discussed with Dr. Smith and obtained end dates Antibiotics include Rocephin with end date 11/09/16 and gentamicin and ended 10/12, Infectious disease of the recommendation for antibiotics and it was indicated that patient continue IV antibiotics at home if arrangements can be made. It is indicated that the patient is homeless and from out of town. patient cannot stay with his [id number]. The patient will remain in hospital until antibiotics complete or until case management to make other arrangements. 10/25: Weekly lab show improvement of leukocytosis, sedimentation rate, C- reactive protein Left foot and calf pain. 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 Showed bilateral effusions and bibasilar atelectasis CT of the abdomen and pelvis shows splenic infarct. Left hemidiaphragm remains elevated with consolidation in the left lower lobe Continue antibiotics per infectious disease Continue monitor CBC Blood cultures negative Urinalysis clear Chest x-ray no acute abnormality Thrombocytosis, resolved continue monitor platelet count Left lung consolidation by CT, questionable pneumonia, treated Patient remains afebrile Patient on antibiotics per infectious disease Sputum culture with heavy growth normal respiratory aniceto Urinary tract infection with Enterococcus faecalis, resolved Patient underwent treatment with penicillin G. Repeat urinalysis do not indicate any acute infection Anemia, stable Likely related to endocarditis. Continue to monitor Tobacco abuse/marijuana abuse Patient remains on nicotine patch Patient counseled on cessation Urticaria, resolved Continue Vistaril as needed Homelessness The pt is currently without resources. Patient will likely stay in hospital until completion of antibiotics DVT Prophylaxis: Continue Lovenox Unable to use sequential compression devices due to irritation Discharge Planning Discharge planning per case management, case management was consulted to help arrange outpatient antibiotics, however, it was indicated in medical progress note the patient is homeless, [id number] will not let him stay with him. Patient will likely require hospitalization until completion of antibiotics. John Mcghee October 25, 2016 11:56
[2016-10-25] MEDS: ENOXAPARIN SODIUM 40 MG/0.4 ML SYRINGE SQ SCH ×2 (13:00→14:06)
[2016-10-25] MEDS: cefTRIAXone INJ 2,000 MG in SODIUM CHLORIDE 0.9% INJ 100 ML IV SCH (13:59)
[2016-10-25 20:00] VITALS: BP 151/98; PULSE 85; RESP 19; TEMP 97.2; O2SAT 98
[2016-10-25] MEDS: traZODone HCL 50 MG TAB PO SCH (21:23)
[2016-10-25] MEDS: IBUPROFEN 600 MG TAB PO PRN (21:28)
[2016-10-26 08:00] VITALS: BP 141/78; PULSE 80; RESP 18; TEMP 98.2; O2SAT 96
[2016-10-26] MEDS: SODIUM CHLORIDE 0.9% FLUSH 10 ML FLUSH IV FLUSH SCH ×2 (09:00→20:07)
[2016-10-26] MEDS: FLUoxetine HCL 20 MG CAP PO SCH (09:45)
[2016-10-26] MEDS: ASPIRIN EC 81 MG TABEC PO SCH (09:45)
[2016-10-26] MEDS: GABAPENTIN 300 MG CAP PO SCH ×3 (09:45→17:39)
[2016-10-26] MEDS: CETIRIZINE HCL 10 MG TAB PO SCH (09:46)
[2016-10-26] MEDS: PANTOPRAZOLE SOD 40 MG DELAYED RELEASE TAB PO SCH (09:46)
[2016-10-26] MEDS: diphenhydrAMINE HCL 25 MG CAP PO SCH ×3 (09:46→17:39)
--- NOTE | 2016-10-26 11:21 | HHI.PR ---
Subjective Remarks Follow-up for endocarditis, and left leg pain. Patient states his left leg and foot pain are completely resolved. He states the rash to his left lower leg is also resolved. Objective Vitals Vital Signs Date Time Temp Pulse Resp B/P Pulse Ox O2 Delivery O2 Flow Rate FiO2 10/26/16 08:00 98.2 80 18 141/78 96 10/25/16 20:00 97.2 85 19 151/98 98 I/O 10/25/16 10/25/16 10/25/16 10/26/16 10/26/16 10/26/16 07:00 15:00 23:00 07:00 15:00 23:00 Intake Total 660 ml 720 ml 360 ml Balance 660 ml 720 ml 360 ml Intake Oral 660 ml 720 ml 360 ml # Voids 2 3 2 # Bowel Movements 0 Result Diagram: 10/25/16 0430 10/25/16 0430 Objective Remarks GENERAL: Well-nourished, well nourished patient in no apparent distress. SKIN: Warm and dry. No rash to left calf. CARDIOVASCULAR: Normal rate and regular rhythm. Grade 2 murmur appreciated. RESPIRATORY: No accessory muscle use. CTAB. GASTROINTESTINAL: Abdomen soft, nontender, nondistended. MUSCULOSKELETAL: 2+ left TP pulse. No LLE edema. No tenderness to palpation over the left calf. NEUROLOGICAL: Awake and alert. Normal speech. PSYCHIATRIC: Appropriate mood and affect; insight and judgment normal. Procedures BEBETO 09/27/16. 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 Echocardiogram performed which did not indicate any acute abnormality on bowels. BEBETO was performed which did indicate a 4.5 x 3.5 mm mobile vegetation noted on the strut nearest and noncardiac cusp region. Blood cultures positive with Streptococcus viridans, last positive culture 09/27, first negative culture 09/28/16 Infectious disease following the patient. Antibiotics include Rocephin with end date 11/09/16 and gentamicin with end date 10/13/16. Patient is cleared from ID standpoint to be discharged and complete antibiotics at infusion clinic however patient is currently homeless from out of town, and cannot stay with his [id number], so will need to remain hospitalized. Do labs weekly CBC, Cr, and LFTs. Call ID if there is any new ID related problems, or if any abnormal blood work. 10/25: ESR and CRP now normal. LFTs unremarkable. Continue to monitor weekly. Fever: Resolved. Temp 100.6 at 2000 on 10/15/16. Afebrile since. -WBC improving at 13.2. -10/15 Blood cultures x 2 NGTD. -Recent UA 10/12 clear. -No respiratory symptoms. If fever continues, consider chest x-ray. Left foot and calf pain: Resolved. -X-rays left foot appear normal. -PT following -Doppler US 10/15 negative. -Continue ibuprofen prn, [place] prn. Prednisone discontinued yesterday. Rash: Resolved. Localized to left lower leg, but is non-pruritic. Tender, dermatomal. Possible differential is herpes zoster although vesicles never developed. -S/p Valacyclovir 1000 mg tid x 7 days. -S/p prednisone -Continue scheduled Benadryl 25 mg po tid through tomorrow to prevent exacerbation related to tapering prednisone, then discontinue. Leukocytosis: Improved. CT of the chest on 09/28/16 does not indicate any acute infection process. Showed bilateral effusions and bibasilar atelectasis Chest x-ray 10/08 minimal parenchymal changes R base CT of the abdomen and pelvis 10/05/16 shows splenic infarct. Left hemidiaphragm remains elevated with consolidation in the left lower lobe. Repeat abdominal CT as above. Continue antibiotics per infectious disease Continue to monitor CBC Blood cultures NGTD Urinalysis 10/12 clear 5/15: WBC improved at 16.4. Likely remains elevated due to steroid use. Anemia: Improved. Probably related to endocarditis. -Continue to monitor Thrombocytosis: Elevated but stable. Continue to monitor platelet count Abdominal pain, unknown etiology Laboratory studies do not indicate any acute abnormality Lipase normal Repeat CT scan of the abdomen shows stable hypo-densities of the spleen and stable bibasilar atelectasis but no acute issues. 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 Left lung consolidation by CT, questionable pneumonia Patient remains afebrile Patient on antibiotics per infectious disease Repeat abdominal CT 10/11/16 only shows atelectasis compared to 10/05 scan indicating consolidation. Sputum culture never received. Urinary tract infection with Enterococcus faecalis Patient underwent treatment with penicillin G. Pre-renal azotemia: Worse. BUN increased to 41 on 10/25, likely attributed to steroid use. -Monitor BMP Tobacco abuse/marijuana abuse Patient remains on nicotine patch Patient counseled on cessation Urticaria: Resolved S/p steroids for 3 days, Zyrtec and Vistaril as needed Homelessness The pt is currently without resources. Patient will stay in hospital until completion of antibiotics DVT Prophylaxis: Continue Lovenox Unable to use sequential compression devices due to irritation Anjana Jara October 26, 2016 11:21 Anjana Jara October 26, 2016 11:21
[2016-10-26] MEDS: ENOXAPARIN SODIUM 40 MG/0.4 ML SYRINGE SQ SCH (13:49)
[2016-10-26] MEDS: cefTRIAXone INJ 2,000 MG in SODIUM CHLORIDE 0.9% INJ 100 ML IV SCH (13:50)
[2016-10-26] MEDS ORDERED: KETOROLAC TROMETHAMINE 30 MG/ML (IVP) VIAL IV PUSH ONE (18:45)
[2016-10-26 20:00] VITALS: BP 121/94; PULSE 106; RESP 21; TEMP 98.5; O2SAT 97
[2016-10-26] MEDS: traZODone HCL 50 MG TAB PO SCH (20:06)
[2016-10-26] MEDS: IBUPROFEN 600 MG TAB PO PRN (20:07)
[2016-10-27 08:00] VITALS: BP 121/92; PULSE 93; RESP 19; TEMP 97.8; O2SAT 99
[2016-10-27] MEDS: ASPIRIN EC 81 MG TABEC PO SCH (09:12)
[2016-10-27] MEDS: diphenhydrAMINE HCL 25 MG CAP PO SCH (09:12)
[2016-10-27] MEDS: CETIRIZINE HCL 10 MG TAB PO SCH (09:12)
[2016-10-27] MEDS: GABAPENTIN 300 MG CAP PO SCH ×3 (09:12→17:21)
[2016-10-27] MEDS: PANTOPRAZOLE SOD 40 MG DELAYED RELEASE TAB PO SCH (09:13)
[2016-10-27] MEDS: IBUPROFEN 600 MG TAB PO PRN ×2 (09:13→13:02)
[2016-10-27] MEDS: FLUoxetine HCL 20 MG CAP PO SCH (09:13)
--- NOTE | 2016-10-27 09:40 | HHI.PR ---
Subjective Remarks Follow-up for endocarditis. Nurse called me yesterday in regards to patient having left sciatic pain. I had ordered Toradol at that time. This morning the patient admits sciatica is better stating the Toradol provided relief. He states the pain was primarily located in his back and buttocks and he did not experience any radiation down the entire leg. He states he has chronic sciatica and normally gets Toradol injections on an outpatient basis. Objective Vitals Vital Signs Date Time Temp Pulse Resp B/P Pulse Ox O2 Delivery O2 Flow Rate FiO2 10/27/16 08:00 97.8 93 19 121/92 99 10/26/16 20:00 98.5 106 21 121/94 97 I/O 10/26/16 10/26/16 10/26/16 10/27/16 10/27/16 10/27/16 07:00 15:00 23:00 07:00 15:00 23:00 Intake Total 360 ml 500 ml 480 ml 480 ml Balance 360 ml 500 ml 480 ml 480 ml Intake Oral 360 ml 500 ml 480 ml 480 ml # Voids 2 3 3 Result Diagram: 10/25/16 0430 10/25/16 0430 Objective Remarks GENERAL: Well-nourished, well nourished patient in no apparent distress. SKIN: Warm and dry. CARDIOVASCULAR: Normal rate and regular rhythm. RESPIRATORY: No accessory muscle use. CTAB. GASTROINTESTINAL: Abdomen soft, nontender, nondistended. MUSCULOSKELETAL: 2+ left TP pulse. No calf pain or edema bilaterally. NEUROLOGICAL: Awake and alert. Normal speech. PSYCHIATRIC: Appropriate mood and affect; insight and judgment normal. Procedures BEBETO 09/27/16. 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 Echocardiogram performed which did not indicate any acute abnormality on bowels. BEBETO was performed which did indicate a 4.5 x 3.5 mm mobile vegetation noted on the strut nearest and noncardiac cusp region. Blood cultures positive with Streptococcus viridans, last positive culture 09/27, first negative culture 09/28/16 Infectious disease following the patient. Antibiotics include Rocephin with end date 11/09/16 and gentamicin with end date 10/13/16. Patient is cleared from ID standpoint to be discharged and complete antibiotics at infusion clinic however patient is currently homeless from out of town, and cannot stay with his [id number], so will need to remain hospitalized. Do labs weekly CBC, Cr, and LFTs. Call ID if there is any new ID related problems, or if any abnormal blood work. 10/25: ESR and CRP now normal. LFTs unremarkable. Continue to monitor weekly. Fever: Resolved. Temp 100.6 at 2000 on 10/15/16. Afebrile since. -WBC improving at 13.2. -10/15 Blood cultures x 2 NGTD. -Recent UA 10/12 clear. -No respiratory symptoms. If fever continues, consider chest x-ray. Left foot and calf pain: Resolved. -X-rays left foot appear normal. -PT following -Doppler US 10/15 negative. -Continue ibuprofen prn, [place] prn. Prednisone discontinued yesterday. Rash: Resolved. Localized to left lower leg, but is non-pruritic. Tender, dermatomal. Possible differential is herpes zoster although vesicles never developed. -S/p Valacyclovir 1000 mg tid x 7 days. -S/p prednisone -Discontinue Benadryl. Sciatica: Chronic condition. Improved with Toradol yesterday. Leukocytosis: Improved. CT of the chest on 09/28/16 does not indicate any acute infection process. Showed bilateral effusions and bibasilar atelectasis Chest x-ray 10/08 minimal parenchymal changes R base CT of the abdomen and pelvis 10/05/16 shows splenic infarct. Left hemidiaphragm remains elevated with consolidation in the left lower lobe. Repeat abdominal CT as above. Continue antibiotics per infectious disease Continue to monitor CBC Blood cultures NGTD Urinalysis 10/12 clear 10/25: WBC improved at 16.4. Likely remains elevated due to steroid use. Anemia: Improved. Probably related to endocarditis. -Continue to monitor Thrombocytosis: Elevated but stable. Continue to monitor platelet count Abdominal pain, unknown etiology Laboratory studies do not indicate any acute abnormality Lipase normal Repeat CT scan of the abdomen shows stable hypo-densities of the spleen and stable bibasilar atelectasis but no acute issues. 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 Left lung consolidation by CT, questionable pneumonia Patient remains afebrile Patient on antibiotics per infectious disease Repeat abdominal CT 10/11/16 only shows atelectasis compared to 10/05 scan indicating consolidation. Sputum culture never received. Urinary tract infection with Enterococcus faecalis Patient underwent treatment with penicillin G. Pre-renal azotemia: Worse. BUN increased to 41 on 10/25, likely attributed to steroid use. -Monitor BMP Tobacco abuse/marijuana abuse Patient remains on nicotine patch Patient counseled on cessation Urticaria: Resolved S/p steroids, Zyrtec, and Vistaril. Homelessness The pt is currently without resources. Patient will stay in hospital until completion of antibiotics DVT Prophylaxis: Continue Lovenox Unable to use sequential compression devices due to irritation Anjana Jara October 27, 2016 09:40
[2016-10-27] MEDS: ENOXAPARIN SODIUM 40 MG/0.4 ML SYRINGE SQ SCH (13:00)
[2016-10-27] MEDS: cefTRIAXone INJ 2,000 MG in SODIUM CHLORIDE 0.9% INJ 100 ML IV SCH (13:02)
[2016-10-27] MEDS: SODIUM CHLORIDE 0.9% FLUSH 10 ML FLUSH IV FLUSH SCH ×2 (13:45→21:00)
[2016-10-27 20:00] VITALS: BP 131/95; PULSE 104; RESP 18; TEMP 97.7; O2SAT 96
[2016-10-27] MEDS: traZODone HCL 50 MG TAB PO SCH (21:00)
[2016-10-28] MEDS: IBUPROFEN 600 MG TAB PO PRN (04:06)
[2016-10-28] MEDS ORDERED: KETOROLAC TROMETHAMINE 30 MG/ML (IVP) VIAL IV PUSH ONE (07:00)
[2016-10-28 08:57] VITALS: BP 128/96; PULSE 90; RESP 15; TEMP 98.5; O2SAT 98
[2016-10-28] MEDS: CETIRIZINE HCL 10 MG TAB PO SCH ×2 (09:00→09:18)
[2016-10-28] MEDS: SODIUM CHLORIDE 0.9% FLUSH 10 ML FLUSH IV FLUSH SCH (09:00)
[2016-10-28] MEDS: PANTOPRAZOLE SOD 40 MG DELAYED RELEASE TAB PO SCH (09:18)
[2016-10-28] MEDS: FLUoxetine HCL 20 MG CAP PO SCH (09:18)
[2016-10-28] MEDS: GABAPENTIN 300 MG CAP PO SCH ×2 (09:18→12:39)
[2016-10-28] MEDS: ASPIRIN EC 81 MG TABEC PO SCH (09:18)
[2016-10-28] MEDS ORDERED: PENI500T PO (09:55)
--- NOTE | 2016-10-28 09:57 | HHI.DCPOC ---
Discharge Care Plan Diagnosis: (1) Endocarditis of prosthetic valve (2) Blood bacterial culture positive (3) Fever (4) Leukocytosis (5) Elevated troponin (6) Hematuria (7) Pain of left calf (8) Left foot pain (9) Rash Goals to Promote Your Health * To prevent worsening of your condition and complications * To maintain your health at the optimal level Directions to Meet Your Goals Take your medications as prescribed Follow your dietary instruction Follow activity as directed Keep your appointments as scheduled Take your immunizations and boosters as scheduled If your symptoms worsen call your PCP, if no PCP go to Urgent Care Center or Emergency Room Smoking is Dangerous to Your Health. Avoid second hand smoke Call the 24-hour hour crisis hotline for domestic abuse at Anjana Jara October 28, 2016 09:57 Katherine Boone MD October 31, 2016 19:21
[2016-10-28] MEDS: ENOXAPARIN SODIUM 40 MG/0.4 ML SYRINGE SQ SCH (12:39)
[2016-10-28] MEDS: cefTRIAXone INJ 2,000 MG in SODIUM CHLORIDE 0.9% INJ 100 ML IV SCH (12:39)
--- NOTE | 2016-10-28 15:38 | HHI.PR ---
Subjective Remarks Follow-up for endocarditis. Patient has no acute complaints. Objective Vitals Vital Signs Date Time Temp Pulse Resp B/P Pulse Ox O2 Delivery O2 Flow Rate FiO2 10/28/16 08:57 98.5 90 15 128/96 98 10/28/16 08:00 18 10/27/16 20:00 97.7 104 18 131/95 96 I/O 10/27/16 10/27/16 10/27/16 10/28/16 10/28/16 10/28/16 07:00 15:00 23:00 07:00 15:00 23:00 Intake Total 480 ml 1440 ml 480 ml 480 ml 950 ml Balance 480 ml 1440 ml 480 ml 480 ml 950 ml Intake Oral 480 ml 1440 ml 480 ml 480 ml 840 ml IV Total 110 ml # Voids 3 8 2 2 4 # Bowel Movements 2 0 1 1 Result Diagram: 10/25/16 04310/25/16 043 Objective Remarks GENERAL: Well-nourished, well nourished patient in no apparent distress. SKIN: Warm and dry. CARDIOVASCULAR: Normal rate and regular rhythm. Grade 2 murmur. RESPIRATORY: No accessory muscle use. CTAB. GASTROINTESTINAL: Abdomen soft, nontender, nondistended. NEUROLOGICAL: Awake and alert. Normal speech. PSYCHIATRIC: Appropriate mood and affect; insight and judgment normal. Procedures BEBETO 09/27/16. 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 Echocardiogram performed which did not indicate any acute abnormality on bowels. BEBETO was performed which did indicate a 4.5 x 3.5 mm mobile vegetation noted on the strut nearest and noncardiac cusp region. Blood cultures positive with Streptococcus viridans, last positive culture 09/27, first negative culture 09/28/16 Infectious disease following the patient. Antibiotics include Rocephin with end date 11/09/16 and gentamicin with end date 10/13/16. Patient is cleared from ID standpoint to be discharged and complete antibiotics at infusion clinic however patient is currently homeless from out of town, and cannot stay with his [id number], so will need to remain hospitalized. Do labs weekly CBC, Cr, and LFTs. Call ID if there is any new ID related problems, or if any abnormal blood work. 10/25: ESR and CRP now normal. LFTs unremarkable. Continue to monitor weekly. Fever: Resolved. Temp 100.6 at 2000 on 10/15/16. Afebrile since. -WBC improving at 13.2. -10/15 Blood cultures x 2 NGTD. -Recent UA 10/12 clear. Left foot and calf pain: Resolved. -X-rays left foot appear normal. -PT following -Doppler US 10/15 negative. -Continue ibuprofen prn, Vian prn. Prednisone discontinued yesterday. Rash: Resolved. Localized to left lower leg, but is non-pruritic. Tender, dermatomal. Possible differential is herpes zoster although vesicles never developed. -S/p Valacyclovir 1000 mg tid x 7 days. -S/p prednisone -S/p Benadryl. Sciatica: Chronic condition. Improved with Toradol. Leukocytosis: Improved. CT of the chest on 09/28/16 does not indicate any acute infection process. Showed bilateral effusions and bibasilar atelectasis Chest x-ray 10/08 minimal parenchymal changes R base CT of the abdomen and pelvis 10/05/16 shows splenic infarct. Left hemidiaphragm remains elevated with consolidation in the left lower lobe. Repeat abdominal CT as above. Continue antibiotics per infectious disease Continue to monitor CBC Blood cultures NGTD Urinalysis / clear 10/25 WBC improved at 16.4. Likely remains elevated due to steroid use. Discussed with Dr. Alexis on 10/27; no need to repeat CBC as patient has no signs of new infection. Anemia: Improved. Probably related to endocarditis. -Continue to monitor Thrombocytosis: Elevated but stable. Continue to monitor platelet count Abdominal pain, unknown etiology Laboratory studies do not indicate any acute abnormality Lipase normal Repeat CT scan of the abdomen shows stable hypo-densities of the spleen and stable bibasilar atelectasis but no acute issues. 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 Left lung consolidation by CT, questionable pneumonia Patient remains afebrile Patient on antibiotics per infectious disease Repeat abdominal CT 10/11/16 only shows atelectasis compared to 10/05 scan indicating consolidation. Sputum culture never received. Urinary tract infection with Enterococcus faecalis Patient underwent treatment with penicillin G. Pre-renal azotemia: BUN increased to 41 on 10/25, likely attributed to steroid use. -Monitor BMP Tobacco abuse/marijuana abuse Patient remains on nicotine patch Patient counseled on cessation Urticaria: Resolved S/p steroids, Zyrtec, and Vistaril. Homelessness The pt is currently without resources. Patient will stay in hospital until completion of antibiotics DVT Prophylaxis: Continue Lovenox Unable to use sequential compression devices due to irritation Discharge Planning 10/27/16: cardiac cath lab manager Jerson Sullivan contacted me informing me that patient will be set up in a hotel to finish out his IV antibiotics until 11/09/16. Infectious disease Dr. Smith has placed infusion orders and has spoken with Dr. Alexis, attending. Patient states he has a month supply of gabapentin, Prozac, trazodone, and Zyrtec at home and does not require refills. He will require penicillin 500 mg by mouth twice a day for life after infusion complete according to infectious disease; Dr. Alexis advises prescribing 3 month supply. CM states patient can follow up at [facility] regarding further primary care needs. 10/28/16: Patient to be discharged today after antibiotic dose this afternoon. Patient states he has a court date on Tuesday in [place] and requests a medical excuse. I have spoken with Jerson Sullivan trimming caser who has typed a letter excusing patient due to medical treatment, and I have signed this. Patient asked where is he to get meals and was advised to go to the [facility]. cardiac cath lab manager states he has spoken with the patient regarding this. The patient currently has a midline in his right upper extremity. I discussed this with Dr. Smith today who would like the line to remain in place on discharge. Patient is to sign a liability form for this on discharge. Dr. Smith advises wrapping the line with Coban to prevent tampering. I have explained this to the nurse. Discharge order placed. Anjana Jara October 28, 2016 15:38
--- NOTE | 2016-10-28 18:37 | HHI.DS ---
Discharge Summary Admission Date Sep 26, 2016 at 04:06 Discharge Date: October 28, 2016 Admitting Diagnosis chest pain, r/o PVE (1) Endocarditis of prosthetic valve ICD Code: T82.6XXA Diagnosis: Principal (2) Fever ICD Code: R50.9 Diagnosis: Principal (3) Left foot pain ICD Code: M79.672 Diagnosis: Principal (4) Pain of left calf ICD Code: M79.662 Diagnosis: Principal (5) Rash ICD Code: R21 Diagnosis: Principal (6) Elevated troponin ICD Code: R74.8 Diagnosis: Principal (7) Dehydration ICD Code: E86.0 Diagnosis: Principal (8) Leukocytosis ICD Code: D72.829 Diagnosis: Principal (9) Hematuria ICD Code: R31.9 Diagnosis: Principal (10) Tobacco abuse ICD Code: Z72.0 Diagnosis: Principal Procedures BEBETO 09/27/16. Brief History - From Admission This is a 41-year-old male with a PMH of Anxiety, Schizophrenia/Bipolar Disorder , Hepatitis C, h/o IVDU and h/o Endocarditis s/p AVR who presented to the ER w / complaints of epigastric/chest pain and SOB x2 wks. States he had similar episode in March 2016 when he was admitted in [place], [place] where he lives and diagnosed w/ Endocarditis. Underwent AVR at that time, no complications from surgery. Reports in [facility] visiting step-father. Plans to return to [place], however does not follow w/ Supplier Relationship Director, only PCP. States symptoms have been intermittent x2 wks, mostly epigastric and right-sided chest pain w/ associated chest tightness. Denies recent IVDU. On arrival, BP 100/67, HR 100, O2 sat 98 % on RA, Afebrile. WBC 16.9. GFR 77. Lactic Acid 1.6. Troponin 0.15. INR 1.1. Urine Drug Screen negative. UA negative for UTI, positive for hematuria. CXR with bibasilar atelectasis left greater than right. CBC/BMP: 10/25/16 0430 10/25/16 0430 Imaging Last Impressions Lower Extremity Ultrasound 10/15/16 0000 Signed Impressions: Service Date/Time: Saturday, October 15, 2016 20:17 - CONCLUSION: Normal examination. Chung Martins MD Foot X-Ray 10/13/16 0000 Signed Impressions: Service Date/Time: Thursday, October 13, 2016 13:21 - CONCLUSION: Heel spur. No acute bony findings Chung Martins MD Abdomen/Pelvis CT 10/11/16 0000 Signed Impressions: Service Date/Time: Tuesday, October 11, 2016 13:18 - CONCLUSION: Stable hypodensities involving the spleen. Stable bibasilar atelectasis. Chung Martins MD Chest X-Ray 10/08/16 0000 Signed Impressions: Service Date/Time: Saturday, October 08, 2016 15:55 - CONCLUSION: Elevation of the right hemidiaphragm with minimal parenchymal changes right base. Keanu Hobson MD FACR Chest CT 09/28/16 0000 Signed Impressions: Service Date/Time: Wednesday, September 28, 2016 07:42 - CONCLUSION: 1. Tiny bilateral pleural effusions and probable bibasilar compressive atelectasis. 2. Splenomegaly with areas of decreased perfusion possibly representing splenic infarcts. 3. A 5 mm pleural based non-calcified nodule within the right middle lobe which is indeterminate. Follow up CT of the chest in six months is recommended. 4. Degenerative changes and scoliosis of the thoracic spine. Brown Kaufman MD PE at Discharge GENERAL: Well-nourished, well nourished patient in no apparent distress. SKIN: Warm and dry. CARDIOVASCULAR: Normal rate and regular rhythm. Grade 2 murmur. RESPIRATORY: No accessory muscle use. CTAB. GASTROINTESTINAL: Abdomen soft, nontender, nondistended. NEUROLOGICAL: Awake and alert. Normal speech. PSYCHIATRIC: Appropriate mood and affect; insight and judgment normal. Hospital Course 41-year-old patient initially presented to the ED on 09/26/16 for complaint of chest pain. He has a history of IVDA and previous aortic valve replacement due to endocarditis in March 2016. The patient had elevated troponin. Cardiology evaluated the patient and performed a transesophageal echo which showed a mobile vegetation on his bioprosthetic aortic valve. Elevated troponin was nonspecific per cardiology and was thought to be related to endocarditis. Patient had Viridans Streptococcus group in 09/14 blood cultures and he additionally had a UTI urine culture positive for enterococcus faecalis. He was evaluated by infectious disease and placed on appropriate antibiotics. He had urticaria from PCN and was treated for allergic reaction and changed to Gentamicin and Rocephin. Patient also had persistent leukocytosis. Abdominal scan performed on 10/05 indicated left lower lung consolidation (patient already on abx), but repeat abdominal CT 10/11/16 only showed atelectasis. Sputum culture only with normal respiratory aniceto. He also underwent new chest x-ray with no infection evident. Patient had a fever on 10/15/16, but repeat blood cultures remained normal and he has remained afebrile since. White blood cell count did improve mildly, but remained elevated due to steroid use. During hospitalization patient had abdominal pain and CT showed splenic infarct but nothing acute. He also had flank pain, but repeat UA was negative for infection. These issues resolved. Patient also had anemia though to be related to endocarditis which improved. Thrombocytosis resolved. While hospitalized he developed a rash and left calf pain as well as left foot pain. Left foot pain was thought to be due to plantar fasciitis. It was thought that the patient had a developing herpes zoster rash to his leg and he was treated with a course of valacyclovir as well as prednisone. His rash and left calf pain as well as left foot pain all resolved. He additionally has chronic sciatica and had a flare-up which was improved with Toradol. Patient was on gentamicin until October 13 and currently remains on Rocephin until 11/09/16. Multiple repeat blood cultures through course of hospitalization show clearance of bacteremia. Prior to discharge patient's inflammatory markers had become within normal limits. He did have some prerenal azotemia which was worse, but that was likely due to steroid use and should improve. med spa manager was able to arrange for patient to stay in a motel and has spoken with infectious disease who was agreeable to patient completing antibiotics at outpatient infusion clinic. I spoke with ID, Dr. Smith, who approved patient to be discharged with [facility] in place. Pt Condition on Discharge: Stable Discharge Disposition: Discharge Home Discharge Time: <= 30 minutes Discharge Instructions DIET: Follow Instructions for: Heart Healthy Diet Activities you can perform: Regular-No Restrictions Follow up Referrals: Infectious Disease - 1 Week with Rossana Smith MD PCP Follow-up - 1 Week New Medications: Penicillin V Potassium (Penicillin V Potassium) 500 Mg Tab 500 MG PO BID Start after infusion therapy complete Infection #60 Ref 2 TAB Continued Medications: Fluoxetine (Prozac) 40 Mg Cap 40 MG PO DAILY #30 Ref 0 CAP Gabapentin (Gabapentin) 300 Mg Cap 300 MG PO TID #90 Ref 0 CAP Trazodone (Trazodone) 50 Mg Tab 50 MG PO HS Control Depression #30 Ref 0 TAB Discontinued Medications: Alprazolam (Alprazolam) 0.5 Mg Tab 0.5 MG PO Q6H PRN ANXIETY Ref 0 TAB Fluoxetine (Prozac) 40 Mg Cap 40 MG PO DAILY #30 Ref 0 CAP Fluoxetine (Prozac) 40 Mg Cap 40 MG PO DAILY #30 Ref 0 CAP Lisinopril (Lisinopril) 2.5 Mg Tab 2.5 MG PO DAILY #30 Ref 0 TAB Metoprolol Tartrate (Metoprolol Tartrate) 25 Mg Tab 25 MG PO DAILY #30 Ref 0 TAB Tramadol (Tramadol) 50 Mg Tab 50 MG PO Q8H PRN PAIN Ref 0 TAB Anjana Jara October 28, 2016 18:37 Katherine Boone MD October 31, 2016 18:56
[2016-11-01] MEDS ORDERED: ROCE1INJ3 IM (12:26)
[2016-11-05] MEDS ORDERED: GABA100C4 PO (09:30)
[2016-11-05] MEDS ORDERED: CEFT1INJ2 IV (09:30)
[2016-11-05] MEDS ORDERED: TRAZ300T2 PO (09:30)
== END 2016-10-28 15:29 | disposition home or self-care (01) | DRG 314 ==
LOC: NEPC 23:59 → NEDA 09-26 04:06 → HCIN 09-26 06:35 → HCIS 09-29 07:15 → N04A 09-30 15:37 → PH5A 10-07 01:20
PROVIDERS: ADMIT Hospitalist; ATTEND Hospitalist
PROC: B246ZZ4 Ultrasonography of Right and Left Heart, Transesophageal (ICD-10-PCS; principal; 2016-09-27)
PROC: 02HV33Z Insertion of Infusion Device into Superior Vena Cava, Percutaneous Approach (ICD-10-PCS; 2016-10-12)
DX: T82.6XXA Infection and inflammatory reaction due to cardiac valve prosthesis, initial encounter (principal); I33.0 Acute and subacute infective endocarditis; J18.9 Pneumonia, unspecified organism; J98.11 Atelectasis; N39.0 Urinary tract infection, site not specified; R74.8 Abnormal levels of other serum enzymes; E86.0 Dehydration; Z72.0 Tobacco use; R31.9 Hematuria, unspecified; F20.9 Schizophrenia, unspecified; F31.9 Bipolar disorder, unspecified; B19.20 Unspecified viral hepatitis C without hepatic coma; Y71.2 Prosthetic and other implants, materials and accessory cardiovascular devices associated with adverse incidents; Y92.9 Unspecified place or not applicable; R21 Rash and other nonspecific skin eruption; M72.2 Plantar fascial fibromatosis; B95.2 Enterococcus as the cause of diseases classified elsewhere; M54.30 Sciatica, unspecified side; D75.89 Other specified diseases of blood and blood-forming organs; D73.5 Infarction of spleen; L27.0 Generalized skin eruption due to drugs and medicaments taken internally; T36.0X5A Adverse effect of penicillins, initial encounter; Y92.239 Unspecified place in hospital as the place of occurrence of the external cause; B95.4 Other streptococcus as the cause of diseases classified elsewhere; F12.10 Cannabis abuse, uncomplicated; L50.9 Urticaria, unspecified; D64.9 Anemia, unspecified; Z59.0 Homelessness; R10.12 Left upper quadrant pain; T38.0X5A Adverse effect of glucocorticoids and synthetic analogues, initial encounter; Z23 Encounter for immunization
CPT/HCPCS: 36569; 71010; 71020; 71260; 73630; 74174; 74177; 76937; 80048; 80053; 80076; 80170; 80202; 80307; 81001; 82550; 82565; 82607; 82728; 82746; 83540; 83550; 83605; 83690; 83735; 84484; 85007; 85025; 85027; 85610; 85652; 86140; 87040; 87070; 87077; 87086; 87184; 87186; 87205; 90732; 93005; 93306; 93312; 93320; 93325; 93971; 94150; 96360; 96361; C9113; J0171; J0461; J0696; J1580; J1650; J1885; J2270; J2540; J2543; J2920; J3370; J7030; J7040; J7050; J7512; Q9967